=== PATIENT | female | born 1950 | race Caucasian/White ===

== ENCOUNTER 2018-09-22 11:30 | Inpatient (IN) | payer MEDICARE, OTHER ==
--- NOTE | 2018-09-22 11:57 | ED ---
General Adult HPI - General Chief complaint: Shortness of Breath Stated complaint: Sob Time Seen by Provider: 09/22/18 11:35 Source: patient, RN notes reviewed Mode of arrival: ambulatory Limitations: no limitations - History of Present Illness Initial comments: This is a 68-year-old female who presents emergency Department complaining of difficulty breathing. Patient states she has had ongoing for 2 weeks. Patient states she has had a bypass surgery in the past and was a 50 year smoker but no longer smokes. Patient states this difficulty breathing is definitely worse with lying down and worse with exertion. Patient states over the last 2 weeks and has increased and she is at the point now where she can barely breathe and walk a few steps. Patient states she's had intermittent chest pain but it's mostly sharp in nature only lasting a second or 2 when she was breathing hard. Patient denies any diaphoretic episodes. Patient denies any abdominal pain. Patient denies nausea vomiting diarrhea. Patient denies any recent fever chills or cough. Patient did go to her primary medical care doctor's office today and they sent her to the emergency department. Denies any increased swelling in the legs or calf tenderness. - Related Data Home Medications Medication Instructions Recorded Confirmed Amiodarone [Cordarone] 200 mg PO DAILY 09/22/18 09/22/18 Atorvastatin [Lipitor] 40 mg PO DAILY 09/22/18 09/22/18 Clopidogrel [Plavix] 75 mg PO DAILY 09/22/18 09/22/18 Ferrous Sulfate [Feosol] 325 mg PO DAILY 09/22/18 09/22/18 Furosemide [Lasix] 40 mg PO DAILY 09/22/18 09/22/18 Levothyroxine Sodium [Synthroid] 150 mcg PO DAILY 09/22/18 09/22/18 Metoprolol Succinate (ER) [Toprol 25 mg PO DAILY 09/22/18 09/22/18 Xl] Nitrofurantoin Monohyd/M-Cryst 100 mg PO Q12HR 09/22/18 09/22/18 [Macrobid] Omeprazole 40 mg PO DAILY 09/22/18 09/22/18 Potassium Chloride [Klor-Con 10] 10 meq PO DAILY 09/22/18 09/22/18 Allergies Allergy/AdvReac Type Severity Reaction Status Date / Time adhesive tape AdvReac Rash/Hives Verified 09/22/18 12:14 hydrocodone [From Lortab] AdvReac Itching Verified 09/22/18 12:14 Review of Systems ROS Statement: Those systems with pertinent positive or pertinent negative responses have been documented in the HPI. ROS Other: All systems not noted in ROS Statement are negative. Past Medical History Past Medical History: COPD, Hypertension, Pneumonia, Thyroid Disorder History of Any Multi-Drug Resistant Organisms: None Reported Past Surgical History: Appendectomy, Section, Coronary Bypass/CABG, Joint Replacement, Orthopedic Surgery, Tubal Ligation Past Psychological History: No Psychological Hx Reported Smoking Status: Former smoker Past Alcohol Use History: None Reported Past Drug Use History: None Reported General Exam - General Exam Comments Initial Comments: GENERAL: Patient is well-developed and well-nourished. Patient is nontoxic and well- hydrated and is in mild distress. ENT: Neck is soft and supple. No significant lymphadenopathy is noted. Oropharynx is clear. Moist mucous membranes. Neck has full range of motion without eliciting any pain. EYES: The sclera were anicteric and conjunctiva were pink and moist. Extraocular movements were intact and pupils were equal round and reactive to light. Eyelids were unremarkable. PULMONARY: Patient has crackles bilateral bases. CARDIOVASCULAR: There is a regular rate and rhythm without any murmurs gallops or rubs. ABDOMEN: Soft and nontender with normal bowel sounds. No palpable organomegaly was noted. There is no palpable pulsatile mass. SKIN: Skin is clear with no lesions or rashes and otherwise unremarkable. NEUROLOGIC: Patient is alert and oriented x3. Cranial nerves II through XII are grossly intact. Motor and sensory are also intact. Normal speech, volume and content. Symmetrical smile. MUSCULOSKELETAL: Normal extremities with adequate strength and full range of motion. She has 1+ edema bilateral legs LYMPHATICS: No significant lymphadenopathy is noted PSYCHIATRIC: Normal psychiatric evaluation. Limitations: no limitations Course Vital Signs 09/22/18 09/22/18 09/22/18 11:34 12:11 13:08 Temperature 97.6 F Pulse Rate 64 62 60 Respiratory 22 22 20 Rate Blood Pressure 134/56 125/65 128/68 O2 Sat by Pulse 98 96 Oximetry 09/22/18 14:45 Temperature Pulse Rate 59 L Respiratory 20 Rate Blood Pressure 125/71 O2 Sat by Pulse 96 Oximetry Medical Decision Making - Medical Decision Making EKG shows normal sinus rhythm at 63 bpm MS interval 116 QRS 106 QT intervals is 528 QTC is 540. Patient's EKG shows some minimal ST segment elevation in inferior leads II, III, and F aVF along with Q waves in 2 and aVF. Patient also has T-wave inversion in leads V4 V5 and V6. Patient currently is having no chest pain Acute as a low probability for PE. Chest x-ray shows pulmonary edema. I started the patient Lasix and Nitropaste in the emergency pertinent. I called sounds physician and he agreed to admit the patient admitted the patient I wrote admitting orders. - Lab Data Result diagrams: 09/22/18 12:00 09/22/18 12:00 Lab Results 09/22/18 09/22/18 09/22/18 Range/Units 12:00 12:00 12:00 WBC 10.3 (3.8-10.6) k/uL RBC 3.71 L (3.80-5.40) m/uL Hgb 11.3 L (11.4-16.0) gm/dL Hct 36.4 (34.0-46.0) % MCV 98.1 (80.0-100.0) fL MCH 30.5 (25.0-35.0) pg MCHC 31.1 (31.0-37.0) g/dL RDW 16.8 H (11.5-15.5) % Plt Count 316 (150-450) k/uL Neutrophils % 62 % Lymphocytes % 27 % Monocytes % 7 % Eosinophils % 2 % Basophils % 0 % Neutrophils # 6.4 (1.3-7.7) k/uL Lymphocytes # 2.8 (1.0-4.8) k/uL Monocytes # 0.8 (0-1.0) k/uL Eosinophils # 0.2 (0-0.7) k/uL Basophils # 0.0 (0-0.2) k/uL Hypochromasia Moderate Anisocytosis Slight Macrocytosis Slight PT (9.0-12.0) sec INR (<1.2) APTT (22.0-30.0) sec D-Dimer (<0.60) mg/L FEU Sodium 141 (137-145) mmol/L Potassium 4.1 (3.5-5.1) mmol/L Chloride 105 (98-107) mmol/L Carbon Dioxide 23 (22-30) mmol/L Anion Gap 13 mmol/L BUN 26 H (7-17) mg/dL Creatinine 1.57 H (0.52-1.04) mg/dL Est GFR (CKD-EPI)AfAm 39 (>60 ml/min/1.73 sqM) Est GFR (CKD-EPI)NonAf 33 (>60 ml/min/1.73 sqM) Glucose 120 H (74-99) mg/dL Calcium 9.5 (8.4-10.2) mg/dL Magnesium 2.0 (1.6-2.3) mg/dL Total Bilirubin 1.0 (0.2-1.3) mg/dL AST 32 (14-36) U/L ALT 34 (9-52) U/L Alkaline Phosphatase 140 H (38-126) U/L Total Creatine Kinase 32 (30-135) U/L CK-MB (CK-2) 0.8 (0.0-2.4) ng/mL CK-MB (CK-2) Rel Index 2.5 Troponin I 0.041 H* (0.000-0.034) ng/mL NT-Pro-B Natriuret Pep pg/mL Total Protein 7.8 (6.3-8.2) g/dL Albumin 3.9 (3.5-5.0) g/dL 09/22/18 09/22/18 Range/Units 12:00 12:00 WBC (3.8-10.6) k/uL RBC (3.80-5.40) m/uL Hgb (11.4-16.0) gm/dL Hct (34.0-46.0) % MCV (80.0-100.0) fL MCH (25.0-35.0) pg MCHC (31.0-37.0) g/dL RDW (11.5-15.5) % Plt Count (150-450) k/uL Neutrophils % % Lymphocytes % % Monocytes % % Eosinophils % % Basophils % % Neutrophils # (1.3-7.7) k/uL Lymphocytes # (1.0-4.8) k/uL Monocytes # (0-1.0) k/uL Eosinophils # (0-0.7) k/uL Basophils # (0-0.2) k/uL Hypochromasia Anisocytosis Macrocytosis PT 11.5 (9.0-12.0) sec INR 1.1 (<1.2) APTT 24.4 (22.0-30.0) sec D-Dimer 3.96 H (<0.60) mg/L FEU Sodium (137-145) mmol/L Potassium (3.5-5.1) mmol/L Chloride (98-107) mmol/L Carbon Dioxide (22-30) mmol/L Anion Gap mmol/L BUN (7-17) mg/dL Creatinine (0.52-1.04) mg/dL Est GFR (CKD-EPI)AfAm (>60 ml/min/1.73 sqM) Est GFR (CKD-EPI)NonAf (>60 ml/min/1.73 sqM) Glucose (74-99) mg/dL Calcium (8.4-10.2) mg/dL Magnesium (1.6-2.3) mg/dL Total Bilirubin (0.2-1.3) mg/dL AST (14-36) U/L ALT (9-52) U/L Alkaline Phosphatase (38-126) U/L Total Creatine Kinase (30-135) U/L CK-MB (CK-2) (0.0-2.4) ng/mL CK-MB (CK-2) Rel Index Troponin I (0.000-0.034) ng/mL NT-Pro-B Natriuret Pep 80133 pg/mL Total Protein (6.3-8.2) g/dL Albumin (3.5-5.0) g/dL Critical Care Time Critical Care Time: Yes Total Critical Care Time: 35 Disposition Clinical Impression: Acute pulmonary edema Disposition: ADMITTED IP TO THIS HOSP Is patient prescribed a controlled substance at d/c from ED?: No Referrals: Shaji Arvizu MD [Primary Care Provider] - 1-2 days Time of Disposition: 15:46
[2018-09-22] MEDS ORDERED: KETOROLAC 60 MG/2 ML VIAL IVP STA (12:21)
[2018-09-22 12:26] LABS: Anisocytosis Slight; Basophils % (A) 0 %; Eosinophils # (A) 0.2 k/uL (0-0.7); Eosinophils % (A) 2 %; HCT 36.4 % (34.0-46.0); HGB 11.3 gm/dL (11.4-16.0); Hypochromasia Moderate; Lymphocytes # (A) 2.8 k/uL (1.0-4.8); Lymphocytes % (A) 27 %; MCH 30.5 pg (25.0-35.0); MCHC 31.1 g/dL (31.0-37.0); MCV 98.1 fL (80.0-100.0); Macrocytosis Slight; Mean Platelet Volume 7.2; Monocytes # (A) 0.8 k/uL (0-1.0); Monocytes % (A) 7 %; Neutrophils # (A) 6.4 k/uL (1.3-7.7); Neutrophils % (A) 62 %; Platelet Count 316 k/uL (150-450); RBC 3.71 m/uL (3.80-5.40); RDW 16.8 % (11.5-15.5); WBC 10.3 k/uL (3.8-10.6)
[2018-09-22 12:35] LABS: Albumin 3.9 g/dL (3.5-5.0); Calcium 9.5 mg/dL (8.4-10.2); Potassium 4.1 mmol/L (3.5-5.1); Total Protein 7.8 g/dL (6.3-8.2)
[2018-09-22 12:45] LABS: INR 1.1 (<1.2); Partial Thromboplastin Time 24.4 sec (22.0-30.0); Prothrombin Time 11.5 sec (9.0-12.0)
[2018-09-22 12:50] LABS: D-Dimer 3.96 mg/L FEU (<0.60)
[2018-09-22 12:59] LABS: Creatine Kinase MB 0.8 ng/mL (0.0-2.4)
[2018-09-22 13:07] LABS: Troponin I 0.041 ng/mL (0.000-0.034)
--- NOTE | 2018-09-22 13:12 | XR ---
EXAMINATION TYPE: XR chest 2V DATE OF EXAM: 09/22/2018 COMPARISON: Chest x-ray April 05, 2010 HISTORY: History of COPD and hypertension with shortness of breath. TECHNIQUE: Frontal and lateral views of the chest are obtained. FINDINGS: New overlying sternal wires are present on current study. The cardiac silhouette size appe ars mildly enlarged with atherosclerotic thoracic aorta. New tiny bilateral pleural effusions and mi ld central vascular congestion is felt present. There is additional patchy left basilar opacity. The osseous structures are demineralized. IMPRESSION: Correlate for CHF exacerbation as there is now mild cardiomegaly with tiny bilateral ple ural effusions and mild central vascular congestion felt present. In addition there is associated lef t basilar atelectasis and/or infiltrate noted.
[2018-09-22] MEDS ORDERED: FUROSEMIDE 10 MG/ML 4 ML VIAL IV STA (13:27)
[2018-09-22] MEDS ORDERED: NITROGLYCERIN OINT 1 INCH/GM PACKET TOPICAL STA (13:27)
--- NOTE | 2018-09-22 14:39 | NM ---
EXAMINATION TYPE: NM pul vent and perfuse DATE OF EXAM: 09/22/2018 COMPARISON: Chest x-ray 09/22/2018 HISTORY: Dyspnea with elevated d-dimer TECHNIQUE: Utilizing inhalation of 38 mCi Tc 99m DTPA aerosol and intravenous injection of 5.15 mCi of Tc 99m MAA, ventilation and perfusion images are acquired post injection in multiple projections. FINDINGS: Normal radiotracer distribution is noted in the lungs. There is no evidence of mismatched defects. No moderate or large mismatched defects are evident. No triple matched defects are evident. IMPRESSION: Low probability for pulmonary embolism.
[2018-09-22] MEDS ORDERED: NALOXONE 0.4 MG/ML 1 ML VIAL IV PRN (16:19)
[2018-09-22] MEDS ORDERED: ACETAMINOPHEN TAB 325 MG TAB PO PRN (16:19)
[2018-09-22] MEDS ORDERED: HYDROcodone/APAP 5-325MG 1 EACH TAB PO PRN (16:19)
--- NOTE | 2018-09-22 16:48 | P.HPIM ---
History of Present Illness H&P Date: 09/22/18 Chief Complaint: Shortness of breath 68-year-old female with past medical history of [place] s/p CABG in July, anemia, hypothyroidism, GERD presents to the ED for shortness of breath. Patient states that this problem has been ongoing for the past 1-1/2 weeks and has been progressively getting worse. Her dyspnea is worsened with exertion. She reports worsening of her exercise tolerance and two-pillow orthopnea. Patient states that her shortness of breath has gotten so bad that she is unable to walk from one side to the other side of her bedroom. This prompted her to visit her PCP today who promptly sent her to the emergency department. Patient denies any lower extremity edema, headache, nausea, vomiting, fever, cough, chest pain, palpitations, changes in urination or bowel habits. No changes in appetite or weight. Of note, patient had an [place] in July 2018 underwent double CABG at [facility]. Patient reports a 50 year history of smoking 6-7 cigarettes daily. She denies any alcohol or illicit drugs. She denies any exertional chest pain. She denies any dizziness. She denies any numbness, weakness or tingling of the extremities. In the ED, CBC showed a hemoglobin 11.3. Coagulation panel was negative. CMP showed a BUN of 26 and creatinine of 1.57. Glucose was 120. Alkaline phosphatase is 140. D-dimer was elevated at 3.96, VQ scan ruled out PE. Initial troponin was 0.041, EKG showing normal sinus rhythm with sinus arrhythmia. BNP was 15,300 and chest x-rays confirmed findings of CHF exacerbation with tiny bilateral pleural effusions and central vascular congestion. Patient is admitted for new onset CHF exacerbation, cardiology on consult. Review of Systems All systems: negative Past Medical History Past Medical History: COPD, Hypertension, Pneumonia, Thyroid Disorder History of Any Multi-Drug Resistant Organisms: None Reported Past Surgical History: Appendectomy, Section, Coronary Bypass/CABG, Joint Replacement, Orthopedic Surgery, Tubal Ligation Past Psychological History: No Psychological Hx Reported Smoking Status: Former smoker Past Alcohol Use History: None Reported Past Drug Use History: None Reported Medications and Allergies Home Medications Medication Instructions Recorded Confirmed Type Amiodarone [Cordarone] 200 mg PO DAILY 09/22/18 09/22/18 History Atorvastatin [Lipitor] 40 mg PO DAILY 09/22/18 09/22/18 History Clopidogrel [Plavix] 75 mg PO DAILY 09/22/18 09/22/18 History Ferrous Sulfate [Feosol] 325 mg PO DAILY 09/22/18 09/22/18 History Furosemide [Lasix] 40 mg PO DAILY 09/22/18 09/22/18 History Levothyroxine Sodium [Synthroid] 150 mcg PO DAILY 09/22/18 09/22/18 History Metoprolol Succinate (ER) [Toprol 25 mg PO DAILY 09/22/18 09/22/18 History Xl] Nitrofurantoin Monohyd/M-Cryst 100 mg PO Q12HR 09/22/18 09/22/18 History [Macrobid] Omeprazole 40 mg PO DAILY 09/22/18 09/22/18 History Potassium Chloride [Klor-Con 10] 10 meq PO DAILY 09/22/18 09/22/18 History Allergies Allergy/AdvReac Type Severity Reaction Status Date / Time adhesive tape AdvReac Rash/Hives Verified 09/22/18 12:14 hydrocodone [From Lortab] AdvReac Itching Verified 09/22/18 12:14 Physical Exam Vitals: Vital Signs Temp Pulse Resp BP Pulse Ox 09/22/18 14:45 59 L 20 125/71 96 09/22/18 13:08 60 20 128/68 09/22/18 12:11 62 22 125/65 96 09/22/18 11:34 97.6 F 64 22 134/56 98 Intake and Output 09/22/18 09/22/18 09/22/18 06:59 14:59 22:59 Output Total 300 Balance -300 Output: Urine 300 Other: Weight 76.204 kg General: [non toxic], [no distress], [appears at stated age] Derm: [warm], [dry] Head: [atraumatic], [normocephalic], [symmetric] Eyes: [EOMI], [no lid lag], [anicteric sclera] Mouth: [no lip lesion], [mucus membranes moist] Cardiovascular: [S1S2 reg], [no murmur], [positive DP pulse bilateral], [ midline sternal scar] Lungs: [Decreased breath sounds bilateral], [no rhonchi, no rales] , [no accessory muscle use] Abdominal: [soft], [ nontender to palpation], [no guarding], [no appreciable organomegaly] Ext: [no gross muscle atrophy], [no edema], [no contractures] Neuro: [ CN II-XI grossly intact], [no focal neuro deficits] Psych: [Alert], [oriented], [appropriate affect] Results CBC & Chem 7: 09/22/18 12:00 09/22/18 12:00 Labs: Abnormal Lab Results - Last 24 Hours (Table) 09/22/18 09/22/18 09/22/18 Range/Units 12:00 12:00 12:00 RBC 3.71 L (3.80-5.40) m/uL Hgb 11.3 L (11.4-16.0) gm/dL RDW 16.8 H (11.5-15.5) % D-Dimer (<0.60) mg/L FEU BUN 26 H (7-17) mg/dL Creatinine 1.57 H (0.52-1.04) mg/dL Glucose 120 H (74-99) mg/dL Alkaline Phosphatase 140 H (38-126) U/L Troponin I 0.041 H* (0.000-0.034) ng/mL 09/22/18 Range/Units 12:00 RBC (3.80-5.40) m/uL Hgb (11.4-16.0) gm/dL RDW (11.5-15.5) % D-Dimer 3.96 H (<0.60) mg/L FEU BUN (7-17) mg/dL Creatinine (0.52-1.04) mg/dL Glucose (74-99) mg/dL Alkaline Phosphatase (38-126) U/L Troponin I (0.000-0.034) ng/mL Thrombosis Risk Factor Assmnt - Choose All That Apply Any of the Below Risk Factors Present?: No Other Risk Factors: Yes Each Risk Factor Represents 2 Points: Age 61-74 years Thrombosis Risk Factor Assessment Total Risk Factor Score: 2 Thrombosis Risk Factor Assessment Level: Low Risk Assessment and Plan Assessment: Assessment and Plan 1. CHF exacerbation: BNP 15,300 with CXR confirming bilateral pleural effusions with central congestion. D-Dimer elevated but V/Q scan ruled out PE. Start Lasix 40 mg IV TID. Will start Metoprolol 25 mg PO QD and Lisinopril 2.5 mg PO QD. Telemetry monitoring. Ins and Outs. Daily weights. Low salt diet. Keep Mg > 2 and K > 4. O2 per NC to maintain O2 sat > 92%. FU Echocardiogram, Cardiology consult 2. Troponemia: Troponin 0.041 with EKG showing sinus arrhythmia. Likely Trop leak from CHF exacerbation. Trend 2 Trop/EKG to r/o ACS. FU Cardiology, Echocardiogram 3. CAD: Continue Lipitor 40 mg PO QHS, ASA 81 mg PO QD and Plavix 75 mg PO QD. Continue Metoprolol. FU Cardiology, Echocardiogram, Lipid panel 4. Elevated Cr: Cr 1.57 with no baseline. Likely on CKD. Avoid IVF due to volume status. Encourage PO hydration. Avoid nephrotoxins. Daily BMP. 5. Anemia: Stable. Continue FeSO4 325 mg PO QD. 6. Hypothyroidism: Stable. Continue Synthroid 150 mcg PO QD. 7. DVT/GI Prophylaxis: SCD boots only. Patient is admitted for CHF exacerbation. Treating with IV diuresis. Cardiology on consult.
[2018-09-22] MEDS: NITROGLYCERIN OINT 1 INCH/GM PACKET TOPICAL SCH ×2 (19:36→19:48)
[2018-09-22] MEDS: FUROSEMIDE 10 MG/ML 4 ML VIAL IV SCH (19:49)
[2018-09-22 21:22] LABS: Glucose,Whole Blood 129 mg/dL (75-99)
[2018-09-23] MEDS: MELATONIN 3 MG TABLET PO PRN ×2 (00:22→22:37)
[2018-09-23 06:12] LABS: Glucose,Whole Blood 120 mg/dL (75-99)
[2018-09-23] MEDS: LEVOTHYROXINE 75 MCG TAB PO SCH (06:44)
[2018-09-23] MEDS: PANTOPRAZOLE 40 MG TABLET PO SCH (06:45)
[2018-09-23] MEDS: FUROSEMIDE 10 MG/ML 4 ML VIAL IV SCH ×3 (06:45→20:14)
[2018-09-23 07:10] LABS: Potassium 3.8 mmol/L (3.5-5.1)
[2018-09-23] MEDS: METOPROLOL SUCCINATE (ER) 25 MG TAB.ER.24H PO SCH (08:33)
[2018-09-23] MEDS: CLOPIDOGREL 75 MG TAB PO SCH (08:33)
[2018-09-23] MEDS: ATORVASTATIN 40 MG TAB PO SCH (08:34)
[2018-09-23] MEDS: ASPIRIN 81 MG PO SCH (08:34)
[2018-09-23] MEDS: FERROUS SULFATE 325 MG TAB PO SCH (08:34)
[2018-09-23] MEDS: NITROGLYCERIN OINT 1 INCH/GM PACKET TOPICAL SCH ×2 (08:36→12:06)
[2018-09-23] MEDS ORDERED: AMIODARONE 200 MG TAB PO SCH (09:00)
[2018-09-23] MEDS ORDERED: LISINOPRIL 2.5 MG TAB PO SCH (09:00)
[2018-09-23 12:04] LABS: Glucose,Whole Blood 87 mg/dL (75-99)
--- NOTE | 2018-09-23 12:11 | P.PN ---
Subjective Progress Note Date: 09/23/18 Principal diagnosis: CHF exacerbation Patient was seen and examined. No acute events overnight. Patient reports slight improvement in her breathing. She continues to complain of dyspnea especially when ambulating to the bathroom. She denies chest pain, dizziness or palpitations. Patient requesting UA to see if UTI is cleared from her system ( previously treated). Objective - Vital Signs Vital signs: Vital Signs Temp 97.6 F 09/23/18 11:36 Pulse 63 09/23/18 11:36 Resp 20 09/23/18 11:36 BP 106/61 09/23/18 11:36 Pulse Ox 97 09/23/18 11:36 Intake & Output 09/22/18 09/23/18 09/23/18 18:59 06:59 18:59 Intake Total 240 Output Total 550 1450 Balance -550 -1450 240 Weight 75.659 kg 75.1 kg Intake: Oral 240 Output: Urine 550 1450 Other: Voiding Method Toilet - Exam General: [non toxic], [no distress], [appears at stated age] Derm: [warm], [dry] Head: [atraumatic], [normocephalic], [symmetric] Eyes: [EOMI], [no lid lag], [anicteric sclera] Mouth: [no lip lesion], [mucus membranes moist] Cardiovascular: [S1S2 reg], [no murmur], [positive DP pulse bilateral], [ midline sternal scar] Lungs: [Decreased breath sounds bilateral], [no rhonchi, no rales] , [no accessory muscle use] Abdominal: [soft], [ nontender to palpation], [no guarding], [no appreciable organomegaly] Ext: [no gross muscle atrophy], [no edema], [no contractures] Neuro: [no focal neuro deficits] Psych: [Alert], [oriented], [appropriate affect] - Labs CBC & Chem 7: 09/22/18 12:00 09/23/18 06:00 Labs: Abnormal Lab Results - Last 24 Hours (Table) 09/22/18 09/22/18 09/22/18 Range/Units 12:00 12:00 12:00 RBC 3.71 L (3.80-5.40) m/uL Hgb 11.3 L (11.4-16.0) gm/dL RDW 16.8 H (11.5-15.5) % D-Dimer (<0.60) mg/L FEU Chloride (98-107) mmol/L BUN 26 H (7-17) mg/dL Creatinine 1.57 H (0.52-1.04) mg/dL Glucose 120 H (74-99) mg/dL POC Glucose (mg/dL) (75-99) mg/dL Alkaline Phosphatase 140 H (38-126) U/L Troponin I 0.041 H* (0.000-0.034) ng/mL 09/22/18 09/22/18 09/23/18 Range/Units 12:00 21:20 06:00 RBC (3.80-5.40) m/uL Hgb (11.4-16.0) gm/dL RDW (11.5-15.5) % D-Dimer 3.96 H (<0.60) mg/L FEU Chloride 110 H (98-107) mmol/L BUN 28 H (7-17) mg/dL Creatinine 1.70 H (0.52-1.04) mg/dL Glucose 124 H (74-99) mg/dL POC Glucose (mg/dL) 129 H (75-99) mg/dL Alkaline Phosphatase (38-126) U/L Troponin I (0.000-0.034) ng/mL 09/23/18 Range/Units 06:10 RBC (3.80-5.40) m/uL Hgb (11.4-16.0) gm/dL RDW (11.5-15.5) % D-Dimer (<0.60) mg/L FEU Chloride (98-107) mmol/L BUN (7-17) mg/dL Creatinine (0.52-1.04) mg/dL Glucose (74-99) mg/dL POC Glucose (mg/dL) 120 H (75-99) mg/dL Alkaline Phosphatase (38-126) U/L Troponin I (0.000-0.034) ng/mL Assessment and Plan Assessment: Assessment and Plan 1. CHF exacerbation: BNP 15,300 with CXR confirming bilateral pleural effusions with central congestion. D-Dimer elevated but V/Q scan ruled out PE. Start Lasix 40 mg IV TID. Will start Metoprolol 25 mg PO QD and Lisinopril 2.5 mg PO QD. Telemetry monitoring. Ins and Outs. Daily weights. Low salt diet. Keep Mg > 2 and K > 4. O2 per NC to maintain O2 sat > 92%. FU Echocardiogram, Cardiology consult 2. Troponemia: Troponin 0.041 with EKG showing sinus arrhythmia. Likely Trop leak from CHF exacerbation. Trend 2 Trop/EKG to r/o ACS. FU Cardiology, Echocardiogram 3. CAD: Continue Lipitor 40 mg PO QHS, ASA 81 mg PO QD and Plavix 75 mg PO QD. Continue Metoprolol. FU Cardiology, Echocardiogram, Lipid panel 4. Elevated Cr: Cr 1.57 to 1.70 with no baseline. Likely on CKD, worsened due to Lasix. Avoid IVF due to volume status. Encourage PO hydration. Avoid nephrotoxins. Daily BMP. 5. Anemia: Stable. Continue FeSO4 325 mg PO QD. 6. Hypothyroidism: Stable. Continue Synthroid 150 mcg PO QD. 7. DVT/GI Prophylaxis: SCD boots only. Patient is admitted for CHF exacerbation. Treating with IV diuresis. Cardiology consult pending.
--- NOTE | 2018-09-23 13:01 | ECHOF ---
Referral Reason:SOB, CHF MEASUREMENTS -------- HEIGHT: 170.2 cm WEIGHT: 75.3 kg BP: 128/67 RVIDd: 4.2 cm (< 3.3) IVSd: 1.0 cm (0.6 - 1.1) LVIDd: 5.1 cm (3.9 - 5.3) LVPWd: 1.1 cm (0.6 - 1.1) IVSs: 1.2 cm LVIDs: 5.2 cm LVPWs: 1.4 cm LA Diam: 4.9 cm (2.7 - 3.8) LAESV Index (A-L): 58.21 ml/m Ao Diam: 3.0 cm (2.0 - 3.7) AV Cusp: 1.6 cm (1.5 - 2.6) MV EXCURSION: 15.618 mm (> 18.000) MV EF SLOPE: 99 mm/s (70 - 150) EPSS: 0.4 cm MV E Cipriano: 0.96 m/s MV DecT: 238 ms MV A Cipriano: 0.36 m/s MV E/A Ratio: 2.65 RAP: 15.00 mmHg RVSP: 47.19 mmHg FINDINGS -------- Sinus rhythm. This was a technically adequate study. Left ventricular wall thickness is normal. Overall left ventricular systolic function is moderate-s everely impaired with, an EF between 30 - 35 %. Basal inferior LV wall motion is akinetic. Basal inferoseptal LV wall motion is akinetic. Mid inferior LV wall motion is akinetic. Mid inferose ptal LV wall motion is akinetic. The right ventricle is severely enlarged. LA is severely dilated >40 ml/m2 The right atrial size is normal. The aortic valve is trileaflet, and appears structurally normal. No aortic stenosis or regurgitation. Mild mitral annular calcification present. Moderate mitral regurgitation is present. Moderate to severe tricuspid regurgitation present. There is moderate pulmonary hypertension. The right ventricular systolic pressure, as measured by Doppler, is 47.19mmHg. There is no pulmonic regurgitation present. The aortic root size is normal. The inferior vena cava is mildly dilated. There is no pericardial effusion. CONCLUSIONS -------- 1. Sinus rhythm. 2. Left ventricular wall thickness is normal. 3. Overall left ventricular systolic function is moderate-severely impaired with, an EF between 30 - 35 %. 4. Basal inferior LV wall motion is akinetic. 5. Basal inferoseptal LV wall motion is akinetic. 6. Mid inferior LV wall motion is akinetic. 7. Mid inferoseptal LV wall motion is akinetic. 8. The right ventricle is severely enlarged. 9. LA is severely dilated >40 ml/m2 10. The aortic valve is trileaflet, and appears structurally normal. No aortic stenosis or regurgitat ion. 11. Mild mitral annular calcification present. 12. Moderate mitral regurgitation is present. 13. Moderate to severe tricuspid regurgitation present. 14. There is moderate pulmonary hypertension. 15. There is no pulmonic regurgitation present. 16. The aortic root size is normal. 17. The inferior vena cava is mildly dilated. 18. There is no pericardial effusion. BLACK LEATHER BUFFER: Kelly Leavitt RDCS
[2018-09-23 13:37] LABS: Creatine Kinase MB 0.8 ng/mL (0.0-2.4); Troponin I 0.029 ng/mL (0.000-0.034)
[2018-09-23 15:06] LABS: Appearance,Urine Clear (Clear); Bacteria,Urine Rare /hpf; Bilirubin,Urine Negative (Negative); Blood,Urine Negative (Negative); Color,Urine Yellow; Glucose,Urine (UA) Negative (Negative); Ketones,Urine Negative (Negative); Leukocyte Esterase,Urine Moderate (Negative); Mucus,Urine Rare /hpf; Nitrite,Urine Negative (Negative); Protein,Urine Negative (Negative); RBC,Urine 1 /hpf (0-5); Specific Gravity,Urine 1.008 (1.001-1.035); Squamous Epithelial Cell,Urine 1 /hpf (0-4); Urobilinogen,Urine <2.0 mg/dL (<2.0)
[2018-09-23 17:01] LABS: Glucose,Whole Blood 115 mg/dL (75-99)
--- NOTE | 2018-09-23 21:05 | CONS ---
CONSULTATION This is a 68-year-old lady who has a history of CAD, recent myocardial infarction sometime in July of this year, followed by aortocoronary bypass surgery performed at [facility], who has been admitted to the hospital through the emergency room with increasing shortness of breath that has been going on for the past 2 weeks. She indicates to me that she was having difficulty in breathing initially with activity and thereafter even at rest. It got progressively worse to the point she could not breathe and had sharp intermittent pains in the chest which seemed to be atypical. She went to her primary care physician's office and then they sent her over to the emergency room. At the time of my evaluation, she is still short of breath, but indicates to me that she feels a lot better than what she did before. 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 PAST MEDICAL HISTORY: 1. Smoking and COPD. She quit smoking in July after her SD. 2. Acute myocardial infarction followed by bypass surgery in July, details unavailable. 3. Hypertension. 4. History of hypothyroidism. 5. She is status post orthopedic surgery and also had some appendectomy. MEDICATIONS: At home include amiodarone 200 mg daily, atorvastatin 40 mg daily, Plavix 75 mg daily, aspirin 81 mg daily, Lasix 40 mg daily, she also takes some iron supplements. She takes metoprolol succinate 25 mg daily. ALLERGIES: She is allergic to LORTAB. LABORATORY DATA: Her laboratory data suggests that her D-dimer was elevated. Her hemoglobin was 11.3, platelet count was 316. Her renal function is abnormal with a creatinine of 1.5 up to 1.7. Her initial troponin was 0.04 and then changed to 0.2. Because of elevated D-dimer, she went down to have a lung perfusion study which revealed that there was a low probability for pulmonary embolism. On examination, her blood pressure is 110/70, pulse rate is 68 per minute and regular. HEENT unremarkable. Fundus was not examined by me. Neck is supple. There is JVD of at least 1 cm. There is no carotid bruit. Heart exam reveals S1, S2 heard normally. There is a short systolic murmur audible. Lungs reveal fine rales over both bases. Abdomen is soft, nontender. Lower extremities reveal diminished pulses. Central nervous system is grossly within normal limits. EKG revealed a sinus mechanism with sinus arrhythmia, nonspecific ST changes, poor R- wave progression over precordial leads. An echocardiogram that was performed earlier today revealed a ejection fraction of 30- 35 percent with extensive inferior wall hypokinesia and mild to moderate pulmonary hypertension. There is moderate mitral and moderate to severe tricuspid regurgitation noted. IMPRESSION: 1. Exacerbation of systolic heart failure, probably acute on chronic. Patient's chest x-ray suggests pulmonary edema and elevated BNP is noted. 2. Acute myocardial infarction followed by bypass surgery in July, details are unavailable. 3. History of anemia on iron supplements. 4. Hypothyroidism on thyroid supplements. 5. Chronic kidney disease. 6. History of smoking and chronic obstructive pulmonary disease. 7. Probable perioperative atrial fibrillation. RECOMMENDATIONS: I will recommend that we discontinue her amiodarone. We will continue cautious diuresis for now. I will add losartan 25 mg daily. I will obtain the and review the records from [facility]. Based on clinical course I will make further recommendations. I will start her on losartan 25 mg daily, discontinue lisinopril, add Imdur 30 mg daily, discontinue nitro paste. The patient may need a defibrillator down the road and I discussed this with her at length, but first we will optimize her medical therapy and see how she does. Her troponin profile does not suggest myocardial injury. Discussed my thoughts in detail with the patient and . Thank you very much for the consult. [place] / ELLAN: [id number] /
[2018-09-23 21:13] LABS: Glucose,Whole Blood 166 mg/dL (75-99)
[2018-09-24] MEDS: LEVOTHYROXINE 75 MCG TAB PO SCH (05:48)
[2018-09-24] MEDS: FUROSEMIDE 10 MG/ML 4 ML VIAL IV SCH (05:48)
[2018-09-24] MEDS: PANTOPRAZOLE 40 MG TABLET PO SCH (05:48)
[2018-09-24 05:49] LABS: Glucose,Whole Blood 118 mg/dL (75-99)
[2018-09-24 08:07] LABS: Potassium 3.4 mmol/L (3.5-5.1)
[2018-09-24] MEDS: ISOSORBIDE MONONITRATE ER 30 MG TAB.ER.24H PO SCH (08:27)
[2018-09-24] MEDS: ASPIRIN 81 MG PO SCH (08:27)
[2018-09-24] MEDS: METOPROLOL SUCCINATE (ER) 25 MG TAB.ER.24H PO SCH (08:27)
[2018-09-24] MEDS: ATORVASTATIN 40 MG TAB PO SCH (08:27)
[2018-09-24] MEDS: FERROUS SULFATE 325 MG TAB PO SCH (08:28)
[2018-09-24] MEDS: CLOPIDOGREL 75 MG TAB PO SCH (08:28)
[2018-09-24] MEDS: LOSARTAN 25 MG TAB PO SCH (08:28)
[2018-09-24 11:31] LABS: Glucose,Whole Blood 158 mg/dL (75-99)
[2018-09-24] MEDS: POTASSIUM CHLORIDE ER 20 MEQ TAB.ER PO SCH (12:08)
[2018-09-24 14:20] VITALS: BMI 26.0
[2018-09-24] MEDS: FUROSEMIDE 40 MG TAB PO SCH (16:09)
--- NOTE | 2018-09-24 18:38 | PN ---
PROGRESS NOTE Mrs Narayanan is a lady who presented with congestive heart failure of systolic following a myocardial infarction in July and bypass surgery. She is feeling much better today. Breathing is easier. She is less short of breath. Lungs are clear. Vital signs are stable. There is no JVD. S1-S2 heard normally. Short systolic murmur is audible. Lungs are clear. Abdomen and lower extremity exam unchanged. Plan is to switch her from IV to oral Lasix, supplement potassium, increase activity. Plan for discharge tomorrow. We have requested records from [facility] and they are still not available yet. Hopefully we will get them sometime today. MMODL / IJN: [id number] /
[2018-09-24] MEDS ORDERED: TEMAZEPAM 15 MG CAP PO PRN (22:22)
[2018-09-24] MEDS: TEMAZEPAM 15 MG CAP PO PRN (22:48)
[2018-09-25] MEDS: LEVOTHYROXINE 75 MCG TAB PO SCH (05:55)
[2018-09-25] MEDS: PANTOPRAZOLE 40 MG TABLET PO SCH (05:55)
[2018-09-25 06:48] LABS: Calcium 8.8 mg/dL (8.4-10.2); Potassium 4.4 mmol/L (3.5-5.1)
[2018-09-25] MEDS: ASPIRIN 81 MG PO SCH (09:49)
[2018-09-25] MEDS: POTASSIUM CHLORIDE ER 20 MEQ TAB.ER PO SCH (09:49)
[2018-09-25] MEDS: METOPROLOL SUCCINATE (ER) 25 MG TAB.ER.24H PO SCH (09:49)
[2018-09-25] MEDS: ATORVASTATIN 40 MG TAB PO SCH (09:49)
[2018-09-25] MEDS: CLOPIDOGREL 75 MG TAB PO SCH (09:50)
[2018-09-25] MEDS: ISOSORBIDE MONONITRATE ER 30 MG TAB.ER.24H PO SCH (09:50)
[2018-09-25] MEDS: LOSARTAN 25 MG TAB PO SCH (09:50)
[2018-09-25] MEDS: FUROSEMIDE 40 MG TAB PO SCH ×2 (09:50→17:13)
[2018-09-25] MEDS: FERROUS SULFATE 325 MG TAB PO SCH (09:50)
--- NOTE | 2018-09-25 15:46 | PN ---
PROGRESS NOTE I evaluated Mrs. Narayanan today and also reviewed the records from [facility] from July of this year. When she went into the hospital and had an echo on July 30, her LV function was normal. According to the cath report, there was disease in the LAD, RCA and circumflex. She had grafts placed only to the LAD and RCA. She did not have the circumflex grafted. However, there was no echo after the procedure. However, echo on this hospitalization revealed ejection fraction of less than 40% with evidence of inferior wall hypokinesia. It is unclear whether she had any infarction preoperatively or after the surgery. I explained to the patient and her that there is LV dysfunction. We will first optimize medical therapy, increase activity, and we will follow up in the office upon discharge. She may require an additional cardiac catheterization after review of her initial angiograms. Vital signs are stable. Her breathing is a lot easier. S1-S2 heard normally. There is a short systolic murmur audible. Lungs are clearer. Abdomen is soft. Lower extremities reveal normal pulses. No edema. Plan is to increase activity, continue current medications and possibly discharge her in the next 24 hours. MMODL / IJN: [id number] /
[2018-09-25] MEDS: TEMAZEPAM 15 MG CAP PO PRN (22:03)
--- NOTE | 2018-09-26 00:45 | PN ---
PROGRESS NOTE DATE OF SERVICE: September 24, 2018. PRESENTING COMPLAINT: Short of breath. INTERVAL HISTORY: This patient seen by me on September 24, 2018. Admitted with CHF exacerbation, short of breath when getting up to the bathroom. Did tolerate a diet. Feels a bit run down. No fever. No chills. REVIEW OF SYSTEMS: Done for constitutional, cardiovascular, GI, pulmonary and relevant findings as above. CURRENT MEDICATIONS: Reviewed that include IV Lasix. PHYSICAL EXAMINATION: Temperature 97.3, pulse 61, respiratory 18, blood pressure 90/51, pulse ox 93 percent on room air., GENERAL APPEARANCE: Sitting up, tired. EYES: Pupils equal. Conjunctivae normal. NECK: JVD unable to assess. Mass not palpable. RESPIRATORY: Effort increased. LUNGS: Decreased breath sounds. CARDIOVASCULAR: 1st and 2nd sounds normal. Minimal edema. ABDOMEN: Soft, nontender. Liver and spleen is not palpable. PSYCHIATRY: Alert and oriented x3. Mood and affect normal. INVESTIGATIONS: Potassium 3.4, BUN 26, creatinine 1.69. ASSESSMENT: 1. Acute on chronic congestive heart failure exacerbation from systolic dysfunction EF 30-35 percent. 2. Moderate mitral regurgitation, nonrheumatic. 3. Moderate to severe tricuspid regurgitation, nonrheumatic. 4. Coronary artery disease. 5. Chronic obstructive pulmonary disease in an ex-smoker. 6. Gastroesophageal reflux disease. 7. Essential hypertension. 8. Hypothyroid. PLAN: Continue current medication and treatment plan. The patient is being followed by Cardiology. We will plan to switch her to oral Lasix. MMODL / IJN: [id number] /
--- NOTE | 2018-09-26 00:52 | PN ---
PROGRESS NOTE DATE OF SERVICE: September 25, 2018. PRESENTING COMPLAINT: Short of breath. INTERVAL HISTORY: This patient is seen by me on September 25, 2018. Breathing is getting better. Treated for CHF. Switched over to p.o. Lasix. Up to the bathroom, tolerating a diet. No new issues. REVIEW OF SYSTEMS: Done for constitutional, cardiovascular, GI, pulmonary; relevant findings as above. CURRENT MEDICATIONS: Reviewed that include p.o. Lasix. PHYSICAL EXAMINATION: VITAL SIGNS: Temperature 97.9, pulse 65, respiratory 18, blood pressure 106/55. Pulse ox 97% on room air. GENERAL APPEARANCE: Sitting up, not in distress. EYES: Pupils equal. Conjunctivae normal. NECK: JVD not raised. Mass not palpable. RESPIRATORY: Effort normal. Lungs improved air entry. CARDIOVASCULAR: First and second sounds normal. Minimal edema. ABDOMEN: Soft, nontender. Liver and spleen not palpable. PSYCHIATRY: Alert and oriented x3. Mood and affect normal. INVESTIGATIONS: Potassium 4.4, BUN 26, creatinine 1.59. ASSESSMENT: 1. Acute on chronic congestive heart failure exacerbation from systolic dysfunction EF 30-35 percent. 2. Coronary artery disease. 3. Moderate mitral regurgitation, nonrheumatic. 4. Moderate to severe tricuspid regurgitation, nonrheumatic. 5. Moderate secondary pulmonary hypertension from chronic obstructive pulmonary disease. 6. Chronic obstructive pulmonary disease in an ex-smoker. 7. Gastroesophageal reflux disease. 8. Essential hypertension. 9. Hypothyroid. 10.Chronic kidney disease stage 3 from nephrosclerosis. PLAN: Care was discussed with the patient and family at the bedside. Questions were answered. Overall getting better. Increase patient's activity. If she remains stable, probably go home tomorrow. MMODL / IJN: [id number] /
[2018-09-26] MEDS: PANTOPRAZOLE 40 MG TABLET PO SCH (06:38)
[2018-09-26] MEDS: LEVOTHYROXINE 75 MCG TAB PO SCH (06:38)
[2018-09-26] MEDS: METOPROLOL SUCCINATE (ER) 25 MG TAB.ER.24H PO SCH (08:30)
[2018-09-26] MEDS: LOSARTAN 25 MG TAB PO SCH (08:30)
[2018-09-26] MEDS: ATORVASTATIN 40 MG TAB PO SCH (08:31)
[2018-09-26] MEDS: FUROSEMIDE 40 MG TAB PO SCH (08:31)
[2018-09-26] MEDS: FERROUS SULFATE 325 MG TAB PO SCH (08:31)
[2018-09-26] MEDS: POTASSIUM CHLORIDE ER 20 MEQ TAB.ER PO SCH (08:31)
[2018-09-26] MEDS: ASPIRIN 81 MG PO SCH (08:31)
[2018-09-26] MEDS: CLOPIDOGREL 75 MG TAB PO SCH (08:31)
[2018-09-26] MEDS: ISOSORBIDE MONONITRATE ER 30 MG TAB.ER.24H PO SCH (08:31)
[2018-09-26 08:35] VITALS: RESP 16; TEMP 97.4
[2018-09-26 12:48] VITALS: BP 112/55; PULSE 63
--- NOTE | 2018-09-26 22:44 | PN ---
PROGRESS NOTE Mrs Narayanan has ischemic cardiomyopathy, underwent aortocoronary bypass surgery with 2 grafts in July at [facility]. She came in with heart failure. She feels better, ambulating without symptoms. I reviewed the records from [facility]. She has circumflex disease but was not grafted. I will review the images when I get a chance and get the report of a CT from [facility]. Vital signs are stable. She is ambulating without symptoms. S1-S2 heard normally. Short systolic murmur noted. Lungs are clear. Abdomen and lower extremity exam unchanged. PLAN: Increase activity and discharge her. She will see me in the office in 2 weeks. I reviewed all her medications. She will continue the same combination. MMODL / IJN: [id number] /
--- NOTE | 2018-09-26 23:50 | DS ---
DISCHARGE SUMMARY DATE OF ADMISSION: 09/22/2018. DATE OF DISCHARGE: 09/26/2018. FINAL DIAGNOSES: 1. Acute on chronic congestive heart failure exacerbation from systolic dysfunction, EF 30-35 percent from underlying coronary artery disease. 2. Coronary artery disease. 3. Moderate mitral regurgitation, nonrheumatic. 4. Moderate to severe tricuspid regurgitation, nonrheumatic. 5. Moderate secondary pulmonary hypertension from chronic obstructive pulmonary disease. 6. Chronic obstructive pulmonary disease in an ex-smoker. 7. Gastroesophageal reflux disease. 8. Essential hypertension. 9. Hypothyroid. 10.Chronic kidney disease stage 3 from hypertensive nephrosclerosis. HOSPITAL COURSE: This patient presented in CHF exacerbation. Responded well to diuretics. Doing much better. Able to walk in the hallway. PHYSICAL EXAMINATION: Temperature 97.4 pulse 63, respirations 16, blood pressure 112/55. pulse 96% on room air. LUNGS: Clear. INVESTIGATIONS: Potassium 4.4, BUN 26, creatinine 1.59. 2D echo shows EF 30-35 percent. The patient has got some wall motion abnormalities, moderate mitral regurgitation, moderate to severe tricuspid regurgitation and moderate pulmonary hypertension. Care was discussed with the patient and at the bedside. Both the patient and the see Dr. Arvizu as a family doctor. At this point they wished to switch their family doctor to Dr. Reji Otto. CONSULTATION: Dr. Nini Vazquez from Cardiology. DISCHARGE MEDICATION: 1. Lipitor 40 mg p.o. daily. 2. Plavix 75 mg p.o. daily. 3. Iron 325 p.o. daily. 4. Synthroid 150 mcg p.o. daily. 5. Toprol-XL 25 mg p.o. daily. 6. Omeprazole 40 mg p.o. daily. 7. Aspirin 81 mg p.o. daily. 8. Lasix 40 mg b.i.d. 9. Imdur ER 30 mg p.o. daily. 10.Cozaar 25 mg p.o. daily. 11.Potassium 20 mEq p.o. daily. FOLLOWUP: Follow up with Dr. Nini Vazquez on 10/02/2018. Follow up with Dr. Otto in 3 days. Discussion and discharge planning more than 35 minutes. MMODL / IJN: [id number] /
== END 2018-09-26 14:15 | disposition home or self-care (01) | DRG 291 ==
LOC: EC 11:30 → 3SCARD 15:48
PROVIDERS: ADMIT Hospitalist; ATTEND Hospitalist
DX: I13.0 Hypertensive heart and chronic kidney disease with heart failure and stage 1 through stage 4 chronic kidney disease, or unspecified chronic kidney disease (principal); I50.23 Acute on chronic systolic (congestive) heart failure; D64.9 Anemia, unspecified; E03.9 Hypothyroidism, unspecified; K21.9 Gastro-esophageal reflux disease without esophagitis; I25.5 Ischemic cardiomyopathy; I48.91 Unspecified atrial fibrillation; I27.29 Other secondary pulmonary hypertension; N18.3 Chronic kidney disease, stage 3 (moderate); J44.9 Chronic obstructive pulmonary disease, unspecified; I25.10 Atherosclerotic heart disease of native coronary artery without angina pectoris; I08.1 Rheumatic disorders of both mitral and tricuspid valves; T50.1X5A Adverse effect of loop [high-ceiling] diuretics, initial encounter; I25.2 Old myocardial infarction; Z95.1 Presence of aortocoronary bypass graft; Z87.01 Personal history of pneumonia (recurrent); Z79.02 Long term (current) use of antithrombotics/antiplatelets; Z79.890 Hormone replacement therapy; Z79.899 Other long term (current) drug therapy; Z87.891 Personal history of nicotine dependence; Z88.8 Allergy status to other drugs, medicaments and biological substances
CPT/HCPCS: 36415; 71046; 78582; 80048; 80053; 81001; 82550; 82553; 83735; 83880; 84484; 85025; 85379; 85610; 85730; 87040; 93005; 93306; 96374; 96375; 99291

== ENCOUNTER → 2018-10-27 | Outpatient (CLI) | payer MEDICARE ==
--- NOTE | 2018-10-27 14:49 | XR ---
EXAMINATION TYPE: XR chest 2V DATE OF EXAM: 10/27/2018 COMPARISON: 09/22/2018 HISTORY: Chest pain. History of open-heart surgery and COPD. TECHNIQUE: Frontal and lateral views of the chest are obtained. FINDINGS: Again there is very minimal interstitial prominence. Pulmonary hyperinflation relates under lying known COPD. There is no focal air space opacity, pleural effusion, or pneumothorax seen. The c ardiac silhouette size is enlarged with post CABG changes. There is mild diffuse osseous demineraliza tion present. The osseous structures are intact. IMPRESSION: Minimal interstitial prominence as seen on the prior may relate to mild pulmonary edema from congestive heart failure as there is an enlarged cardiac mediastinal silhouette.
[2018-10-27 15:13] LABS: Anisocytosis Slight; HCT 37.7 % (34.0-46.0); HGB 11.3 gm/dL (11.4-16.0); Hypochromasia Moderate; MCHC 30.1 g/dL (31.0-37.0); MCV 96.5 fL (80.0-100.0); Mean Platelet Volume 6.6; Platelet Count 236 k/uL (150-450); RDW 16.2 % (11.5-15.5); WBC 7.7 k/uL (3.8-10.6)
[2018-10-27 15:22] LABS: Calcium 9.9 mg/dL (8.4-10.2); Potassium 5.6 mmol/L (3.5-5.1)
--- NOTE | 2018-10-27 16:26 | XR ---
EXAMINATION TYPE: XR ribs bilateral DATE OF EXAM: 10/27/2018 COMPARISON: 10/27/2018 chest radiograph HISTORY: Chest pain with no known injury. History of COPD and hypertension. Prior open-heart surgery. TECHNIQUE: Frontal and oblique views of the bilateral ribs were obtained. FINDINGS: As discussed on the chest radiograph of the same date there is minimal interstitial promine nce throughout that may relate to pulmonary edema from congestive heart failure. Postsurgical changes the chest are again demonstrated. Epicardial pacing leads are noted. There is mild bilateral glenohumeral and acromioclavicular arthropathy. Costochondral calcifications are seen bilaterally. No acute displaced rib fracture is seen of either hemithorax. No callused rib f racture deformities are noted. IMPRESSION: No displaced acute rib fracture nor healed rib fracture deformity bilaterally.
== END ==
LOC: RADXRMAIN 14:18
PROVIDERS: ATTEND Internal Medicine Interventional Cardiology
DX: R07.89 Other chest pain (principal); I25.10 Atherosclerotic heart disease of native coronary artery without angina pectoris; I50.9 Heart failure, unspecified; I07.9 Rheumatic tricuspid valve disease, unspecified; R05 Cough
CPT/HCPCS: 71046; 71110; 80048; 85027

== ENCOUNTER 2018-12-14 11:13 | Inpatient (IN) | payer MEDICARE, OTHER ==
--- NOTE | 2018-12-14 12:20 | ED ---
General Adult HPI - General Chief complaint: Shortness of Breath Stated complaint: SOB Time Seen by Provider: 12/14/18 11:20 Source: patient Mode of arrival: wheelchair Limitations: no limitations - History of Present Illness Initial comments: Dictation was produced using Proficiency dictation software. please excuse any grammatical, word or spelling errors. Chief Complaint: 68-year-old feel past medical history of emphysema, pneumonia, coronary artery disease status post double bypass presents with 4-5 days of worsening dyspnea. History of Present Illness: She 68-year-old female. She has history of bypass graft for coronary artery disease. She states that surgery was 2 months ago. 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 She states that over fast 5 days she 's been having worsening dyspnea. She states that her dyspnea is worse with lying flat. Denies any lower extremity symptoms. Patient had an ultrasound and has history of 30-35% ejection fraction. Patient denies any chest pain. She does report cough with production of clear sputum that is intermittent. Denies any chest pain. No fever, chills or night sweats. Patient denies any pleurisy. Denies any history of blood clots. The ROS documented in this emergency department record has been reviewed and confirmed by me. Those systems with pertinent positive or negative responses have been documented in the HPI. All other systems are other negative and/or noncontributory. PHYSICAL EXAM: General Impression: Alert and oriented x3, mild respiratory distress HEENT: Normocephalic atraumatic, extra-ocular movements intact, pupils equal and reactive to light bilaterally, mucous membranes moist. Cardiovascular: Heart regular rate and rhythm, S1&S2 audible, no murmurs, rubs or gallops Chest: Bilateral lung crackles Abdomen: Bowel sounds present, abdomen soft, non-tender, non-distended, no organomegaly Musculoskeletal: Pulses present and equal in all extremities, no peripheral edema Motor: Power 5/5 bilaterally, no focal deficits noted Neurological: CN II-XII grossly intact, no focal motor or sensory deficits noted Skin: Intact with no visualized rashes Psych: Normal affect and mood ED course: 68-year-old female presents with chief complaint of dyspnea. Vital signs upon arrival are within acceptable limits.Laboratory evaluation obtained. CBC was obtained showing no acute processes. Coag panel unremarkable. Metabolic panel shows slight elevation in renal markers which appear to be at or around her baseline. Troponin is slightly elevated at 0.016 likely secondary to troponin leak. Prematurity peptide is 16,000. X-ray shows interstitial edema. Clinical presentation consistent with acute onset of heart failure. Patient be admitted with gentle diuresis. Cardiology on consult. Serial troponins ordered. EKG interpretation: Ventricular rate 64, normal sinus rhythm, VT interval 160, QRS 96, QTC 478. No VT prolongation, no QTC prolongation, no ST or T-wave changes noted. . Overall, this EKG is unremarkable - Related Data Home Medications Medication Instructions Recorded Confirmed Atorvastatin [Lipitor] 40 mg PO DAILY 09/22/18 12/14/18 Levothyroxine Sodium [Synthroid] 150 mcg PO DAILY 09/22/18 12/14/18 Metoprolol Succinate (ER) [Toprol 50 mg PO DAILY 09/22/18 12/14/18 XL] Furosemide [Lasix] 20 mg PO HS 12/14/18 12/14/18 Furosemide [Lasix] 40 mg PO QAM 12/14/18 12/14/18 Ipratropium-Albuterol Nebulize 3 ml INHALATION RT-TID 12/14/18 12/14/18 [Duoneb 0.5 mg-3 mg/3 ml Soln] Losartan [Cozaar] 50 mg PO HS 12/14/18 12/14/18 Previous Rx's Medication Instructions Recorded Aspirin 81 mg PO DAILY chew 09/26/18 Isosorbide Mononitrate ER [Imdur] 30 mg PO DAILY #30 tab.er.24h 09/26/18 Allergies Allergy/AdvReac Type Severity Reaction Status Date / Time adhesive tape AdvReac Rash/Hives Verified 12/14/18 12:05 hydrocodone [From Lortab] AdvReac Itching Verified 12/14/18 12:05 Review of Systems ROS Statement: Those systems with pertinent positive or pertinent negative responses have been documented in the HPI. ROS Other: All systems not noted in ROS Statement are negative. Past Medical History Past Medical History: Coronary Artery Disease (CAD), COPD, GERD/Reflux, Hypertension, Myocardial Infarction (SC), Pneumonia, Thyroid Disorder Additional Past Medical History / Comment(s): difficulty getting to sleep. 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 writer unable to verify date at time of this admit Last Myocardial Infarction Date:: History of Any Multi-Drug Resistant Organisms: None Reported Past Surgical History: Appendectomy, Section, Coronary Bypass/CABG, Hysterectomy, Joint Replacement, Orthopedic Surgery, Tubal Ligation Additional Past Surgical History / Comment(s): had cabg in jul 2018 at [facility], rt hip replacment, anahy knee replacment, carpal tunnel,rt ankle arthroscopy, total hysterectomy, "anahy elbow sx d/t tennis elbow" Past Anesthesia/Blood Transfusion Reactions: No Reported Reaction Additional Past Anesthesia/Blood Transfusion Reaction / Comment(s): "never received blood transfusion" Past Psychological History: Depression Smoking Status: Former smoker Past Alcohol Use History: None Reported Past Drug Use History: None Reported - Past Family History Mother Family Medical History: COPD Additional Family Medical History / Comment(s): emphysema Father Family Medical History: Coronary Artery Disease (CAD) Additional Family Medical History / Comment(s): 2 vessel cabg at age 57 General Exam Limitations: no limitations Course Vital Signs 12/14/18 12/14/18 12/14/18 11:16 12:00 12:30 Temperature 97.9 F Pulse Rate 63 62 64 Respiratory 18 15 18 Rate Blood Pressure 109/61 123/72 126/73 O2 Sat by Pulse 97 93 L 95 Oximetry 12/14/18 12/14/18 12/14/18 12:43 13:00 13:30 Temperature Pulse Rate 64 61 Respiratory 22 18 20 Rate Blood Pressure 131/72 132/62 O2 Sat by Pulse 95 95 Oximetry 12/14/18 12/14/18 14:00 14:27 Temperature Pulse Rate 61 63 Respiratory 18 16 Rate Blood Pressure 128/64 122/64 O2 Sat by Pulse 95 94 L Oximetry Medical Decision Making - Lab Data Result diagrams: 12/14/18 12:26 12/14/18 12:26 Lab Results 12/14/18 12/14/18 12/14/18 Range/Units 12:26 12:26 12:26 WBC 8.7 (3.8-10.6) k/uL RBC 3.86 (3.80-5.40) m/uL Hgb 11.2 L (11.4-16.0) gm/dL Hct 35.6 (34.0-46.0) % MCV 92.4 (80.0-100.0) fL MCH 29.1 (25.0-35.0) pg MCHC 31.5 (31.0-37.0) g/dL RDW 16.6 H (11.5-15.5) % Plt Count 165 (150-450) k/uL Neutrophils % 54 % Lymphocytes % 32 % Monocytes % 6 % Eosinophils % 6 % Basophils % 1 % Neutrophils # 4.7 (1.3-7.7) k/uL Lymphocytes # 2.7 (1.0-4.8) k/uL Monocytes # 0.5 (0-1.0) k/uL Eosinophils # 0.5 (0-0.7) k/uL Basophils # 0.1 (0-0.2) k/uL Hypochromasia Slight Anisocytosis Slight PT (9.0-12.0) sec INR (<1.2) APTT (22.0-30.0) sec Sodium 142 (137-145) mmol/L Potassium 4.1 (3.5-5.1) mmol/L Chloride 108 H (98-107) mmol/L Carbon Dioxide 25 (22-30) mmol/L Anion Gap 9 mmol/L BUN 24 H (7-17) mg/dL Creatinine 1.34 H (0.52-1.04) mg/dL Est GFR (CKD-EPI)AfAm 47 (>60 ml/min/1.73 sqM) Est GFR (CKD-EPI)NonAf 41 (>60 ml/min/1.73 sqM) Glucose 103 H (74-99) mg/dL Calcium 9.7 (8.4-10.2) mg/dL Magnesium 2.0 (1.6-2.3) mg/dL Total Bilirubin 1.3 (0.2-1.3) mg/dL AST 33 (14-36) U/L ALT 40 (9-52) U/L Alkaline Phosphatase 169 H (38-126) U/L Troponin I (0.000-0.034) ng/mL NT-Pro-B Natriuret Pep 97659 pg/mL Total Protein 7.7 (6.3-8.2) g/dL Albumin 3.9 (3.5-5.0) g/dL 12/14/18 12/14/18 Range/Units 12:26 12:26 WBC (3.8-10.6) k/uL RBC (3.80-5.40) m/uL Hgb (11.4-16.0) gm/dL Hct (34.0-46.0) % MCV (80.0-100.0) fL MCH (25.0-35.0) pg MCHC (31.0-37.0) g/dL RDW (11.5-15.5) % Plt Count (150-450) k/uL Neutrophils % % Lymphocytes % % Monocytes % % Eosinophils % % Basophils % % Neutrophils # (1.3-7.7) k/uL Lymphocytes # (1.0-4.8) k/uL Monocytes # (0-1.0) k/uL Eosinophils # (0-0.7) k/uL Basophils # (0-0.2) k/uL Hypochromasia Anisocytosis PT 11.3 (9.0-12.0) sec INR 1.1 (<1.2) APTT 22.4 (22.0-30.0) sec Sodium (137-145) mmol/L Potassium (3.5-5.1) mmol/L Chloride (98-107) mmol/L Carbon Dioxide (22-30) mmol/L Anion Gap mmol/L BUN (7-17) mg/dL Creatinine (0.52-1.04) mg/dL Est GFR (CKD-EPI)AfAm (>60 ml/min/1.73 sqM) Est GFR (CKD-EPI)NonAf (>60 ml/min/1.73 sqM) Glucose (74-99) mg/dL Calcium (8.4-10.2) mg/dL Magnesium (1.6-2.3) mg/dL Total Bilirubin (0.2-1.3) mg/dL AST (14-36) U/L ALT (9-52) U/L Alkaline Phosphatase (38-126) U/L Troponin I 0.016 (0.000-0.034) ng/mL NT-Pro-B Natriuret Pep pg/mL Total Protein (6.3-8.2) g/dL Albumin (3.5-5.0) g/dL Disposition Clinical Impression: Acute decompensated heart failure Disposition: ADMITTED IP TO THIS HOSP Condition: Fair Referrals: Reji Otto DO [Primary Care Provider] - 1-2 days Decision Time: 14:36
[2018-12-14 13:06] LABS: Albumin 3.9 g/dL (3.5-5.0); Calcium 9.7 mg/dL (8.4-10.2); Potassium 4.1 mmol/L (3.5-5.1); Total Bilirubin 1.3 mg/dL (0.2-1.3); Total Protein 7.7 g/dL (6.3-8.2)
--- NOTE | 2018-12-14 13:07 | XR ---
EXAMINATION TYPE: XR chest 2V DATE OF EXAM: 12/14/2018 COMPARISON: Prior chest x-ray 10/27/2018 HISTORY: Difficulty breathing, dyspnea TECHNIQUE: Frontal and lateral views of the chest are obtained. FINDINGS: There is no focal air space opacity, pleural effusion, or pneumothorax seen. The cardiac silhouette size is enlarged, stable. Prominent lung volume may be indicative of underlying COPD. Inte rstitium is increased. Patient is post median sternotomy. Aorta is dense. The osseous structures ar e intact. IMPRESSION: Correlate for possible pulmonary venous hypertension and interstitial edema. Patient is rotated. There are cardiac leads. Follow-up suggested.
[2018-12-14 13:13] LABS: INR 1.1 (<1.2); Partial Thromboplastin Time 22.4 sec (22.0-30.0); Prothrombin Time 11.3 sec (9.0-12.0)
[2018-12-14 13:16] LABS: Anisocytosis Slight; Basophils # (A) 0.1 k/uL (0-0.2); Basophils % (A) 1 %; Eosinophils # (A) 0.5 k/uL (0-0.7); Eosinophils % (A) 6 %; HCT 35.6 % (34.0-46.0); HGB 11.2 gm/dL (11.4-16.0); Hypochromasia Slight; Lymphocytes # (A) 2.7 k/uL (1.0-4.8); Lymphocytes % (A) 32 %; MCH 29.1 pg (25.0-35.0); MCHC 31.5 g/dL (31.0-37.0); MCV 92.4 fL (80.0-100.0); Mean Platelet Volume 7.5; Monocytes # (A) 0.5 k/uL (0-1.0); Monocytes % (A) 6 %; Neutrophils # (A) 4.7 k/uL (1.3-7.7); Neutrophils % (A) 54 %; Platelet Count 165 k/uL (150-450); RBC 3.86 m/uL (3.80-5.40); RDW 16.6 % (11.5-15.5); WBC 8.7 k/uL (3.8-10.6)
[2018-12-14] MEDS ORDERED: FUROSEMIDE 10 MG/ML 4 ML VIAL IV STA (13:33)
[2018-12-14 16:28] LABS: Appearance,Urine Clear (Clear); Bilirubin,Urine Negative (Negative); Blood,Urine Negative (Negative); Color,Urine Colorless; Glucose,Urine (UA) Negative (Negative); Ketones,Urine Negative (Negative); Leukocyte Esterase,Urine Negative (Negative); Nitrite,Urine Negative (Negative); Protein,Urine Negative (Negative); Specific Gravity,Urine 1.004 (1.001-1.035); Urobilinogen,Urine <2.0 mg/dL (<2.0)
[2018-12-14] MEDS ORDERED: IPRATROPIUM-ALBUTEROL 3 ML NEB INHALATION SCH (20:00)
[2018-12-14] MEDS: LOSARTAN 50 MG TAB PO SCH (20:02)
[2018-12-14] MEDS ORDERED: FUROSEMIDE 10 MG/ML 4 ML VIAL IV SCH (22:00)
[2018-12-14] MEDS: guaiFENesin 600 MG TABLET.ER PO SCH (23:10)
[2018-12-14] MEDS: TEMAZEPAM 30 MG CAP PO SCH (23:10)
[2018-12-14] MEDS: methylPREDNISolone SOD SUCCI 40 MG/ML 1 ML VIAL IV SCH (23:10)
--- NOTE | 2018-12-14 23:46 | HP ---
HISTORY AND PHYSICAL DATE OF ADMISSION: 12/14/2018 DATE OF SERVICE: 12/14/2018 PRESENTING COMPLAINT: Short of breath. HISTORY OF PRESENTING COMPLAINT: This is a very pleasant 68-year-old patient of Dr. Otto. Chronic stable medical conditions include coronary artery disease, hypertension, GERD, hypothyroidism, chronic kidney disease. For 4 to 5 days patient was getting increasingly short of breath, cough, congested in the chest, decreased appetite, tired, rundown. She presented to the ER. Patient had a coronary artery bypass about 2 months ago at [facility]. Denies any edema. Some orthopnea. Admitted for the same. REVIEW OF SYSTEMS: CONSTITUTIONAL: Tired. HEENT: None. RESPIRATORY: As above. CARDIOVASCULAR: As above. GASTROINTESTINAL: Heartburn. GENITOURINARY: None. MUSCULOSKELETAL: None. DERMATOLOGICAL: None. HEMATOLOGICAL: None. LYMPHATICS: None. PSYCHIATRY: None. NEUROLOGICAL: None. PAST MEDICAL HISTORY: 1. Coronary artery disease with bypass. 2. Congestive heart failure, EF 30% to 35%. 3. Mitral and tricuspid regurgitation. 4. Secondary pulmonary hypertension. 5. GERD. 6. Hypertension. 7. Hypothyroid. 8. Chronic kidney disease, stage III. PAST SURGICAL HISTORY: 1. Appendectomy. 2. . 3. Coronary artery bypass. 4. Total hysterectomy. 5. Joint replacement. 6. CABG in July 2018 at [facility]. 7. Right hip replacement. 8. Bilateral knee replacement. 9. Carpal tunnel release. 10.Right ankle arthroscopy. 11.Bilateral elbow surgery. PSYCH HISTORY: Depression in the past. SOCIAL HISTORY: Patient smoked a quarter pack a day for close to 55 years, stopped last year in July. . FAMILY HISTORY: COPD. HOME MEDICATIONS: 1. Restoril 30 mg at bedtime. 2. Cozaar 50 mg at bedtime. 3. Lasix 20 mg at bedtime. 4. Toprol XL 50 mg p.o. daily. 5. Synthroid 150 mcg daily. 6. Imdur ER 30 mg p.o. daily. 7. DuoNeb t.i.d. 8. Lasix 40 mg daily. 9. Aspirin 81 mg daily. 10.Lipitor 40 mg p.o. daily. ALLERGIES: LORTAB and ADHESIVE TAPE. PHYSICAL EXAMINATION: VITAL SIGNS ON PRESENTATION: Temperature 97.9, pulse 63, respiration 18, blood pressure 109/61, pulse ox 97% on room air. GENERAL APPEARANCE: Average build. Lying in bed, tired, slightly short of breath. EYES: Pupils equal. Conjunctivae normal. HEENT: External appearance of nose and ears normal. Oral cavity normal. NECK: JVD unable to assess. Mass not palpable. RESPIRATORY: Effort increased. LUNGS: Decreased breath sounds, wheezing. CARDIOVASCULAR: First and second sounds normal. Minimal edema. ABDOMEN: Soft, non-tender. Liver and spleen not palpable. LYMPHATIC: No lymph node palpable in neck or axillae. PSYCHIATRY: Alert and oriented x3. Mood and affect normal. NEUROLOGICAL: Pupils equal. Cranial nerves grossly intact. Power and sensation grossly intact. INVESTIGATIONS: White count 8.7, hemoglobin 11.2, potassium 4.1, BUN 24, creatinine 1.34. UA negative. EKG tracing, personally reviewed by me, shows normal sinus rhythm with some nonspecific T-wave changes in the inferior leads. Chest x-ray film, personally reviewed by me, shows cardiomegaly, venous prominence, possible basilar infiltrate. ASSESSMENT: 1. Acute on chronic congestive heart failure exacerbation from systolic dysfunction, ejection fraction 30%, from underlying coronary artery disease. 2. Coronary artery disease with history of coronary artery bypass in July 2018. 3. Acute chronic obstructive pulmonary disease exacerbation in an ex-smoker. 4. Possible basal pneumonia; suspect gram-negative organism. 5. Mitral and tricuspid regurgitation. 6. Secondary pulmonary hypertension due to congestive heart failure and chronic obstructive pulmonary disease. 7. Gastroesophageal reflux disease. 8. Essential hypertension. 9. Hypothyroidism. 10.Chronic kidney disease, stage III, from nephrosclerosis. PLAN: Patient is started on IV Lasix. Will follow electrolytes closely. Patient also will be started on IV ceftriaxone, nebulized bronchodilators, steroids. Accu-Cheks will be followed. Home medications are resumed. Care was discussed with the patient. Questions were answered. Cardiology opinion will be sought. MMODL / IJN: [id number] /
[2018-12-15] MEDS: IPRATROPIUM-ALBUTEROL 3 ML NEB INHALATION SCH ×7 (00:06→23:18)
[2018-12-15 06:17] LABS: Glucose,Whole Blood 170 mg/dL (75-99)
[2018-12-15] MEDS: FUROSEMIDE 10 MG/ML 10 ML VIAL IV SCH ×2 (06:24→17:25)
[2018-12-15] MEDS: LEVOTHYROXINE 75 MCG TAB PO SCH (06:24)
[2018-12-15] MEDS: INSULIN ASPART (NovoLOG) 100 UNIT/ML VIAL SQ SCH ×4 (06:53→20:31)
[2018-12-15] MEDS: BUDESONIDE 1 MG/2 ML NEBU INHALATION SCH ×2 (07:27→19:21)
[2018-12-15] MEDS: ASPIRIN 81 MG PO SCH (09:16)
[2018-12-15] MEDS: ENOXAPARIN 40 MG/0.4 ML SYRINGE SQ SCH (09:16)
[2018-12-15] MEDS: methylPREDNISolone SOD SUCCI 40 MG/ML 1 ML VIAL IV SCH (09:16)
[2018-12-15] MEDS: ATORVASTATIN 40 MG TAB PO SCH (09:16)
[2018-12-15] MEDS: ISOSORBIDE MONONITRATE ER 30 MG TAB.ER.24H PO SCH (09:16)
[2018-12-15] MEDS: guaiFENesin 600 MG TABLET.ER PO SCH ×2 (09:16→20:26)
[2018-12-15] MEDS: METOPROLOL SUCCINATE (ER) 50 MG TAB.ER.24H PO SCH (09:16)
--- NOTE | 2018-12-15 09:43 | P.CRDCN ---
History of Present Illness Consult date: 12/15/18 Requesting physician: Po Moss Consult reason: congestive heart failure Chief complaint: Shortness of breath History of present illness: This is a pleasant 68-year-old female who follows regularly with Dr. Campos Vazquez in the office. She has a known history of coronary artery disease with prior myocardial infarction in July 2018 with subsequent coronary artery bypass grafting 2 performed at [facility]. She also has a history of prior COPD, nicotine dependence, hypertension, hypothyroidism, hyperlipidemia. She presents to the hospital on this occasion with symptoms of 5 day duration of worsening shortness of breath, positive PND and orthopnea with no overt peripheral edema. She has had a cough, which she describes as a hockey cough, nonproductive. She denies any recent chest discomfort. Chest x- ray on admission here showed pulmonary venous hypertension and interstitial edema. EKG showed a normal sinus rhythm with ST-T wave changes noted in the inferior leads, similar to prior EKGs. Blood pressure on arrival here 106/60 with a heart rate in the 60s, 95% on 2 L of oxygen. White blood cell count 8.7 , hemoglobin 11.2, platelet count 165. On admission sodium was 141, potassium 5.6, BUN 30 and creatinine 1.8, this morning's labs sodium 142, potassium 4.1, BUN 24 and creatinine 1.3. Troponin 0.016. BNP level 16,000. Patient did have an echocardiogram with Doppler study performed in September which revealed an ejection fraction of 30-35%, basal inferior, inferior septal hypokinesia, moderate to severe tricuspid regurg with moderate mitral regurgitation and moderate pulmonary hypertension. Patient was started on IV Lasix in the emergency room, diuresed well through the night last night. Past Medical History Past Medical History: Coronary Artery Disease (CAD), COPD, GERD/Reflux, Hypertension, Myocardial Infarction (AR), Pneumonia, Thyroid Disorder Additional Past Medical History / Comment(s): difficulty getting to sleep. pt stated has ahd a pne vaccine after age of 64,proposal writer unable to verify date at time of this admit Last Myocardial Infarction Date:: History of Any Multi-Drug Resistant Organisms: None Reported Past Surgical History: Appendectomy, Section, Coronary Bypass/CABG, Hysterectomy, Joint Replacement, Orthopedic Surgery, Tubal Ligation Additional Past Surgical History / Comment(s): had cabg in jul 2018 at [facility], rt hip replacment, anahy knee replacment, carpal tunnel,rt ankle arthroscopy, total hysterectomy, "anahy elbow sx d/t tennis elbow" Past Anesthesia/Blood Transfusion Reactions: No Reported Reaction Additional Past Anesthesia/Blood Transfusion Reaction / Comment(s): "never received blood transfusion" Past Psychological History: Depression Additional Psychological History / Comment(s): mild depression since cabg 2017 Smoking Status: Former smoker Past Alcohol Use History: None Reported Additional Past Alcohol Use History / Comment(s): started smoking age 13 and quit smoked 6-7 cig per day Past Drug Use History: None Reported - Past Family History Mother Family Medical History: COPD Additional Family Medical History / Comment(s): emphysema Father Family Medical History: Coronary Artery Disease (CAD) Additional Family Medical History / Comment(s): 2 vessel cabg at age 57 Medications and Allergies Home Medications Medication Instructions Recorded Confirmed Type Atorvastatin [Lipitor] 40 mg PO DAILY 09/22/18 12/14/18 History Levothyroxine Sodium [Synthroid] 150 mcg PO DAILY 09/22/18 12/14/18 History Metoprolol Succinate (ER) [Toprol 50 mg PO DAILY 09/22/18 12/14/18 History XL] Aspirin 81 mg PO DAILY chew 09/26/18 12/14/18 Rx Isosorbide Mononitrate ER [Imdur] 30 mg PO DAILY #30 tab.er.24h 09/26/18 Rx Furosemide [Lasix] 20 mg PO HS 12/14/18 12/14/18 History Furosemide [Lasix] 40 mg PO QAM 12/14/18 12/14/18 History Ipratropium-Albuterol Nebulize 3 ml INHALATION RT-TID 12/14/18 12/14/18 History [Duoneb 0.5 mg-3 mg/3 ml Soln] Losartan [Cozaar] 50 mg PO HS 12/14/18 12/14/18 History Temazepam [Restoril] 30 mg PO HS 12/14/18 12/14/18 History Allergies Allergy/AdvReac Type Severity Reaction Status Date / Time adhesive tape AdvReac Rash/Hives Verified 12/14/18 12:05 hydrocodone [From Lortab] AdvReac Itching Verified 12/14/18 12:05 Physical Exam Vitals: Vital Signs Temp Pulse Pulse Resp BP BP Pulse Ox 12/15/18 07:41 72 12/15/18 07:27 70 12/15/18 04:10 76 71 20 12/15/18 04:00 97.9 F 70 19 104/65 98 12/15/18 03:56 72 12/15/18 00:17 60 12/15/18 00:10 97.9 F 64 19 106/62 95 12/15/18 00:06 62 97 12/14/18 20:00 98.5 F 61 20 114/72 95 12/14/18 16:00 64 22 12/14/18 15:12 98.1 F 64 16 115/57 96 12/14/18 15:00 98.2 F 64 18 136/82 95 12/14/18 14:30 64 23 122/64 94 L 12/14/18 14:27 63 16 122/64 94 L 12/14/18 14:00 61 18 128/64 95 12/14/18 13:30 61 20 132/62 95 12/14/18 13:00 64 18 131/72 95 12/14/18 12:43 22 12/14/18 12:30 64 18 126/73 95 12/14/18 12:00 62 15 123/72 93 L 12/14/18 11:16 97.9 F 63 18 109/61 97 Intake and Output 12/14/18 12/15/18 12/15/18 22:59 06:59 14:59 Intake Total 120 240 Output Total 700 800 Balance -580 -800 240 Intake: Oral 120 240 Output: Urine 700 800 Other: Voiding Method Toilet Toilet # Voids 1 3 0 # Bowel Movements 0 Weight 70.7 kg PHYSICAL EXAMINATION: GENERAL: 68-year-old female in no acute distress at the time of my examination HEENT: Head is atraumatic, normocephalic. Pupils equal, round. Sclera anicteric. Conjunctiva are clear. Mucous membranes of the mouth are moist. Neck is supple. There is elevated jugular venous pressure. No carotid bruit is heard. HEART EXAMINATION: Heart S1 and S2 systolic murmur is heard CHEST EXAMINATION: Lungs reveal rales to bilateral bases, no wheezing ABDOMEN: Soft, nontender. Bowel sounds are heard. No organomegaly noted. EXTREMITIES: 2+ peripheral pulses with no evidence of peripheral edema and no calf tenderness noted. NEUROLOGIC patient is awake, alert and oriented 3. . Results 12/14/18 12:26 12/14/18 12:26 Cardiac Enzymes 12/14/18 12/14/18 Range/Units 12:26 12:26 AST 33 (14-36) U/L Troponin I 0.016 (0.000-0.034) ng/mL Coagulation 12/14/18 Range/Units 12:26 PT 11.3 (9.0-12.0) sec APTT 22.4 (22.0-30.0) sec CBC 12/14/18 Range/Units 12:26 WBC 8.7 (3.8-10.6) k/uL RBC 3.86 (3.80-5.40) m/uL Hgb 11.2 L (11.4-16.0) gm/dL Hct 35.6 (34.0-46.0) % Plt Count 165 (150-450) k/uL Comprehensive Metabolic Panel 12/14/18 Range/Units 12:26 Sodium 142 (137-145) mmol/L Potassium 4.1 (3.5-5.1) mmol/L Chloride 108 H (98-107) mmol/L Carbon Dioxide 25 (22-30) mmol/L BUN 24 H (7-17) mg/dL Creatinine 1.34 H (0.52-1.04) mg/dL Glucose 103 H (74-99) mg/dL Calcium 9.7 (8.4-10.2) mg/dL AST 33 (14-36) U/L ALT 40 (9-52) U/L Alkaline Phosphatase 169 H (38-126) U/L Total Protein 7.7 (6.3-8.2) g/dL Albumin 3.9 (3.5-5.0) g/dL Current Medications Generic Name Dose Route Start Last Admin Trade Name Freq PRN Reason Stop Dose Admin Albuterol/Ipratropium 3 ml 12/15/18 00:00 12/15/18 07:27 Duoneb 0.5 Mg-3 Mg/3 Ml Soln INHALATION 3 ml RT-Q4H THU Administration Aspirin 81 mg 12/15/18 09:00 12/15/18 09:16 Aspirin PO 81 mg DAILY THU Administration Atorvastatin Calcium 40 mg 12/15/18 09:00 12/15/18 09:16 Lipitor PO 40 mg DAILY THU Administration Budesonide 1 mg 12/15/18 08:00 12/15/18 07:27 Pulmicort INHALATION 1 mg RT-BID THU Administration Enoxaparin Sodium 40 mg 12/15/18 09:00 12/15/18 09:16 Lovenox SQ 40 mg DAILY THU Administration Furosemide 80 mg 12/15/18 06:00 12/15/18 06:24 Lasix IV 80 mg Q12H THU Administration Guaifenesin 1,200 mg 12/14/18 22:30 12/15/18 09:16 Mucinex PO 1,200 mg Q12HR [facility] Administration Ceftriaxone Sodium 1 gm/ 50 mls @ 100 mls/hr 12/14/18 23:00 12/15/18 00:30 Sodium Chloride IVPB 100 mls/hr Q24H THU Administration Insulin Aspart 0 unit 12/15/18 07:30 12/15/18 06:53 Novolog SQ 3 unit ACHS [facility] Administration Protocol Isosorbide Mononitrate 30 mg 12/15/18 09:00 12/15/18 09:16 Imdur PO 30 mg DAILY [facility] Administration Levothyroxine Sodium 150 mcg 12/15/18 06:30 12/15/18 06:24 Synthroid PO 150 mcg DAILY@0630 [facility] Administration Losartan Potassium 50 mg 12/14/18 21:00 12/14/18 20:02 Cozaar PO 50 mg HS [facility] Administration Methylprednisolone Sodium Succinate 40 mg 12/15/18 00:00 12/15/18 09:16 Solu-Medrol IV Not Given Q8HR [facility] Metoprolol Succinate 50 mg 12/15/18 09:00 12/15/18 09:16 Toprol Xl PO 50 mg DAILY [facility] Administration Temazepam 30 mg 12/14/18 21:00 12/14/18 23:10 Restoril PO 30 mg HS [facility] Administration Intake and Output 12/14/18 12/15/18 12/15/18 22:59 06:59 14:59 Intake Total 120 240 Output Total 700 800 Balance -580 -800 240 Intake: Oral 120 240 Output: Urine 700 800 Other: Voiding Method Toilet Toilet # Voids 1 3 0 # Bowel Movements 0 Weight 70.7 kg 12/14/18 12:26 12/14/18 12:26 EKG Interpretations (text) EKG shows a normal sinus rhythm with inferior ST-T wave changes similar to prior EKGs. Assessment and Plan Plan: Assessment and plan #1 systolic congestive heart failure acute on chronic #2 history of myocardial infarction with subsequent 2 vessel coronary artery bypass grafting surgery in July of last year #3 hypertension #4 hyperlipidemia #5 hypothyroidism Plan We will attain an echocardiogram with Doppler study. Continue IV Lasix, monitoring intake and output and daily weights along with daily lytes BUN and creatinine. Discontinue steroids. Further recommendations to follow. DNP note has been reviewed, I agree with a documented findings and plan of care. Patient was seen and examined.
[2018-12-15 10:43] VITALS: BMI 25.1
--- NOTE | 2018-12-15 11:27 | ECHOF ---
Referral Reason:chf MEASUREMENTS -------- HEIGHT: 167.6 cm WEIGHT: 70.3 kg BP: 104/65 RVIDd: 4.3 cm (< 3.3) IVSd: 0.8 cm (0.6 - 1.1) LVIDd: 5.4 cm (3.9 - 5.3) LVPWd: 1.1 cm (0.6 - 1.1) IVSs: 1.3 cm LVIDs: 4.8 cm LVPWs: 1.5 cm LAESV Index (A-L): 60.32 ml/m Ao Diam: 3.0 cm (2.0 - 3.7) AV Cusp: 2.0 cm (1.5 - 2.6) LA Diam: 3.3 cm (2.7 - 3.8) MV EXCURSION: 19.436 mm (> 18.000) MV EF SLOPE: 88 mm/s (70 - 150) EPSS: 1.2 cm MV E Cipriano: 0.77 m/s MV DecT: 335 ms MV A Cipriano: 0.39 m/s MV E/A Ratio: 1.98 RAP: 5.00 mmHg RVSP: 44.14 mmHg FINDINGS -------- Sinus rhythm. This was a technically difficult study with suboptimal views. The left ventricular size is normal. Left ventricular wall thickness is normal. Overall left vent ricular systolic function is moderate-severely impaired with, an EF between 30 - 35 %. There is par adoxical/dysynergic septal motion consistent with post-operative status. Basal lateral LV wall kari on is aneurysmal Basal inferior LV wall motion is aneurysmal Basal inferoseptal LV wall motion is akinetic. Mid inferior LV wall motion is akinetic. The right ventricle is severely enlarged. LA is severely dilated >40 ml/m2 RA appears enlarged. Lumason used Can not exclude ASD/PFO. Left to right shunt seen. Aortic valve is trileaflet and is mildly thickened. The mitral valve leaflets are mildly thickened. Moderate mitral regurgitation is present. Severe tricuspid regurgitation present. There is mild pulmonary hypertension. The right ventricul ar systolic pressure, as measured by Doppler, is 44.14mmHg. The pulmonic valve was not well visualized. There is no pulmonic regurgitation present. 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 The aortic root size is normal. IVC Not well visulized. There is no pericardial effusion. CONCLUSIONS -------- 1. Sinus rhythm. 2. This was a technically difficult study with suboptimal views. 3. The left ventricular size is normal. 4. Left ventricular wall thickness is normal. 5. Overall left ventricular systolic function is moderate-severely impaired with, an EF between 30 - 35 %. 6. There is paradoxical/dysynergic septal motion consistent with post-operative status. 7. Basal lateral LV wall motion is aneurysmal 8. Basal inferior LV wall motion is aneurysmal 9. Basal inferoseptal LV wall motion is akinetic. 10. Mid inferior LV wall motion is akinetic. 11. The right ventricle is severely enlarged. 12. LA is severely dilated >40 ml/m2 13. RA appears enlarged. 14. Can not exclude ASD/PFO. Left to right shunt seen. 15. Lumason used 16. Aortic valve is trileaflet and is mildly thickened. 17. The mitral valve leaflets are mildly thickened. 18. Moderate mitral regurgitation is present. 19. Severe tricuspid regurgitation present. 20. There is mild pulmonary hypertension. 21. The pulmonic valve was not well visualized. 22. The aortic root size is normal. 23. IVC Not well visulized. 24. There is no pericardial effusion. COSTUMED CHARACTER ENTERTAINER: Ann Suggs RDCS
[2018-12-15 11:41] LABS: Glucose,Whole Blood 158 mg/dL (75-99)
[2018-12-15 16:41] LABS: Glucose,Whole Blood 176 mg/dL (75-99)
[2018-12-15] MEDS: TEMAZEPAM 30 MG CAP PO SCH (23:05)
[2018-12-15] MEDS: LOSARTAN 50 MG TAB PO SCH (23:06)
--- NOTE | 2018-12-16 01:49 | PN ---
PROGRESS NOTE DATE OF SERVICE: December 15, 2018. PRESENTING COMPLAINT: Short of breath. INTERVAL HISTORY: Patient with recent coronary artery bypass. Presented with CHF exacerbation, getting IV Lasix. Breathing is slightly better. Less cough. Did tolerate some diet. Was out of bed. REVIEW OF SYSTEMS: Done for constitutional, cardiovascular, GI, pulmonary; relevant findings as above. CURRENT MEDICATIONS: Reviewed that include IV Lasix 80 q.12h and DuoNeb. PHYSICAL EXAMINATION: VITAL SIGNS: Temperature 97.7, pulse 66, respiration 20, blood pressure 92/52, pulse ox 96 percent on room air. GENERAL APPEARANCE: Sitting up awake. EYES: Pupils are equal. Conjunctivae normal. NECK: JVD not raised. Mass not palpable. RESPIRATORY: Effort increased. Lungs, some improved air entry. Decreased edema. ABDOMEN: Soft, nontender. Liver and spleen not palpable. PSYCHIATRY: Alert and oriented x3. Mood and affect normal. INVESTIGATIONS: Accu-Cheks are noted. 2D echo shows EF of 30 to 35% and multiple other abnormalities. ASSESSMENT: 1. Acute on chronic congestive heart failure exacerbation from systolic dysfunction, ejection fraction 30% from underlying coronary artery disease. 2. Coronary artery disease with prior history of coronary artery bypass in July 2018. 3. Acute chronic obstructive pulmonary disease exacerbation in an ex-smoker. 4. Mitral and tricuspid regurgitation. 5. Secondary pulmonary hypertension due to congestive heart failure and chronic obstructive pulmonary disease. 6. Gastroesophageal reflux disease. 7. Essential hypertension. 8. Hypothyroidism. 9. Chronic kidney disease stage 3 from nephrosclerosis. 10.Acute on chronic congestive heart failure from systolic dysfunction EF 30 35%, slow to respond. PLAN: We will keep the patient on IV Lasix. Continue with bronchodilators. Repeat electrolytes in the morning. Repeat chest x-ray. Care was discussed with the family at the bedside. Follow with Cardiology. MMODL / IJN: [id number] /
[2018-12-16] MEDS: IPRATROPIUM-ALBUTEROL 3 ML NEB INHALATION SCH ×6 (03:21→23:27)
[2018-12-16 06:49] LABS: Calcium 9.6 mg/dL (8.4-10.2); Potassium 4.5 mmol/L (3.5-5.1)
[2018-12-16] MEDS: FUROSEMIDE 10 MG/ML 10 ML VIAL IV SCH (06:51)
[2018-12-16] MEDS: LEVOTHYROXINE 75 MCG TAB PO SCH (06:51)
[2018-12-16] MEDS: METOPROLOL SUCCINATE (ER) 50 MG TAB.ER.24H PO SCH (08:08)
[2018-12-16] MEDS: ISOSORBIDE MONONITRATE ER 30 MG TAB.ER.24H PO SCH (08:08)
[2018-12-16] MEDS: ASPIRIN 81 MG PO SCH (08:08)
[2018-12-16] MEDS: guaiFENesin 600 MG TABLET.ER PO SCH ×2 (08:08→20:55)
[2018-12-16] MEDS: ENOXAPARIN 40 MG/0.4 ML SYRINGE SQ SCH (08:08)
[2018-12-16] MEDS: ATORVASTATIN 40 MG TAB PO SCH (08:08)
[2018-12-16] MEDS: BUDESONIDE 1 MG/2 ML NEBU INHALATION SCH ×2 (08:09→19:13)
--- NOTE | 2018-12-16 08:11 | XR ---
EXAMINATION TYPE: XR chest 2V DATE OF EXAM: 12/16/2018 COMPARISON: 12/14/2018 INDICATION: CHF TECHNIQUE: Frontal and lateral views of the chest are obtained. FINDINGS: The heart size is enlarged. The pulmonary vasculature is normal. This is diminished from comparison. No suspicious infiltrates are evident.. Sternotomy wires are present from prior CABG. IMPRESSION: 1. No acute pulmonary process.
--- NOTE | 2018-12-16 13:27 | P.PN ---
Subjective Progress Note Date: 12/16/18 This is a pleasant 68-year-old female who follows regularly with Dr. Campos Vazquez in the office. She has a known history of coronary artery disease with prior myocardial infarction in July 2018 with subsequent coronary artery bypass grafting 2 performed at [facility]. She also has a history of prior COPD, nicotine dependence, hypertension, hypothyroidism, hyperlipidemia. She presents to the hospital on this occasion with symptoms of 5 day duration of worsening shortness of breath, positive PND and orthopnea with no overt peripheral edema. She has had a cough, which she describes as a hockey cough, nonproductive. She denies any recent chest discomfort. Chest x-ray on admission here showed pulmonary venous hypertension and interstitial edema. EKG showed a normal sinus rhythm with ST-T wave changes noted in the inferior leads, similar to prior EKGs. Blood pressure on arrival here 106/60 with a heart rate in the 60s, 95% on 2 L of oxygen. White blood cell count 8.7, hemoglobin 11.2, platelet count 165. On admission sodium was 141, potassium 5.6, BUN 30 and creatinine 1.8, this morning's labs sodium 142, potassium 4.1, BUN 24 and creatinine 1.3. Troponin 0.016. BNP level 16,000. Patient did have an echocardiogram with Doppler study performed in September which revealed an ejection fraction of 30-35%, basal inferior, inferior septal hypokinesia, moderate to severe tricuspid regurg with moderate mitral regurgitation and moderate pulmonary hypertension. Patient was started on IV Lasix in the emergency room, diuresed well through the night last night. 12/16/2018 Patient did have a repeat echocardiogram with Doppler study performed here that showed an ejection fraction of 30-35% with basal inferior hypokinesia. Repeat chest x-ray did not reveal any evidence of heart failure. Weight is down 1 kg today. Patient complains of a persistent cough, nonproductive although she states it feels like there is something to cough. Blood pressure 100/60 with a heart rate in the 60s, 98% on room air. Sodium 139, potassium 4.5, BUN 44 and creatinine 1.5. Patient had been on Cozaar which we will discontinue, we will start the patient on Entresto from tomorrow. Objective - Vital Signs Vital signs: Vital Signs Temp 97.5 F L 12/16/18 11:29 Pulse 60 12/16/18 11:29 Resp 20 12/16/18 11:29 BP 100/63 12/16/18 11:29 Pulse Ox 98 12/16/18 11:29 Intake & Output 12/15/18 12/16/18 12/16/18 18:59 06:59 18:59 Intake Total 720 550 200 Output Total 1000 1000 1000 Balance -280 -450 -800 Weight 70.7 kg 69 kg Intake: IV 20 0.9 20 Intake, IV Titration 50 Amount cefTRIAXone 1 gm In 50 Sodium Chloride 0.9% 50 ml @ 100 mls/hr IVPB Q24H [facility]U Rx#:[id number] Oral 720 480 200 Output: Urine 1000 1000 1000 Other: Voiding Method Toilet # Voids 0 4 1 # Bowel Movements 0 0 - Exam PHYSICAL EXAMINATION: GENERAL: 68-year-old female in no acute distress at the time of my examination HEENT: Head is atraumatic, normocephalic. Pupils equal, round. Sclera anicteric. Conjunctiva are clear. Mucous membranes of the mouth are moist. Ne ck is supple. There is elevated jugular venous pressure. No carotid bruit is heard. HEART EXAMINATION: Heart S1 and S2 systolic murmur is heard CHEST EXAMINATION: Lungs reveal rales to bilateral bases, no wheezing ABDOMEN: Soft, nontender. Bowel sounds are heard. No organomegaly noted. EXTREMITIES: 2+ peripheral pulses with no evidence of peripheral edema and no calf tenderness noted. NEUROLOGIC patient is awake, alert and oriented 3. - Labs CBC & Chem 7: 12/14/18 12:26 12/16/18 06:13 Labs: Abnormal Lab Results - Last 24 Hours (Table) 12/15/18 12/16/18 Range/Units 16:38 06:13 BUN 44 H (7-17) mg/dL Creatinine 1.57 H (0.52-1.04) mg/dL Glucose 125 H (74-99) mg/dL POC Glucose (mg/dL) 176 H (75-99) mg/dL Assessment and Plan Plan: Assessment and plan #1 systolic congestive heart failure acute on chronic #2 history of myocardial infarction with subsequent 2 vessel coronary artery bypass grafting surgery in July of last year #3 hypertension #4 hyperlipidemia #5 hypothyroidism Plan Repeat echocardiogram with Doppler study showed an ejection fraction of 30-35%. We will discontinue the Cozaar, start the patient on Entresto from tomorrow. Continue IV Lasix. DNP note has been reviewed, I agree with a documented findings and plan of care. Patient was seen and examined.
[2018-12-16] MEDS: FUROSEMIDE 10 MG/ML 4 ML VIAL IV SCH (17:15)
[2018-12-16] MEDS: SACUBITRIL/VALSARTAN 24 MG-26 MG TABLET PO SCH (20:55)
[2018-12-16] MEDS: TEMAZEPAM 30 MG CAP PO SCH ×2 (20:55→23:12)
--- NOTE | 2018-12-16 23:44 | PN ---
PROGRESS NOTE DATE OF SERVICE: 12/16/2018 PRESENTING COMPLAINT: Short of breath. INTERVAL HISTORY: This patient with recent bypass presented with CHF exacerbation, on IV Lasix. Breathing is a bit better. Cough is decreasing. Did tolerate some diet. REVIEW OF SYSTEMS: Done for constitutional, cardiovascular, GI, pulmonary; relevant findings as above. CURRENT MEDICATIONS: Reviewed. They include IV Lasix 40 q.12. PHYSICAL EXAMINATION: Temperature 97.5, pulse 60, respiration 20, blood pressure 100/63, pulse ox 98% on room air. GENERAL APPEARANCE: Sitting up, tired. EYES: Pupils equal. Conjunctivae normal. NECK: JVD unable to assess. Mass not palpable. RESPIRATORY: Effort increased. LUNGS: Decreased breath sounds. CARDIOVASCULAR: First and second sounds normal. No edema. ABDOMEN: Soft, nontender. Liver and spleen not palpable. PSYCHIATRY: Alert and oriented x3. Mood and affect normal. INVESTIGATIONS: Potassium 4.5, BUN 44, creatinine 1.57. ASSESSMENT: 1. Acute on chronic congestive heart failure exacerbation from systolic dysfunction, ejection fraction 30%, from underlying coronary artery disease. 2. Coronary artery disease with prior history of coronary artery bypass in July 2018. 3. Acute chronic obstructive pulmonary disease exacerbation in an ex-smoker. 4. Mitral and tricuspid regurgitation. 5. Secondary pulmonary hypertension due to congestive heart failure and chronic obstructive pulmonary disease. 6. Gastroesophageal reflux disease. 7. Essential hypertension. 8. Hypothyroidism. 9. Chronic kidney disease, stage III, from nephrosclerosis. Patient is having some response. Patient to be maintained on IV Lasix. Keep a very close eye on patient's renal function. Care was discussed with the patient and her at the bedside. Will follow. MMODL / IJN: [id number] /
[2018-12-17] MEDS ORDERED: IPRATROPIUM-ALBUTEROL 3 ML NEB ONE (04:00)
[2018-12-17] MEDS: IPRATROPIUM-ALBUTEROL 3 ML NEB INHALATION SCH ×5 (05:56→19:00)
[2018-12-17] MEDS: FUROSEMIDE 10 MG/ML 4 ML VIAL IV SCH ×2 (06:04→18:40)
[2018-12-17] MEDS: LEVOTHYROXINE 75 MCG TAB PO SCH (06:04)
[2018-12-17 07:02] LABS: Potassium 4.1 mmol/L (3.5-5.1)
[2018-12-17] MEDS: BUDESONIDE 1 MG/2 ML NEBU INHALATION SCH ×2 (07:22→19:00)
[2018-12-17] MEDS: ATORVASTATIN 40 MG TAB PO SCH (08:12)
[2018-12-17] MEDS: guaiFENesin 600 MG TABLET.ER PO SCH ×2 (08:12→19:55)
[2018-12-17] MEDS: ASPIRIN 81 MG PO SCH (08:12)
[2018-12-17] MEDS: ISOSORBIDE MONONITRATE ER 30 MG TAB.ER.24H PO SCH (08:13)
[2018-12-17] MEDS: METOPROLOL SUCCINATE (ER) 50 MG TAB.ER.24H PO SCH (08:13)
[2018-12-17] MEDS: SACUBITRIL/VALSARTAN 24 MG-26 MG TABLET PO SCH ×2 (08:14→18:41)
[2018-12-17] MEDS ORDERED: ENOXAPARIN 30 MG/0.3 ML SYRINGE SQ SCH (09:00)
[2018-12-17] MEDS: CEFDINIR 300 MG CAP PO SCH ×2 (12:03→19:56)
[2018-12-17] MEDS ORDERED: ceFAZolin IN SWFI 2 GM/20 ML SYRINGE IVP ONE (12:06)
[2018-12-17] MEDS ORDERED: ceFAZolin 1,000 MG in SODIUM CHLORIDE 0.9% IRRIGATIO 250 ML IRRIGATION ONE (12:06)
--- NOTE | 2018-12-17 12:10 | P.PN ---
Subjective Progress Note Date: 12/17/18 This is a pleasant 68-year-old female who follows regularly with Dr. Campos Vazquez in the office. She has a known history of coronary artery disease with prior myocardial infarction in July 2018 with subsequent coronary artery bypass grafting 2 performed at [facility]. She also has a history of prior COPD, nicotine dependence, hypertension, hypothyroidism, hyperlipidemia. She presents to the hospital on this occasion with symptoms of 5 day duration of worsening shortness of breath, positive PND and orthopnea with no overt peripheral edema. She has had a cough, which she describes as a hockey cough, nonproductive. She denies any recent chest discomfort. Chest x-ray on admission here showed pulmonary venous hypertension and interstitial edema. EKG showed a normal sinus rhythm with ST-T wave changes noted in the inferior leads, similar to prior EKGs. Blood pressure on arrival here 106/60 with a heart rate in the 60s, 95% on 2 L of oxygen. White blood cell count 8.7, hemoglobin 11.2, platelet count 165. On admission sodium was 141, potassium 5.6, BUN 30 and creatinine 1.8, this morning's labs sodium 142, potassium 4.1, BUN 24 and creatinine 1.3. Troponin 0.016. BNP level 16,000. Patient did have an echocardiogram with Doppler study performed in September which revealed an ejection fraction of 30-35%, basal inferior, inferior septal hypokinesia, moderate to severe tricuspid regurg with moderate mitral regurgitation and moderate pulmonary hypertension. Patient was started on IV Lasix in the emergency room, diuresed well through the night last night. 12/16/2018 Patient did have a repeat echocardiogram with Doppler study performed here that showed an ejection fraction of 30-35% with basal inferior hypokinesia. Repeat chest x-ray did not reveal any evidence of heart failure. Weight is down 1 kg today. Patient complains of a persistent cough, nonproductive although she states it feels like there is something to cough. Blood pressure 100/60 with a heart rate in the 60s, 98% on room air. Sodium 139, potassium 4.5, BUN 44 and creatinine 1.5. Patient had been on Cozaar which we will discontinue, we will start the patient on Entresto from tomorrow. 12/17/2018 Patient seen and examined this morning, does state that her breathing is significantly improved, she states that her cough is about the same as when she came in. Creatinine today is down to 1.4. Dr. Inman did have a discussion with the patient regarding need for AICD, he did give her the option of having it done as an outpatient or while she is here, patient TO have the procedure done while she is still in the hospital. We will schedule this for tomorrow morning with Dr. Inman. The risks and the benefits were explained to the patient and her in detail. Her blood pressure this morning 100/50 with a heart rate in the 50s, 94% on room air. We will repeat a chest x-ray this afternoon, 10 you IV Lasix until the evening and from the morning and place change roof bolter to oral diuretics. Objective - Vital Signs Vital signs: Vital Signs Temp 96.7 F L 12/17/18 08:00 Pulse 58 L 12/17/18 08:00 Resp 16 12/17/18 08:00 BP 94/50 12/17/18 08:00 Pulse Ox 96 12/17/18 08:00 Intake & Output 12/16/18 12/17/18 12/17/18 18:59 06:59 18:59 Intake Total 380 360 Output Total 1000 Balance -620 360 Weight 71 kg Intake: Oral 380 360 Output: Urine 1000 Other: Voiding Method Toilet Toilet # Voids 1 2 # Bowel Movements 0 - Exam PHYSICAL EXAMINATION: GENERAL: 68-year-old female in no acute distress at the time of my examination HEENT: Head is atraumatic, normocephalic. Pupils equal, round. Sclera anicteric. Conjunctiva are clear. Mucous membranes of the mouth are moist. Neck is supple. There is elevated jugular venous pressure. No carotid bruit is heard. HEART EXAMINATION: Heart S1 and S2 systolic murmur is heard CHEST EXAMINATION: Lungs clear to auscultation ABDOMEN: Soft, nontender. Bowel sounds are heard. No organomegaly noted. EXTREMITIES: 2+ peripheral pulses with no evidence of peripheral edema and no calf tenderness noted. NEUROLOGIC patient is awake, alert and oriented 3. - Labs CBC & Chem 7: 12/14/18 12:26 12/17/18 05:33 Labs: Abnormal Lab Results - Last 24 Hours (Table) 12/17/18 Range/Units 05:33 BUN 48 H (7-17) mg/dL Creatinine 1.46 H (0.52-1.04) mg/dL Glucose 100 H (74-99) mg/dL Assessment and Plan Plan: Assessment and plan #1 systolic congestive heart failure acute on chronic #2 history of myocardial infarction with subsequent 2 vessel coronary artery bypass grafting surgery in July of last year #3 hypertension #4 hyperlipidemia #5 hypothyroidism Plan Repeat echocardiogram with Doppler study showed an ejection fraction of 30-35%. We will continue IV Lasix until this evening, from tomorrow place change roof bolter to oral diuretics. Patient will be scheduled tomorrow to undergo implantation of an AICD. The risks and the benefits were explained to the patient in detail and she is willing to proceed. This will be performed by Dr. Inman. DNP note has been reviewed, I agree with a documented findings and plan of care. Patient was seen and examined.
[2018-12-17] MEDS ORDERED: SODIUM CHLORIDE 0.9% 1,000 ML IV SCH ×2 (12:15)
--- NOTE | 2018-12-17 15:49 | XR ---
EXAMINATION TYPE: XR chest 2V DATE OF EXAM: 12/17/2018 COMPARISON: 12/16/2018 HISTORY: Congestive heart failure and shortness of breath TECHNIQUE: Frontal and lateral views of the chest are obtained. FINDINGS: There is very minimal interstitial pulmonary edema present. Pulmonary hyperinflation and i ncreased retrosternal airspace suggests mild underlying COPD. Cardiomediastinal silhouette is again e nlarged. Post-CABG changes the chest are noted. There is mild generalized osseous demineralization. IMPRESSION: Mild interstitial edema likely on the basis of decompensated congestive heart failure.
[2018-12-17] MEDS ORDERED: IPRATROPIUM-ALBUTEROL 3 ML NEB INHALATION PRN (19:02)
--- NOTE | 2018-12-17 22:24 | PN ---
PROGRESS NOTE DATE OF SERVICE: 12/17/2018 PRESENTING COMPLAINT: Short of breath. INTERVAL HISTORY: This patient with recent coronary artery bypass presented with CHF exacerbation. Remains on IV Lasix. Breathing continues to improve. Cough is much better. Does feel a bit tired. Seen by Dr. Inman from Cardiology. Patient is being scheduled for AICD tomorrow. REVIEW OF SYSTEMS: Done for constitutional, cardiovascular, GI, pulmonary; relevant findings as above. CURRENT MEDICATIONS: Reviewed. They include IV Lasix 40 q.12. PHYSICAL EXAMINATION: Temperature 96.7, pulse 58, respiration 16, blood pressure 94/50, pulse ox 96% on room air. GENERAL APPEARANCE: Sitting up. Awake. EYES: Pupils equal. Conjunctivae normal. NECK: JVD unable to assess. Mass not palpable. RESPIRATORY: Effort increased. LUNGS: Decreased breath sounds. CARDIOVASCULAR: First and second sounds normal. No edema. ABDOMEN: Soft, non-tender. Liver and spleen not palpable. PSYCHIATRY: Alert and oriented x3. Mood and affect normal. INVESTIGATIONS: Potassium 4.1, BUN 48, creatinine 1.46. ASSESSMENT: 1. Acute on chronic congestive heart failure exacerbation from systolic dysfunction, ejection fraction 30%, with underlying coronary artery disease. 2. Coronary artery bypass in July of 2018. 3. Acute chronic obstructive pulmonary disease exacerbation in an ex-smoker. 4. Mitral and tricuspid regurgitation. 5. Severe secondary pulmonary hypertension due to congestive heart failure and chronic obstructive pulmonary disease. 6. Gastroesophageal reflux disease. 7. Essential hypertension. 8. Hypothyroidism. 9. Chronic kidney disease, stage III, from nephrosclerosis. PLAN: Continue current medication and treatment plan. I think the patient is now euvolemic. IV Lasix could be discontinued. The patient is pending AICD tomorrow with Dr. Inman. MMODL / IJN: [id number] /
[2018-12-17] MEDS: TEMAZEPAM 30 MG CAP PO SCH (22:27)
[2018-12-18] MEDS: ATORVASTATIN 40 MG TAB PO SCH (04:52)
[2018-12-18] MEDS: LEVOTHYROXINE 75 MCG TAB PO SCH (04:52)
[2018-12-18] MEDS: ASPIRIN 81 MG PO SCH (04:52)
[2018-12-18] MEDS ORDERED: ceFAZolin 1,000 MG in SODIUM CHLORIDE 0.9% IRRIGATIO 250 ML IRRIGATION ONE (06:00)
[2018-12-18] MEDS ORDERED: ceFAZolin IN SWFI 2 GM/20 ML SYRINGE IVP ONE (06:00)
[2018-12-18 06:59] LABS: Calcium 9.3 mg/dL (8.4-10.2); Magnesium 2.3 mg/dL (1.6-2.3); Potassium 4.4 mmol/L (3.5-5.1)
[2018-12-18] MEDS ORDERED: MIDAZOLAM 2 MG/2 ML VIAL ONE (07:03)
[2018-12-18] MEDS ORDERED: PROPOFOL 10 MG/ML 20 ML VIAL IV ONE (07:03)
[2018-12-18] MEDS ORDERED: fentaNYL (PF) 50 MCG/ML 2 ML AMP ONE (07:03)
[2018-12-18] MEDS ORDERED: IOPAMIDOL-370 50ML BTL INJ ONE (07:30)
[2018-12-18] MEDS ORDERED: LIDOCAINE 1% INJ 10MG/ML (20 ML MDV) ONE ×2 (07:36)
[2018-12-18] MEDS ORDERED: LIDOCAINE 1% INJ 10MG/ML (20 ML MDV) SQ ONE (07:48)
--- NOTE | 2018-12-18 09:03 | P.PCN ---
Date of Procedure: 12/18/18 Preoperative Diagnosis: Ischemic cardiac myopathy, congestive heart failure and sinus bradycardia with rates in the 40s and 50s. Patient requiring beta paul. Postoperative Diagnosis: The same Procedure(s) Performed: Dual-chamber AICD implantation. Description of Procedure: HISTORY: This is a 68-year-old female with history of ischemic heart disease and previous bypass surgery with cardiomyopathy and congestive heart failure with an ejection fraction of 30-35%. Patient is advised to have prophylactic AICD implantation. Patient is also bradycardic rates in the 40s and 50s and advised to have dual-chamber device because of the need to continue beta paul. CONSENT:I have discussed the risks, benefits and alternative therapies for the above-mentioned procedure and for both sedation/analgesia as well as necessary b lood product administration, if indicated, as they pertain to this patient. The patient has indicated understanding and acceptance of the risks and procedures discussed. PROCEDURE: Patient was brought to the lab in a fasting state. Patient was prepped and draped in the usual fashion. Patient was given IV sedation with fentanyl and Versed. The skin below the left clavicle was infiltrated with lidocaine. An incision was made parallel to deltopectoral groove was deepened until the pectoral fascia was exposed. A pocket was created by blunt dissection and cautery. Axillary venography was performed to delineate the course of the axillary vein. 2 sticks were performed into extrathoracic portion of the axillary vein and 2 sheaths were advanced over the guidewires and left in subclavian vein. Conscious Sedation: This was provided by department of anesthesia Duration 63minutes LEADS: ATRIAL: This is manufactured by [employer]. The model number is 5076-45. The serial number is [id number]. VENTRICULAR: This is manufactured by [employer]. The model number is [id number]. The serial number is [id number] The ventricular lead is maneuvered l with help of a straight and curved stylets into the left ventricle apical region. Satisfactory position was obtained and threshold measurements were made. The atrial lead was then maneuvered into the right atrial appendage. And thresholds were obtained. THRESHOLDS: ATRIUM: The minimal pacing threshold is 0.5 at pulse width of 0.5. The P-wave is 2.6 and the impedance 846. VENTRICLE: The minimal pacing threshold is 1 V at pulse width of 0.5. The impedance is 640 R-wave: 6.3 mV The leads and pulse generator remained in the pocket after it was washed with antibiotics. Pocket was closed in the usual fashion. The fascia was closed with 2-0 Prolene ,the subcutaneous tissue was closed with 3-0 Prolene and the skin was closed with 4-0 Prolene. DFT TESTING: Department of anesthesia provided deep anesthesia with propofol. Ventricular fibrillation was induced with T shock. This was appropriately detected and is single shock of 50 J converted patient to sinus rhythm. There is only one dropout at least sensitivity PROGRAMMING: Benjamín programming MODE: AAIR to DDDR RATE: 60 to 1:30 OUTPUT: Atrium : 3.5 V Ventricle: 3.5 V Tachycardia therapy: The VF zone is programmed to a rate of 200. The initial detect was programmed to 30 out of 40 and the redirect is programmed to follow out of 16. The therapies are programmed to 25 J followed by 355. The VT zone is programmed to a rate of 176. The therapies are programmed to burst pacing followed by cardioversion with 20 J, followed by 30 J and followed by 352 The monitor zone is programmed to a rate of 1 50 bpm FINAL IMPRESSION: #1. Axillary venography #2 insertion of dual-chamber AICD #3. DFT testing COMPLICATIONS: None PLAN:. Patient to be monitored on the telemetry unit. Chest x-ray in the morning. "Continue prophylactic antibiotics
[2018-12-18] MEDS ORDERED: SODIUM CHLORIDE 0.9% 500 ML 500 ML IV ONE ×3 (09:11)
[2018-12-18] MEDS: SODIUM CHLORIDE 0.9% 500 ML 500 ML IV ONE ×2 (09:11→10:39)
[2018-12-18] MEDS: ENOXAPARIN 40 MG/0.4 ML SYRINGE SQ SCH (10:23)
[2018-12-18] MEDS: guaiFENesin 600 MG TABLET.ER PO SCH ×2 (10:34→20:40)
[2018-12-18] MEDS: ISOSORBIDE MONONITRATE ER 30 MG TAB.ER.24H PO SCH (10:34)
[2018-12-18] MEDS: CEFDINIR 300 MG CAP PO SCH ×2 (10:34→20:40)
[2018-12-18] MEDS: METOPROLOL SUCCINATE (ER) 50 MG TAB.ER.24H PO SCH (10:34)
[2018-12-18] MEDS: ACETAMINOPHEN TAB 325 MG TAB PO PRN ×2 (10:35→16:40)
[2018-12-18] MEDS: SACUBITRIL/VALSARTAN 24 MG-26 MG TABLET PO SCH ×2 (10:43→20:28)
[2018-12-18] MEDS: ceFAZolin IN SWFI 2 GM/20 ML SYRINGE IVP SCH ×2 (13:10→18:32)
[2018-12-18] MEDS: HYDROmorphone 0.5 MG/0.5 ML SYRINGE IVP PRN ×2 (13:19→18:50)
[2018-12-18] MEDS: FUROSEMIDE 20 MG TAB PO SCH (16:37)
[2018-12-19] MEDS: HYDROmorphone 0.5 MG/0.5 ML SYRINGE IVP PRN
--- NOTE | 2018-12-19 00:22 | PN ---
PROGRESS NOTE DATE OF SERVICE: 12/18/2018. PRESENTING COMPLAINT: Tired. INTERVAL HISTORY: Patient with recent coronary bypass presented with CHF exacerbation. Had been on IV Lasix. Today underwent a dual-chamber ICD placement. Some pain at the operative site. Otherwise comfortable. A bit tired. REVIEW OF SYSTEMS: Done for constitutional, cardiovascular, GI, pulmonary; relevant findings as above. CURRENT MEDICATIONS: Reviewed that include p.o. Lasix. PHYSICAL EXAMINATION: Temperature afebrile, pulse 64, respirations 16, blood pressure 191/50, pulse ox 95% on room air. GENERAL APPEARANCE: Lying in bed, awake. EYES: Pupils equal. Conjunctivae normal. NECK: JVD not raised. Mass not palpable. RESPIRATORY: Effort increased. LUNGS: Decreased breath sounds. CARDIOVASCULAR: 1st and 2nd heart sounds. No edema. ABDOMEN: Soft, nontender. Liver and spleen not palpable. PSYCHIATRY: Alert and oriented x3. EXTREMITIES: Normal extremities. Left arm left arm in a sling. INVESTIGATIONS: BUN 45, creatinine 1.49. ASSESSMENT: 1. Acute on chronic congestive heart failure exacerbation from systolic dysfunction, ejection fraction 30% with underlying coronary artery disease. 2. Coronary artery bypass in July 2018. 3. Acute chronic obstructive pulmonary disease exacerbation in an ex-smoker. 4. Mitral and tricuspid regurgitation. 5. Severe secondary pulmonary hypertension due to congestive heart failure and chronic obstructive pulmonary disease. 6. Gastroesophageal reflux disease. 7. Essential hypertension. 8. Hypothyroidism. 9. Chronic kidney stage 3 from nephrosclerosis. PLAN: Continue current medication and treatment plan. Patient overall doing much better. Hoping patient can be discharged tomorrow. MMODL / IJN: [id number] /
[2018-12-19] MEDS: ceFAZolin IN SWFI 2 GM/20 ML SYRINGE IVP SCH ×2 (06:14)
[2018-12-19] MEDS: LEVOTHYROXINE 75 MCG TAB PO SCH (06:14)
--- NOTE | 2018-12-19 07:49 | XR ---
EXAMINATION TYPE: XR chest 2V DATE OF EXAM: 12/19/2018 COMPARISON: 12/17/2018 HISTORY: Lead placement check TECHNIQUE: Frontal and lateral views of the chest are obtained. FINDINGS: There has been interval insertion of a multilead left-sided cardiac device with sinoatrial lead and ventricular lead appearing appropriately placed. No postprocedural pneumothorax is identifi ed. Lungs are well aerated with slightly coarsened chronic interstitial lung markings. Heart is enlar ged with postoperative changes. IMPRESSION: Interval insertion of an appropriately placed dual lead left-sided cardiac device with n o postprocedural pneumothorax noted.
[2018-12-19 08:00] LABS: Calcium 9.4 mg/dL (8.4-10.2); Potassium 4.5 mmol/L (3.5-5.1)
[2018-12-19] MEDS: FUROSEMIDE 20 MG TAB PO SCH ×2 (08:52→15:36)
[2018-12-19] MEDS: METOPROLOL SUCCINATE (ER) 50 MG TAB.ER.24H PO SCH (08:52)
[2018-12-19] MEDS: SACUBITRIL/VALSARTAN 24 MG-26 MG TABLET PO SCH (08:52)
[2018-12-19] MEDS: ASPIRIN 81 MG PO SCH (08:52)
[2018-12-19] MEDS: ATORVASTATIN 40 MG TAB PO SCH (08:52)
[2018-12-19] MEDS: ISOSORBIDE MONONITRATE ER 30 MG TAB.ER.24H PO SCH (08:52)
[2018-12-19] MEDS: guaiFENesin 600 MG TABLET.ER PO SCH ×2 (08:52→20:35)
[2018-12-19] MEDS: CEFDINIR 300 MG CAP PO SCH ×2 (08:52→20:35)
[2018-12-19] MEDS: ENOXAPARIN 40 MG/0.4 ML SYRINGE SQ SCH (08:53)
[2018-12-19] MEDS: Acetaminophen-Codeine 300-30mg TAB PO PRN (13:13)
--- NOTE | 2018-12-19 18:01 | P.PN ---
Subjective Progress Note Date: 12/19/18 This 68-year-old female with history of ischemic cardiomyopathy and congestive heart failure had a AICD implantation yesterday. Patient tolerated the procedure well. Chest x-ray showed proper lead position. Thresholds remained stable. Patient complains of mild discomfort at the site. Overall she seemed to be doing well. However her blood pressures running low. Patient received Entresto this morning, which will be discontinued. We'll follow her blood pressures closely. If blood pressure is stable, patient will be discharged home and morning. Objective - Vital Signs Vital signs: Vital Signs Temp 97.5 F L 12/19/18 16:00 Pulse 62 12/19/18 16:00 Resp 16 12/19/18 16:00 BP 82/42 12/19/18 16:00 Pulse Ox 93 L 12/19/18 16:00 Intake & Output 12/18/18 12/19/18 12/19/18 18:59 06:59 18:59 Intake Total 850 350 Balance 850 350 Weight 71.5 kg Intake: IV 650 Oral 200 350 Other: Voiding Method Toilet # Voids 1 1 - Exam GENERAL EXAM: Patient is alert and oriented and doesn't appear to be in any acute distress HEENT: Normocephalic. Normal reaction of pupils, equal size, normal range of extraocular motion. No erythema or exudates in the throat. NECK: No masses, no nuchal rigidity. CHEST: No chest wall deformity. LUNGS: Equal air entry with no crackles or wheeze. HEART: S1 and S2 normal with no audible mumurs or gallops. Regular rhythm, femorals equal on both sides.. ABDOMEN: No hepatosplenomegaly, normal bowel sounds, no guarding or rigidity. SKIN: No rashes CENTRAL NERVOUS SYSTEM: No focal deficits. EXTREMITIES: No cyanosis, clubbing or edema. PACEMAKER SITE: Seemed to be soft without any hematoma - Labs CBC & Chem 7: 12/14/18 12:26 12/19/18 06:26 Labs: Abnormal Lab Results - Last 24 Hours (Table) 12/19/18 Range/Units 06:26 BUN 38 H (7-17) mg/dL Creatinine 1.53 H (0.52-1.04) mg/dL Glucose 113 H (74-99) mg/dL Assessment and Plan (1) Ischemic cardiomyopathy Current Visit: Yes Status: Acute Code(s): I25.5 - ISCHEMIC CARDIOMYOPATHY SNOMED Code(s): 485731946 (2) Acute on chronic systolic CHF (congestive heart failure) Current Visit: Yes Status: Acute Code(s): I50.23 - ACUTE ON CHRONIC SYSTOLIC (CONGESTIVE) HEART FAILURE SNOMED Code(s): 992857239 Plan: We'll continue current medical therapy except holding Entresto. Increase her activity. If stable patient be discharged home in 24 hours
--- NOTE | 2018-12-19 22:23 | PN ---
PROGRESS NOTE DATE OF SERVICE: 12/19/2018. PRESENTING COMPLAINT: Tired. INTERVAL HISTORY: Patient with recent coronary bypass and CHF exacerbation, got AICD placed. Patient's blood pressure been running low, getting dizzy. Able to get to the bathroom. Did tolerate some diet. Breathing is currently stable. REVIEW OF SYSTEMS: Done for constitutional, cardiovascular, GI, pulmonary; relevant findings as above. CURRENT MEDICATIONS: Reviewed, that include Toprol-XL 50 mg a day, Lasix 20 mg b.i.d. EXAMINATION: Temperature 99, 77.9, pulse 54, respiratory rate 18, blood pressure 9754, pulse ox 95% on room air. GENERAL: Lying in bed tired-appearing. EYES: Pupils equal. Conjunctivae normal. NECK: JVD not raised. Mass not palpable. Respiratory effort increased. LUNGS: Diminished breath sounds. CARDIOVASCULAR: Heart sounds regular, no edema. ABDOMEN: Soft, nontender. Liver and spleen not palpable. PSYCHIATRY: Alert and oriented x3. Mood and affect normal. EXTREMITIES: Left arm in a sling. INVESTIGATIONS: Potassium 4.5, BUN 30, creatinine 1.53. ASSESSMENT: 1. Acute on chronic congestive heart failure exacerbation from systolic dysfunction, ejection fraction 30% with underlying coronary artery disease. 2. Coronary artery bypass in July of 2018. 3. Acute chronic obstructive pulmonary disease exacerbation in an ex-smoker, improved. 4. Mitral and tricuspid regurgitation, nonrheumatic. 5. Severe secondary pulmonary hypertension due to congestive heart failure and chronic obstructive pulmonary disease. 6. Gastroesophageal reflux disease. 7. Essential hypertension. 8. Hypotension, multifactorial. 9. Hypothyroidism. 10.Chronic kidney stage 3 from nephrosclerosis. PLAN: At this point we will discontinue patient's Toprol-XL, switch to Lopressor 12.5 three times a day to space it out. If the patient's blood pressure can tolerate, would like to add Aldactone 12.5 mg. Care was discussed the patient. MMODL / IJN: [id number] /
[2018-12-19] MEDS: TEMAZEPAM 30 MG CAP PO SCH ×2 (22:48)
[2018-12-20] MEDS: Acetaminophen-Codeine 300-30mg TAB PO PRN ×3 (06:35→22:24)
[2018-12-20] MEDS: LEVOTHYROXINE 75 MCG TAB PO SCH (06:36)
[2018-12-20 07:07] LABS: Potassium 4.7 mmol/L (3.5-5.1)
[2018-12-20] MEDS: METOPROLOL TARTRATE 12.5 MG TAB PO SCH ×3 (07:50→20:30)
[2018-12-20] MEDS: ISOSORBIDE MONONITRATE ER 30 MG TAB.ER.24H PO SCH (07:50)
[2018-12-20 08:06] LABS: T4, Free (Free Thyroxine) 2.32 ng/dL (0.78-2.19)
[2018-12-20] MEDS: guaiFENesin 600 MG TABLET.ER PO SCH ×2 (08:42→20:30)
[2018-12-20] MEDS: ASPIRIN 81 MG PO SCH (08:42)
[2018-12-20] MEDS: ATORVASTATIN 40 MG TAB PO SCH (08:42)
[2018-12-20] MEDS: ENOXAPARIN 40 MG/0.4 ML SYRINGE SQ SCH (08:42)
[2018-12-20] MEDS: FUROSEMIDE 20 MG TAB PO SCH ×2 (08:42→15:43)
[2018-12-20] MEDS: CEFDINIR 300 MG CAP PO SCH ×2 (08:42→20:30)
--- NOTE | 2018-12-20 13:37 | P.PN ---
Subjective This is a pleasant 68-year-old female with history of ischemic cardiomyopathy and congestive heart failure status post AICD implantation. Chest x-rays confirmed proper lead placement. Blood pressure has remained on the low side. Initially we initiated on Entresto however her blood pressure did not tolerate this. She is seen and examined sitting up in bed in no acute distress. She denies symptoms of chest discomfort, shortness of breath, dizziness or palpitations. Blood pressure 85/41 heart rate 62 afebrile maintaining oxygen saturation on room air. Laboratory data reviewed, sodium 138, potassium 4.7, creatinine 1.65, TSH 0.28 with a free T4 of 2.32. Currently maintained on Lopressor 12.5 mg 3 times a day, Imdur 30 mg daily, Lasix 20 mg twice a day, atorvastatin 40 mg daily and aspirin 81 mg daily. GENERAL: Well-appearing, well-nourished and in no acute distress. NECK: Supple without JVD or thyromegaly. LUNGS: Breath sounds clear to auscultation bilaterally. Respiration equal and unlabored. No wheezes, rales or rhonchi. HEART: Regular rate and rhythm with systolic ejection murmur at the base, no rubs or gallops. S1 and S2 heard. Pacemaker site soft, clean, dry and intact with no hematoma. EXTREMITIES: Swelling and placed to the left arm. No edema. No clubbing or cyanosis. Peripheral pulses intact. ASSESSMENT Ischemic cardiomyopathy Status post AICD placement Acute on chronic systolic heart failure History of coronary artery disease status post bypass grafting Hypertension Hypothyroidism PLAN Decrease Lopressor to 12.5 mg twice a day. Follow-up in the office with Dr. Vazquez in one week. Advised patient to keep her pacemaker site clean and dry until follow-up visit. Nurse Practitioner note has been reviewed, I agree with a documented findings and plan of care. Patient was seen and examined. Objective - Vital Signs Vital signs: Vital Signs Temp 97.4 F L 12/20/18 11:40 Pulse 62 12/20/18 11:40 Resp 16 12/20/18 11:40 BP 85/41 12/20/18 11:40 Pulse Ox 93 L 12/20/18 11:40 Intake & Output 12/19/18 12/20/18 12/20/18 17:59 06:59 18:59 Intake Total 300 Output Total Balance 300 Weight Intake: Oral 300 Output: Urine Other: # Voids 5 - Labs CBC & Chem 7: 12/14/18 12:26 12/20/18 06:14 Labs: Abnormal Lab Results - Last 24 Hours (Table) 12/20/18 Range/Units 06:14 BUN 41 H (7-17) mg/dL Creatinine 1.65 H (0.52-1.04) mg/dL TSH 0.280 L (0.465-4.680) mIU/L Free T4 2.32 H (0.78-2.19) ng/dL
--- NOTE | 2018-12-20 17:14 | PN ---
PROGRESS NOTE DATE OF SERVICE: December 20, 2018. PRESENT COMPLAINT: Tired. INTERVAL HISTORY: The patient had recent coronary artery bypass and admitted with CHF exacerbation. Did get an AICD placed. Blood pressure continues to run low upper 80s this morning. The patient has not been getting Entresto. I switched the patient to Lopressor 12.5 three times a day from Toprol-XL 50 mg a day. This morning, the nurses ad libbed because blood pressure is running in the 80s. The patient's symptoms a bit better. REVIEW OF SYSTEMS: Done for constitutional, cardiovascular, GI, pulmonary; relevant findings as above. CURRENT MEDICATIONS: Reviewed that include Omnicef, Lovenox, p.o. Lasix, Lopressor has been decreased to 12.5 twice a day. PHYSICAL EXAMINATION: VITAL SIGNS: Temperature 97.4, pulse 72, respirations 16, blood pressure 85/41, pulse ox 93 percent on room air. GENERAL APPEARANCE: Sitting up, awake. EYES: Pupils equal. Conjunctivae normal. NECK: JVD not raised. Mass not palpable. RESPIRATORY: Effort increased. LUNGS: Diminished breath sounds. CARDIOVASCULAR: 1st and 2nd sounds normal. No edema. ABDOMEN: Soft, nontender. Liver and spleen not palpable. PSYCHIATRY: Alert and oriented x3. Mood and affect normal. INVESTIGATIONS: Potassium 4.7, BUN 41, creatinine 1.65. TSH 0.2, free T4 is 2.32. ASSESSMENT: 1. Acute on chronic congestive heart failure exacerbation from systolic dysfunction, ejection fraction 30% with underlying coronary artery disease, improved. 2. Coronary artery disease with a bypass in July 2018. 3. Acute chronic obstructive pulmonary disease exacerbation an ex-smoker improved. 4. Mitral and tricuspid regurgitation, nonrheumatic. 5. Severe secondary pulmonary hypertension due to congestive heart failure and chronic obstructive pulmonary disease. 6. Gastroesophageal reflux disease. 7. Essential hypertension. 8. Hypotension, multifactorial. 9. Hyperthyroidism from over replacement. The patient has underlying hypothyroidism. 10.Chronic kidney disease stage 3 nephrosclerosis. PLAN: Lopressor has been cut back to 12.5 twice a day. We will hold off the p.m. dose of Lasix this evening. We will also cut back the dose of Synthroid to 112 mcg a day and skip the next 2 dose doses hoping the patient can be discharged by tomorrow. MMODL / IJN: [id number] /
[2018-12-20] MEDS: TEMAZEPAM 30 MG CAP PO SCH (22:24)
[2018-12-21 06:48] LABS: Potassium 5.2 mmol/L (3.5-5.1)
[2018-12-21 08:10] VITALS: PULSE 60; RESP 16; TEMP 97.7
[2018-12-21] MEDS: METOPROLOL TARTRATE 12.5 MG TAB PO SCH (09:47)
[2018-12-21] MEDS: guaiFENesin 600 MG TABLET.ER PO SCH (09:47)
[2018-12-21] MEDS: ASPIRIN 81 MG PO SCH (09:47)
[2018-12-21] MEDS: ISOSORBIDE MONONITRATE ER 30 MG TAB.ER.24H PO SCH (09:47)
[2018-12-21] MEDS: ATORVASTATIN 40 MG TAB PO SCH (09:47)
[2018-12-21] MEDS: Acetaminophen-Codeine 300-30mg TAB PO PRN (09:47)
[2018-12-21] MEDS: CEFDINIR 300 MG CAP PO SCH (09:47)
[2018-12-21] MEDS: ENOXAPARIN 40 MG/0.4 ML SYRINGE SQ SCH (09:48)
--- NOTE | 2018-12-21 14:05 | P.PN ---
Subjective Progress Note Date: 12/21/18 This is a pleasant 68-year-old female who follows regularly with Dr. Campos Vazquez in the office. She has a known history of coronary artery disease with prior myocardial infarction in July 2018 with subsequent coronary artery bypass grafting 2 performed at [facility]. She also has a history of prior COPD, nicotine dependence, hypertension, hypothyroidism, hyperlipidemia. She presents to the hospital on this occasion with symptoms of 5 day duration of worsening shortness of breath, positive PND and orthopnea with no overt peripheral edema. She has had a cough, which she describes as a hockey cough, nonproductive. She denies any recent chest discomfort. Chest x-ray on admission here showed pulmonary venous hypertension and interstitial edema. EKG showed a normal sinus rhythm with ST-T wave changes noted in the inferior leads, similar to prior EKGs. Blood pressure on arrival here 106/60 with a heart rate in the 60s, 95% on 2 L of oxygen. White blood cell count 8.7, hemoglobin 11.2, platelet count 165. On admission sodium was 141, potassium 5.6, BUN 30 and creatinine 1.8, this morning's labs sodium 142, potassium 4.1, BUN 24 and creatinine 1.3. Troponin 0.016. BNP level 16,000. Patient did have an echocardiogram with Doppler study performed in September which revealed an ejection fraction of 30-35%, basal inferior, inferior septal hypokinesia, moderate to severe tricuspid regurg with moderate mitral regurgitation and moderate pulmonary hypertension. Patient was started on IV Lasix in the emergency room, diuresed well through the night last night. 12/16/2018 Patient did have a repeat echocardiogram with Doppler study performed here that showed an ejection fraction of 30-35% with basal inferior hypokinesia. Repeat chest x-ray did not reveal any evidence of heart failure. Weight is down 1 kg today. Patient complains of a persistent cough, nonproductive although she states it feels like there is something to cough. Blood pressure 100/60 with a heart rate in the 60s, 98% on room air. Sodium 139, potassium 4.5, BUN 44 and creatinine 1.5. Patient had been on Cozaar which we will discontinue, we will start the patient on Entresto from tomorrow. 12/17/2018 Patient seen and examined this morning, does state that her breathing is significantly improved, she states that her cough is about the same as when she came in. Creatinine today is down to 1.4. Dr. Inman did have a discussion with the patient regarding need for AICD, he did give her the option of having it done as an outpatient or while she is here, patient TO have the procedure done while she is still in the hospital. We will schedule this for tomorrow morning with Dr. Inman. The risks and the benefits were explained to the patient and her in detail. Her blood pressure this morning 100/50 with a heart rate in the 50s, 94% on room air. We will repeat a chest x-ray this afternoon, 10 you IV Lasix until the evening and from the morning and address change clerk to oral diuretics. 12/21/2018 Patient was seen and examined this morning, overall feeling well. Anticipating discharge home today. 110/60 with a heart rate in the 60s, 94% on room air. Objective - Vital Signs Vital signs: Vital Signs Temp 97.7 F 12/21/18 08:00 Pulse 60 12/21/18 11:44 Resp 16 12/21/18 11:44 BP 100/50 12/21/18 11:44 Pulse Ox 95 12/21/18 11:44 Intake & Output 12/20/18 12/21/18 12/21/18 18:59 06:59 18:59 Intake Total 300 270 720 Output Total 500 Balance 300 -230 720 Weight 72 kg Intake: Oral 300 270 720 Output: Urine 500 Other: Voiding Method Toilet # Voids 5 1 1 - Exam PHYSICAL EXAMINATION: GENERAL: 68-year-old female in no acute distress at the time of my examination HEENT: Head is atraumatic, normocephalic. Pupils equal, round. Sclera anicteric. Conjunctiva are clear. Mucous membranes of the mouth are moist. Neck is supple. There is elevated jugular venous pressure. No carotid bruit is heard. HEART EXAMINATION: Heart S1 and S2 systolic murmur is heard CHEST EXAMINATION: Lungs clear to auscultation ABDOMEN: Soft, nontender. Bowel sounds are heard. No organomegaly noted. EXTREMITIES: 2+ peripheral pulses with no evidence of peripheral edema and no calf tenderness noted. NEUROLOGIC patient is awake, alert and oriented 3. - Labs CBC & Chem 7: 03/04/19 12:26 12/21/18 06:18 Labs: Abnormal Lab Results - Last 24 Hours (Table) 12/21/18 Range/Units 06:18 Potassium 5.2 H (3.5-5.1) mmol/L BUN 38 H (7-17) mg/dL Creatinine 1.59 H (0.52-1.04) mg/dL Assessment and Plan Plan: Assessment and plan #1 systolic congestive heart failure acute on chronic #2 history of myocardial infarction with subsequent 2 vessel coronary artery bypass grafting surgery in July of last year #3 hypertension #4 hyperlipidemia #5 hypothyroidism Plan Cardiology's perspective, patient may be able to be discharged home once cleared by primary. We will make a follow-up appointment post discharge. DNP note has been reviewed, I agree with a documented findings and plan of care. Patient was seen and examined.
[2018-12-21 16:22] VITALS: BP 92/50
[2018-12-22] MEDS ORDERED: LEVOTHYROXINE 112 MCG TAB PO SCH (06:30)
[2018-12-22] MEDS ORDERED: ISOSORBIDE MONONITRATE ER 15 MG TAB PO SCH (09:00)
[2018-12-22] MEDS ORDERED: FUROSEMIDE 20 MG TAB PO SCH (09:00)
== END 2018-12-21 16:30 | disposition home or self-care (01) | DRG 226 ==
LOC: EC 11:13 → 3SCARD 14:36 → OBSVTOIN 12-17 11:48
PROVIDERS: ADMIT Hospitalist; ATTEND Hospitalist
PROC: 02H63KZ Insertion of Defibrillator Lead into Right Atrium, Percutaneous Approach (ICD-10-PCS; 2018-12-18)
PROC: 0JH608Z Insertion of Defibrillator Generator into Chest Subcutaneous Tissue and Fascia, Open Approach (ICD-10-PCS; principal; 2018-12-18 07:15)
PROC: 02HL3KZ Insertion of Defibrillator Lead into Left Ventricle, Percutaneous Approach (ICD-10-PCS; 2018-12-18 07:15)
DX: I13.0 Hypertensive heart and chronic kidney disease with heart failure and stage 1 through stage 4 chronic kidney disease, or unspecified chronic kidney disease (principal); I50.23 Acute on chronic systolic (congestive) heart failure; J44.1 Chronic obstructive pulmonary disease with (acute) exacerbation; I95.9 Hypotension, unspecified; I27.29 Other secondary pulmonary hypertension; I08.1 Rheumatic disorders of both mitral and tricuspid valves; N18.3 Chronic kidney disease, stage 3 (moderate); I25.10 Atherosclerotic heart disease of native coronary artery without angina pectoris; F32.9 Major depressive disorder, single episode, unspecified; K21.9 Gastro-esophageal reflux disease without esophagitis; E03.9 Hypothyroidism, unspecified; I25.5 Ischemic cardiomyopathy; E78.5 Hyperlipidemia, unspecified; I25.2 Old myocardial infarction; R00.1 Bradycardia, unspecified; E05.90 Thyrotoxicosis, unspecified without thyrotoxic crisis or storm; Z79.899 Other long term (current) drug therapy; Z79.890 Hormone replacement therapy; Z79.82 Long term (current) use of aspirin; Z95.1 Presence of aortocoronary bypass graft; Z90.710 Acquired absence of both cervix and uterus; Z96.641 Presence of right artificial hip joint; Z96.653 Presence of artificial knee joint, bilateral; Z90.49 Acquired absence of other specified parts of digestive tract; Z87.01 Personal history of pneumonia (recurrent); Z87.891 Personal history of nicotine dependence; Z91.048 Other nonmedicinal substance allergy status; Z88.5 Allergy status to narcotic agent; Z82.5 Family history of asthma and other chronic lower respiratory diseases; Z82.49 Family history of ischemic heart disease and other diseases of the circulatory system
CPT/HCPCS: 33249; 36415; 71046; 80048; 80053; 81003; 83735; 83880; 84439; 84443; 84484; 85025; 85610; 85730; 93005; 93306; 93641; 94640; 94760; 96374; 99285

== ENCOUNTER 2019-05-20 13:59 | Inpatient (IN) | payer MEDICARE, OTHER ==
[2019-05-20] MEDS ORDERED: methylPREDNISolone SOD SUCCI 125 MG/2 ML VIAL IV STA (14:17)
[2019-05-20] MEDS ORDERED: ALBUTEROL NEBULIZED 2.5 MG/3 ML INHALATION STA (14:17)
[2019-05-20] MEDS ORDERED: IPRATROPIUM 0.5 MG/2.5 ML NEBU INHALATION STA (14:17)
[2019-05-20] MEDS ORDERED: FUROSEMIDE 10 MG/ML 4 ML VIAL IV STA (14:17)
--- NOTE | 2019-05-20 14:23 | ED ---
SOB HPI - General Chief Complaint: Shortness of Breath Stated Complaint: foot swelling/SOB Time Seen by Provider: 05/20/19 14:14 Source: patient, RN notes reviewed, old records reviewed Mode of arrival: wheelchair Limitations: no limitations - History of Present Illness Initial Comments: This is a 69-year-old female the ER for evaluation. Patient resents today for evaluation shortness of breath. Patient states she's having significant shortness of breath especially with exertion increased cough and also complaining of lower extremity edema bilaterally. Patient denies chest pain. Symptoms are worse with exertion. She does have history of COPD mild heart history. Patient noted swelling in her today MD Complaint: shortness of breath -: days(s) Severity: moderate Severity scale (1-10): 5 Quality: other (No pain) Consistency: constant Improves With: oxygen, rest, bronchodilators, upright position Worsens With: exertion, movement Known History Of: COPD Context: recent URI Associated Symptoms: cough, palpitations - Related Data Home Medications Medication Instructions Recorded Confirmed Atorvastatin [Lipitor] 40 mg PO DAILY 09/22/18 05/20/19 Ipratropium-Albuterol Nebulize 3 ml INHALATION RT-TID 12/14/18 05/20/19 [Duoneb 0.5 mg-3 mg/3 ml Soln] Budesonide [Pulmicort] 0.5 mg INHALATION RT-BID 05/20/19 05/20/19 Formoterol Fumarate [Perforomist] 20 mcg INHALATION RT-BID 05/20/19 05/20/19 Furosemide [Lasix] 40 mg PO BID 05/20/19 05/20/19 Isosorbide Mononitrate ER [Imdur] 30 mg PO DAILY 05/20/19 05/20/19 Levothyroxine Sodium [Synthroid] 125 mcg PO DAILY 05/20/19 05/20/19 Losartan Potassium [Cozaar] 50 mg PO HS 05/20/19 05/20/19 Metoprolol Tartrate [Lopressor] 25 mg PO BID 05/20/19 05/20/19 Allergies Allergy/AdvReac Type Severity Reaction Status Date / Time adhesive tape Allergy Rash/Hives Verified 05/20/19 14:38 hydrocodone [From Lortab] Allergy Itching Verified 05/20/19 14:38 Review of Systems ROS Statement: Those systems with pertinent positive or pertinent negative responses have been documented in the HPI. ROS Other: All systems not noted in ROS Statement are negative. Past Medical History Past Medical History: Coronary Artery Disease (CAD), COPD, GERD/Reflux, Hypertension, Myocardial Infarction ([place]), Pneumonia, Thyroid Disorder Additional Past Medical History / Comment(s): difficulty getting to sleep. 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 Last Myocardial Infarction Date:: History of Any Multi-Drug Resistant Organisms: None Reported Past Surgical History: Appendectomy, Section, Coronary Bypass/CABG, Hysterectomy, Joint Replacement, Orthopedic Surgery, Tubal Ligation Additional Past Surgical History / Comment(s): had cabg in jul 2018 at [facility], rt hip replacment, anahy knee replacment, carpal tunnel,rt ankle arthroscopy, total hysterectomy, "anahy elbow sx d/t tennis elbow" Past Anesthesia/Blood Transfusion Reactions: No Reported Reaction Additional Past Anesthesia/Blood Transfusion Reaction / Comment(s): "never received blood transfusion" Past Psychological History: Depression Smoking Status: Former smoker Past Alcohol Use History: None Reported Past Drug Use History: None Reported - Past Family History Mother Family Medical History: COPD Additional Family Medical History / Comment(s): emphysema Father Family Medical History: Coronary Artery Disease (CAD) Additional Family Medical History / Comment(s): 2 vessel cabg at age 57 General Exam Limitations: no limitations General appearance: alert, in no apparent distress, anxious Head exam: Present: atraumatic, normocephalic, normal inspection Eye exam: Present: normal appearance, PERRL, EOMI. Absent: scleral icterus, conjunctival injection, periorbital swelling ENT exam: Present: normal exam, mucous membranes moist Neck exam: Present: normal inspection. Absent: tenderness, meningismus, lymphadenopathy Respiratory exam: Present: normal lung sounds bilaterally, wheezes. Absent: respiratory distress, rales, rhonchi, stridor Cardiovascular Exam: Present: regular rate, normal rhythm, normal heart sounds. Absent: systolic murmur, diastolic murmur, rubs, gallop, clicks GI/Abdominal exam: Present: soft, normal bowel sounds. Absent: distended, tenderness, guarding, rebound, rigid Extremities exam: Present: normal inspection, full ROM, normal capillary refill. Absent: tenderness, pedal edema, joint swelling, calf tenderness Back exam: Present: normal inspection Neurological exam: Present: alert, oriented X3, CN II-XII intact Psychiatric exam: Present: normal affect, normal mood Skin exam: Present: warm, dry, intact, normal color. Absent: rash Course Vital Signs 05/20/19 05/20/19 05/20/19 14:04 15:08 15:11 Temperature 98.4 F Pulse Rate 73 60 60 Respiratory 18 18 Rate Blood Pressure 102/59 101/70 O2 Sat by Pulse 98 96 Oximetry 05/20/19 05/20/19 05/20/19 15:40 17:04 19:36 Temperature 97.8 F Pulse Rate 60 60 Respiratory 20 20 Rate Blood Pressure 113/63 O2 Sat by Pulse 95 Oximetry - Reevaluation(s) Reevaluation #1: 05/20/19 20:16 Medical records reviewed Reevaluation #2: 05/20/19 20:16 No significant improvement here in the ED Medical Decision Making - Medical Decision Making 69 female the ER and ED for evaluation shortness of breath with lower extremity edema CHF and COPD combination. Patient be admitted for diuresis breathing treatments and steroids - Lab Data Result diagrams: 05/20/19 14:52 05/20/19 14:52 Lab Results 05/20/19 05/20/19 05/20/19 Range/Units 14:52 14:52 14:52 WBC 7.2 (3.8-10.6) k/uL RBC 3.17 L (3.80-5.40) m/uL Hgb 9.6 L (11.4-16.0) gm/dL Hct 29.7 L (34.0-46.0) % MCV 93.7 (80.0-100.0) fL MCH 30.3 (25.0-35.0) pg MCHC 32.3 (31.0-37.0) g/dL RDW 18.2 H (11.5-15.5) % Plt Count 135 L (150-450) k/uL Neutrophils % 58 % Lymphocytes % 24 % Monocytes % 7 % Eosinophils % 7 % Basophils % 1 % Neutrophils # 4.2 (1.3-7.7) k/uL Lymphocytes # 1.8 (1.0-4.8) k/uL Monocytes # 0.5 (0-1.0) k/uL Eosinophils # 0.5 (0-0.7) k/uL Basophils # 0.0 (0-0.2) k/uL Hypochromasia Slight Anisocytosis Slight PT (9.0-12.0) sec INR (<1.2) APTT (22.0-30.0) sec Sodium 141 (137-145) mmol/L Potassium 4.2 (3.5-5.1) mmol/L Chloride 107 (98-107) mmol/L Carbon Dioxide 21 L (22-30) mmol/L Anion Gap 13 mmol/L BUN 42 H (7-17) mg/dL Creatinine 1.58 H (0.52-1.04) mg/dL Est GFR (CKD-EPI)AfAm 38 (>60 ml/min/1.73 sqM) Est GFR (CKD-EPI)NonAf 33 (>60 ml/min/1.73 sqM) Glucose 97 (74-99) mg/dL Calcium 9.4 (8.4-10.2) mg/dL Magnesium 2.2 (1.6-2.3) mg/dL Total Bilirubin 1.9 H (0.2-1.3) mg/dL AST 35 (14-36) U/L ALT 17 (9-52) U/L Alkaline Phosphatase 272 H (38-126) U/L Troponin I (0.000-0.034) ng/mL NT-Pro-B Natriuret Pep 79798 pg/mL Total Protein 7.6 (6.3-8.2) g/dL Albumin 3.9 (3.5-5.0) g/dL 05/20/19 05/20/19 Range/Units 14:52 14:52 WBC (3.8-10.6) k/uL RBC (3.80-5.40) m/uL Hgb (11.4-16.0) gm/dL Hct (34.0-46.0) % MCV (80.0-100.0) fL MCH (25.0-35.0) pg MCHC (31.0-37.0) g/dL RDW (11.5-15.5) % Plt Count (150-450) k/uL Neutrophils % % Lymphocytes % % Monocytes % % Eosinophils % % Basophils % % Neutrophils # (1.3-7.7) k/uL Lymphocytes # (1.0-4.8) k/uL Monocytes # (0-1.0) k/uL Eosinophils # (0-0.7) k/uL Basophils # (0-0.2) k/uL Hypochromasia Anisocytosis PT 11.7 (9.0-12.0) sec INR 1.1 (<1.2) APTT 25.8 (22.0-30.0) sec Sodium (137-145) mmol/L Potassium (3.5-5.1) mmol/L Chloride (98-107) mmol/L Carbon Dioxide (22-30) mmol/L Anion Gap mmol/L BUN (7-17) mg/dL Creatinine (0.52-1.04) mg/dL Est GFR (CKD-EPI)AfAm (>60 ml/min/1.73 sqM) Est GFR (CKD-EPI)NonAf (>60 ml/min/1.73 sqM) Glucose (74-99) mg/dL Calcium (8.4-10.2) mg/dL Magnesium (1.6-2.3) mg/dL Total Bilirubin (0.2-1.3) mg/dL AST (14-36) U/L ALT (9-52) U/L Alkaline Phosphatase (38-126) U/L Troponin I <0.012 (0.000-0.034) ng/mL NT-Pro-B Natriuret Pep pg/mL Total Protein (6.3-8.2) g/dL Albumin (3.5-5.0) g/dL - EKG Data -: EKG Interpreted by Me (EKG shows paced rhythm of 64, TN 180, QRS 74, QTc 472) - Radiology Data Radiology results: report reviewed (Chest x-ray shows mild pulmonary vascular congestion), image reviewed Disposition Clinical Impression: Acute exacerbation of chronic obstructive airways disease, Acute decompensated heart failure, Acute pulmonary edema, Acute on chronic systolic CHF (congestive heart failure) Disposition: ADMITTED IP TO THIS [facility] Condition: Fair Is patient prescribed a controlled substance at d/c from ED?: No Referrals: Reji Otto DO [Primary Care Provider] - 1-2 days
--- NOTE | 2019-05-20 14:53 | XR ---
EXAMINATION TYPE: XR chest 1V portable DATE OF EXAM: 05/20/2019 COMPARISON: Chest x-ray December 29, 2018. CT chest earlier today. HISTORY: Shortness of breath and leg swelling. TECHNIQUE: Single frontal view of the chest is obtained. FINDINGS: There is cardiomegaly with dual lead pacemaker/AICD. There is atherosclerotic thoracic aor ta. Overlying sternal wires. There is chronic parenchymal change without suspicious focal airspace op acity, pleural effusion, or pneumothorax seen. Osseous structures remain demineralized. IMPRESSION: Chronic changes and cardiomegaly without acute pulmonary process.
[2019-05-20 15:03] LABS: Anisocytosis Slight; Basophils % (A) 1 %; Eosinophils # (A) 0.5 k/uL (0-0.7); Eosinophils % (A) 7 %; HCT 29.7 % (34.0-46.0); HGB 9.6 gm/dL (11.4-16.0); Hypochromasia Slight; Lymphocytes # (A) 1.8 k/uL (1.0-4.8); Lymphocytes % (A) 24 %; MCH 30.3 pg (25.0-35.0); MCHC 32.3 g/dL (31.0-37.0); MCV 93.7 fL (80.0-100.0); Mean Platelet Volume 7.8; Monocytes # (A) 0.5 k/uL (0-1.0); Monocytes % (A) 7 %; Neutrophils # (A) 4.2 k/uL (1.3-7.7); Neutrophils % (A) 58 %; Platelet Count 135 k/uL (150-450); RBC 3.17 m/uL (3.80-5.40); RDW 18.2 % (11.5-15.5); WBC 7.2 k/uL (3.8-10.6)
[2019-05-20] MEDS ORDERED: ONDANSETRON 4 MG/2 ML VIAL IVP STA (15:03)
[2019-05-20 15:11] LABS: INR 1.1 (<1.2); Partial Thromboplastin Time 25.8 sec (22.0-30.0); Prothrombin Time 11.7 sec (9.0-12.0)
[2019-05-20 15:12] LABS: Albumin 3.9 g/dL (3.5-5.0); Calcium 9.4 mg/dL (8.4-10.2); Magnesium 2.2 mg/dL (1.6-2.3); Potassium 4.2 mmol/L (3.5-5.1); Total Bilirubin 1.9 mg/dL (0.2-1.3); Total Protein 7.6 g/dL (6.3-8.2)
[2019-05-20] MEDS: METOPROLOL TARTRATE 25 MG TAB PO SCH (23:30)
[2019-05-20] MEDS: LOSARTAN 50 MG TAB PO SCH (23:30)
[2019-05-20] MEDS: methylPREDNISolone SOD SUCCI 125 MG/2 ML VIAL IV SCH (23:31)
[2019-05-20] MEDS: FUROSEMIDE 10 MG/ML 4 ML VIAL IV SCH (23:31)
[2019-05-21] MEDS: TEMAZEPAM 30 MG CAP PO SCH ×2 (00:30→23:29)
[2019-05-21] MEDS ORDERED: IPRATROPIUM-ALBUTEROL 3 ML NEB INHALATION PRN (00:31)
[2019-05-21] MEDS: methylPREDNISolone SOD SUCCI 125 MG/2 ML VIAL IV SCH ×2 (06:04→12:49)
[2019-05-21] MEDS: LEVOTHYROXINE 125 MCG TAB PO SCH (06:04)
[2019-05-21] MEDS: FUROSEMIDE 10 MG/ML 4 ML VIAL IV SCH (08:57)
[2019-05-21] MEDS: METOPROLOL TARTRATE 25 MG TAB PO SCH ×2 (08:57→21:50)
[2019-05-21] MEDS: ISOSORBIDE MONONITRATE ER 30 MG TAB.ER.24H PO SCH (08:57)
[2019-05-21] MEDS: ATORVASTATIN 40 MG TAB PO SCH (08:57)
[2019-05-21] MEDS: BUDESONIDE 0.5 MG/2 ML NEBU INHALATION SCH ×2 (09:09→20:32)
[2019-05-21] MEDS: FORMOTEROL FUMARATE 20 MCG/2 ML NEBU INHALATION SCH ×2 (09:09→20:32)
[2019-05-21] MEDS: IPRATROPIUM-ALBUTEROL 3 ML NEB INHALATION SCH ×4 (09:09→20:32)
[2019-05-21 10:51] VITALS: BMI 25.5
[2019-05-21 15:06] LABS: Glucose,Whole Blood 182 mg/dL (75-99)
[2019-05-21] MEDS ORDERED: NITROGLYCERIN SL TABS 0.4 MG TAB SUBLINGUAL ONE (15:09)
[2019-05-21 15:53] LABS: Creatine Kinase 29 U/L (30-135)
[2019-05-21 16:05] LABS: Creatine Kinase MB 0.5 ng/mL (0.0-2.4); Troponin I <0.012 ng/mL (0.000-0.034)
--- NOTE | 2019-05-21 16:56 | P.HPIM ---
History of Present Illness H&P Date: 05/21/19 Chief Complaint: Short of breath cough History of presenting complaint: This is a pleasant 69-year-old patient of Dr. Otto. Chronic stable medical conditions include coronary artery disease, hypertension, GERD, hypothyroidism, chronic kidney disease. Patient in October of this year had a coronary artery bypass at [facility]. Patient presents with the bottom of increasing dry cough also noticed some swelling of the legs especially the left leg. His no fever no chills. Appetite is decreased. Feeling tired and rundown. And presented to the ER. ER she was diagnosed to have CHF and COPD exacerbation started on steroids bronchodilators Lasix and admitted for the same. Patient's is present at the bedside. Still short winded. No fever no chills. Review of systems: GEN.: Tired EYES: None HEENT: None NECK: None RESPIRATORY: Short of breath CARDIOVASCULAR: None GASTROINTESTINAL: None GENITOURINARY: None MUSCULOSKELETAL: Pain in the joints LYMPHATICS: None HEMATOLOGICAL: None PSYCHIATRY: Slightly anxious NEUROLOGICAL: None Past medical history: CHF with EF of 30%, coronary artery disease with bypass in July 2018, COPD, mitral and tricuspid regurgitation, secondary pulmonary hypertension from COPD/CHF, GERD, hypertension, hypothyroid, chronic kidney disease stage III Social history: Patient smoked close to 55 years about a quarter pack a day. stopped in July of last year. Lives with her . Family history: COPD Physical examination: VITAL SIGNS: 98.4, 73, 18, 102/59, 98% on 3 L GENERAL: BMI 25.6, sitting up in bed, slightly short of breath. EYES: Pupils equal. Conjunctiva normal. HEENT: External appearance of nose and ears normal, oral cavity grossly normal. NECK: JVD raised; masses not palpable. HEART: First and second heart sounds are normal; some edema. LUNGS: Respiratory rate increased, bilateral basal fine crackles, respiratory. ABDOMEN: Soft, nontender, liver spleen not palpable, no masses palpable. PSYCH: Alert and oriented x3; mood and affect slightly anxiousl. NEUROLOGICAL: Cranial nerves grossly intact; no facial asymmetry, power and sensation grossly intact. LYMPHATICS: No lymph nodes palpable in the axilla and neck MUSCULOSKELETAL: Evidence of OA specially in the hands INVESTIGATIONS, reviewed in the clinical context: White count 7.2 hemoglobin 9.6 platelets 135 potassium 4.2 bun 42 creatinine 1.58 Chest x-ray film personally reviewed by me shows venous prominence EKG tracing personally reviewed by me shows atrial paced rhythm 2-D echocardiogram from December of this year shows EF of 3035% some part of the 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 Assessment: -Acute on chronic congestive heart failure exacerbation from systolic dysfunction EF 30-35% from underlying coronary artery disease -Coronary artery disease with bypass in July 2018 -COPD exacerbation and an ex-smoker -Mitral and tricuspid regurgitation nonrheumatic -Severe secondary pulmonary hypertension due to CHF/COPD -GERD -Essential hypertension -Hypothyroidism -Chronic kidney disease stage III from nephrosclerosis Plan: We will increase patient's IV Lasix to 80 mg every 8. Home medications resumed. Lites were followed closely. Care was discussed with the patient and at the bedside. Cardiology was consulted. Given patient's age and multiple comorbidities prognosis guarded. Expect patient to the hospital for at least 2 nights Past Medical History Past Medical History: Coronary Artery Disease (CAD), Heart Failure, COPD, CVA/TIA, GERD/Reflux, Hypertension, Myocardial Infarction ([place]), Pneumonia, Thyroid Disorder Additional Past Medical History / Comment(s): difficulty getting to sleep. 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 at time of this admit Last Myocardial Infarction Date:: History of Any Multi-Drug Resistant Organisms: None Reported Past Surgical History: Appendectomy, Section, Coronary Bypass/CABG, Hysterectomy, Joint Replacement, Orthopedic Surgery, Pacemaker, Tubal Ligation Additional Past Surgical History / Comment(s): had cabg in jul 2018 at [facility], rt hip replacment, anahy knee replacment, carpal tunnel,rt ankle arthroscopy, total hysterectomy, "anahy elbow sx d/t tennis elbow" Past Anesthesia/Blood Transfusion Reactions: No Reported Reaction Additional Past Anesthesia/Blood Transfusion Reaction / Comment(s): "never received blood transfusion" Type of Cardiac Device: AICD Device Placement Date:: 11/2018 Past Psychological History: Depression Smoking Status: Former smoker Past Alcohol Use History: None Reported Additional Past Alcohol Use History / Comment(s): started smoking age 13 and quit smoked 6-7 cig per day Past Drug Use History: None Reported - Past Family History Mother Family Medical History: COPD Additional Family Medical History / Comment(s): emphysema Father Family Medical History: Coronary Artery Disease (CAD) Additional Family Medical History / Comment(s): 2 vessel cabg at age 57 Medications and Allergies Home Medications Medication Instructions Recorded Confirmed Type Atorvastatin [Lipitor] 40 mg PO DAILY 09/22/18 05/20/19 History Ipratropium-Albuterol Nebulize 3 ml INHALATION RT-TID 12/14/18 05/20/19 History [Duoneb 0.5 mg-3 mg/3 ml Soln] Budesonide [Pulmicort] 0.5 mg INHALATION RT-BID 05/20/19 05/20/19 History Formoterol Fumarate [Perforomist] 20 mcg INHALATION RT-BID 05/20/19 05/20/19 History Furosemide [Lasix] 40 mg PO BID 05/20/19 05/20/19 History Isosorbide Mononitrate ER [Imdur] 30 mg PO DAILY 05/20/19 05/20/19 History Levothyroxine Sodium [Synthroid] 125 mcg PO DAILY 05/20/19 05/20/19 History Losartan Potassium [Cozaar] 50 mg PO HS 05/20/19 05/20/19 History Metoprolol Tartrate [Lopressor] 25 mg PO BID 05/20/19 05/20/19 History Temazepam 30 mg PO HS 05/20/19 05/20/19 History Allergies Allergy/AdvReac Type Severity Reaction Status Date / Time adhesive tape Allergy Rash/Hives Verified 05/20/19 14:38 hydrocodone [From Lortab] Allergy Itching Verified 05/20/19 14:38 Physical Exam Vitals: Vital Signs Temp Pulse Pulse Resp BP BP Pulse Ox 05/21/19 16:42 68 05/21/19 16:31 64 05/21/19 15:05 60 20 120/68 95 05/21/19 14:50 60 20 116/70 95 05/21/19 14:45 58 L 20 107/69 88 L 05/21/19 12:44 97.8 F 57 L 16 117/70 96 05/21/19 12:09 68 05/21/19 11:59 67 05/21/19 08:54 60 120/59 92 L 05/21/19 04:59 97.4 F L 61 16 95 05/20/19 22:18 97.5 F L 60 18 121/58 96 05/20/19 21:00 98.3 F 60 22 120/86 93 L 05/20/19 19:36 97.8 F 60 20 113/63 95 05/20/19 17:04 20 Intake and Output 05/21/19 05/21/19 05/21/19 06:59 14:59 22:59 Intake Total 350 480 Output Total 150 Balance 200 480 Intake: Oral 350 480 Output: Urine 150 Other: Voiding Method Toilet Toilet # Voids 2 Weight 71.9 kg Results CBC & Chem 7: 05/20/19 14:52 05/20/19 14:52 Labs: Abnormal Lab Results - Last 24 Hours (Table) 05/21/19 05/21/19 Range/Units 15:03 15:16 POC Glucose (mg/dL) 182 H (75-99) mg/dL Total Creatine Kinase 29 L (30-135) U/L Thrombosis Risk Factor Assmnt - Choose All That Apply Any of the Below Risk Factors Present?: Yes Each Factor Represents 1 point: Abnormal pulmonary function (COPD), Obesity (BMI >25), Swollen legs (current) Other Risk Factors: Yes Each Risk Factor Represents 2 Points: Age 61-74 years Other congenital or acquired thrombophilia - If yes, enter type in comment: No Thrombosis Risk Factor Assessment Total Risk Factor Score: 5 Thrombosis Risk Factor Assessment Level: High Risk
[2019-05-21] MEDS: FUROSEMIDE 10 MG/ML 10 ML VIAL IV SCH ×2 (17:52→23:30)
--- NOTE | 2019-05-21 19:44 | ECHOF ---
Referral Reason:Heart Failure MEASUREMENTS -------- HEIGHT: 165.1 cm WEIGHT: 71.7 kg BP: 121/58 RVIDd: 3.5 cm (< 3.3) IVSd: 1.4 cm (0.6 - 1.1) LVIDd: 6.6 cm (3.9 - 5.3) LVPWd: 1.5 cm (0.6 - 1.1) IVSs: 1.4 cm LVIDs: 5.1 cm LVPWs: 1.9 cm LA Diam: 4.9 cm (2.7 - 3.8) Ao Diam: 2.6 cm (2.0 - 3.7) AV Cusp: 1.4 cm (1.5 - 2.6) LA Diam: 5.2 cm (2.7 - 3.8) MV EXCURSION: 16.399 mm (> 18.000) MV EF SLOPE: 41 mm/s (70 - 150) EPSS: 1.1 cm MV E Cipriano: 0.83 m/s MV DecT: 212 ms MV A Cipriano: 0.41 m/s MV E/A Ratio: 2.04 RAP: 20.00 mmHg RVSP: 45.70 mmHg FINDINGS -------- Paced rhythm. The left ventricular size is normal. There is mild concentric left ventricular hypertrophy. Overa ll left ventricular systolic function is moderate-severely impaired with, an EF between 30 - 35 %. Aneurysmal Basal Segement. The right ventricle is normal in size. The left atrium is markedly dilated. LA is severely dilated >40 ml/m2 The right atrial size is normal. There is mild aortic valve sclerosis. There is no evidence of aortic regurgitation. The mitral valve leaflets are mildly thickened. Mild mitral annular calcification present. Modera te mitral regurgitation is present. Moderate to severe tricuspid regurgitation present. There is moderate pulmonary hypertension. The right ventricular systolic pressure, as measured by Doppler, is 45.70mmHg. Trace/mild (physiologic) pulmonic regurgitation. The aortic root size is normal. The inferior vena cava is dilated with no significant inspiratory collapse which is consistent estima jaida right atrial pressure of >20 mmHg. There is no pericardial effusion. CONCLUSIONS -------- 1. Paced rhythm. 2. The left ventricular size is normal. 3. Overall left ventricular systolic function is moderate-severely impaired with, an EF between 30 - 35 %. 4. Aneurysmal Basal Segement. 5. The right ventricle is normal in size. 6. The left atrium is markedly dilated. 7. LA is severely dilated >40 ml/m2 8. The right atrial size is normal. 9. There is mild aortic valve sclerosis. 10. The mitral valve leaflets are mildly thickened. 11. Mild mitral annular calcification present. 12. Moderate mitral regurgitation is present. 13. Moderate to severe tricuspid regurgitation present. 14. There is moderate pulmonary hypertension. 15. The right ventricular systolic pressure, as measured by Doppler, is 45.70mmHg. 16. Trace/mild (physiologic) pulmonic regurgitation. 17. The aortic root size is normal. 18. The inferior vena cava is dilated with no significant inspiratory collapse which is consistent es timated right atrial pressure of >20 mmHg. 19. There is no pericardial effusion. CORE SHAPER SIDES: Kelly Leavitt RDCS
[2019-05-21] MEDS: methylPREDNISolone SOD SUCCI 40 MG/ML 1 ML VIAL IV SCH (21:50)
[2019-05-21] MEDS: LOSARTAN 50 MG TAB PO SCH (21:50)
[2019-05-22 06:34] LABS: Calcium 9.3 mg/dL (8.4-10.2)
[2019-05-22] MEDS: LEVOTHYROXINE 125 MCG TAB PO SCH (07:10)
[2019-05-22] MEDS: FORMOTEROL FUMARATE 20 MCG/2 ML NEBU INHALATION SCH ×2 (07:35→19:25)
[2019-05-22] MEDS: IPRATROPIUM-ALBUTEROL 3 ML NEB INHALATION SCH ×4 (07:35→19:24)
[2019-05-22] MEDS: BUDESONIDE 0.5 MG/2 ML NEBU INHALATION SCH ×2 (07:35→19:25)
--- NOTE | 2019-05-22 09:32 | P.CRDCN ---
History of Present Illness Consult date: 05/22/19 Requesting physician: Po Moss Consult reason: congestive heart failure Chief complaint: Shortness of breath and bilateral lower extremity edema History of present illness: This is a pleasant 69-year-old female who follows regularly with Dr. Campos Vazquez in the office. She has a known history of coronary artery disease with prior myocardial infarction in 2018 with subsequent coronary artery bypass grafting surgery 2 performed at [facility], history of COPD, nicotine dependence, hypertension, hypothyroidism, hyperlipidemia, ischemic cardiomyopathy with prior AICD, hypothyroidism, GERD. She presents to the hospital on this admission with symptoms of shortness of breath with lower extremity edema. She states that she noticed this primarily starting the day before yesterday, she came to the hospital yesterday for further evaluation and treatment. I pressure on arrival here 102/60 with a heart rate in the 70s, 98% on 3 L of oxygen. White blood cell count 7.2, hemoglobin 9.6, platelet count 135. Sodium 144, potassium 4.0, chloride 105, CO2 25, BUN 53 and creatinine 1.7. Magnesium 2.2, troponins negative 3, BNP on admission 12,500. Chest x- ray shows chronic changes and cardiomegaly without any acute process. An echocardiogram with Doppler study was performed which revealed an ejection fraction of 30-35%. Aneurysmal basal segment, LA is severely dilated, moderate mitral regurgitation with moderate to severe tricuspid regurg. EKG shows an atrial paced rhythm. Patient was initiated on IV Lasix in the emergency room, her weight is down 2 kg today. At the time of my examination, the patient feels well, she denies any shortness of breath, and states that the peripheral edema in her lower extremities is almost gone. Past Medical History Past Medical History: Coronary Artery Disease (CAD), Heart Failure, COPD, CVA/TIA, GERD/Reflux, Hypertension, Myocardial Infarction ([place]), Pneumonia, Thyroid Disorder Additional Past Medical History / Comment(s): difficulty getting to sleep. 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 at time of this admit Last Myocardial Infarction Date:: History of Any Multi-Drug Resistant Organisms: None Reported Past Surgical History: Appendectomy, Section, Coronary Bypass/CABG, Hysterectomy, Joint Replacement, Orthopedic Surgery, Pacemaker, Tubal Ligation Additional Past Surgical History / Comment(s): had cabg in jul 2018 at [facility], rt hip replacment, anahy knee replacment, carpal tunnel,rt ankle arthroscopy, total hysterectomy, "anahy elbow sx d/t tennis elbow" Past Anesthesia/Blood Transfusion Reactions: No Reported Reaction Additional Past Anesthesia/Blood Transfusion Reaction / Comment(s): "never received blood transfusion" Type of Cardiac Device: AICD Device Placement Date:: 11/2018 Past Psychological History: Depression Smoking Status: Former smoker Past Alcohol Use History: None Reported Additional Past Alcohol Use History / Comment(s): started smoking age 13 and quit smoked 6-7 cig per day Past Drug Use History: None Reported - Past Family History Mother Family Medical History: COPD Additional Family Medical History / Comment(s): emphysema Father Family Medical History: Coronary Artery Disease (CAD) Additional Family Medical History / Comment(s): 2 vessel cabg at age 57 Medications and Allergies Home Medications Medication Instructions Recorded Confirmed Type Atorvastatin [Lipitor] 40 mg PO DAILY 09/22/18 05/20/19 History Ipratropium-Albuterol Nebulize 3 ml INHALATION RT-TID 12/14/18 05/20/19 History [Duoneb 0.5 mg-3 mg/3 ml Soln] Budesonide [Pulmicort] 0.5 mg INHALATION RT-BID 05/20/19 05/20/19 History Formoterol Fumarate [Perforomist] 20 mcg INHALATION RT-BID 05/20/19 05/20/19 History Furosemide [Lasix] 40 mg PO BID 05/20/19 05/20/19 History Isosorbide Mononitrate ER [Imdur] 30 mg PO DAILY 05/20/19 05/20/19 History Levothyroxine Sodium [Synthroid] 125 mcg PO DAILY 05/20/19 05/20/19 History Losartan Potassium [Cozaar] 50 mg PO HS 05/20/19 05/20/19 History Metoprolol Tartrate [Lopressor] 25 mg PO BID 05/20/19 05/20/19 History Temazepam 30 mg PO HS 05/20/19 05/20/19 History Allergies Allergy/AdvReac Type Severity Reaction Status Date / Time adhesive tape Allergy Rash/Hives Verified 05/20/19 14:38 hydrocodone [From Lortab] Allergy Itching Verified 05/20/19 14:38 Physical Exam Vitals: Vital Signs Temp Pulse Pulse Resp BP Pulse Ox 05/22/19 07:58 62 05/22/19 07:51 64 05/22/19 07:50 64 05/22/19 07:37 60 93 L 05/22/19 04:00 97.8 F 62 18 106/58 95 05/22/19 00:00 97.9 F 60 18 106/55 93 L 05/21/19 20:51 68 05/21/19 20:43 68 05/21/19 20:42 68 05/21/19 20:34 62 94 L 05/21/19 20:00 97.7 F 58 L 18 128/57 92 L 05/21/19 16:42 68 05/21/19 16:31 64 05/21/19 15:45 60 20 05/21/19 15:05 60 20 120/68 95 05/21/19 14:50 60 20 116/70 95 05/21/19 14:45 58 L 20 107/69 88 L 05/21/19 12:44 97.8 F 57 L 16 117/70 96 05/21/19 12:09 68 05/21/19 11:59 67 Intake and Output 05/21/19 05/22/19 05/22/19 22:59 06:59 14:59 Intake Total 230 240 Output Total 750 1200 Balance -520 -1200 240 Intake: Oral 230 240 Output: Urine 750 1200 Other: Voiding Method Toilet Toilet # Voids 1 2 Weight 70.4 kg PHYSICAL EXAMINATION: GENERAL: 69-year-old female in no acute distress at the time of my examination HEENT: Head is atraumatic, normocephalic. Pupils equal, round. Sclera anicteric. Conjunctiva are clear. Mucous membranes of the mouth are moist. Neck is supple. There is no elevated jugular venous pressure. No carotid bruit is heard. HEART EXAMINATION: Heart S1 and S2 systolic murmur is heard CHEST EXAMINATION: Lungs reveal fine rales to bilateral bases, no wheezing ABDOMEN: Soft, nontender. Bowel sounds are heard. No organomegaly noted. EXTREMITIES: 2+ peripheral pulses with no evidence of peripheral edema and no calf tenderness noted. NEUROLOGIC patient is awake, alert and oriented 3. Results 05/20/19 14:52 05/22/19 05:48 Cardiac Enzymes 05/21/19 Range/Units 15:16 CK-MB (CK-2) 0.5 (0.0-2.4) ng/mL Troponin I <0.012 (0.000-0.034) ng/mL Comprehensive Metabolic Panel 05/22/19 Range/Units 05:48 Sodium 144 (137-145) mmol/L Potassium 4.0 (3.5-5.1) mmol/L Chloride 105 (98-107) mmol/L Carbon Dioxide 25 (22-30) mmol/L BUN 53 H (7-17) mg/dL Creatinine 1.71 H (0.52-1.04) mg/dL Glucose 160 H (74-99) mg/dL Calcium 9.3 (8.4-10.2) mg/dL Current Medications Generic Name Dose Route Start Last Admin Trade Name Freq PRN Reason Stop Dose Admin Albuterol/Ipratropium 3 ml 05/21/19 08:00 05/22/19 07:35 Duoneb 0.5 Mg-3 Mg/3 Ml Soln INHALATION 3 ml RT-QID THU Administration Albuterol/Ipratropium 3 ml 05/21/19 00:31 Duoneb 0.5 Mg-3 Mg/3 Ml Soln INHALATION RT-Q2H PRN Shortness Of Breath Or Wheezing Atorvastatin Calcium 40 mg 05/21/19 09:00 05/21/19 08:57 Lipitor PO 40 mg DAILY THU Administration Budesonide 0.5 mg 05/21/19 08:00 05/22/19 07:35 Pulmicort INHALATION 0.5 mg RT-BID THU Administration Formoterol Fumarate 20 mcg 05/21/19 08:00 05/22/19 07:35 Perforomist INHALATION 20 mcg RT-BID THU Administration Furosemide 80 mg 05/21/19 16:45 05/21/19 23:30 Lasix IV 80 mg Q8HR THU Administration Isosorbide Mononitrate 30 mg 05/21/19 09:00 05/21/19 08:57 Imdur PO 30 mg DAILY THU Administration Levothyroxine Sodium 125 mcg 05/21/19 06:30 05/22/19 07:10 Synthroid PO 125 mcg DAILY@0630 THU Administration Losartan Potassium 50 mg 05/20/19 23:30 05/21/19 21:50 Cozaar PO 50 mg HS THU Administration Methylprednisolone Sodium Succinate 40 mg 05/21/19 21:00 05/21/19 21:50 Solu-Medrol IV 40 mg Q12HR THU Administration Metoprolol Tartrate 25 mg 05/20/19 23:30 05/21/19 21:50 Lopressor PO 25 mg BID THU Administration Temazepam 30 mg 05/20/19 23:30 05/21/19 23:29 Restoril PO 30 mg HS THU Administration Intake and Output 05/21/19 05/22/19 05/22/19 22:59 06:59 14:59 Intake Total 230 240 Output Total 750 1200 Balance -520 -1200 240 Intake: Oral 230 240 Output: Urine 750 1200 Other: Voiding Method Toilet Toilet # Voids 1 2 Weight 70.4 kg 05/20/19 14:52 05/22/19 05:48 EKG Interpretations (text) EKG shows atrial paced rhythm Assessment and Plan Plan: Assessment and plan #1 systolic congestive heart failure acute on chronic #2 history of myocardial infarction with subsequent 2 vessel coronary artery bypass grafting surgery in July of last year #3 hypertension #4 hyperlipidemia #5 hypothyroidism #6 COPD #7 prior history of smoking #8 ischemic cardio myopathy with prior AICD implantation #9 chronic renal insufficiency with a baseline creatinine of 1.4-1.8 Plan An echocardiogram with Doppler study was performed yesterday which revealed an ejection fraction of 30-35%, aneurysmal basal segment, severely dilated left atrium with moderate mitral regurgitation and moderate to severe tricuspid regurgitation. We will recommend to continue the patient on IV Lasix for today and from tomorrow switch over to oral diuretics. Continue losartan, metoprolol, consider the addition of Aldactone from tomorrow. Further recommendations to follow. DNP note has been reviewed, I agree with a documented findings and plan of care. Patient was seen and examined.
[2019-05-22] MEDS: ATORVASTATIN 40 MG TAB PO SCH (09:48)
[2019-05-22] MEDS: METOPROLOL TARTRATE 25 MG TAB PO SCH ×2 (09:48→21:42)
[2019-05-22] MEDS: ISOSORBIDE MONONITRATE ER 30 MG TAB.ER.24H PO SCH (09:49)
[2019-05-22] MEDS: methylPREDNISolone SOD SUCCI 40 MG/ML 1 ML VIAL IV SCH ×2 (09:49→21:42)
[2019-05-22] MEDS: FUROSEMIDE 10 MG/ML 10 ML VIAL IV SCH ×2 (09:49→12:14)
[2019-05-22] MEDS: SENNOSIDES 8.6 MG TAB PO SCH ×2 (12:35→21:42)
[2019-05-22] MEDS ORDERED: FUROSEMIDE 10 MG/ML 4 ML VIAL IV SCH (15:00)
[2019-05-22 17:08] LABS: Glucose,Whole Blood 178 mg/dL (75-99)
[2019-05-22] MEDS ORDERED: diphenhydrAMINE 25 MG CAP PO STA (21:02)
--- NOTE | 2019-05-22 21:24 | P.PN ---
Progress Note - Text Progress Note Date: 05/22/19 Chief Complaint: Short of breath, chest. Interval history: This is a pleasant 69-year-old patient of Dr. Otto. Chronic stable medical conditions include coronary artery disease, hypertension, GERD, hypothyroidism, chronic kidney disease. Patient in October of this year had a coronary artery bypass at [facility]. Patient presents with the bottom of increasing dry cough also noticed some swelling of the legs especially the left leg. His no fever no chills. Appetite is decreased. Feeling tired and rundown. And presented to the ER. ER she was diagnosed to have CHF and COPD exacerbation started on steroids bronchodilators Lasix and admitted for the same. On the afternoon of May 21, patient also developed chest pain. Patient was started for Medical Telemetry Floor to the Cardiac Telemetry Floor. Today-Breathing Better. No Further Chest Pain. Did Tolerate Some Diet. Tired. Is Present. Patient had been on IV Lasix Active Medications Albuterol/Ipratropium (Duoneb 0.5 Mg-3 Mg/3 Ml Soln) 3 ml INHALATION RT-QID [facility] Last Admin: 05/22/19 19:24 Dose: 3 ml Documented by: Albuterol/Ipratropium (Duoneb 0.5 Mg-3 Mg/3 Ml Soln) 3 ml INHALATION RT-Q2H PRN PRN Reason: Shortness Of Breath Or Wheezing Atorvastatin Calcium (Lipitor) 40 mg PO DAILY [facility] Last Admin: 05/22/19 09:48 Dose: 40 mg Documented by: Budesonide (Pulmicort) 0.5 mg INHALATION RT-BID [facility] Last Admin: 05/22/19 19:25 Dose: 0.5 mg Documented by: Formoterol Fumarate (Perforomist) 20 mcg INHALATION RT-BID [facility] Last Admin: 05/22/19 19:25 Dose: 20 mcg Documented by: Furosemide (Lasix) 60 mg PO BID@0700,1400 [facility] Isosorbide Mononitrate (Imdur) 30 mg PO DAILY [facility] Last Admin: 05/22/19 09:49 Dose: 30 mg Documented by: Levothyroxine Sodium (Synthroid) 125 mcg PO DAILY@0630 [facility] Last Admin: 05/22/19 07:10 Dose: 125 mcg Documented by: Losartan Potassium (Cozaar) 50 mg PO [facility] Last Admin: 05/21/19 21:50 Dose: 50 mg Documented by: Methylprednisolone Sodium Succinate (Solu-Medrol) 40 mg IV Q12HR [facility] Last Admin: 05/22/19 09:49 Dose: 40 mg Documented by: Metoprolol Tartrate (Lopressor) 25 mg PO BID [facility] Last Admin: 05/22/19 09:48 Dose: 25 mg Documented by: Senna (Senokot) 8.6 mg PO BID [facility] Last Admin: 05/22/19 12:35 Dose: 8.6 mg Documented by: Temazepam (Restoril) 30 mg PO HS [facility] Last Admin: 05/21/19 23:29 Dose: 30 mg Documented by: Physical examination: VITAL SIGNS: 97.1, 61, 18, 115/67, 92% on 3 L GENERAL: Propped up in bed, less short of breath this morning. EYES: Pupils equal. Conjunctiva normal. HEENT: External appearance of nose and ears normal, oral cavity grossly normal. NECK: JVD raised; masses not palpable. HEART: First and second heart sounds are normal; some edema. LUNGS: Respiratory rate increased, decreased crackles ABDOMEN: Soft, nontender, liver spleen not palpable, no masses palpable. PSYCH: Alert and oriented x3; mood and affect slightly anxiousl. NEUROLOGICAL: Cranial nerves grossly intact; no facial asymmetry, power and sensation grossly intact. LYMPHATICS: No lymph nodes palpable in the axilla and neck MUSCULOSKELETAL: Evidence of OA specially in the hands INVESTIGATIONS, reviewed in the clinical context: Potassium 4 bun 53 creatinine 1.71 Troponin 3 negative Previous testing White count 7.2 hemoglobin 9.6 platelets 135 potassium 4.2 bun 42 creatinine 1.58 Chest x-ray film personally reviewed by me shows venous prominence EKG tracing personally reviewed by me shows atrial paced rhythm 2-D echocardiogram from December of this year shows EF of 30-35% some part of the 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 Assessment: -Acute on chronic congestive heart failure exacerbation from systolic dysfunction EF 30-35% from underlying coronary artery disease, improving -Possible unstable angina, patient developed chest pain yesterday -Coronary artery disease with bypass in July 2018 -COPD exacerbation and an ex-smoker -Mitral and tricuspid regurgitation nonrheumatic -Severe secondary pulmonary hypertension due to CHF/COPD -GERD -Essential hypertension -Hypothyroidism -Chronic kidney disease stage III from nephrosclerosis Plan: Patient was seen by cardiology earlier today. This switched the patient to oral Lasix. Care was discussed with the patient and . See how she does. Follow electrolytes closely
[2019-05-22] MEDS: LOSARTAN 50 MG TAB PO SCH (21:42)
[2019-05-22] MEDS: TEMAZEPAM 30 MG CAP PO SCH (22:54)
[2019-05-23] MEDS: FUROSEMIDE 20 MG TAB PO SCH ×2 (06:29→13:25)
[2019-05-23] MEDS: LEVOTHYROXINE 125 MCG TAB PO SCH (06:29)
[2019-05-23 06:40] LABS: Calcium 9.3 mg/dL (8.4-10.2)
[2019-05-23] MEDS: IPRATROPIUM-ALBUTEROL 3 ML NEB INHALATION SCH ×4 (07:09→21:31)
[2019-05-23] MEDS: FORMOTEROL FUMARATE 20 MCG/2 ML NEBU INHALATION SCH ×2 (07:09→21:31)
[2019-05-23] MEDS: BUDESONIDE 0.5 MG/2 ML NEBU INHALATION SCH ×2 (07:09→21:31)
--- NOTE | 2019-05-23 07:32 | XR ---
EXAMINATION TYPE: XR chest 2V DATE OF EXAM: 05/23/2019 COMPARISON: 05/20/2019 INDICATION: CHF TECHNIQUE: Frontal and lateral views of the chest are obtained. FINDINGS: The heart size is moderately prominent. The pulmonary vasculature is normal. The lungs are clear. Pacemaker overlies left chest. Sternotomy wires are in the midline. IMPRESSION: 1. No significant residual pulmonary edema evident. 2. Cardiomegaly.
[2019-05-23] MEDS: methylPREDNISolone SOD SUCCI 40 MG/ML 1 ML VIAL IV SCH (08:23)
[2019-05-23] MEDS: ATORVASTATIN 40 MG TAB PO SCH (08:23)
[2019-05-23] MEDS: SENNOSIDES 8.6 MG TAB PO SCH ×2 (08:24→21:11)
[2019-05-23] MEDS: METOPROLOL TARTRATE 25 MG TAB PO SCH ×2 (08:24→21:11)
[2019-05-23] MEDS: ISOSORBIDE MONONITRATE ER 30 MG TAB.ER.24H PO SCH (08:24)
--- NOTE | 2019-05-23 10:34 | P.PN ---
Subjective Progress Note Date: 05/23/19 This is a pleasant 69-year-old female who follows regularly with Dr. Campos Vazquez in the office. She has a known history of coronary artery disease with prior myocardial infarction in 2018 with subsequent coronary artery bypass grafting surgery 2 performed at [facility], history of COPD, nicotine dependence, hypertension, hypothyroidism, hyperlipidemia, ischemic cardiomyopathy with prior AICD, hypothyroidism, GERD. She presents to the hospital on this admission with symptoms of shortness of breath with lower extremity edema. She states that she noticed this primarily starting the day before yesterday, she came to the hospital yesterday for further evaluation and treatment. I pressure on arrival here 102/60 with a heart rate in the 70s, 98% on 3 L of oxygen. White blood cell count 7.2, hemoglobin 9.6, platelet count 135. Sodium 144, potassium 4.0, chloride 105, CO2 25, BUN 53 and creatinine 1.7. Magnesium 2.2, troponins negative 3, BNP on admission 12,500. Chest x- ray shows chronic changes and cardiomegaly without any acute process. An echocardiogram with Doppler study was performed which revealed an ejection fraction of 30-35%. Aneurysmal basal segment, LA is severely dilated, moderate mitral regurgitation with moderate to severe tricuspid regurg. EKG shows an a trial paced rhythm. Patient was initiated on IV Lasix in the emergency room, her weight is down 2 kg today. At the time of my examination, the patient feels well, she denies any shortness of breath, and states that the peripheral edema in her lower extremities is almost gone. 05/23/2019 Patient was seen and examined this morning, complaining of mild nausea, no vomiting. Breathing overall is stable, back to her normal. Repeat chest x-ray from this morning does not reveal any significant residual pulmonary edema. I pressure 106/40 with a heart rate in the 60s, 96% on 3 L of oxygen. Sodium 141, potassium 4.0, BUN 57 and creatinine 1.6. Objective - Vital Signs Vital signs: Vital Signs Temp 98.0 F 05/23/19 08:31 Pulse 60 05/23/19 08:31 Resp 18 05/23/19 08:31 BP 106/49 05/23/19 08:31 Pulse Ox 96 05/23/19 08:31 Intake & Output 05/22/19 05/23/1919 18:59 06:59 18:59 Intake Total 720 Output Total 425 700 Balance 295 -700 Weight 70.8 kg Intake: Oral 720 Output: Urine 425 700 Other: Voiding Method Toilet Toilet Toilet # Voids 1 1 - Exam PHYSICAL EXAMINATION: GENERAL: 69-year-old female in no acute distress at the time of my examination HEENT: Head is atraumatic, normocephalic. Pupils equal, round. Sclera anicteric. Conjunctiva are clear. Mucous membranes of the mouth are moist. Neck is supple. There is no elevated jugular venous pressure. No carotid bruit is heard. HEART EXAMINATION: Heart S1 and S2 systolic murmur is heard CHEST EXAMINATION: Lungs clear to auscultation. ABDOMEN: Soft, nontender. Bowel sounds are heard. No organomegaly noted. EXTREMITIES: 2+ peripheral pulses with no evidence of peripheral edema and no calf tenderness noted. NEUROLOGIC patient is awake, alert and oriented 3. - Labs CBC & Chem 7: 05/20/19 14:52 05/23/19 05:59 Labs: Abnormal Lab Results - Last 24 Hours (Table) 05/22/19 05/23/19 Range/Units 17:06 05:59 BUN 57 H (7-17) mg/dL Creatinine 1.68 H (0.52-1.04) mg/dL Glucose 163 H (74-99) mg/dL POC Glucose (mg/dL) 178 H (75-99) mg/dL Assessment and Plan Plan: Assessment and plan #1 systolic congestive heart failure acute on chronic #2 history of myocardial infarction with subsequent 2 vessel coronary artery bypass grafting surgery in July of last year #3 hypertension #4 hyperlipidemia #5 hypothyroidism #6 COPD #7 prior history of smoking #8 ischemic cardio myopathy with prior AICD implantation #9 chronic renal insufficiency with a baseline creatinine of 1.4-1.8 Plan An echocardiogram with Doppler study was performed yesterday which revealed an ejection fraction of 30-35%, aneurysmal basal segment, severely dilated left atrium with moderate mitral regurgitation and moderate to severe tricuspid regurgitation. We'll discontinue the IV Lasix today and start the patient on oral diuretics. From our perspective, patient is stable for discharge once cleared by primary. We'll make her a follow-up appointment in the office with Dr. Campos Vazquez post discharge. DNP note has been reviewed, I agree with a documented findings and plan of care. Patient was seen and examined.
[2019-05-23] MEDS ORDERED: ONDANSETRON 4 MG/2 ML VIAL IVP PRN (11:29)
[2019-05-23] MEDS ORDERED: BISACODYL 5 MG TABLET.DR PO STA (13:14)
[2019-05-23] MEDS ORDERED: BISACODYL 10 MG SUPP RECTAL STA (13:20)
[2019-05-23] MEDS: predniSONE 20 MG TAB PO SCH (13:25)
[2019-05-23 16:10] VITALS: RESP 18
[2019-05-23] MEDS: NA PHOS,M-B/NA PHOS,DI-BA 133 ML ENEMA RECTAL STA ×2 (16:15→17:26)
[2019-05-23] MEDS: NITROGLYCERIN SL TABS 0.4 MG TAB SUBLINGUAL PRN ×3 (16:22→16:43)
[2019-05-23] MEDS ORDERED: MAGNESIUM CITRATE 296 ML BOTTLE PO ONE (17:10)
--- NOTE | 2019-05-23 17:15 | P.PN ---
Progress Note - Text Progress Note Date: 05/23/19 Chief Complaint: constipation. Interval history: This is a pleasant 69-year-old patient of Dr. Otto. Chronic stable medical conditions include coronary artery disease, hypertension, GERD, hypothyroidism, chronic kidney disease. Patient in October of this year had a coronary artery bypass at [facility]. Patient presents with the bottom of increasing dry cough also noticed some swelling of the legs especially the left leg. His no fever no chills. Appetite is decreased. Feeling tired and rundown. And presented to the ER. ER she was diagnosed to have CHF and COPD exacerbation started on steroids bronchodilators Lasix and admitted for the same. On the afternoon of May 21, patient also developed chest pain. Patient was started for Medical Telemetry Floor to the Cardiac Telemetry Floor. Today-doing better. Up to the bathroom. Breathing stable. Constipated. Given laxative. Review of systems: Was done for constitutional, cardiovascular, GI, pulmonary. relevant finding as above Active Medications Albuterol/Ipratropium (Duoneb 0.5 Mg-3 Mg/3 Ml Soln) 3 ml INHALATION RT-QID [facility] Last Admin: 05/23/19 10:38 Dose: 3 ml Documented by: Albuterol/Ipratropium (Duoneb 0.5 Mg-3 Mg/3 Ml Soln) 3 ml INHALATION RT-Q2H PRN PRN Reason: Shortness Of Breath Or Wheezing Atorvastatin Calcium (Lipitor) 40 mg PO DAILY [facility] Last Admin: 05/23/19 08:23 Dose: 40 mg Documented by: Budesonide (Pulmicort) 0.5 mg INHALATION RT-BID [facility] Last Admin: 05/23/19 07:09 Dose: 0.5 mg Documented by: Formoterol Fumarate (Perforomist) 20 mcg INHALATION RT-BID [facility] Last Admin: 05/23/19 07:09 Dose: 20 mcg Documented by: Furosemide (Lasix) 60 mg PO BID@0700,1400 [facility] Last Admin: 05/23/19 13:25 Dose: 60 mg Documented by: Isosorbide Mononitrate (Imdur) 30 mg PO DAILY [facility] Last Admin: 05/23/19 08:24 Dose: 30 mg Documented by: Levothyroxine Sodium (Synthroid) 125 mcg PO DAILY@0630 [facility] Last Admin: 05/23/19 06:29 Dose: 125 mcg Documented by: Losartan Potassium (Cozaar) [address] [facility] Last Admin: 05/22/19 21:42 Dose: 50 mg Documented by: Metoprolol Tartrate (Lopressor) 25 mg PO BID [facility] Last Admin: 05/23/19 08:24 Dose: 25 mg Documented by: Ondansetron HCl (Zofran) 4 mg IVP Q6HR PRN PRN Reason: Nausea And Vomiting Last Admin: 05/23/19 11:44 Dose: 4 mg Documented by: Prednisone () 40 mg PO DAILY [facility] Last Admin: 05/23/19 13:25 Dose: 40 mg Documented by: Senna (Senokot) 8.6 mg PO BID [facility] Last Admin: 05/23/19 08:24 Dose: 8.6 mg Documented by: Temazepam (Restoril) [address] [facility] Last Admin: 05/22/19 22:54 Dose: 30 mg Documented by: Physical examination: VITAL SIGNS:96.5, 53, 20, 146 by city 6, 100% on 2 L GENERAL: Propped up in bed, more comfortable. EYES: Pupils equal. Conjunctiva normal. HEENT: External appearance of nose and ears normal, oral cavity grossly normal. NECK: JVD raised; masses not palpable. HEART: First and second heart sounds are normal; some edema. LUNGS: Respiratory rate increased, decreased crackles ABDOMEN: Soft, nontender, liver spleen not palpable, no masses palpable. PSYCH: Alert and oriented x3; mood and affect slightly anxiousl. NEUROLOGICAL: Cranial nerves grossly intact; no facial asymmetry, power and sensation grossly intact. LYMPHATICS: No lymph nodes palpable in the axilla and neck MUSCULOSKELETAL: Evidence of OA specially in the hands INVESTIGATIONS, reviewed in the clinical context: potassium 4.5 bun 47 creatinine 1.31 Troponin 3 negative Previous testing White count 7.2 hemoglobin 9.6 platelets 135 potassium 4.2 bun 42 creatinine 1.58 Chest x-ray film personally reviewed by me shows venous prominence EKG tracing personally reviewed by me shows atrial paced rhythm 2-D echocardiogram from December of this year shows EF of 30-35% some part of the 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 Assessment: -Acute on chronic congestive heart failure exacerbation from systolic dysfunction EF 30-35% from underlying coronary artery disease, improving -Possible unstable angina, patient developed chest pain yesterday -Coronary artery disease with bypass in July 2018 -COPD exacerbation and an ex-smoker -Mitral and tricuspid regurgitation nonrheumatic -Severe secondary pulmonary hypertension due to CHF/COPD -GERD -Essential hypertension -Hypothyroidism -Chronic kidney disease stage III from nephrosclerosis Plan: patient is doing better. plan was to let the patient go home. Later afternoon, patient developed chest pain. nurse Jodi called me. I did ask her too get hold of cardiology. In the meantime nitroglycerin was given.also laxative ordered earlier.discharge held today
[2019-05-23] MEDS: LOSARTAN 50 MG TAB PO SCH (21:11)
[2019-05-23] MEDS: TEMAZEPAM 30 MG CAP PO SCH (21:11)
[2019-05-24 05:00] VITALS: PULSE 60
[2019-05-24] MEDS: LEVOTHYROXINE 125 MCG TAB PO SCH (06:18)
[2019-05-24] MEDS: FUROSEMIDE 20 MG TAB PO SCH ×2 (06:18→09:15)
[2019-05-24 06:37] LABS: Calcium 9.2 mg/dL (8.4-10.2); Potassium 3.7 mmol/L (3.5-5.1)
[2019-05-24] MEDS: BUDESONIDE 0.5 MG/2 ML NEBU INHALATION SCH (08:04)
[2019-05-24] MEDS: FORMOTEROL FUMARATE 20 MCG/2 ML NEBU INHALATION SCH (08:04)
[2019-05-24] MEDS: IPRATROPIUM-ALBUTEROL 3 ML NEB INHALATION SCH ×3 (08:04→15:21)
[2019-05-24] MEDS: SENNOSIDES 8.6 MG TAB PO SCH (09:15)
[2019-05-24] MEDS: METOPROLOL TARTRATE 25 MG TAB PO SCH (09:15)
[2019-05-24] MEDS: predniSONE 20 MG TAB PO SCH (09:15)
[2019-05-24] MEDS: ISOSORBIDE MONONITRATE ER 30 MG TAB.ER.24H PO SCH (09:15)
[2019-05-24] MEDS: ATORVASTATIN 40 MG TAB PO SCH (09:15)
--- NOTE | 2019-05-24 11:30 | P.PN ---
Subjective Progress Note Date: 05/24/19 This is a pleasant 69-year-old female who follows regularly with Dr. Campos Vazquez in the office. She has a known history of coronary artery disease with prior myocardial infarction in 2018 with subsequent coronary artery bypass grafting surgery 2 performed at [facility], history of COPD, nicotine dependence, hypertension, hypothyroidism, hyperlipidemia, ischemic cardiomyopathy with prior AICD, hypothyroidism, GERD. She presents to the hospital on this admission with symptoms of shortness of breath with lower extremity edema. She states that she noticed this primarily starting the day before yesterday, she came to the hospital yesterday for further evaluation and treatment. I pressure on arrival here 102/60 with a heart rate in the 70s, 98% on 3 L of oxygen. White blood cell count 7.2, hemoglobin 9.6, platelet count 135. Sodium 144, potassium 4.0, chloride 105, CO2 25, BUN 53 and creatinine 1.7. Magnesium 2.2, troponins negative 3, BNP on admission 12,500. Chest x- ray shows chronic changes and cardiomegaly without any acute process. An echocardiogram with Doppler study was performed which revealed an ejection fraction of 30-35%. Aneurysmal basal segment, LA is severely dilated, moderate mitral regurgitation with moderate to severe tricuspid regurg. EKG shows an a trial paced rhythm. Patient was initiated on IV Lasix in the emergency room, her weight is down 2 kg today. At the time of my examination, the patient feels well, she denies any shortness of breath, and states that the peripheral edema in her lower extremities is almost gone. 05/23/2019 Patient was seen and examined this morning, complaining of mild nausea, no vomiting. Breathing overall is stable, back to her normal. Repeat chest x-ray from this morning does not reveal any significant residual pulmonary edema. I pressure 106/40 with a heart rate in the 60s, 96% on 3 L of oxygen. Sodium 141, potassium 4.0, BUN 57 and creatinine 1.6. 05/24/2019 Patient was seen and examined this morning, she feels well, denies any shortness of breath, no further episodes of nausea, she did state that she had an episode of chest pain around 7 PM last evening, she described it as a sharp pain in the right upper chest area that worsened with deep breathing and movement of her arm. EKG was performed at that time which did not reveal any acute changes, she was given sublingual nitroglycerin with subsequent relief of symptoms. Her blood pressure this morning 110/60 with a heart rate of 60, 95% on 3 L of oxygen. Sodium 142, potassium 3.7, BUN 60 and creatinine 1.7. Objective - Vital Signs Vital signs: Vital Signs Temp 97.4 F L 05/24/19 04:00 Pulse 60 05/24/19 04:00 Resp 18 05/24/19 04:00 BP 111/56 05/24/19 04:00 Pulse Ox 95 05/24/19 04:00 Intake & Output 05/23/19 05/24/19 05/24/19 18:59 06:59 18:59 Intake Total 480 Output Total 450 Balance 30 Weight 69.9 kg Intake: Oral 480 Output: Urine 450 Other: Voiding Method Toilet Toilet # Voids 1 - Exam PHYSICAL EXAMINATION: GENERAL: 69-year-old female in no acute distress at the time of my examination HEENT: Head is atraumatic, normocephalic. Pupils equal, round. Sclera anicteric. Conjunctiva are clear. Mucous membranes of the mouth are moist. Neck is supple. There is no elevated jugular venous pressure. No carotid bruit is heard. HEART EXAMINATION: Heart S1 and S2 systolic murmur is heard CHEST EXAMINATION: Lungs clear to auscultation. ABDOMEN: Soft, nontender. Bowel sounds are heard. No organomegaly noted. EXTREMITIES: 2+ peripheral pulses with no evidence of peripheral edema and no calf tenderness noted. NEUROLOGIC patient is awake, alert and oriented 3. - Labs CBC & Chem 7: 05/20/19 14:52 05/24/19 05:37 Labs: Abnormal Lab Results - Last 24 Hours (Table) 05/24/19 Range/Units 05:37 BUN 60 H (7-17) mg/dL Creatinine 1.71 H (0.52-1.04) mg/dL Glucose 146 H (74-99) mg/dL Assessment and Plan Plan: Assessment and plan #1 systolic congestive heart failure acute on chronic #2 history of myocardial infarction with subsequent 2 vessel coronary artery bypass grafting surgery in July of last year #3 hypertension #4 hyperlipidemia #5 hypothyroidism #6 COPD #7 prior history of smoking #8 ischemic cardio myopathy with prior AICD implantation #9 chronic renal insufficiency with a baseline creatinine of 1.4-1.8 Plan An echocardiogram with Doppler study was performed yesterday which revealed an ejection fraction of 30-35%, aneurysmal basal segment, severely dilated left atrium with moderate mitral regurgitation and moderate to severe tricuspid regurgitation. We will add Aldactone 25 mg one tablet by mouth daily to the patient's medication regime. From our perspective she may be able to be discharged home to follow-up with Dr. Campos Vazquez in the office post discharge. DNP note has been reviewed, I agree with a documented findings and plan of care. Patient was seen and examined.
[2019-05-24] MEDS ORDERED: HYDROCORTISONE 1% CREAM 30 GM TUBE TOPICAL PRN (12:38)
--- NOTE | 2019-05-24 12:48 | P.DS ---
Providers Date of admission: 05/21/19 15:10 Attending physician: Po Moss Consults: 05/21/19 14:56 Consult Physician Stat Consulting Provider: Indio Sal[place] Consult Reason/Comments: chest pain Do you want consulting provider notified?: Yes Primary care physician: Reji Otto [facility] Course: Dx: -Acute on chronic congestive heart failure exacerbation from systolic dysfunction EF 30-35% from underlying coronary artery disease, improving -chest pain yesterday -Hemorrhoids -Coronary artery disease with bypass in July 2018 -COPD exacerbation and an ex-smoker -Mitral and tricuspid regurgitation nonrheumatic -Severe secondary pulmonary hypertension due to CHF/COPD -GERD -Essential hypertension -Hypothyroidism -Chronic kidney disease stage III from nephrosclerosis Hospital course: This is a pleasant 69 years old female with past medical history of coronary artery disease, COPD, hypertension, GERD, hypothyroidism, chronic kidney disease. Who presents because of dyspnea, cough and leg swelling. Patient was found to have acute diastolic CHF on the top of her chronic CHF, acute COPD exacerbation. Patient has been evaluated by frame repairer and cleared for discharge. Also patient developed chest pain yesterday which is completely resolved now is 0/10. Patient dyspnea is also improved. Patient showed interval improvement regarding the other symptoms. Patient feels back to baseline and she she can go home. Patient denies abdominal pain, no nausea vomiting, no change in urine or bowel habits. However she has painful hemorrhoids and ask him for cream. Which patient was started on hydrocortisone. Patient will be discharged on bronchodilator and tapered dose of steroids. Problems and management plan were discussed with the patient and he verbalized understanding and acceptance Patient was found stable and can be discharged home however he needs follow-up as an outpatient. Patient agrees with the appointments made for her with her PCP and frame repairer and the timing and said she'll follow up. Cardiology will call the patient for an appointment. spouse at bedside Gen: patient is a AAOx3, no distress CVS: S1-S2, RRR, no murmur Lungs: B/L CTA, no wheezing Abdomen: soft, no distention, no tenderness, positive bowel sounds Extremity: no leg edema or induration Time spent more than 35 minutes Patient Condition at Discharge: Fair Plan - Discharge Summary Discharge Rx Participant: Yes New Discharge Prescriptions: New predniSONE 0 mg PO DIRECTED #10 tab Continue Atorvastatin [Lipitor] 40 mg PO DAILY Ipratropium-Albuterol Nebulize [Duoneb 0.5 mg-3 mg/3 ml Soln] 3 ml INHALATION RT-TID Metoprolol Tartrate [Lopressor] 25 mg PO BID Formoterol Fumarate [Perforomist] 20 mcg INHALATION RT-BID Budesonide [Pulmicort] 0.5 mg INHALATION RT-BID Losartan Potassium [Cozaar] 50 mg PO HS Levothyroxine Sodium [Synthroid] 125 mcg PO DAILY Isosorbide Mononitrate ER [Imdur] 30 mg PO DAILY Temazepam 30 mg PO HS Changed Furosemide [Lasix] 60 mg PO BID #0 Discharge Medication List Atorvastatin [Lipitor] 40 mg PO DAILY 09/22/18 [History] Ipratropium-Albuterol Nebulize [Duoneb 0.5 mg-3 mg/3 ml Soln] 3 ml INHALATION RT-TID 12/14/18 [History] Budesonide [Pulmicort] 0.5 mg INHALATION RT-BID 05/20/19 [History] Formoterol Fumarate [Perforomist] 20 mcg INHALATION RT-BID 05/20/19 [History] Isosorbide Mononitrate ER [Imdur] 30 mg PO DAILY 05/20/19 [History] Levothyroxine Sodium [Synthroid] 125 mcg PO DAILY 05/20/19 [History] Losartan Potassium [Cozaar] 50 mg PO HS 05/20/19 [History] Metoprolol Tartrate [Lopressor] 25 mg PO BID 05/20/19 [History] Temazepam 30 mg PO HS 05/20/19 [History] Furosemide [Lasix] 60 mg PO BID@0700,1400 #180 tab 05/24/19 [Rx] Hydrocortisone Cream [Hydrocortisone 1% Cream] 1 applic TOPICAL TID PRN #1 applic 05/24/19 [Rx] Nitroglycerin Sl Tabs [Nitrostat] 0.4 mg SUBLINGUAL ONCE PRN #30 tab 05/24/19 [Rx] Spironolactone [Aldactone] 25 mg PO DAILY #30 tab 05/24/19 [Rx] predniSONE 10 mg PO DIRECTED #19 tab 05/24/19 [Rx] Follow up Appointment(s)/Referral(s): Rai Vazquez MD [STAFF PHYSICIAN] - 1 Week (Office will call with a follow up appointment. ) Reji Otto DO [Primary Care Provider] - 05/31/19 10:15 am (With William HOBBS.) Patient Instructions/Handouts: Heart Failure (DC), Constipation (DC), Heart Healthy Diet (DC) Activity/Diet/Wound Care/Special Instructions: Possible Indigent funds needed at DC, contact CM if new rx ordered. dc after bowel movement
[2019-05-24 13:13] VITALS: BP 112/60; TEMP 97.8
[2019-05-25] MEDS ORDERED: SPIRONOLACTONE 25 MG TAB PO SCH (09:00)
== END 2019-05-24 16:34 | disposition home or self-care (01) | DRG 291 ==
LOC: EC 13:59 → 3NMEDONC 20:14 → OBSVTOIN 05-21 15:10 → 3SCARD 05-21 15:37
PROVIDERS: ADMIT Hospitalist; ATTEND Hospitalist
DX: I13.0 Hypertensive heart and chronic kidney disease with heart failure and stage 1 through stage 4 chronic kidney disease, or unspecified chronic kidney disease (principal); I50.43 Acute on chronic combined systolic (congestive) and diastolic (congestive) heart failure; J44.1 Chronic obstructive pulmonary disease with (acute) exacerbation; E03.9 Hypothyroidism, unspecified; E78.5 Hyperlipidemia, unspecified; F32.9 Major depressive disorder, single episode, unspecified; I08.1 Rheumatic disorders of both mitral and tricuspid valves; I25.10 Atherosclerotic heart disease of native coronary artery without angina pectoris; I25.2 Old myocardial infarction; I25.5 Ischemic cardiomyopathy; I27.29 Other secondary pulmonary hypertension; K21.9 Gastro-esophageal reflux disease without esophagitis; K59.00 Constipation, unspecified; K64.9 Unspecified hemorrhoids; N18.3 Chronic kidney disease, stage 3 (moderate); Z79.890 Hormone replacement therapy; Z79.899 Other long term (current) drug therapy; Z82.49 Family history of ischemic heart disease and other diseases of the circulatory system; Z82.5 Family history of asthma and other chronic lower respiratory diseases; Z86.73 Personal history of transient ischemic attack (TIA), and cerebral infarction without residual deficits; Z87.891 Personal history of nicotine dependence; Z90.710 Acquired absence of both cervix and uterus; Z95.1 Presence of aortocoronary bypass graft; Z95.810 Presence of automatic (implantable) cardiac defibrillator; Z79.51 Long term (current) use of inhaled steroids; Z87.01 Personal history of pneumonia (recurrent); Z88.5 Allergy status to narcotic agent; Z96.653 Presence of artificial knee joint, bilateral; Z96.641 Presence of right artificial hip joint
CPT/HCPCS: 36415; 71045; 71046; 71250; 80048; 80053; 82550; 82553; 83735; 83880; 84484; 85025; 85610; 85730; 93005; 93306; 94640; 94760; 96374; 96375; 99285

== ENCOUNTER → 2019-05-20 | Outpatient (CLI) | payer MEDICARE, OTHER ==
--- NOTE | 2019-05-20 14:14 | CT ---
EXAMINATION TYPE: CT chest wo con DATE OF EXAM: 05/20/2019 COMPARISON: 02/01/2019 HISTORY: Pulmonary nodule CT DLP: 399 mGycm. Automated Exposure Control for Dose Reduction was Utilized. TECHNIQUE: CT scan of the thorax is performed without IV contrast. FINDINGS: Median sternotomy wires are present. Left anterior chest wall ICD generator with right atrial and rig ht ventricular leads. epicardial lead noted. There is some residual soft tissue thickening deep to the sternotomy within the anterior mediastinum likely secondary to recent surgery. Heart is enlarged without pericardial effusion. Aorta normal caliber with mild atherosclerotic arch c alcifications and conventional arch was a branching anatomy. Some prominent but not enlarged mediasti nal lymph nodes measure up to 8 mm. Dense coronary artery calcification noted. Scattered mild to moderate bronchial wall thickening with subpleural reticular opacities. There is co ncurrent mild emphysematous change. Scattered tiny subpleural microcystic change is present in the lo wer lungs. In addition, there is very mild right lower lobe bronchiectasis noted. 6 mm subpleural pulmonary nodule posterior lateral left base is stable. Additional focal nodular subp leural opacity right middle lobe measures 1.4 cm with a contiguous bandlike area of opacity extending to the hilum, possible pleural-parenchyma l scarring noted on the prior exam has demonstrated significant interval improvement. Visualized upper abdomen shows no gross abnormality. Bones: The median sternotomy is incompletely fus ed at this time. No osseous destructive process seen. Changes of cholelithiasis. IMPRESSION: 1. Changes of COPD with interlobular septal thickening in a pattern compatible with chronic interstit ial lung disease. Findings are similar to the prior exam correlate for pulmonary fibrosis. 2. 6 mm area of subpleural nodularity left lung base is stable. 3. The 1.4 cm area of consolidation noted previously within the right upper lobe extending to the hil um has essentially resolved. 4. Cholelithiasis 5. Dense atherosclerotic change of the coronary arteries.
== END | disposition home or self-care (01) ==
LOC: RADCTMAIN 13:26
PROVIDERS: ATTEND Internal Medicine Pulmonary Disease
DX: J44.9 Chronic obstructive pulmonary disease, unspecified (principal); R91.1 Solitary pulmonary nodule; I25.10 Atherosclerotic heart disease of native coronary artery without angina pectoris
CPT/HCPCS: 71250

== ENCOUNTER → 2019-05-27 | Outpatient (CLI) | payer MEDICARE, OTHER ==
[2019-05-27 12:30] LABS: Anisocytosis Slight; Basophils % (A) 0 %; Eosinophils # (A) 0.1 k/uL (0-0.7); Eosinophils % (A) 1 %; HCT 34.3 % (34.0-46.0); Hypochromasia Marked; Lymphocytes # (A) 0.9 k/uL (1.0-4.8); Lymphocytes % (A) 8 %; MCV 96.4 fL (80.0-100.0); Macrocytosis Slight; Mean Platelet Volume 7.6; Monocytes # (A) 0.5 k/uL (0-1.0); Monocytes % (A) 5 %; Neutrophils # (A) 9.4 k/uL (1.3-7.7); Neutrophils % (A) 85 %; Platelet Count 203 k/uL (150-450); RBC 3.56 m/uL (3.80-5.40); RDW 18.2 % (11.5-15.5)
[2019-05-27 19:51] LABS: African American GFR (CKD) 34.8 (60.0-200.0); Albumin 4.1 g/dL (3.80-4.90); Albumin/Globulin Ratio 1.58 (1.60-3.17); Anion Gap 11.8 mmol/L (4.00-12.00); BUN/Creat Ratio 36.47 Ratio (12.00-20.00); Calcium 8.9 mg/dL (8.7-10.3); Carbon Dioxide 23.2 mmol/L (21.6-31.8); Globulin 2.6 g/dL (1.6-3.3); Potassium 4.9 mmol/L (3.5-5.5); Total Bilirubin 1.5 mg/dL (0.3-1.2); Total Protein 6.7 g/dL (6.2-8.2)
== END | disposition home or self-care (01) ==
LOC: LABWHC1 11:05
PROVIDERS: ATTEND Hospitalist
DX: I50.9 Heart failure, unspecified (principal); D64.9 Anemia, unspecified
CPT/HCPCS: 36415; 80053; 85025

== ENCOUNTER → 2019-06-29 | Outpatient (CLI) | payer MEDICARE, OTHER ==
--- NOTE | 2019-06-29 09:21 | CT ---
EXAMINATION TYPE: CT abdomen pelvis wo con DATE OF EXAM: 06/29/2019 COMPARISON: 01/29/2012 HISTORY: 69-year-old female Nausea, abnormal weight loss, abnormal serum enzymes CT DLP: 715 mGycm. Automated exposure control for dose reduction was used. TECHNIQUE: Contiguous axial scanning of the abdomen and pelvis without IV contrast. Coronal and sagit mahad reconstructions performed. FINDINGS: Right ventricular AICD lead. Heart border line enlarged. There is bulbous enlargement projecting infe riorly from the left ventricular wall measuring 8.0 cm wide. Redemonstrated interstitial changes at t he lung bases, possible fibrosis. Stable 5 mm subpleural pulmonary nodule peripheral left base. Retained epicardial pacing leads. Noncontrast appearance of the liver shows mild enlargement at 18.7 cm possibly secondary to the prese nce of a Yoni's lobe. Layering gravel within a nondistended gallbladder. Adrenal glands, left kidney, spleen, and pancreas show no gross abnormality by noncontrast CT. Right kidney atrophic. Given the moderate atherosclerotic calcifications of the abdominal aorta and i liac arteries, underlying renal artery stenosis is a possibility. No dilated small bowel, free fluid, or free air. No mesenteric or retroperitoneal lymphadenopathy. Mild to moderate stool distally in the colon. Oral contrast progressed to the lower descending colon. No pericolonic inflammatory change. Bladder is urine distended. Uterus surgically absent. Neither ovary clearly identified. There may be trace free fluid in the right cul-de-sac. No pelvic lymphadenopathy. Bones: Artifact from patient's right hip total arthroplasty. Facet arthropathy lower lumbar spine. IMPRESSION: 1. Note that IV contrast was not administered due to creatinine of 2.62. Clinical correlation for jimmy sudarshan's worsening renal failure recommended. 2. Pronounced, bulbous enlargement projecting inferiorly from the left ventricular wall measuring 8 cm wide. Correlate for inferior wall infarct and left ventricular wall aneurysm. 3. Fibrotic changes at the lung bases. 4. Atrophic right kidney, a new finding from 2011. Possibly secondary to chronic right renal artery stenosis. 5. Cholelithiasis.
== END | disposition home or self-care (01) ==
LOC: RADCTMAIN 06:26
PROVIDERS: ATTEND Family Medicine
DX: N26.1 Atrophy of kidney (terminal) (principal); K80.20 Calculus of gallbladder without cholecystitis without obstruction; R63.4 Abnormal weight loss; R11.0 Nausea
CPT/HCPCS: 36415; 74176; 82565; 84520

== ENCOUNTER → 2019-07-21 | Outpatient (CLI) | payer MEDICARE, OTHER ==
--- NOTE | 2019-07-21 15:06 | US ---
EXAMINATION TYPE: US kidneys/renal and bladder DATE OF EXAM: 07/21/2019 COMPARISON: CT dated 06/29/2019 CLINICAL HISTORY: N18.4 Chronic kidney disease Stage 4. Atrophic right kidney EXAM MEASUREMENTS: Right Kidney: 7.9 x 4.5 x 2.8 cm Left Kidney: 10.9 x 5.5 x 5.3 cm Post Void Residual Volume: 13.6 mL Right Kidney: small for size; no hydronephrosis or masses seen. Cortical renal thinning is seen. No h ydronephrosis. Left Kidney: No hydronephrosis or masses seen Bladder: partially distended Bilateral Jets seen: only left ureteral jet was seen after 3 minute observation Normal Post Void Residual: yes There is no evidence for hydronephrosis at this point in time. No nephrolithiasis is seen. No franklin s are identified. The urinary bladder is anechoic. IMPRESSION: Sonographic sequela of medical renal disease on the right with cortical renal thinning an d atrophy. No hydronephrosis of either kidney.
== END | disposition home or self-care (01) ==
LOC: RADUSWWP 13:59
PROVIDERS: ATTEND Internal Medicine Nephrology
DX: N26.1 Atrophy of kidney (terminal) (principal); N18.4 Chronic kidney disease, stage 4 (severe)
CPT/HCPCS: 76770

== ENCOUNTER 2019-08-25 12:10 | Inpatient (IN) | payer MEDICARE, OTHER ==
--- NOTE | 2019-08-25 12:37 | ED ---
General Adult HPI - General Chief complaint: Shortness of Breath Stated complaint: STEPHANIE, swollen feet Time Seen by Provider: 08/25/19 12:22 Source: patient Mode of arrival: wheelchair Limitations: no limitations - History of Present Illness Initial comments: Dictation was produced using [employer] dictation software. please excuse any gramm atical, word or spelling errors. Chief Complaint: 69-year-old female past medical history of cardiomyopathy, COPD, heart failure presents with shortness of breath and lower extremity swell ing. History of Present Illness: A 69-year-old female with the Afrin mentioned medical history. She states she's been getting worsening shortness of breath since yesterday. Patient states her symptoms are worse with exertion. Patient wears 3 L of nasal cannula oxygen chronically. Patient states she's also been having a cough. Denies any tobacco abuse currently. She has long history of smoking in the past. Patient has a pain complaints at this time. Patient is also short of breath at rest. She has no pain complaints currently. States that she has bilateral lower extremity swelling. The ROS documented in this emergency department record has been reviewed and confirmed by me. Those systems with pertinent positive or negative responses have been documented in the HPI. All other systems are other negative and/or noncontributory. PHYSICAL EXAM: General Impression: Alert and oriented x3, dyspneic HEENT: Normocephalic atraumatic, extra-ocular movements intact, pupils equal and reactive to light bilaterally, mucous membranes moist. Cardiovascular: Heart regular rate and rhythm, S1&S2 audible, no murmurs, rubs or gallops Chest: Respiratory crackles to the anterior lung obrien Abdomen: Bowel sounds present, abdomen soft, non-tender, non-distended, no organomegaly Musculoskeletal: Pulses present and equal in all extremities, 3+ pitting edema bilateral lower extremities Motor: no focal deficits noted Neurological: CN II-XII grossly intact, no focal motor or sensory deficits noted Skin: Intact with no visualized rashes Psych: Normal affect and mood ED course: 69-year-old female presents with dyspnea that's worse with exertion. She has history of COPD heart failure and cardiomyopathy. Vital signs upon arrival are within acceptable limits. Laboratory evaluation obtained. No leukocytosis. Hemoglobin 10.2. Metabolic panel shows slight elevation of renal markers. Over improved from her baseline. Troponin level 0.065, proBNP is 10,800. Chest x-ray is grossly unremarkable. Chart review was performed. Patient does not typically have troponin elevation. There is concern that patient's clinical symptoms are suggestive of NSTEMI versus troponin leak. It started on heparin. Patient given aspirin. Patient also given Lasix for heart failure. Will admit patient to hospital with consultation to cardiac etiology. Discussed patient case with Dr. Moss is willing to accept patients care. Click or presentation concerning for NSTEMI and heart failure exacerbation. EKG interpretation: Ventricular rate 60, atrial paced rhythm,. 162, QRS 100, QTC 438. No AR prolongation, no QTC prolongation, no ST or T-wave changes noted. EKG compared to 05/20/2019 showing no changes. Overall, this EKG is unremarkable - Related Data Home Medications Medication Instructions Recorded Confirmed Atorvastatin [Lipitor] 40 mg PO DAILY 09/22/18 08/25/19 Ipratropium-Albuterol Nebulize 3 ml INHALATION RT-TID 12/14/18 08/25/19 [Duoneb 0.5 mg-3 mg/3 ml Soln] Budesonide [Pulmicort] 0.5 mg INHALATION RT-BID 05/20/19 08/25/19 Formoterol Fumarate [Perforomist] 20 mcg INHALATION RT-BID 05/20/19 08/25/19 Metoprolol Tartrate [Lopressor] 25 mg PO BID 05/20/19 08/25/19 Temazepam 30 mg PO HS 05/20/19 08/25/19 Allopurinol [Zyloprim] 100 mg PO BID 08/25/19 08/25/19 Calcitriol [Rocaltrol] 0.25 mcg PO TUSA 08/25/19 08/25/19 Levothyroxine Sodium [Levoxyl] 100 mcg PO BID 08/25/19 08/25/19 Nitroglycerin Sl Tabs [Nitrostat] 0.4 mg SUBLINGUAL Q5M PRN 08/25/19 08/25/19 Previous Rx's Medication Instructions Recorded Furosemide [Lasix] 60 mg PO BID@0700,1400 #180 tab 05/24/19 Spironolactone [Aldactone] 25 mg PO DAILY #30 tab 05/24/19 Allergies Allergy/AdvReac Type Severity Reaction Status Date / Time adhesive tape Allergy Rash/Hives Verified 08/25/19 13:47 hydrocodone [From Lortab] Allergy Itching Verified 08/25/19 13:47 Review of Systems ROS Statement: Those systems with pertinent positive or pertinent negative responses have been documented in the HPI. ROS Other: All systems not noted in ROS Statement are negative. Past Medical History Past Medical History: Coronary Artery Disease (CAD), Heart Failure, COPD, CVA/TIA, GERD/Reflux, Hypertension, Myocardial Infarction (CT), Pneumonia, Thyroid Disorder Additional Past Medical History / Comment(s): difficulty getting to sleep. Last Myocardial Infarction Date:: History of Any Multi-Drug Resistant Organisms: None Reported Past Surgical History: Appendectomy, Section, Coronary Bypass/CABG, Hysterectomy, Joint Replacement, Orthopedic Surgery, Pacemaker, Tubal Ligation Additional Past Surgical History / Comment(s): had cabg in jul 2018 at [facility], rt hip replacment, anahy knee replacment, carpal tunnel,rt ankle arthroscopy, total hysterectomy, "anahy elbow sx d/t tennis elbow" Past Anesthesia/Blood Transfusion Reactions: No Reported Reaction Additional Past Anesthesia/Blood Transfusion Reaction / Comment(s): "never received blood transfusion" Type of Cardiac Device: AICD Device Placement Date:: 11/2018 Past Psychological History: Depression Smoking Status: Former smoker Past Alcohol Use History: None Reported Past Drug Use History: None Reported - Past Family History Mother Family Medical History: COPD Additional Family Medical History / Comment(s): emphysema Father Family Medical History: Coronary Artery Disease (CAD) Additional Family Medical History / Comment(s): 2 vessel cabg at age 57 General Exam Limitations: no limitations Course Vital Signs 08/25/19 12:15 Temperature 98.2 F Pulse Rate 63 Respiratory 18 Rate Blood Pressure 106/52 O2 Sat by Pulse 97 Oximetry Medical Decision Making - Lab Data Result diagrams: 08/25/19 12:56 08/25/19 12:56 Lab Results 08/25/19 08/25/19 08/25/19 Range/Units 12:56 12:56 12:56 WBC 9.7 (3.8-10.6) k/uL RBC 3.42 L (3.80-5.40) m/uL Hgb 10.2 L (11.4-16.0) gm/dL Hct 32.2 L (34.0-46.0) % MCV 94.0 (80.0-100.0) fL MCH 29.7 (25.0-35.0) pg MCHC 31.6 (31.0-37.0) g/dL RDW 17.9 H (11.5-15.5) % Plt Count 311 (150-450) k/uL Neutrophils % 66 % Lymphocytes % 17 % Monocytes % 9 % Eosinophils % 4 % Basophils % 1 % Neutrophils # 6.4 (1.3-7.7) k/uL Lymphocytes # 1.7 (1.0-4.8) k/uL Monocytes # 0.8 (0-1.0) k/uL Eosinophils # 0.4 (0-0.7) k/uL Basophils # 0.1 (0-0.2) k/uL Hypochromasia Moderate Poikilocytosis Slight Anisocytosis Slight Sodium 139 (137-145) mmol/L Potassium 4.1 (3.5-5.1) mmol/L Chloride 105 (98-107) mmol/L Carbon Dioxide 23 (22-30) mmol/L Anion Gap 11 mmol/L BUN 36 H (7-17) mg/dL Creatinine 1.50 H (0.52-1.04) mg/dL Est GFR (CKD-EPI)AfAm 40 (>60 ml/min/1.73 sqM) Est GFR (CKD-EPI)NonAf 35 (>60 ml/min/1.73 sqM) Glucose 96 (74-99) mg/dL Calcium 9.8 (8.4-10.2) mg/dL Magnesium 2.1 (1.6-2.3) mg/dL Troponin I (0.000-0.034) ng/mL NT-Pro-B Natriuret Pep 36471 pg/mL 08/25/19 Range/Units 12:56 WBC (3.8-10.6) k/uL RBC (3.80-5.40) m/uL Hgb (11.4-16.0) gm/dL Hct (34.0-46.0) % MCV (80.0-100.0) fL MCH (25.0-35.0) pg MCHC (31.0-37.0) g/dL RDW (11.5-15.5) % Plt Count (150-450) k/uL Neutrophils % % Lymphocytes % % Monocytes % % Eosinophils % % Basophils % % Neutrophils # (1.3-7.7) k/uL Lymphocytes # (1.0-4.8) k/uL Monocytes # (0-1.0) k/uL Eosinophils # (0-0.7) k/uL Basophils # (0-0.2) k/uL Hypochromasia Poikilocytosis Anisocytosis Sodium (137-145) mmol/L Potassium (3.5-5.1) mmol/L Chloride (98-107) mmol/L Carbon Dioxide (22-30) mmol/L Anion Gap mmol/L BUN (7-17) mg/dL Creatinine (0.52-1.04) mg/dL Est GFR (CKD-EPI)AfAm (>60 ml/min/1.73 sqM) Est GFR (CKD-EPI)NonAf (>60 ml/min/1.73 sqM) Glucose (74-99) mg/dL Calcium (8.4-10.2) mg/dL Magnesium (1.6-2.3) mg/dL Troponin I 0.065 H* (0.000-0.034) ng/mL NT-Pro-B Natriuret Pep pg/mL Disposition Clinical Impression: NSTEMI (non-ST elevated myocardial infarction), Heart failure Disposition: ADMITTED IP TO THIS HOSP Condition: Fair Is patient prescribed a controlled substance at d/c from ED?: No Referrals: Reji Otto DO [Primary Care Provider] - 1-2 days Decision Time: 14:32
[2019-08-25 13:12] LABS: Anisocytosis Slight; Basophils # (A) 0.1 k/uL (0-0.2); Basophils % (A) 1 %; Eosinophils # (A) 0.4 k/uL (0-0.7); Eosinophils % (A) 4 %; HCT 32.2 % (34.0-46.0); HGB 10.2 gm/dL (11.4-16.0); Hypochromasia Moderate; Lymphocytes # (A) 1.7 k/uL (1.0-4.8); Lymphocytes % (A) 17 %; MCH 29.7 pg (25.0-35.0); MCHC 31.6 g/dL (31.0-37.0); Mean Platelet Volume 6.3; Monocytes # (A) 0.8 k/uL (0-1.0); Monocytes % (A) 9 %; Neutrophils # (A) 6.4 k/uL (1.3-7.7); Neutrophils % (A) 66 %; Platelet Count 311 k/uL (150-450); Poikilocytosis Slight; RBC 3.42 m/uL (3.80-5.40); RDW 17.9 % (11.5-15.5); WBC 9.7 k/uL (3.8-10.6)
[2019-08-25 13:22] LABS: Calcium 9.8 mg/dL (8.4-10.2); Magnesium 2.1 mg/dL (1.6-2.3); Potassium 4.1 mmol/L (3.5-5.1)
--- NOTE | 2019-08-25 13:24 | XR ---
EXAMINATION TYPE: XR chest 2V DATE OF EXAM: 08/25/2019 COMPARISON: Chest x-ray 05/23/2019, CT 06/29/2017 HISTORY: Shortness of breath, cough and congestion TECHNIQUE: Frontal and lateral views of the chest are obtained. FINDINGS: Patient is post median sternotomy. Intracardiac defibrillator leads are stable, pacemaker is showing a generator in the left pectoral region. The interstitium is increased. There is no pneumo thorax or evident effusion. There are coronary artery calcifications. The heart is enlarged. IMPRESSION: Correlate to exclude pulmonary venous hypertension and interstitial edema, patient with known interstitial lung disease.
[2019-08-25] MEDS ORDERED: ASPIRIN 81 MG PO STA (14:01)
[2019-08-25] MEDS ORDERED: FUROSEMIDE 10 MG/ML 4 ML VIAL IV STA (14:02)
[2019-08-25] MEDS ORDERED: HEPARIN SODIUM,PORCINE 5,000 UNIT/ML 1 ML VIAL IV ONE (14:19)
[2019-08-25] MEDS ORDERED: HEPARIN SODIUM,PORCINE 5,000 UNIT/ML 1 ML VIAL IV PRN (14:19)
[2019-08-25] MEDS ORDERED: HEPARIN SOD,PORK IN 0.45% NACL 25,000 UNIT in 0.45% NACL 1 250ML.BAG IV SCH (14:30)
[2019-08-25] MEDS: SODIUM CHLORIDE 0.9% 1,000 ML IV SCH (14:46)
[2019-08-25] MEDS ORDERED: NITROGLYCERIN SL TABS 0.4 MG TAB SUBLINGUAL PRN (15:29)
--- NOTE | 2019-08-25 17:08 | P.HPIM ---
History of Present Illness H&P Date: 08/25/19 Chief Complaint: Short of breath History of presenting complaint: This is a pleasant 69-year-old patient of Dr. Otto. Chronic stable medical conditions include coronary artery disease, hypertension, GERD, hypothyroidism, severe secondary pulmonary hypertension, chronic kidney disease. Patient in October of this year had a coronary artery bypass at [facility]. Patient now presents with to 3 days of increasing shortness of breath. Slight cough. Minimal sputum. No fevers. Just feeling a bit cold. Always uses 2 pillows at night. Increasing swelling of the lower extremity. No chest pain no palpitation. In the ER felt to be in CHF. Also troponin were positive and was put on IV heparin the ER. at the bedside. Appetite is okay. Tired and rundown. Given IV Lasix in the ER. Review of systems: GEN.: Tired EYES: None HEENT: None NECK: None RESPIRATORY: Short of breath CARDIOVASCULAR: As above GASTROINTESTINAL: None GENITOURINARY: None MUSCULOSKELETAL: Pain in the joints LYMPHATICS: None HEMATOLOGICAL: None PSYCHIATRY: Slightly anxious NEUROLOGICAL: None Past medical history: CHF with EF of 30%, coronary artery disease with bypass in July 2018, COPD, mitral and tricuspid regurgitation, secondary pulmonary hypertension from COPD/ CHF, GERD, hypertension, hypothyroid, chronic kidney disease stage III Social history: Patient smoked close to 55 years about a quarter pack a day. stopped in July 2018. Lives with her . Family history: COPD Physical examination: VITAL SIGNS: 98.2, 63, 18, 106/52, 97% on 3 L GENERAL: BMI 24.2, propped up in bed, short of breath at rest EYES: Pupils equal. Conjunctiva normal. HEENT: External appearance of nose and ears normal, oral cavity grossly normal. NECK: JVD raised; masses not palpable. HEART: First and second heart sounds are normal; bilateral edema present LUNGS: Respiratory rate increased, bilateral basal fine crackles ABDOMEN: Soft, nontender, liver spleen not palpable, no masses palpable. PSYCH: Alert and oriented x3; mood and affect normal NEUROLOGICAL: Cranial nerves grossly intact; no facial asymmetry, power and sensation grossly intact. LYMPHATICS: No lymph nodes palpable in the axilla and neck MUSCULOSKELETAL: Evidence of OA specially in the hands INVESTIGATIONS, reviewed in the clinical context: White count 9.70 lobe and 10.2 progression 4.1 bun 26 creatinine 1.5, troponin I 0.065 Bun/creatinine in 05/24/2019 was 60/1.71 Chest x-ray film personally reviewed by me shows venous prominence, cardiomegaly, questionable some chronic changes EKG tracing personally reviewed by me shows atrial paced rhythm 2-D echocardiogram from December of this year shows EF of 30-35% some part of the 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, moderate mitral regurgitation, [id number] tricuspid regurgitation Assessment: -Acute on chronic congestive heart failure exacerbation from systolic dysfunction EF 30-35% from underlying coronary artery disease -Coronary artery disease with bypass in July 2018 -COPD in an ex-smoker -Mitral and tricuspid regurgitation nonrheumatic -Severe secondary pulmonary hypertension due to CHF/COPD -GERD -Essential hypertension -Hypothyroidism -Chronic kidney disease stage III from nephrosclerosis -Rule out pulmonary fibrosis -Troponin leak secondary to CHF. No clinical evidence of acute coronary syndrome Plan: We'll switch the patient to IV Lasix drip. Home medications resumed. Care was discussed with the patient at the bedside. We will do a high resolution CT chest in the morning to look for probably fibrosis. Electrolytes closely followed. Cardiology is being consulted. Prognosis guarded. Past Medical History Past Medical History: Coronary Artery Disease (CAD), Heart Failure, COPD, CVA/TIA, GERD/Reflux, Hypertension, Myocardial Infarction ([place]), Pneumonia, Thyroid Disorder Additional Past Medical History / Comment(s): difficulty getting to sleep. Last Myocardial Infarction Date:: History of Any Multi-Drug Resistant Organisms: None Reported Past Surgical History: Appendectomy, Section, Coronary Bypass/CABG, Hysterectomy, Joint Replacement, Orthopedic Surgery, Pacemaker, Tubal Ligation Additional Past Surgical History / Comment(s): had cabg in jul 2018 at [facility], rt hip replacment, anahy knee replacment, carpal tunnel,rt ankle arthroscopy, total hysterectomy, "anahy elbow sx d/t tennis elbow" Past Anesthesia/Blood Transfusion Reactions: No Reported Reaction Additional Past Anesthesia/Blood Transfusion Reaction / Comment(s): "never received blood transfusion" Type of Cardiac Device: AICD Device Placement Date:: 11/2018 Past Psychological History: Depression Additional Psychological History / Comment(s): mild depression since cabg 2017 Smoking Status: Former smoker Past Alcohol Use History: None Reported Additional Past Alcohol Use History / Comment(s): started smoking age 13 and quit smoked 6-7 cig per day Past Drug Use History: None Reported - Past Family History Mother Family Medical History: COPD Additional Family Medical History / Comment(s): emphysema Father Family Medical History: Coronary Artery Disease (CAD) Additional Family Medical History / Comment(s): 2 vessel cabg at age 57 Medications and Allergies Home Medications Medication Instructions Recorded Confirmed Type Atorvastatin [Lipitor] 40 mg PO DAILY 09/22/18 08/25/19 History Ipratropium-Albuterol Nebulize 3 ml INHALATION RT-TID 12/14/18 08/25/19 History [Duoneb 0.5 mg-3 mg/3 ml Soln] Budesonide [Pulmicort] 0.5 mg INHALATION RT-BID 05/20/19 08/25/19 History Formoterol Fumarate [Perforomist] 20 mcg INHALATION RT-BID 05/20/19 08/25/19 History Metoprolol Tartrate [Lopressor] 25 mg PO BID 05/20/19 08/25/19 History Temazepam 30 mg PO HS 05/20/19 08/25/19 History Furosemide [Lasix] 60 mg PO BID@0700,1400 #180 tab 05/24/19 08/25/19 Rx Spironolactone [Aldactone] 25 mg PO DAILY #30 tab 05/24/19 08/25/19 Rx Allopurinol [Zyloprim] 100 mg PO BID 08/25/19 08/25/19 History Calcitriol [Rocaltrol] 0.25 mcg PO TUSA 08/25/19 08/25/19 History Levothyroxine Sodium [Levoxyl] 100 mcg PO BID 08/25/19 08/25/19 History Nitroglycerin Sl Tabs [Nitrostat] 0.4 mg SUBLINGUAL Q5M PRN 08/25/19 08/25/19 History Allergies Allergy/AdvReac Type Severity Reaction Status Date / Time adhesive tape Allergy Rash/Hives Verified 08/25/19 13:47 hydrocodone [From Lortab] Allergy Itching Verified 08/25/19 13:47 Physical Exam Vitals: Vital Signs Temp Pulse Pulse Resp BP BP Pulse Ox 08/25/19 16:00 63 16 111/61 97 08/25/19 14:30 60 16 118/62 08/25/19 14:00 60 21 118/62 08/25/19 13:30 61 18 113/59 08/25/19 13:00 61 17 122/68 92 L 08/25/19 12:48 0 L 93 L 08/25/19 12:15 98.2 F 63 18 106/52 97 Intake and Output 08/25/19 08/25/19 08/25/19 06:59 14:59 22:59 Intake Total 20 Balance 20 Intake: Intake, IV Titration 20 Amount Sodium Chloride 0.9% 1, 20 000 ml @ 20 mls/hr IV . Q24H THU Rx#:[id number] Other: # Voids 1 Weight 68.039 kg Results CBC & Chem 7: 08/25/19 12:56 08/25/19 12:56 Labs: Abnormal Lab Results - Last 24 Hours (Table) 08/25/19 08/25/19 08/25/19 Range/Units 12:56 12:56 12:56 RBC 3.42 L (3.80-5.40) m/uL Hgb 10.2 L (11.4-16.0) gm/dL Hct 32.2 L (34.0-46.0) % RDW 17.9 H (11.5-15.5) % BUN 36 H (7-17) mg/dL Creatinine 1.50 H (0.52-1.04) mg/dL Troponin I 0.065 H* (0.000-0.034) ng/mL Thrombosis Risk Factor Assmnt - Choose All That Apply Each Factor Represents 1 point: Swollen legs (current) Each Risk Factor Represents 2 Points: Age 61-74 years Thrombosis Risk Factor Assessment Total Risk Factor Score: 3 Thrombosis Risk Factor Assessment Level: Moderate Risk
[2019-08-25] MEDS: FUROSEMIDE 100 MG in SODIUM CHLORIDE 0.9% 90 ML IV SCH (18:44)
[2019-08-25] MEDS: FORMOTEROL FUMARATE 20 MCG/2 ML NEBU INHALATION SCH (19:16)
[2019-08-25] MEDS: IPRATROPIUM-ALBUTEROL 3 ML NEB INHALATION SCH (19:16)
[2019-08-25] MEDS: BUDESONIDE 0.5 MG/2 ML NEBU INHALATION SCH (19:17)
[2019-08-25] MEDS: ALLOPURINOL 100 MG TAB PO SCH (22:03)
[2019-08-25] MEDS: TEMAZEPAM 30 MG CAP PO SCH (22:03)
[2019-08-25] MEDS: LEVOTHYROXINE 100 MCG TAB PO SCH (22:03)
[2019-08-25] MEDS: METOPROLOL TARTRATE 25 MG TAB PO SCH (22:03)
[2019-08-26 03:22] LABS: Calcium 9.3 mg/dL (8.4-10.2); Potassium 3.4 mmol/L (3.5-5.1)
[2019-08-26] MEDS: FUROSEMIDE 100 MG in SODIUM CHLORIDE 0.9% 90 ML IV SCH (03:36)
[2019-08-26] MEDS ORDERED: FUROSEMIDE 10 MG/ML 4 ML VIAL IV SCH (06:00)
[2019-08-26] MEDS: BUDESONIDE 0.5 MG/2 ML NEBU INHALATION SCH (08:10)
[2019-08-26] MEDS: FORMOTEROL FUMARATE 20 MCG/2 ML NEBU INHALATION SCH ×2 (08:10→19:48)
[2019-08-26] MEDS: IPRATROPIUM-ALBUTEROL 3 ML NEB INHALATION SCH ×5 (08:10→23:28)
[2019-08-26] MEDS ORDERED: POTASSIUM CHLORIDE ER 20 MEQ TAB.ER PO STA (08:23)
--- NOTE | 2019-08-26 08:48 | CT ---
EXAMINATION TYPE: HRCT chest DATE OF EXAM: 08/26/2019 COMPARISON: 05/20/2019 and 02/01/2019 HISTORY: 69-year-old female possible pulmonary fibrosis TECHNIQUE: Contiguous high resolution axial scanning of the chest without IV contrast utilizing 1 mm slice thickness and 1 cm gap without contrast. Both supine and prone imaging is performed. CT DLP: 485 mGycm Automated exposure control for dose reduction was used. FINDINGS: Left anterior chest wall ICD generator with right atrial and right ventricular leads. Median sternoto my wires with post-CABG clips in the mediastinum. Heart remains mildly enlarged without pericardial effusion. There is bulging protuberance of the inf erior left ventricular wall measuring up to 8.6 cm versus 8.1 cm on 05/20/2019. Aorta normal caliber with [id number] arch calcifications and commensurate vessel branching venkata joseph. Scattered nonenlarged and mildly enlarged mediastinal lymph nodes are redemonstrated measuring 1.9 cm in the precarinal region, versus 1.8 cm on 05/20/2019. Prominent AP window lymph node measures 1.1 cm short axis versus 9 mm on 05/20/2019 and 8 mm on 02/01/2019. Right paratracheal lymph nodes measure up t o 1 cm, increased from 6 mm on 02/01/2019. Redemonstrated subpleural reticulations throughout, greatest in the lung peripheries and lung bases. Bibasilar bronchiectasis with subpleural microcystic change redemonstrated. Difficult to exclude sis y honeycombing posterior right base, axial image 22. Stable 6 mm subpleural pulmonary nodule peripheral left base. Multifocal irregular opacities and groundglass densities throughout the right mid and lower lung. There may be a trace right effusion Limited assessment of the upper abdomen by HRCT technique. Bones: Incompletely united median sternotomy redemonstrated. IMPRESSION: 1. REDEMONSTRATED CHRONIC INTERSTITIAL LUNG DISEASE SUPERIMPOSED ON MILD EMPHYSEMA. THE INTERSTITIAL LUNG DISEASE IS CHARACTERIZED BY BIBASILAR BRONCHIECTASIS, INTERSTITIAL FIBROSIS, AND SUBPLEURAL MICR OCYSTIC CHANGE, POSSIBLE EARLY HONEYCOMBING. FIBROTIC NSIP AND EARLY UIP ARE IN THE DIFFERENTIAL. 2. NEW MULTIFOCAL IRREGULAR OPACITIES AND GROUNDGLASS THROUGHOUT THE RIGHT MID AND LOWER LUNG. CONSID ER SUPERIMPOSED INFECTIOUS PNEUMONITIS OR EXACERBATION OF UNDERLYING INTERSTITIAL PNEUMONITIS. GIVEN A TRACE RIGHT EFFUSION, ATYPICAL EARLY PULMONARY EDEMA IS ALSO IN THE DIFFERENTIAL. 3. MINIMAL GRADUAL ENLARGEMENT OF A FEW ENLARGED MEDIASTINAL LYMPH NODES (FOR EXAMPLE, PRECARINAL LYM PH NODE MEASURING 1.9 CM NOW VERSUS 1.8 CM ON 05/20/2019 AND 1. 2 CM ON 02/01/2019). SUSPECT REACTIVE/IN FLAMMATORY ETIOLOGY. FOLLOW-UP RECOMMENDED TO ENSURE STABILITY/INVOLUTION. 4. CARDIOMEGALY BUT WITH BULGING PROTUBERANCE ALONG THE INFERIOR WALL OF THE LEFT VENTRICLE SUGGESTIN G VENTRICULAR WALL ANEURYSM PROBABLY RELATING TO PRIOR INFERIOR WALL INFARCT. THE OVERALL BULGING IS SLIGHTLY LARGER MEASURING 8.6 CM NOW VERSUS 8.1 CM ON 05/20/2019.
--- NOTE | 2019-08-26 08:59 | P.CRDCN ---
History of Present Illness Consult date: 08/26/19 Chief complaint: Shortness of breath History of present illness: This is a pleasant 69-year-old female patient who sees Dr. SILVEIRA in the office on r egular basis with a past medical history significant for coronary artery disease and status post coronary artery was grafting 2 in July 2018, known cardiomyopathy based on echocardiogram was performed in 2018 showing an EF around 35%, valvular heart disease with known moderate MR and moderate TR as well as moderate pulmonary hypertension, presented to the hospital complaining of increasing in the shortness of breath and increasing in the lower extent his edema. The patient stated that her symptoms started about 3 weeks ago and got worse for the last few days. She denies any symptoms of chest pain or chest discomfort. She stated that she ate as well. No orthopnea or PND. The physical examination is consistent with heart failure. She does have bilateral rhonchi and bilateral lower extremities edema. The workup also consistent with CHF. The BNP is 10,000. The chest x-ray showed findings consistent with CHF. Subsequently the patient was admitted to the hospital and she was started on Lasix. Overall she stated that she is feeling better. Past Medical History Past Medical History: Coronary Artery Disease (CAD), Heart Failure, COPD, C VA/TIA, GERD/Reflux, Hypertension, Myocardial Infarction (MD), Pneumonia, Thyroid Disorder Additional Past Medical History / Comment(s): difficulty getting to sleep. Last Myocardial Infarction Date:: History of Any Multi-Drug Resistant Organisms: None Reported Past Surgical History: Appendectomy, Section, Coronary Bypass/CABG, Hysterectomy, Joint Replacement, Orthopedic Surgery, Pacemaker, Tubal Ligation Additional Past Surgical History / Comment(s): had cabg in jul 2018 at [facility], rt hip replacment, anahy knee replacment, carpal tunnel,rt ankle arthroscopy, total hysterectomy, "anahy elbow sx d/t tennis elbow" Past Anesthesia/Blood Transfusion Reactions: No Reported Reaction Additional Past Anesthesia/Blood Transfusion Reaction / Comment(s): "never received blood transfusion" Type of Cardiac Device: AICD Device Placement Date:: 11/2018 Past Psychological History: Depression Additional Psychological History / Comment(s): mild depression since cabg 2017 Smoking Status: Former smoker Past Alcohol Use History: None Reported Additional Past Alcohol Use History / Comment(s): started smoking age 13 and quit smoked 6-7 cig per day Past Drug Use History: None Reported - Past Family History Mother Family Medical History: COPD Additional Family Medical History / Comment(s): emphysema Father Family Medical History: Coronary Artery Disease (CAD) Additional Family Medical History / Comment(s): 2 vessel cabg at age 57 Medications and Allergies Home Medications Medication Instructions Recorded Confirmed Type Atorvastatin [Lipitor] 40 mg PO DAILY 09/22/18 08/25/19 History Ipratropium-Albuterol Nebulize 3 ml INHALATION RT-TID 12/14/18 08/25/19 History [Duoneb 0.5 mg-3 mg/3 ml Soln] Budesonide [Pulmicort] 0.5 mg INHALATION RT-BID 05/20/19 08/25/19 History Formoterol Fumarate [Perforomist] 20 mcg INHALATION RT-BID 05/20/19 08/25/19 History Metoprolol Tartrate [Lopressor] 25 mg PO BID 05/20/19 08/25/19 History Temazepam 30 mg PO HS 05/20/19 08/25/19 History Furosemide [Lasix] 60 mg PO BID@0700,1400 #180 tab 05/24/19 08/25/19 Rx Spironolactone [Aldactone] 25 mg PO DAILY #30 tab 05/24/19 08/25/19 Rx Allopurinol [Zyloprim] 100 mg PO BID 08/25/19 08/25/19 History Calcitriol [Rocaltrol] 0.25 mcg PO TUSA 08/25/19 08/25/19 History Levothyroxine Sodium [Levoxyl] 100 mcg PO BID 08/25/19 08/25/19 History Nitroglycerin Sl Tabs [Nitrostat] 0.4 mg SUBLINGUAL Q5M PRN 08/25/19 08/25/19 History Allergies Allergy/AdvReac Type Severity Reaction Status Date / Time adhesive tape Allergy Rash/Hives Verified 08/25/19 13:47 hydrocodone [From Lortab] Allergy Itching Verified 08/25/19 13:47 Physical Exam Vitals: Vital Signs Temp Pulse Pulse Resp BP BP Pulse Ox 08/26/19 08:33 70 08/26/19 08:23 68 08/26/19 08:21 68 08/26/19 08:10 72 08/26/19 08:00 97.9 F 64 20 98/54 98 08/26/19 04:00 98.2 F 60 19 121/72 95 08/26/19 00:00 98.8 F 67 20 109/78 93 L 08/25/19 20:00 98.5 F 61 20 114/72 92 L 08/25/19 19:33 69 08/25/19 19:25 69 08/25/19 19:24 69 08/25/19 19:17 63 08/25/19 16:00 63 16 111/61 97 08/25/19 14:30 60 16 118/62 08/25/19 14:00 60 21 118/62 08/25/19 13:30 61 18 113/59 08/25/19 13:00 61 17 122/68 92 L 08/25/19 12:48 0 L 93 L 08/25/19 12:15 98.2 F 63 18 106/52 97 Intake and Output 08/25/19 08/26/19 08/26/19 22:59 06:59 14:59 Intake Total 337 236 Balance 337 236 Intake: Intake, IV Titration 20 Amount Sodium Chloride 0.9% 1, 20 000 ml @ 20 mls/hr IV . Q24H [facility] Rx#:[id number] Oral 317 236 Other: Voiding Method Bedside Commode Bedside Commode # Voids 1 Weight 68.4 kg - Constitutional General appearance: no acute distress - Respiratory Respiratory: bilateral: rhonchi - Cardiovascular Heart sounds: normal: S1, S2 Abnormal Heart Sounds: systolic murmur Results 08/25/19 12:56 08/26/19 02:52 Cardiac Enzymes 08/25/19 08/25/19 08/26/19 Range/Units 12:56 21:10 02:52 Troponin I 0.065 H* 0.049 H* 0.047 H* (0.000-0.034) ng/mL CBC 08/25/19 Range/Units 12:56 WBC 9.7 (3.8-10.6) k/uL RBC 3.42 L (3.80-5.40) m/uL Hgb 10.2 L (11.4-16.0) gm/dL Hct 32.2 L (34.0-46.0) % Plt Count 311 (150-450) k/uL Comprehensive Metabolic Panel 08/25/19 08/26/19 Range/Units 12:56 02:52 Sodium 139 139 (137-145) mmol/L Potassium 4.1 3.4 L (3.5-5.1) mmol/L Chloride 105 104 (98-107) mmol/L Carbon Dioxide 23 24 (22-30) mmol/L BUN 36 H 37 H (7-17) mg/dL Creatinine 1.50 H 1.50 H (0.52-1.04) mg/dL Glucose 96 123 H (74-99) mg/dL Calcium 9.8 9.3 (8.4-10.2) mg/dL Current Medications Generic Name Dose Route Start Last Admin Trade Name Freq PRN Reason Stop Dose Admin Albuterol/Ipratropium 3 ml 08/25/19 20:00 08/26/19 08:10 Duoneb 0.5 Mg-3 Mg/3 Ml Soln INHALATION 3 ml RT-TID [facility]U Administration Allopurinol 100 mg 08/25/19 21:00 08/25/19 22:03 Zyloprim PO 100 mg BID THU Administration Aspirin 81 mg 08/26/19 09:00 Aspirin PO DAILY [facility] Atorvastatin Calcium 40 mg 08/26/19 09:00 Lipitor PO DAILY [facility]U Budesonide 0.5 mg 08/25/19 20:00 08/26/19 08:10 Pulmicort INHALATION 0.5 mg RT-BID [facility]U Administration Calcitriol 0.25 mcg 08/28/19 09:00 Rocaltrol PO TUSA [facility] Enoxaparin Sodium 40 mg 08/26/19 09:00 Lovenox SQ DAILY [facility] Formoterol Fumarate 20 mcg 08/25/19 20:00 08/26/19 08:10 Perforomist INHALATION 20 mcg RT-BID [facility] Administration Sodium Chloride 1,000 mls @ 20 mls/hr 08/25/19 14:30 08/25/19 14:46 Saline 0.9% IV 20 mls/hr .Q24H [facility] Administration Furosemide 100 mg/ Sodium 100 mls @ 10 mls/hr 08/25/19 17:30 08/26/19 03:36 Chloride IV Not Given .Q10H [facility] 10 MG/HR Levothyroxine Sodium 100 mcg 08/25/19 21:00 08/25/19 22:03 Synthroid PO 100 mcg BID [facility]U Administration Metoprolol Tartrate 25 mg 08/25/19 21:00 08/25/19 22:03 Lopressor PO 25 mg BID [facility]U Administration Nitroglycerin 0.4 mg 08/25/19 15:29 Nitrostat SUBLINGUAL Q5M PRN Chest Pain Spironolactone 25 mg 08/26/19 09:00 Aldactone PO DAILY [facility] Temazepam 30 mg 08/25/19 21:00 08/25/19 22:03 Restoril PO 30 mg HS [facility]U Administration Intake and Output 08/25/19 08/26/19 08/26/19 22:59 06:59 14:59 Intake Total 337 236 Balance 337 236 Intake: Intake, IV Titration 20 Amount Sodium Chloride 0.9% 1, 20 000 ml @ 20 mls/hr IV . Q24H [facility] Rx#:[id number] Oral 317 236 Other: Voiding Method Bedside Commode Bedside Commode # Voids 1 Weight 68.4 kg 08/25/19 12:56 08/26/19 02:52 Assessment and Plan Assessment: Assessment #1 congestive heart failure exacerbation secondary to systolic dysfunction #2 severe underlying coronary artery disease and status post CABG #3 history of chronic obstructive pulmonary disease #4 valvular heart disease with MR and TR #5 severe cardiomyopathy #6 multiple comorbid conditions Plan #1 continue the current medical regimen including the current dose of Lasix #2 monitor the kidney function and electrolytes #3 repeat the echocardiogram #4 follow-up with the patient
[2019-08-26] MEDS: SPIRONOLACTONE 25 MG TAB PO SCH (09:21)
[2019-08-26] MEDS: ASPIRIN 81 MG PO SCH (09:21)
[2019-08-26] MEDS: ENOXAPARIN 40 MG/0.4 ML SYRINGE SQ SCH (09:21)
[2019-08-26] MEDS: LEVOTHYROXINE 100 MCG TAB PO SCH ×2 (09:21→21:56)
[2019-08-26] MEDS: METOPROLOL TARTRATE 25 MG TAB PO SCH ×2 (09:21→21:32)
[2019-08-26] MEDS: ALLOPURINOL 100 MG TAB PO SCH ×2 (09:21→21:51)
[2019-08-26] MEDS: ATORVASTATIN 40 MG TAB PO SCH (09:21)
[2019-08-26] MEDS ORDERED: ASPIRIN 325 MG TAB PO SCH (12:00)
[2019-08-26] MEDS: FUROSEMIDE 10 MG/ML 4 ML VIAL IV SCH ×2 (12:51→21:32)
[2019-08-26] MEDS: LORATADINE 10 MG TAB PO SCH ×2 (13:06→21:33)
[2019-08-26 14:01] VITALS: BMI 24.3
[2019-08-26] MEDS: CALAMINE/ZINC OXIDE LOTION 177 ML BTL TOPICAL PRN (16:19)
--- NOTE | 2019-08-26 17:02 | P.PN ---
Progress Note - Text Progress Note Date: 08/26/19 Chief Complaint: Short of breath Interval history: This is a pleasant 69-year-old patient of Dr. Otto. Chronic stable medical conditions include coronary artery disease, hypertension, GERD, hypothyroidism, severe secondary pulmonary hypertension, chronic kidney disease. Patient in October of this year had a coronary artery bypass at [facility]. Patient now presents with to 3 days of increasing shortness of breath. Slight cough. Minimal sputum. No fevers. Just feeling a bit cold. Always uses 2 pillows at night. Increasing swelling of the lower extremity. No chest pain no palpitation. Patient was treated for CHF exacerbation. Started on IV Lasix drip. Today-on IV Lasix drip. About 1300 mL in negative fluid balance. Still short of breath. Computed tomography scan does confirm significant pulmonary fibrosis. at the bedside. Review of systems: Was done for constitutional, cardiovascular, GI, pulmonary. relevant finding as above Active Medications Albuterol/Ipratropium (Duoneb 0.5 Mg-3 Mg/3 Ml Soln) 3 ml INHALATION RT-TID [facility] Last Admin: 08/26/19 12:38 Dose: 3 ml Documented by: Allopurinol (Zyloprim) 100 mg PO BID [facility] Last Admin: 08/26/19 09:21 Dose: 100 mg Documented by: Aspirin (Aspirin) 81 mg PO DAILY [facility] Last Admin: 08/26/19 09:21 Dose: 81 mg Documented by: Atorvastatin Calcium (Lipitor) 40 mg PO DAILY [facility] Last Admin: 08/26/19 09:21 Dose: 40 mg Documented by: Budesonide (Pulmicort) 0.5 mg INHALATION RT-BID [facility] Last Admin: 08/26/19 08:10 Dose: 0.5 mg Documented by: Calamine (Calamine Lotion) 1 applic TOPICAL TID PRN PRN Reason: Skin Irritation Last Admin: 08/26/19 16:19 Dose: 1 applic Documented by: Calcitriol (Rocaltrol) 0.25 mcg PO TUSA [facility] Enoxaparin Sodium (Lovenox) 40 mg SQ DAILY [facility] Last Admin: 08/26/19 09:21 Dose: 40 mg Documented by: Formoterol Fumarate (Perforomist) 20 mcg INHALATION RT-BID [facility] Last Admin: 08/26/19 08:10 Dose: 20 mcg Documented by: Furosemide (Lasix) 40 mg IV Q12HR [facility] Last Admin: 08/26/19 12:51 Dose: 40 mg Documented by: Sodium Chloride (Saline 0.9%) 1,000 mls @ 20 mls/hr IV .Q24H [facility] Last Admin: 08/25/19 14:46 Dose: 20 mls/hr Documented by: Levothyroxine Sodium (Synthroid) 100 mcg PO BID [facility] Last Admin: 08/26/19 09:21 Dose: 100 mcg Documented by: Loratadine (Claritin) 5 mg PO Q12HR [facility] Last Admin: 08/26/19 13:06 Dose: 5 mg Documented by: Metoprolol Tartrate (Lopressor) 25 mg PO BID [facility] Last Admin: 08/26/19 09:21 Dose: 25 mg Documented by: Nitroglycerin (Nitrostat) 0.4 mg SUBLINGUAL Q5M PRN PRN Reason: Chest Pain Spironolactone (Aldactone) 25 mg PO DAILY [facility] Last Admin: 08/26/19 09:21 Dose: 25 mg Documented by: Temazepam (Restoril) 30 mg PO HS [facility] Last Admin: 08/25/19 22:03 Dose: 30 mg Documented by: Physical examination: VITAL SIGNS: 98.1, 61, 20, 102/58, 92% on 3 L GENERAL: Sitting up in the bed, short of breath EYES: Pupils equal. Conjunctiva normal. HEENT: External appearance of nose and ears normal, oral cavity grossly normal. NECK: JVD raised; masses not palpable. HEART: First and second heart sounds are normal; bilateral edema present LUNGS: Respiratory rate increased, bilateral l fine crackles ABDOMEN: Soft, nontender, liver spleen not palpable, no masses palpable. PSYCH: Alert and oriented x3; mood and affect normal MUSCULOSKELETAL: Evidence of OA specially in the hands INVESTIGATIONS, reviewed in the clinical context: Potassium 3.4 bun 37 creatinine 1[address] chest-diffuse pulmonary fibrosis Previous testing White count 9.70 hemoglobin 10.2 potassium 4.1 bun 26 creatinine 1.5, troponin I 0.065 Bun/creatinine in 05/24/2019 was 60/1.71 Chest x-ray film personally reviewed by me shows venous prominence, cardiomegaly, questionable some chronic changes EKG tracing personally reviewed by me shows atrial paced rhythm 2-D echocardiogram from December of this year shows EF of 30-35% some part of the 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, moderate mitral regurgitation, [id number] tricuspid regurgitation Assessment: -Acute on chronic congestive heart failure exacerbation from systolic dysfunction EF 30-35% from underlying coronary artery disease, slow to respond, POA -New diagnosis of bilateral severe pulmonary fibrosis -Acute on chronic cor pulmonale, POA -Coronary artery disease with bypass in July 2018 -COPD in an ex-smoker -Mitral and tricuspid regurgitation nonrheumatic -Severe secondary pulmonary hypertension due to CHF/COPD -GERD -Essential hypertension -Hypothyroidism -Chronic kidney disease stage III from nephrosclerosis -Troponin leak secondary to CHF. No clinical evidence of acute coronary syndrome Plan: Patient is a patient on IV Lasix drip to today. Should be able to be switched over to by mouth Lasix tomorrow. We'll put the patient on IV steroids. And inhaled steroids. We'll get a pulmonary consultation. Prognosis guarded.
[2019-08-26] MEDS: methylPREDNISolone SOD SUCCI 40 MG/ML 1 ML VIAL IV SCH ×2 (17:35→23:38)
[2019-08-26] MEDS: BUDESONIDE 1 MG/2 ML NEBU INHALATION SCH (19:48)
[2019-08-26] MEDS ORDERED: TEMAZEPAM 15 MG CAP PO SCH (23:30)
[2019-08-27] MEDS: IPRATROPIUM-ALBUTEROL 3 ML NEB INHALATION SCH ×6 (04:02→23:46)
[2019-08-27 06:55] LABS: Calcium 9.3 mg/dL (8.4-10.2); Potassium 4.3 mmol/L (3.5-5.1)
[2019-08-27] MEDS: BUDESONIDE 1 MG/2 ML NEBU INHALATION SCH ×2 (07:55→20:24)
[2019-08-27] MEDS: FORMOTEROL FUMARATE 20 MCG/2 ML NEBU INHALATION SCH ×2 (07:55→20:24)
--- NOTE | 2019-08-27 08:33 | P.PN ---
Subjective Progress Note Date: 08/27/19 Principal diagnosis: Congestive heart failure exacerbation secondary to systolic dysfunction This is a pleasant 69-year-old female patient who sees Dr. SILVEIRA in the office on regular basis with a past medical history significant for coronary artery disease and status post coronary artery was grafting 2 in July 2018, known cardiomyopathy based on echocardiogram was performed in 2018 showing an EF around 35%, valvular heart disease with known moderate MR and moderate TR as we ll as moderate pulmonary hypertension, presented to the hospital complaining of increasing in the shortness of breath and increasing in the lower extent his edema. The patient stated that her symptoms started about 3 weeks ago and got worse for the last few days. She denies any symptoms of chest pain or chest discomfort. She stated that she ate as well. No orthopnea or PND. The physical examination is consistent with heart failure. She does have bilateral rhonchi and bilateral lower extremities edema. The workup also consistent with CHF. The BNP is 10,000. The chest x-ray showed findings consistent with CHF. Subsequently the patient was admitted to the hospital and she was started on Lasix. The patient was seen this morning, 08/27/2019. Overall she is feeling better in terms of shortness of breath. She still have bilateral lower extremities pitting edema on examination. She continues to be on IV Lasix which I would recommend to continue for additional 24 hours. No symptoms of chest pain or chest discomfort. Objective - Vital Signs Vital signs: Vital Signs Temp 97.6 F 08/27/19 08:00 Pulse 62 08/27/19 08:15 Resp 20 08/27/19 08:00 BP 103/56 08/27/19 08:00 Pulse Ox 92 L 08/27/19 08:00 Intake & Output 08/26/19 08/27/19 08/27/19 18:59 06:59 18:59 Intake Total 736 417 360 Output Total 1700 Balance -964 417 360 Weight 68.4 kg 68.4 kg Intake: Oral 736 417 360 Output: Urine 1700 Other: Voiding Method Bedside Commode Bedside Commode - Constitutional General appearance: Present: no acute distress - Respiratory Respiratory: bilateral: diminished - Cardiovascular Heart sounds: normal: S1, S2 - Labs CBC & Chem 7: 08/25/19 12:56 08/27/19 05:58 Labs: Abnormal Lab Results - Last 24 Hours (Table) 08/27/19 Range/Units 05:58 BUN 35 H (7-17) mg/dL Creatinine 1.42 H (0.52-1.04) mg/dL Glucose 189 H (74-99) mg/dL Assessment and Plan Assessment: Assessment #1 congestive heart failure exacerbation secondary to systolic dysfunction #2 severe underlying coronary artery disease and status post CABG #3 history of chronic obstructive pulmonary disease #4 valvular heart disease with MR and TR #5 severe cardiomyopathy #6 multiple comorbid conditions Plan #1 continue the current medical regimen including the current dose of Lasix #2 monitor the kidney function and electrolytes #3 follow-up with the patient
[2019-08-27] MEDS: ASPIRIN 81 MG PO SCH (08:41)
[2019-08-27] MEDS: methylPREDNISolone SOD SUCCI 40 MG/ML 1 ML VIAL IV SCH ×2 (08:41→16:02)
[2019-08-27] MEDS: METOPROLOL TARTRATE 25 MG TAB PO SCH ×2 (08:41→21:15)
[2019-08-27] MEDS: LEVOTHYROXINE 100 MCG TAB PO SCH (08:42)
[2019-08-27] MEDS: ATORVASTATIN 40 MG TAB PO SCH (08:42)
[2019-08-27] MEDS: ENOXAPARIN 40 MG/0.4 ML SYRINGE SQ SCH (08:42)
[2019-08-27] MEDS: ALLOPURINOL 100 MG TAB PO SCH ×2 (08:42→21:16)
[2019-08-27] MEDS: LORATADINE 10 MG TAB PO SCH ×2 (08:42→21:15)
[2019-08-27] MEDS: SPIRONOLACTONE 25 MG TAB PO SCH (08:42)
[2019-08-27] MEDS: CALAMINE/ZINC OXIDE LOTION 177 ML BTL TOPICAL PRN (08:51)
[2019-08-27] MEDS: FUROSEMIDE 10 MG/ML 4 ML VIAL IV SCH ×2 (09:00→21:08)
--- NOTE | 2019-08-27 13:59 | CDI ---
Documentation Clarification Form Date: 08/27/2019 1:29:23 PM From: Kisha Ricketts RN, CCDS Admit Date: 08/25/2019 2:30:00 PM Patient Name: Karmen Narayanan Visit Number: [id number] Discharge Date: ATTENTION: The Clinical Documentation Specialists (CDI) and [facility] Coding Staff appreciate your assistance in clarifying documentation. Please respond to the clarification below the line at the bottom and electronically sign. The CDI & [facility] Coding staff will review the response and follow-up if needed. Please note: Queries are made part of the Legal Health Record. If you have any questions, please contact the author of this message via ITS. Dr. Raj Lorenz Severe cardiomyopathy is documented in the consult and subsequent documentation and additional clarification is needed. . History/Risk Factors: Heart failure, Coronary Artery Disease, COPD, Myocardial Infarction () Clinical indicators: 69-year-old female with known cardiomyopathy based on echocardiogram was preformed in 2018 showing and EF [id number] %, valvular heart disease with known moderate Mitral regurgitation and moderate Tricupid regurgitation and moderate pulmonary hypertension. Patient C/O: Present with complaints of increasing in her shortness of breath and lower extremity edema. The physical examination is consistent with heart failure. She puente have bilateral rhonchi. Vital signs: 106/52 63 18 98.2 97 % 3/L NC Labs: BNP 10,000 CT Scan chest: Chronic interstitial lung disease superimposed on mild emphysema. 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 Atypical early pulmonary edema is also in the differential. Treatment: Lasix IV Monitor kidney function and electrolytes Telemetry monitoring In your professional opinion, can you please clarify the type of cardiomyopathy and underlying cause if known? Dilated Hypertrophic Ischemic Secondary, please indicate underlying cause if known Other, please specify Unable to determine (Last Revision: July 2017) MTDD
--- NOTE | 2019-08-27 15:57 | P.PN ---
Progress Note - Text Progress Note Date: 08/27/19 Chief Complaint: Short of breath Interval history: This is a pleasant 69-year-old patient of Dr. Otto. Chronic stable medical conditions include coronary artery disease, hypertension, GERD, hypothyroidism, severe secondary pulmonary hypertension, chronic kidney disease. Patient in October of this year had a coronary artery bypass at [facility]. Patient now presents with to 3 days of increasing shortness of breath. Slight cough. Minimal sputum. No fevers. Just feeling a bit cold. Always uses 2 pillows at night. Increasing swelling of the lower extremity. No chest pain no palpitation. Patient was treated for CHF exacerbation. Started on IV Lasix drip. Computed tomography scan of the chest did confirm significant pulmonary fibrosis. Patient also felt to have acute on chronic cor pulmonale. Today-patient was taken of the IV Lasix drip by cardiology. Switched to IV bolus place. Breathing is slightly better. Edema is gone down. Eating better. Up to the bathroom. Review of systems: Was done for constitutional, cardiovascular, GI, pulmonary. relevant finding as above Active Medications Albuterol/Ipratropium (Duoneb 0.5 Mg-3 Mg/3 Ml Soln) 3 ml INHALATION RT-Q4H [facility] Last Admin: 08/27/19 12:04 Dose: 3 ml Documented by: Allopurinol (Zyloprim) 100 mg PO BID [facility] Last Admin: 08/27/19 08:42 Dose: 100 mg Documented by: Aspirin (Aspirin) 81 mg PO DAILY [facility] Last Admin: 08/27/19 08:41 Dose: 81 mg Documented by: Atorvastatin Calcium (Lipitor) 40 mg PO DAILY [facility] Last Admin: 08/27/19 08:42 Dose: 40 mg Documented by: Budesonide (Pulmicort) 1 mg INHALATION RT-BID [facility] Last Admin: 08/27/19 07:55 Dose: 1 mg Documented by: Calamine (Calamine Lotion) 1 applic TOPICAL TID PRN PRN Reason: Skin Irritation Last Admin: 08/27/19 08:51 Dose: 1 applic Documented by: Calcitriol (Rocaltrol) 0.25 mcg PO [facility] Enoxaparin Sodium (Lovenox) 40 mg SQ DAILY [facility] Last Admin: 08/27/19 08:42 Dose: 40 mg Documented by: Formoterol Fumarate (Perforomist) 20 mcg INHALATION RT-BID [facility] Last Admin: 08/27/19 07:55 Dose: 20 mcg Documented by: Furosemide (Lasix) 40 mg IV Q12HR [facility] Last Admin: 08/27/19 09:00 Dose: 40 mg Documented by: Levothyroxine Sodium (Synthroid) 100 mcg PO DAILY@0630 [facility] Loratadine (Claritin) 5 mg PO Q12HR [facility] Last Admin: 08/27/19 08:42 Dose: 5 mg Documented by: Methylprednisolone Sodium Succinate (Solu-Medrol) 40 mg IV Q8HR [facility] Last Admin: 08/27/19 08:41 Dose: 40 mg Documented by: Metoprolol Tartrate (Lopressor) 25 mg PO BID [facility] Last Admin: 08/27/19 08:41 Dose: 25 mg Documented by: Nitroglycerin (Nitrostat) 0.4 mg SUBLINGUAL Q5M PRN PRN Reason: Chest Pain Spironolactone (Aldactone) 25 mg PO DAILY [facility] Last Admin: 08/27/19 08:42 Dose: 25 mg Documented by: Temazepam (Restoril) 30 mg PO HS [facility] Last Admin: 08/26/19 23:38 Dose: 30 mg Documented by: Physical examination: VITAL SIGNS: 97.8, 64, 16, 109/61, 95% on 3 L GENERAL: Sitting up, less short of breath EYES: Pupils equal. Conjunctiva normal. HEENT: External appearance of nose and ears normal, oral cavity grossly normal. NECK: JVD raised; masses not palpable. HEART: First and second heart sounds are normal; decreased edema LUNGS: Respiratory rate improved, bilateral fine crackles ABDOMEN: Soft, nontender, liver spleen not palpable, no masses palpable. PSYCH: Alert and oriented x3; mood and affect normal MUSCULOSKELETAL: Evidence of OA specially in the hands INVESTIGATIONS, reviewed in the clinical context: Potassium 4.3 bun 35 creatinine 1.[address] chest-diffuse pulmonary fibrosis Previous testing White count 9.70 hemoglobin 10.2 potassium 4.1 bun 26 creatinine 1.5, troponin I 0.065 Bun/creatinine in 05/24/2019 was 60/1.71 Chest x-ray film personally reviewed by me shows venous prominence, cardiomegaly, questionable some chronic changes EKG tracing personally reviewed by me shows atrial paced rhythm 2-D echocardiogram from December of this year shows EF of 30-35% some part of the 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, moderate mitral regurgitation, [id number] tricuspid regurgitation Assessment: -Acute on chronic congestive heart failure exacerbation from systolic dysfunction EF 30-35% from underlying coronary artery disease, improving, POA -New diagnosis of bilateral severe pulmonary fibrosis -Acute on chronic cor pulmonale, POA -Coronary artery disease with bypass in July 2018 -COPD in an ex-smoker -Mitral and tricuspid regurgitation nonrheumatic -Severe secondary pulmonary hypertension due to CHF/COPD -GERD -Essential hypertension -Hypothyroidism -Chronic kidney disease stage III from nephrosclerosis -Troponin leak secondary to CHF. No clinical evidence of acute coronary syndrome Plan: Patient be switched over to IV bolus Lasix 40 mg every 12. Clinically much improved. We'll switch the patient to oral prednisone tomorrow morning. Discussed with Dr. Gino Stokes/Cammie Vazquez from pulmonary. Care was discussed at length with the patient and . Questions were answered. Should be able to be switched over to oral Lasix tomorrow morning. Repeat labs in the morning.
--- NOTE | 2019-08-27 19:29 | CONS ---
CONSULTATION Karmen Narayanan is a 69-year-old female who presented to the ED at [facility] on 08/25/2019. At that time she had been having increasing shortness of breath for about 3 to 4 days' duration. She also had swelling of her lower extremities. She was seen in the ER. Her troponin was positive. She was admitted for further evaluation and management. She denied any fever, chills or rigors. A CT scan of the chest was done which showed evidence of an AICD generator, history of bilateral reticular changes consistent with lung fibrosis. PAST MEDICAL HISTORY: Her past medical history is positive for: 1. Pulmonary hypertension. 2. Cardiac arrhythmia. 3. History of congestive heart failure. 4. COPD. 5. Gastroesophageal reflux disease. 6. Hypothyroidism. 7. Hypertension. 8. Chronic kidney disease, stage III. SOCIAL HISTORY: Patient was a smoker. She smoked for about 50 years. She was exposed to asbestos from her , who worked with asbestos. FAMILY HISTORY: Positive for COPD. MEDICATIONS: Medications prior to admission were: 1. Synthroid. 2. Temazepam. 3. Aldactone. 4. Norvasc. 5. Lopressor. 6. DuoNeb. 7. Lasix. 8. Perforomist. 9. Rocaltrol. 10.Pulmicort. 11.Lipitor. 12.Zyloprim. REVIEW OF SYSTEMS: Noncontributory. PHYSICAL EXAMINATION: Respiratory rate is 16, pulse rate 64, temperature 97.8. Blood pressure 109/61. Oxygen saturation on 3 L by nasal cannula is 95%. HEENT reveals pupils that are equal. Chest reveals scattered crackles, type. Cardiovascular system is in S1, S2. Abdomen is soft. There is 1+ pedal edema. LABS: Sodium is 139, potassium 4.3, chloride 103, bicarb 23, BUN 35, creatinine 1.42. IMPRESSION AT THIS TIME: 1. Congestive heart failure with acute exacerbation. 2. Cor pulmonale. 3. Lung fibrosis, etiology of which is unclear. At this point in time, would optimize her fluid status, increase activity level. However, close outpatient followup, as she will require lung function testing and further workup. She was counseled regarding this condition and has a fair understanding of our recommendations. MMODL / IJN: [id number] /
[2019-08-27] MEDS: TEMAZEPAM 30 MG CAP PO SCH (19:40)
[2019-08-27] MEDS: SODIUM CHLORIDE 0.9% 1,000 ML IV SCH (19:41)
[2019-08-27] MEDS: SODIUM FERRIC GLUCONAT-SUCROSE 125 MG in SODIUM CHLORIDE 0.9% 100 ML IVPB SCH (20:21)
[2019-08-27] MEDS ORDERED: TEMAZEPAM 15 MG CAP PO ONE (23:01)
[2019-08-28] MEDS: IPRATROPIUM-ALBUTEROL 3 ML NEB INHALATION SCH ×3 (04:02→11:05)
[2019-08-28] MEDS ORDERED: LEVOTHYROXINE 100 MCG TAB PO SCH (06:30)
[2019-08-28 06:51] LABS: Calcium 9.2 mg/dL (8.4-10.2); Potassium 4.3 mmol/L (3.5-5.1)
[2019-08-28] MEDS: FORMOTEROL FUMARATE 20 MCG/2 ML NEBU INHALATION SCH (07:26)
[2019-08-28] MEDS: BUDESONIDE 1 MG/2 ML NEBU INHALATION SCH (07:26)
[2019-08-28] MEDS ORDERED: CALCITRIOL 0.25 MCG CAP PO SCH (09:00)
[2019-08-28] MEDS ORDERED: predniSONE 20 MG TAB PO SCH (09:00)
[2019-08-28] MEDS: ENOXAPARIN 40 MG/0.4 ML SYRINGE SQ SCH (09:26)
[2019-08-28] MEDS: METOPROLOL TARTRATE 25 MG TAB PO SCH (09:26)
[2019-08-28] MEDS: FUROSEMIDE 10 MG/ML 4 ML VIAL IV SCH (09:26)
[2019-08-28] MEDS: ALLOPURINOL 100 MG TAB PO SCH (09:26)
[2019-08-28] MEDS: LORATADINE 10 MG TAB PO SCH (09:26)
[2019-08-28] MEDS: SPIRONOLACTONE 25 MG TAB PO SCH (09:26)
[2019-08-28] MEDS: ASPIRIN 81 MG PO SCH (09:26)
[2019-08-28] MEDS: ATORVASTATIN 40 MG TAB PO SCH (09:26)
[2019-08-28 09:34] VITALS: RESP 16; TEMP 97.4
--- NOTE | 2019-08-28 11:25 | P.PN ---
Subjective Progress Note Date: 08/28/19 This is a 69-year-old female with history of coronary artery disease with a bypass surgery done in 2018 cardiomyopathy with an ejection of 35% and also moderate mitral and tricuspid regurgitation. Patient was admitted to the hospital with increasing shortness of breath. Patient had significant edema in the legs on admission. Patient responded very well to the diuretics. Her edema is completely resolved. Patient complains of being weak. No complaints of chest pain. We will switch to by mouth diuretics. Increase activity. Patient could be discharged home to have follow-up with Dr. RAOUL Vazquez Objective - Vital Signs Vital signs: Vital Signs Temp 97.4 F L 08/28/19 08:00 Pulse 64 08/28/19 11:17 Resp 16 08/28/19 08:00 BP 118/78 08/28/19 08:00 Pulse Ox 94 L 08/28/19 08:00 Intake & Output 08/27/19 08/28/19 08/28/19 18:59 06:59 18:59 Intake Total 1200 230 Output Total 800 650 Balance 400 -650 230 Weight 67.9 kg Intake: Oral 1200 230 Output: Urine 800 650 Other: Voiding Method Bedside Commode Bedside Commode Bedside Commode # Voids 1 - Exam GENERAL EXAM: Patient is alert and oriented and doesn't appear to be in any acute distress HEENT: Normocephalic. Normal reaction of pupils, equal size, normal range of extraocular motion. No erythema or exudates in the throat. NECK: No masses, no nuchal rigidity. CHEST: No chest wall deformity. LUNGS: Diminished air exchange HEART: S1 and S2 normal with no audible mumurs or gallops. Regular rhythm, femorals equal on both sides.. ABDOMEN: No hepatosplenomegaly, normal bowel sounds, no guarding or rigidity. SKIN: No rashes CENTRAL NERVOUS SYSTEM: No focal deficits. EXTREMITIES: No cyanosis, clubbing or edema. - Labs CBC & Chem 7: 08/25/19 12:56 08/28/19 05:44 Labs: Abnormal Lab Results - Last 24 Hours (Table) 08/28/19 Range/Units 05:44 BUN 44 H (7-17) mg/dL Creatinine 1.57 H (0.52-1.04) mg/dL Glucose 193 H (74-99) mg/dL Assessment and Plan (1) CAD (coronary artery disease) Current Visit: Yes Status: Acute Code(s): I25.10 - ATHSCL HEART DISEASE OF [place] CORONARY ARTERY W/O ANG PCTRS SNOMED Code(s): 03970201 (2) Acute decompensated heart failure Current Visit: No Status: Acute Code(s): I50.9 - HEART FAILURE, UNSPECIFIED SNOMED Code(s): 29038454 (3) Ischemic cardiomyopathy Current Visit: No Status: Acute Code(s): I25.5 - ISCHEMIC CARDIOMYOPATHY SNOMED Code(s): 631352279 (4) COPD (chronic obstructive pulmonary disease) Current Visit: Yes Status: Acute Code(s): J44.9 - CHRONIC OBSTRUCTIVE PULMONARY DISEASE, UNSPECIFIED SNOMED Code(s): 24993153 Plan: Patient seemed to be doing well. Edema has cleared. We'll switch to by mouth diuretics. Increase activity. Possible discharge soon
[2019-08-28] MEDS: SODIUM FERRIC GLUCONAT-SUCROSE 125 MG in SODIUM CHLORIDE 0.9% 100 ML IVPB SCH (12:52)
[2019-08-28 13:01] VITALS: BP 113/59; PULSE 61
--- NOTE | 2019-08-28 13:24 | PN ---
PROGRESS NOTE DATE OF SERVICE: 08/28/2019 She was seen again on August2018. She is short of breath and does not complain of any chest pain and received an iron infusion. On physical examination, respiratory rate is 16, pulse rate of 68, temperature 97.4, blood pressure 118/78, O2 saturation on 2 L by nasal cannula is 94%. HEENT is unremarkable. Chest reveals decreased breath sounds. Scattered Velcro type crackles. Cardiovascular system is S1, S2. Abdomen is soft. There is no pedal edema. Sodium is 138, potassium 4.3, chloride 103, bicarb 22, BUN 44, creatinine of 1.57. IMPRESSION: At this time is: 1. Lung fibrosis for which she would require an outpatient workup. 2. Congestive heart failure with cor pulmonale. 3. Anemia, for which she required iron infusion. Continue current medications which were reviewed. We would be happy to see her in the outpatient setting if need be for further outpatient workup. MMODL / IJN: [id number] /
[2019-08-28] MEDS ORDERED: FUROSEMIDE 40 MG TAB PO SCH (16:00)
--- NOTE | 2019-08-29 19:09 | P.DS ---
Providers Date of admission: 08/25/19 14:30 Expected date of discharge: 08/28/19 Attending physician: Po Moss Consults: 08/25/19 14:30 Consult Physician Routine Consulting Provider: Rai Vazquez Consult Reason/Comments: nstemi, heart failure Do you want consulting provider notified?: Yes 08/26/19 16:55 Consult Physician Routine Consulting Provider: James Vazquez Consult Reason/Comments: Pulmonary fibrosis Do you want consulting provider notified?: Yes Primary care physician: Reji Otto [facility] Course: Chief Complaint: Short of breath Hospital course: This is a pleasant 69-year-old patient of Dr. Otto. Chronic stable medical conditions include coronary artery disease, hypertension, GERD, hypothyroidism, severe secondary pulmonary hypertension, chronic kidney disease. Patient in October of this year had a coronary artery bypass at [facility]. Patient now presents with to 3 days of increasing shortness of breath. cough. Minimal sputum. No fevers. Just feeling a bit cold. Always uses 2 pillows at night. Increasing swelling of the lower extremity. No chest pain no palpitation. Patient was treated for CHF exacerbation. Started on IV Lasix drip. Computed tomography scan of the chest did confirm significant pulmonary fibrosis. Patient also felt to have acute on chronic cor pulmonale. Patient also given steroids. To which she responded. Doing better without discharge. Today-feeling better. Care was discussed at length with the patient and the . Questions answered. Also discussed with the magnetic doctor Dr. Negron. Discussion and discharge planning more than 35 minutes Consultation: Dr. Negron from cardiology Dr. Stokes/Cammie Vazquez from cardiology Physical examination: VITAL SIGNS: 97.4, 68, 16, 11 8/78, 94% on 2 L GENERAL: Sitting up, comfortable EYES: Pupils equal. Conjunctiva normal. HEENT: External appearance of nose and ears normal, oral cavity grossly normal. NECK: JVD raised; masses not palpable. HEART: First and second heart sounds are normal; decreased edema LUNGS: Respiratory rate improved, bilateral fine crackles ABDOMEN: Soft, nontender, liver spleen not palpable, no masses palpable. PSYCH: Alert and oriented x3; mood and affect normal MUSCULOSKELETAL: Evidence of OA specially in the hands INVESTIGATIONS, reviewed in the clinical context: Potassium 4.3 bun 44 creatinine 1.57 Previous testing White count 9.70 hemoglobin 10.2 potassium 4.1 bun 26 creatinine 1.5, troponin I 0.065 Bun/creatinine in 05/24/2019 was 60/1.71 Chest x-ray film personally reviewed by me shows venous prominence, cardiomegaly, questionable some chronic changes EKG tracing personally reviewed by me shows atrial paced rhythm 2-D echocardiogram from December of this year shows EF of 30-35% some part of the 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, moderate mitral regurgitation, [id number] tricuspid regurgitation High resolution CT chest-diffuse pulmonary fibrosis Assessment: -Acute on chronic congestive heart failure exacerbation from systolic dysfunction EF 30-35% from underlying coronary artery disease, improving, POA -New diagnosis of bilateral severe pulmonary fibrosis -Acute on chronic cor pulmonale, from pulmonary fibrosis and CHF, POA -Coronary artery disease with bypass in July 2018 -COPD in an ex-smoker -Mitral and tricuspid regurgitation nonrheumatic -Severe secondary pulmonary hypertension due to CHF/COPD -GERD -Essential hypertension -Hypothyroidism -Chronic kidney disease stage III from nephrosclerosis -Troponin leak secondary to CHF. No clinical evidence of acute coronary syndrome Disposition: Home Patient Condition at Discharge: Stable Plan - Discharge Summary Discharge Rx Participant: No New Discharge Prescriptions: New Aspirin 81 mg PO DAILY chew Calamine/Zinc Oxide Lotion [Calamine Lotion] 1 applic TOPICAL TID PRN applic PRN Reason: Skin Irritation Loratadine [Claritin] 5 mg PO Q12HR #10 tab predniSONE 40 mg PO DAILY #60 tab Continue Atorvastatin [Lipitor] 40 mg PO DAILY Ipratropium-Albuterol Nebulize [Duoneb 0.5 mg-3 mg/3 ml Soln] 3 ml INHALATION RT-TID Metoprolol Tartrate [Lopressor] 25 mg PO BID Formoterol Fumarate [Perforomist] 20 mcg INHALATION RT-BID Budesonide [Pulmicort] 0.5 mg INHALATION RT-BID Temazepam 30 mg PO HS Spironolactone [Aldactone] 25 mg PO DAILY #30 tab Furosemide [Lasix] 60 mg PO BID@0700,1400 #180 tab Levothyroxine Sodium [Levoxyl] 100 mcg PO DAILY Calcitriol [Rocaltrol] 0.25 mcg PO TUSA Allopurinol [Zyloprim] 100 mg PO BID Nitroglycerin Sl Tabs [Nitrostat] 0.4 mg SUBLINGUAL Q5M PRN PRN Reason: Chest Pain Discharge Medication List Atorvastatin [Lipitor] 40 mg PO DAILY 09/22/18 [History] Ipratropium-Albuterol Nebulize [Duoneb 0.5 mg-3 mg/3 ml Soln] 3 ml INHALATION RT-TID 12/14/18 [History] Budesonide [Pulmicort] 0.5 mg INHALATION RT-BID 05/20/19 [History] Formoterol Fumarate [Perforomist] 20 mcg INHALATION RT-BID 05/20/19 [History] Metoprolol Tartrate [Lopressor] 25 mg PO BID 05/20/19 [History] Temazepam 30 mg PO HS 05/20/19 [History] Furosemide [Lasix] 60 mg PO BID@0700,1400 #180 tab 05/24/19 [Rx] Spironolactone [Aldactone] 25 mg PO DAILY #30 tab 05/24/19 [Rx] Allopurinol [Zyloprim] 100 mg PO BID 08/25/19 [History] Calcitriol [Rocaltrol] 0.25 mcg PO TUSA 08/25/19 [History] Levothyroxine Sodium [Levoxyl] 100 mcg PO DAILY 08/25/19 [History] Nitroglycerin Sl Tabs [Nitrostat] 0.4 mg SUBLINGUAL Q5M PRN 08/25/19 [History] Aspirin 81 mg PO DAILY chew 08/28/19 [Rx] Calamine/Zinc Oxide Lotion [Calamine Lotion] 1 applic TOPICAL TID PRN applic 08/28/19 [Rx] Loratadine [Claritin] 5 mg PO Q12HR #10 tab 08/28/19 [Rx] predniSONE 40 mg PO DAILY #60 tab 08/28/19 [Rx] Follow up Appointment(s)/Referral(s): Rai Vazquez MD [STAFF PHYSICIAN] - 1 Week Reji Otto DO [Primary Care Provider] - 08/31/19 10:00 am James Vazquez MD [STAFF PHYSICIAN] - 3 Days Patient Instructions/Handouts: Heart Failure (DC), Low-Sodium Diet (DC) Activity/Diet/Wound Care/Special Instructions: CHF 1. Weigh yourself every morning after you urinate. If you gain 2-3 pounds overnight or 5 pounds in one week, call your primary physician for guidance on your medications. Keep a log of your weights. 2. Avoid salt, or foods with hidden salt. Extra salt makes your heart work harder and traps the fluid in your body for longer. 3. Take all of your medications as directed, especially your water pills. NEVER skip a dose. 4. Elevate your legs when you are not up moving around to help with circulation and prevent swelling. 5. Call your physician if you notice any extra swelling in your legs, ankles, feet or abdomen, if you have a new dry cough, if your shortness of breath worsens with activity or at rest, or if you feel more fatigued. Discharge Disposition: HOME SELF-CARE
== END 2019-08-28 15:28 | disposition home or self-care (01) | DRG 291 ==
LOC: EC 12:10 → 3SCARD 14:30
PROVIDERS: ADMIT Hospitalist; ATTEND Hospitalist
DX: I13.0 Hypertensive heart and chronic kidney disease with heart failure and stage 1 through stage 4 chronic kidney disease, or unspecified chronic kidney disease (principal); I50.23 Acute on chronic systolic (congestive) heart failure; D64.9 Anemia, unspecified; E03.9 Hypothyroidism, unspecified; F32.9 Major depressive disorder, single episode, unspecified; I08.1 Rheumatic disorders of both mitral and tricuspid valves; I25.10 Atherosclerotic heart disease of native coronary artery without angina pectoris; I25.5 Ischemic cardiomyopathy; I27.29 Other secondary pulmonary hypertension; J44.9 Chronic obstructive pulmonary disease, unspecified; J84.10 Pulmonary fibrosis, unspecified; K21.9 Gastro-esophageal reflux disease without esophagitis; N18.3 Chronic kidney disease, stage 3 (moderate); Z77.090 Contact with and (suspected) exposure to asbestos; Z79.890 Hormone replacement therapy; I25.2 Old myocardial infarction; Z79.899 Other long term (current) drug therapy; Z82.49 Family history of ischemic heart disease and other diseases of the circulatory system; Z82.5 Family history of asthma and other chronic lower respiratory diseases; Z86.73 Personal history of transient ischemic attack (TIA), and cerebral infarction without residual deficits; Z87.891 Personal history of nicotine dependence; Z90.710 Acquired absence of both cervix and uterus; Z95.1 Presence of aortocoronary bypass graft; Z99.81 Dependence on supplemental oxygen; Z88.5 Allergy status to narcotic agent; Z91.048 Other nonmedicinal substance allergy status
CPT/HCPCS: 36415; 71046; 71250; 80048; 83735; 83880; 84484; 85025; 93005; 94640; 94760; 96374; 96375; 99285

== ENCOUNTER 2019-09-06 13:52 | Inpatient (IN) | payer MEDICARE, OTHER ==
[2019-09-06] MEDS ORDERED: IPRATROPIUM-ALBUTEROL 3 ML NEB INHALATION STA (14:28)
[2019-09-06 14:45] LABS: Calcium 9.2 mg/dL (8.4-10.2); Magnesium 2.5 mg/dL (1.6-2.3); Potassium 4.5 mmol/L (3.5-5.1); Total Bilirubin 2.6 mg/dL (0.2-1.3); Total Protein 7.4 g/dL (6.3-8.2)
--- NOTE | 2019-09-06 14:52 | XR ---
EXAMINATION TYPE: XR chest 2V DATE OF EXAM: 09/06/2019 COMPARISON: 08/25/2019 HISTORY: Shortness of breath TECHNIQUE: Frontal and lateral views of the chest are obtained. FINDINGS: Scattered senescent parenchymal changes noted. Hyperinflation compatible with COPD. No evidence for infiltrate. No evidence for atelectasis. The heart is enlarged. Pulmonary venous congestion without overt failure. Mediastinal structures are stable and grossly unremarkable. No evidence for hilar prominence. Degenerative changes dorsal spine. IMPRESSION: 1. The heart is enlarged. Pulmonary venous congestion without overt failure.
[2019-09-06 14:57] LABS: Anisocytosis Slight; Basophils % (A) 0 %; Eosinophils % (A) 0 %; HCT 33.9 % (34.0-46.0); HGB 10.7 gm/dL (11.4-16.0); Hypochromasia Marked; Lymphocytes # (A) 0.7 k/uL (1.0-4.8); Lymphocytes % (A) 5 %; MCH 30.1 pg (25.0-35.0); MCHC 31.6 g/dL (31.0-37.0); MCV 95.3 fL (80.0-100.0); Macrocytosis Slight; Mean Platelet Volume 6.6; Monocytes # (A) 0.6 k/uL (0-1.0); Monocytes % (A) 4 %; Neutrophils # (A) 12.2 k/uL (1.3-7.7); Neutrophils % (A) 90 %; Platelet Count 269 k/uL (150-450); RBC 3.55 m/uL (3.80-5.40); RDW 19.2 % (11.5-15.5); WBC 13.6 k/uL (3.8-10.6)
[2019-09-06 15:00] LABS: INR 1.1 (<1.2); Prothrombin Time 11.7 sec (9.0-12.0)
--- NOTE | 2019-09-06 16:29 | ED ---
General Adult HPI - General Chief complaint: Chest Pain Stated complaint: Chest Pain Time Seen by Provider: 09/06/19 13:55 Source: patient Mode of arrival: wheelchair Limitations: no limitations - History of Present Illness Initial comments: The patient is a 69-year-old female with past medical history of pulmonary fibrosis, coronary artery disease with CABG presents to the emergency room with increased shortness of breath. Patient was just recently hospitalized and diagnosed with pulmonary fibrosis. She wears 3 L of oxygen at home and see Dr. Vazquez in office. She was placed on 5 different new medications because of the diagnosis. States that she could afford all except one. She's been taking them as directed however over the past day she's had increased shortness of breath. Feels as if someone is sitting on her chest. Does report a history of CHF. Reports that the swelling in her lower extremity is has been improved. Denies any calf pain or sign. No history of DVT or PE. She has a ripping or tearing sensation to her back. No fevers or chills. Does admit to a nonproductive cough. No sick contacts or recent travel. Denies any abdominal pain. There are no other alleviating, precipitating or modifying factors - Related Data Home Medications Medication Instructions Recorded Confirmed Atorvastatin [Lipitor] 40 mg PO DAILY 09/22/18 09/06/19 Ipratropium-Albuterol Nebulize 3 ml INHALATION RT-TID 12/14/18 09/06/19 [Duoneb 0.5 mg-3 mg/3 ml Soln] Budesonide [Pulmicort] 0.5 mg INHALATION RT-BID 05/20/19 09/06/19 Formoterol Fumarate [Perforomist] 20 mcg INHALATION RT-BID 05/20/19 09/06/19 Metoprolol Tartrate [Lopressor] 25 mg PO BID 05/20/19 09/06/19 Temazepam 30 mg PO HS 05/20/19 09/06/19 Allopurinol [Zyloprim] 100 mg PO BID 08/25/19 09/06/19 Calcitriol [Rocaltrol] 0.25 mcg PO TUSA 08/25/19 09/06/19 Levothyroxine Sodium [Levoxyl] 100 mcg PO DAILY 08/25/19 09/06/19 Nitroglycerin Sl Tabs [Nitrostat] 0.4 mg SUBLINGUAL Q5M PRN 08/25/19 09/06/19 Famotidine [Pepcid] 40 mg PO DAILY 09/06/19 09/06/19 azaTHIOprine [Imuran] 100 mg PO DAILY 09/06/19 09/06/19 Previous Rx's Medication Instructions Recorded Aspirin 81 mg PO DAILY chew 08/28/19 predniSONE 40 mg PO DAILY #60 tab 08/28/19 Furosemide [Lasix] 20 mg PO DAILY #0 09/12/19 Midodrine [ProAmatine] 5 mg PO AC-TID #60 tab 09/12/19 Allergies Allergy/AdvReac Type Severity Reaction Status Date / Time adhesive tape Allergy Rash/Hives Verified 09/06/19 15:24 hydrocodone [From Lortab] Allergy Itching Verified 09/06/19 15:24 Review of Systems ROS Statement: Those systems with pertinent positive or pertinent negative responses have been documented in the HPI. ROS Other: All systems not noted in ROS Statement are negative. Past Medical History Past Medical History: Coronary Artery Disease (CAD), Heart Failure, COPD, CVA/TIA, GERD/Reflux, Hypertension, Myocardial Infarction (OR), Pneumonia, Thyroid Disorder Additional Past Medical History / Comment(s): difficulty getting to sleep. Last Myocardial Infarction Date:: History of Any Multi-Drug Resistant Organisms: None Reported Past Surgical History: Appendectomy, Section, Coronary Bypass/CABG, Hysterectomy, Joint Replacement, Orthopedic Surgery, Pacemaker, Tubal Ligation Additional Past Surgical History / Comment(s): had cabg in jul 2018 at [facility], rt hip replacment, anahy knee replacment, carpal tunnel,rt ankle arthroscopy, total hysterectomy, "anahy elbow sx d/t tennis elbow" Past Anesthesia/Blood Transfusion Reactions: No Reported Reaction Additional Past Anesthesia/Blood Transfusion Reaction / Comment(s): "never received blood transfusion" Type of Cardiac Device: AICD Device Placement Date:: 11/2018 Past Psychological History: Depression Smoking Status: Former smoker Past Alcohol Use History: None Reported Past Drug Use History: None Reported - Past Family History Mother Family Medical History: COPD Additional Family Medical History / Comment(s): emphysema Father Family Medical History: Coronary Artery Disease (CAD) Additional Family Medical History / Comment(s): 2 vessel cabg at age 57 General Exam Limitations: no limitations General appearance: alert, in no apparent distress Head exam: Present: atraumatic, normocephalic, normal inspection Eye exam: Present: normal appearance, PERRL, EOMI. Absent: scleral icterus, conjunctival injection, periorbital swelling ENT exam: Present: normal exam, mucous membranes moist Neck exam: Present: normal inspection. Absent: tenderness, meningismus, lymphadenopathy Respiratory exam: Present: wheezes, decreased breath sounds. Absent: respiratory distress, rales, rhonchi, stridor Cardiovascular Exam: Present: regular rate, normal rhythm, normal heart sounds. Absent: systolic murmur, diastolic murmur, rubs, gallop, clicks GI/Abdominal exam: Present: soft, normal bowel sounds. Absent: distended, tenderness, guarding, rebound, rigid Extremities exam: Present: normal inspection, full ROM, normal capillary refill. Absent: tenderness, pedal edema, joint swelling, calf tenderness Back exam: Present: normal inspection Neurological exam: Present: alert, oriented X3, CN II-XII intact Psychiatric exam: Present: normal affect, normal mood Skin exam: Present: warm, dry, intact, normal color. Absent: rash Course Vital Signs 09/06/19 09/06/19 09/06/19 13:53 14:09 14:15 Temperature 98.1 F Pulse Rate 79 65 Pulse Rate [ 61 Automatic Paint Sprayer Operator ] Respiratory 24 18 Rate Blood Pressure 133/73 O2 Sat by Pulse 98 97 Oximetry 09/06/19 09/06/19 09/06/19 14:51 14:59 15:00 Temperature Pulse Rate 78 80 60 Pulse Rate [ Automatic Paint Sprayer Operator ] Respiratory 18 Rate Blood Pressure 126/76 O2 Sat by Pulse 98 Oximetry 09/06/19 09/06/19 15:09 16:00 Temperature Pulse Rate 66 Pulse Rate [ Automatic Paint Sprayer Operator ] Respiratory 18 Rate Blood Pressure 134/75 O2 Sat by Pulse 97 98 Oximetry EKG Findings - EKG Comments: EKG Findings:: EKG demonstrates an electronic paced rhythm with a rate of 70. MS interval 116. QRS 92. QTC of 473. There is some ST depression in leads V2V4. There are Q waves in the inferior leads. This is compared to previous EKG and is the same Procedures - Anita Protocol (Time Out) Nurse: Diane Friedman Medical Decision Making - Medical Decision Making Upon arrival the patient was placed into room 1. She does have coarse breath sounds bilaterally and therefore did provide her with a DuoNeb breathing treatment. IV is established. Laboratory studies were conducted and the patient was sent for chest x-ray. CBC is remarkable for white blood for count of 13.6. She is currently on steroids. Chemistries show a troponin of 0.051. Patient does have a history of chronic elevated troponin. BNP is 20,000. Creatinine 1.5 which is at the patient's baseline. Chest x-ray does demonstrate pulmonary venous congestion. She is on 60 mg of Lasix twice daily. I did provide her with 80 mg through the IV. I did recommend hospitalization to continue to trend the patient's troponins and increase her diuretics. I discussed the case with Dr. Mcgovern accepted admission. I will consult cardiology and pulmonology. Patient remained in stable condition awaiting transport to the floor - Lab Data Result diagrams: 09/09/19 06:48 09/12/19 05:27 Lab Results 09/06/19 09/06/19 09/06/19 Range/Units 14:15 14:15 14:15 WBC 13.6 H (3.8-10.6) k/uL RBC 3.55 L (3.80-5.40) m/uL Hgb 10.7 L (11.4-16.0) gm/dL Hct 33.9 L (34.0-46.0) % MCV 95.3 (80.0-100.0) fL MCH 30.1 (25.0-35.0) pg MCHC 31.6 (31.0-37.0) g/dL RDW 19.2 H (11.5-15.5) % Plt Count 269 (150-450) k/uL Neutrophils % 90 % Lymphocytes % 5 % Monocytes % 4 % Eosinophils % 0 % Basophils % 0 % Neutrophils # 12.2 H (1.3-7.7) k/uL Lymphocytes # 0.7 L (1.0-4.8) k/uL Monocytes # 0.6 (0-1.0) k/uL Eosinophils # 0.0 (0-0.7) k/uL Basophils # 0.0 (0-0.2) k/uL Hypochromasia Marked Anisocytosis Slight Macrocytosis Slight PT (9.0-12.0) sec INR (<1.2) APTT (22.0-30.0) sec Sodium 136 L (137-145) mmol/L Potassium 4.5 (3.5-5.1) mmol/L Chloride 102 (98-107) mmol/L Carbon Dioxide 21 L (22-30) mmol/L Anion Gap 13 mmol/L BUN 51 H (7-17) mg/dL Creatinine 1.55 H (0.52-1.04) mg/dL Est GFR (CKD-EPI)AfAm 39 (>60 ml/min/1.73 sqM) Est GFR (CKD-EPI)NonAf 34 (>60 ml/min/1.73 sqM) Glucose 190 H (74-99) mg/dL Calcium 9.2 (8.4-10.2) mg/dL Magnesium 2.5 H (1.6-2.3) mg/dL Total Bilirubin 2.6 H (0.2-1.3) mg/dL AST 50 H (14-36) U/L ALT 64 H (9-52) U/L Alkaline Phosphatase 150 H (38-126) U/L Troponin I (0.000-0.034) ng/mL NT-Pro-B Natriuret Pep 41019 pg/mL Total Protein 7.4 (6.3-8.2) g/dL Albumin 4.0 (3.5-5.0) g/dL 09/06/19 09/06/19 Range/Units 14:15 14:15 WBC (3.8-10.6) k/uL RBC (3.80-5.40) m/uL Hgb (11.4-16.0) gm/dL Hct (34.0-46.0) % MCV (80.0-100.0) fL MCH (25.0-35.0) pg MCHC (31.0-37.0) g/dL RDW (11.5-15.5) % Plt Count (150-450) k/uL Neutrophils % % Lymphocytes % % Monocytes % % Eosinophils % % Basophils % % Neutrophils # (1.3-7.7) k/uL Lymphocytes # (1.0-4.8) k/uL Monocytes # (0-1.0) k/uL Eosinophils # (0-0.7) k/uL Basophils # (0-0.2) k/uL Hypochromasia Anisocytosis Macrocytosis PT 11.7 (9.0-12.0) sec INR 1.1 (<1.2) APTT 23.0 (22.0-30.0) sec Sodium (137-145) mmol/L Potassium (3.5-5.1) mmol/L Chloride (98-107) mmol/L Carbon Dioxide (22-30) mmol/L Anion Gap mmol/L BUN (7-17) mg/dL Creatinine (0.52-1.04) mg/dL Est GFR (CKD-EPI)AfAm (>60 ml/min/1.73 sqM) Est GFR (CKD-EPI)NonAf (>60 ml/min/1.73 sqM) Glucose (74-99) mg/dL Calcium (8.4-10.2) mg/dL Magnesium (1.6-2.3) mg/dL Total Bilirubin (0.2-1.3) mg/dL AST (14-36) U/L ALT (9-52) U/L Alkaline Phosphatase (38-126) U/L Troponin I 0.051 H* (0.000-0.034) ng/mL NT-Pro-B Natriuret Pep pg/mL Total Protein (6.3-8.2) g/dL Albumin (3.5-5.0) g/dL Disposition Clinical Impression: Acute pulmonary edema, NSTEMI (non-ST elevated myocardial infarction) Disposition: ADMITTED IP TO THIS [facility] Condition: Stable Is patient prescribed a controlled substance at d/c from ED?: No Decision to Admit Reason: Admit from EC Decision Date: 09/06/19 Decision Time: 16:29
[2019-09-06] MEDS ORDERED: NALOXONE 0.4 MG/ML 1 ML VIAL IV PRN (16:30)
[2019-09-06] MEDS ORDERED: FUROSEMIDE 10 MG/ML 10 ML VIAL IV STA (16:33)
[2019-09-06 17:48] LABS: Glucose,Whole Blood 195 mg/dL (75-99)
[2019-09-06] MEDS ORDERED: NITROGLYCERIN SL TABS 0.4 MG TAB SUBLINGUAL PRN (19:26)
[2019-09-06] MEDS: POTASSIUM CHLORIDE ER 10 MEQ TAB.ER.PRT PO SCH (20:29)
[2019-09-06] MEDS: TEMAZEPAM 30 MG CAP PO SCH (20:29)
[2019-09-06] MEDS: ALLOPURINOL 100 MG TAB PO SCH (20:29)
[2019-09-06] MEDS: METOPROLOL TARTRATE 25 MG TAB PO SCH (20:29)
[2019-09-06] MEDS: BUDESONIDE 0.5 MG/2 ML NEBU INHALATION SCH (20:47)
[2019-09-06] MEDS: IPRATROPIUM-ALBUTEROL 3 ML NEB INHALATION SCH (20:47)
[2019-09-06] MEDS: FORMOTEROL FUMARATE 20 MCG/2 ML NEBU INHALATION SCH (20:47)
[2019-09-06] MEDS: FUROSEMIDE 10 MG/ML 4 ML VIAL IV SCH (22:22)
[2019-09-07] MEDS: LEVOTHYROXINE 100 MCG TAB PO SCH (06:14)
[2019-09-07 06:25] LABS: Albumin 3.6 g/dL (3.5-5.0); Calcium 8.8 mg/dL (8.4-10.2); Total Bilirubin 2.1 mg/dL (0.2-1.3); Total Protein 6.8 g/dL (6.3-8.2)
[2019-09-07 06:26] LABS: Anisocytosis Slight; Basophils # (A) 0.2 k/uL (0-0.2); Basophils % (A) 1 %; Eosinophils % (A) 0 %; HCT 32.9 % (34.0-46.0); HGB 10.3 gm/dL (11.4-16.0); Hypochromasia Slight; Lymphocytes # (A) 0.9 k/uL (1.0-4.8); Lymphocytes % (A) 7 %; MCH 29.9 pg (25.0-35.0); MCHC 31.3 g/dL (31.0-37.0); MCV 95.4 fL (80.0-100.0); Macrocytosis Slight; Mean Platelet Volume 6.8; Monocytes # (A) 1.1 k/uL (0-1.0); Monocytes % (A) 8 %; Neutrophils # (A) 10.6 k/uL (1.3-7.7); Neutrophils % (A) 82 %; Platelet Count 248 k/uL (150-450); RBC 3.45 m/uL (3.80-5.40); RDW 19.7 % (11.5-15.5)
[2019-09-07] MEDS: IPRATROPIUM-ALBUTEROL 3 ML NEB INHALATION SCH ×5 (07:55→20:18)
[2019-09-07] MEDS: FORMOTEROL FUMARATE 20 MCG/2 ML NEBU INHALATION SCH ×2 (07:55→20:18)
[2019-09-07] MEDS: BUDESONIDE 0.5 MG/2 ML NEBU INHALATION SCH ×2 (07:56→20:18)
--- NOTE | 2019-09-07 09:01 | P.CRDCN ---
History of Present Illness Consult date: 09/07/19 Requesting physician: Perfecto Mcgovern Consult reason: chest pain, shortness of breath Chief complaint: Chest heaviness and shortness of breath History of present illness: This is a 69-year-old female who follows regularly with Dr. Campos Vazquez in the office. She has a past medical history significant for coronary artery disease and prior bypass surgery in 2018, ischemic cardiomyopathy with most recent echocardiogram with Doppler study performed in May of this year that revealed an ejection fraction of 30-35%, moderate mitral regurg and moderate to severe tricuspid regurgitation. She also has history of pulmonary hypertension, hypertension, hyperlipidemia, prior AICD implantation, COPD, prior TIA, GERD, renal insufficiency, hypothyroidism, patient also states that she recently f ollowed up with Dr. Kitty Vazquez for her lungs as an outpatient and was told to have pulmonary fibrosis, she was initiated on several new medications which she states she could not afford. was just recently in the hospital with a congestive heart failure exacerbation and was discharged home on August 29 she states that the morning prior to coming to the hospital she woke up with symptoms of heaviness in her chest, she states it felt like someone was sitting on her chest. She became quite short of breath. Patient stated that the heaviness seemed to last for quite some time, it did go away ultimately and then returned to more severe degree. For this reason she came into the hospital for further evaluation and treatment. Her chest x-ray showed enlarged heart with pulmonary venous congestion. EKG on arrival here showed paced rhythm with underlying normal sinus rhythm ST-T wave changes are noted in the inferior lateral leads which are similar to the patient's prior EKGs. Blood pressure 140/80 with a heart rate in the 70s, 97% on 3 L of oxygen. White blood cell count 13.0, hemoglobin 10.3, platelet count 248. Sodium 137, potassium 4.0, BUN on admission 51 with a creatinine of 1.5, 49 and 1.4 this morning. Magnesium 2.1, AST 39, ALT 61, alk phos 1:30. Troponins 0.051, 0.036, 0.051. BNP level 20,000. At the time of my examination this morning, patient denies any chest heaviness, she still complains of feeling short of breath. She does state that her weight was up about 5 pounds prior to coming to the hospital. He on IV Lasix. Patient is not at present on an DARVIN inhibitor or angiotensin paul, likely secondary to abnormal renal function, we will start her on Entresto and monitor the renal function closely. Past Medical History Past Medical History: Coronary Artery Disease (CAD), Heart Failure, COPD, CVA/TIA, GERD/Reflux, Hypertension, Myocardial Infarction ([place]), Pneumonia, Thyroid Disorder Additional Past Medical History / Comment(s): difficulty getting to sleep. Last Myocardial Infarction Date:: History of Any Multi-Drug Resistant Organisms: None Reported Past Surgical History: Appendectomy, Section, Coronary Bypass/CABG, Hysterectomy, Joint Replacement, Orthopedic Surgery, Pacemaker, Tubal Ligation Additional Past Surgical History / Comment(s): had cabg in jul 2018 at [facility], rt hip replacment, anahy knee replacment, carpal tunnel,rt ankle arthroscopy, total hysterectomy, "anahy elbow sx d/t tennis elbow" Past Anesthesia/Blood Transfusion Reactions: No Reported Reaction Additional Past Anesthesia/Blood Transfusion Reaction / Comment(s): "never received blood transfusion" Type of Cardiac Device: AICD Device Placement Date:: 11/2018 Past Psychological History: Depression Smoking Status: Former smoker Past Alcohol Use History: None Reported Past Drug Use History: None Reported - Past Family History Mother Family Medical History: COPD Additional Family Medical History / Comment(s): emphysema Father Family Medical History: Coronary Artery Disease (CAD) Additional Family Medical History / Comment(s): 2 vessel cabg at age 57 Medications and Allergies Home Medications Medication Instructions Recorded Confirmed Type Atorvastatin [Lipitor] 40 mg PO DAILY 09/22/18 09/06/19 History Ipratropium-Albuterol Nebulize 3 ml INHALATION RT-TID 12/14/18 09/06/19 History [Duoneb 0.5 mg-3 mg/3 ml Soln] Budesonide [Pulmicort] 0.5 mg INHALATION RT-BID 05/20/19 09/06/19 History Formoterol Fumarate [Perforomist] 20 mcg INHALATION RT-BID 05/20/19 09/06/19 History Metoprolol Tartrate [Lopressor] 25 mg PO BID 05/20/19 09/06/19 History Temazepam 30 mg PO HS 05/20/19 09/06/19 History Spironolactone [Aldactone] 25 mg PO DAILY #30 tab 05/24/19 09/06/19 Rx Allopurinol [Zyloprim] 100 mg PO BID 08/25/19 09/06/19 History Calcitriol [Rocaltrol] 0.25 mcg PO TUSA 08/25/19 09/06/19 History Levothyroxine Sodium [Levoxyl] 100 mcg PO DAILY 08/25/19 09/06/19 History Nitroglycerin Sl Tabs [Nitrostat] 0.4 mg SUBLINGUAL Q5M PRN 08/25/19 09/06/19 History Aspirin 81 mg PO DAILY chew 08/28/19 09/06/19 Rx predniSONE 40 mg PO DAILY #60 tab 08/28/19 09/06/19 Rx Famotidine [Pepcid] 40 mg PO DAILY 09/06/19 09/06/19 History Furosemide [Lasix] 60 mg PO BID 09/06/19 09/06/19 History Potassium Chloride ER [K-Dur 10] 10 meq PO BID 09/06/19 09/06/19 History Sulfamethox-Tmp 400-80Mg [Bactrim 1 tab PO DAILY 09/06/19 09/06/19 History SS 400-80 mg] azaTHIOprine [Imuran] 100 mg PO DAILY 09/06/19 09/06/19 History Allergies Allergy/AdvReac Type Severity Reaction Status Date / Time adhesive tape Allergy Rash/Hives Verified 09/06/19 15:24 hydrocodone [From Lortab] Allergy Itching Verified 09/06/19 15:24 Physical Exam Vitals: Vital Signs Temp Pulse Pulse Resp BP BP Pulse Ox 09/07/19 08:25 66 09/07/19 08:16 62 09/07/19 08:15 62 09/07/19 07:58 60 96 09/06/19 22:31 71 18 139/84 97 09/06/19 21:12 64 09/06/19 21:02 64 09/06/19 20:47 64 09/06/19 20:00 98 F 64 18 126/58 92 L 09/06/19 18:26 18 09/06/19 17:35 98.1 F 63 18 135/72 98 09/06/19 16:00 66 18 134/75 98 09/06/19 15:09 97 09/06/19 15:00 60 18 126/76 98 09/06/19 14:59 80 09/06/19 14:51 78 09/06/19 14:15 61 09/06/19 14:09 65 18 97 09/06/19 13:53 98.1 F 79 24 133/73 98 Intake and Output 09/06/19 09/07/19 09/07/19 22:59 06:59 14:59 Intake Total 480 Output Total 600 900 Balance -120 -900 Intake: Oral 480 Output: Urine 600 900 Other: Weight 68.7 kg 67.7 kg PHYSICAL EXAMINATION: GENERAL: 68-year-old female in no acute distress at the time of my examination HEENT: Head is atraumatic, normocephalic. Pupils equal, round. Sclera anicteric. Conjunctiva are clear. Mucous membranes of the mouth are moist. Neck is supple. There is elevated jugular venous pressure. No carotid bruit is heard. HEART EXAMINATION: Heart S1 and S2 systolic murmur is heard CHEST EXAMINATION: Lungs reveal rales to the right posterior base, diminished air entry bilaterally ABDOMEN: Soft, nontender. Bowel sounds are heard. No organomegaly noted. EXTREMITIES: 2+ peripheral pulses with trace evidence of peripheral edema and no calf tenderness noted. NEUROLOGIC patient is awake, alert and oriented 3. Results 09/07/19 06:00 09/07/19 06:00 Cardiac Enzymes 09/06/19 09/06/19 09/06/19 Range/Units 14:15 14:15 20:50 AST 50 H (14-36) U/L Troponin I 0.051 H* 0.036 H* (0.000-0.034) ng/mL 09/07/19 09/07/19 Range/Units 03:01 06:00 AST 39 H (14-36) U/L Troponin I 0.051 H* (0.000-0.034) ng/mL Coagulation 09/06/19 Range/Units 14:15 PT 11.7 (9.0-12.0) sec APTT 23.0 (22.0-30.0) sec CBC 09/06/19 09/07/19 Range/Units 14:15 06:00 WBC 13.6 H 13.0 H (3.8-10.6) k/uL RBC 3.55 L 3.45 L (3.80-5.40) m/uL Hgb 10.7 L 10.3 L (11.4-16.0) gm/dL Hct 33.9 L 32.9 L (34.0-46.0) % Plt Count 269 248 (150-450) k/uL Comprehensive Metabolic Panel 09/06/19 09/07/19 Range/Units 14:15 06:00 Sodium 136 L 137 (137-145) mmol/L Potassium 4.5 4.0 (3.5-5.1) mmol/L Chloride 102 102 (98-107) mmol/L Carbon Dioxide 21 L 24 (22-30) mmol/L BUN 51 H 49 H (7-17) mg/dL Creatinine 1.55 H 1.43 H (0.52-1.04) mg/dL Glucose 190 H 155 H (74-99) mg/dL Calcium 9.2 8.8 (8.4-10.2) mg/dL AST 50 H 39 H (14-36) U/L ALT 64 H 61 H (9-52) U/L Alkaline Phosphatase 150 H 130 H (38-126) U/L Total Protein 7.4 6.8 (6.3-8.2) g/dL Albumin 4.0 3.6 (3.5-5.0) g/dL Current Medications Generic Name Dose Route Start Last Admin Trade Name Freq PRN Reason Stop Dose Admin Albuterol/Ipratropium 3 ml 09/06/19 20:00 09/07/19 07:55 Duoneb 0.5 Mg-3 Mg/3 Ml Soln INHALATION 3 ml RT-Q4H THU Administration Allopurinol 100 mg 09/06/19 21:00 09/06/19 20:29 Zyloprim PO 100 mg BID THU Administration Aspirin 81 mg 09/07/19 09:00 Aspirin PO DAILY THU Atorvastatin Calcium 40 mg 09/07/19 09:00 Lipitor PO DAILY THU Azathioprine 100 mg 09/07/19 09:00 Imuran PO DAILY [facility] Budesonide 0.5 mg 09/06/19 20:00 09/07/19 07:56 Pulmicort INHALATION 0.5 mg RT-BID THU Administration Calcitriol 0.25 mcg 09/07/19 09:00 Rocaltrol PO TUSA THU Famotidine 40 mg 09/07/19 09:00 Pepcid PO DAILY THU Formoterol Fumarate 20 mcg 09/06/19 20:00 09/07/19 07:55 Perforomist INHALATION 20 mcg RT-BID THU Administration Furosemide 40 mg 09/07/19 00:00 09/06/19 22:22 Lasix IV 40 mg Q8HR THU Administration Levothyroxine Sodium 100 mcg 09/07/19 06:30 09/07/19 06:14 Synthroid PO 100 mcg 0630 THU Administration Metoprolol Tartrate 25 mg 09/06/19 21:00 09/06/19 20:29 Lopressor PO 25 mg BID THU Administration Naloxone HCl 0.2 mg 09/06/19 16:30 Narcan IV Q2M PRN Opioid Reversal Nitroglycerin 0.4 mg 09/06/19 19:26 Nitrostat SUBLINGUAL Q5M PRN Chest Pain Potassium Chloride 10 meq 09/06/19 21:00 09/06/19 20:29 K-Dur 10 PO 10 meq BID THU Administration Prednisone 40 mg 09/07/19 09:00 PO DAILY THU Spironolactone 25 mg 09/07/19 09:00 Aldactone PO DAILY THU Temazepam 30 mg 09/06/19 21:00 09/06/19 20:29 Restoril PO 30 mg HS THU Administration Intake and Output 09/06/19 09/07/19 09/07/19 22:59 06:59 14:59 Intake Total 480 Output Total 600 900 Balance -120 -900 Intake: Oral 480 Output: Urine 600 900 Other: Weight 68.7 kg 67.7 kg 09/07/19 06:00 09/07/19 06:00 EKG Interpretations (text) EKG shows a paced rhythm with underlying normal sinus rhythm, ST-T wave changes are noted in the inferior lateral leads Assessment and Plan Plan: Assessment and plan #1 systolic congestive heart failure acute on chronic #2 chest pressure and heaviness, troponins 0.051, 0.036, 0.051. EKG shows paced rhythm with underlying normal sinus rhythm, changes in the inferior lateral leads are noted. #3 hypertension #4 hyperlipidemia #5 hypothyroidism #6 coronary bypass grafting surgery in 2018 #7 ischemic cardiomyopathy with documented ejection fraction of 30-35% #8 AICD #9 renal insufficiency Plan We will continue the patient on IV Lasix. We will also add Entresto to the patient's medication regime. Monitor intake and output, renal function closely. Once the patient's heart failure has resolved, she may need to undergo cardiac catheterization progression of coronary artery disease. Further recommendations to follow. DNP note has been reviewed, I agree with a documented findings and plan of care. Patient was seen and examined.
[2019-09-07] MEDS: FUROSEMIDE 10 MG/ML 4 ML VIAL IV SCH ×3 (09:32→23:18)
[2019-09-07] MEDS: FAMOTIDINE 20 MG TAB PO SCH (09:32)
[2019-09-07] MEDS: ASPIRIN 81 MG PO SCH (09:32)
[2019-09-07] MEDS: CALCITRIOL 0.25 MCG CAP PO SCH (09:32)
[2019-09-07] MEDS: SPIRONOLACTONE 25 MG TAB PO SCH (09:32)
[2019-09-07] MEDS: POTASSIUM CHLORIDE ER 10 MEQ TAB.ER.PRT PO SCH ×2 (09:32→20:14)
[2019-09-07] MEDS: predniSONE 20 MG TAB PO SCH (09:32)
[2019-09-07] MEDS: ATORVASTATIN 40 MG TAB PO SCH (09:33)
[2019-09-07] MEDS: METOPROLOL TARTRATE 25 MG TAB PO SCH ×2 (09:33→20:14)
[2019-09-07] MEDS: ALLOPURINOL 100 MG TAB PO SCH ×2 (09:33→20:14)
[2019-09-07] MEDS: SACUBITRIL/VALSARTAN 24 MG-26 MG TABLET PO SCH ×2 (09:41→20:14)
--- NOTE | 2019-09-07 10:16 | P.NPCON ---
History of Present Illness - Reason for Consult chronic renal failure - History of Present Illness Reason for consultation: Chronic kidney disease stage III History of present illness: Patient is a 69-year-old female seen in renal consultation for chronic kidney disease. Patient is chronic kidney disease stage III with baseline creatinine near 1.4-1.5. Etiology is cardiorenal syndrome. Patient presented to the hospital with shortness of breath. Patient has history of coronary artery disease and is status post CABG. She also has history of congestive heart failure. Prior echocardiogram revealed ejection fraction of 30-35% with moderate mitral regurgitation, tricuspid regurgitation as well as pulmonary hypertension. Additionally she was recently diagnosed with pulmonary fibrosis. Patient's renal function is stable. She denies use of nonsteroidals. Patient states her cousin and sister are both on hemodialysis but is unsure of etiology. Dyspnea is a little improved since admission. She admits to good urine output. No hematuria or dysuria. She does have history of diabetes mellitus. Currently maintained on IV Lasix 40 mg 3 times daily along with Aldactone and Entresto. Hemodynamically she is stable. Vital signs are stable. General: The patient appeared well nourished and normally developed. HEENT: Head exam is unremarkable. Neck is without jugular venous distension. LUNGS: Breath sounds decreased. HEART: Rate and Rhythm are regular. First and second heart sounds normal. No murmurs, rubs or gallops. ABDOMEN: Abdominal exam reveals normal bowel sounds. Non-tender and non- distended. No evidence of peritonitis. EXTREMITITES: Trace edema. Past Medical History Past Medical History: Coronary Artery Disease (CAD), Heart Failure, COPD, CVA/TIA, GERD/Reflux, Hypertension, Myocardial Infarction ([place]), Pneumonia, Thyroid Disorder Additional Past Medical History / Comment(s): difficulty getting to sleep. Last Myocardial Infarction Date:: History of Any Multi-Drug Resistant Organisms: None Reported Past Surgical History: Appendectomy, Section, Coronary Bypass/CABG, Hysterectomy, Joint Replacement, Orthopedic Surgery, Pacemaker, Tubal Ligation Additional Past Surgical History / Comment(s): had cabg in jul 2018 at [facility], rt hip replacment, anahy knee replacment, carpal tunnel,rt ankle arthroscopy, total hysterectomy, "anahy elbow sx d/t tennis elbow" Past Anesthesia/Blood Transfusion Reactions: No Reported Reaction Additional Past Anesthesia/Blood Transfusion Reaction / Comment(s): "never received blood transfusion" Type of Cardiac Device: AICD Device Placement Date:: 11/2018 Past Psychological History: Depression Smoking Status: Former smoker Past Alcohol Use History: None Reported Past Drug Use History: None Reported - Past Family History Mother Family Medical History: COPD Additional Family Medical History / Comment(s): emphysema Father Family Medical History: Coronary Artery Disease (CAD) Additional Family Medical History / Comment(s): 2 vessel cabg at age 57 Medications and Allergies Home Medications Medication Instructions Recorded Confirmed Type Atorvastatin [Lipitor] 40 mg PO DAILY 09/22/18 09/06/19 History Ipratropium-Albuterol Nebulize 3 ml INHALATION RT-TID 12/14/18 09/06/19 History [Duoneb 0.5 mg-3 mg/3 ml Soln] Budesonide [Pulmicort] 0.5 mg INHALATION RT-BID 05/20/19 09/06/19 History Formoterol Fumarate [Perforomist] 20 mcg INHALATION RT-BID 05/20/19 09/06/19 History Metoprolol Tartrate [Lopressor] 25 mg PO BID 05/20/19 09/06/19 History Temazepam 30 mg PO HS 05/20/19 09/06/19 History Spironolactone [Aldactone] 25 mg PO DAILY #30 tab 05/24/19 09/06/19 Rx Allopurinol [Zyloprim] 100 mg PO BID 08/25/19 09/06/19 History Calcitriol [Rocaltrol] 0.25 mcg PO TUSA 08/25/19 09/06/19 History Levothyroxine Sodium [Levoxyl] 100 mcg PO DAILY 08/25/19 09/06/19 History Nitroglycerin Sl Tabs [Nitrostat] 0.4 mg SUBLINGUAL Q5M PRN 08/25/19 09/06/19 History Aspirin 81 mg PO DAILY chew 08/28/19 09/06/19 Rx predniSONE 40 mg PO DAILY #60 tab 08/28/19 09/06/19 Rx Famotidine [Pepcid] 40 mg PO DAILY 09/06/19 09/06/19 History Furosemide [Lasix] 60 mg PO BID 09/06/19 09/06/19 History Potassium Chloride ER [K-Dur 10] 10 meq PO BID 09/06/19 09/06/19 History Sulfamethox-Tmp 400-80Mg [Bactrim 1 tab PO DAILY 09/06/19 09/06/19 History SS 400-80 mg] azaTHIOprine [Imuran] 100 mg PO DAILY 09/06/19 09/06/19 History Allergies Allergy/AdvReac Type Severity Reaction Status Date / Time adhesive tape Allergy Rash/Hives Verified 09/06/19 15:24 hydrocodone [From Lortab] Allergy Itching Verified 09/06/19 15:24 Physical Exam Vitals: Vital Signs Temp Pulse Pulse Resp BP BP Pulse Ox 09/07/19 08:25 66 09/07/19 08:16 62 09/07/19 08:15 62 09/07/19 08:00 97.5 F L 63 20 118/70 98 09/07/19 07:58 60 96 09/06/19 22:31 71 18 139/84 97 09/06/19 21:12 64 09/06/19 21:02 64 09/06/19 20:47 64 09/06/19 20:00 98 F 64 18 126/58 92 L 09/06/19 18:26 18 09/06/19 17:35 98.1 F 63 18 135/72 98 09/06/19 16:00 66 18 134/75 98 09/06/19 15:09 97 09/06/19 15:00 60 18 126/76 98 09/06/19 14:59 80 09/06/19 14:51 78 09/06/19 14:15 61 09/06/19 14:09 65 18 97 09/06/19 13:53 98.1 F 79 24 133/73 98 Intake and Output 09/06/19 09/07/19 09/07/19 22:59 06:59 14:59 Intake Total 480 Output Total 600 900 Balance -120 -900 Intake: Oral 480 Output: Urine 600 900 Other: Weight 68.7 kg 67.7 kg Results - Lab Results Most recent lab results Calcium 8.8 mg/dL (8.4-10.2) 09/07/19 06:00 Magnesium 2.5 mg/dL (1.6-2.3) H 09/06/19 14:15 09/07/19 06:00 09/07/19 06:00 Assessment and Plan Plan: Assessment: 1. Chronic kidney disease stage III with baseline creatinine 1.4-1.5 secondary to cardiorenal syndrome. GFR stable. 2. Acute on chronic systolic CHF with ejection fraction of 30-35% with moderate mitral regurgitation, moderate to severe tricuspid regurgitation and moderate pulmonary hypertension. 3. Volume overload. 4. Right renal atrophy. Ultrasound from July 2019 revealed 10.9 cm left kidney and 7.9 cm right kidney. 5. Chronic kidney disease mineral bone disease maintained on calcitriol. 6. Pulmonary fibrosis. 7. Diabetes mellitus. Plan: Maintain IV Lasix 40 mg 3 times daily for the next 24 hours. Avoid nephrotoxins. Low-salt diet. Continue to monitor renal function and urine output. Thank you for the consultation. I will continue to follow the patient during her hospital stay.
[2019-09-07] MEDS: azaTHIOprine 50 MG TAB PO SCH (15:40)
--- NOTE | 2019-09-07 19:34 | HP ---
HISTORY AND PHYSICAL DATE OF SERVICE: 09/06/2019 CHIEF COMPLAINT: Shortness of breath. HISTORY OF PRESENT ILLNESS: This 69-year-old woman with a past medical history of multiple medical problems including CAD, CHF, COPD, CVA, TIA, GERD, hypertension, history of myocardial infarction, history of appendectomy, CAD, CABG being followed by Dr. Reji Otto in the outpatient setting, was complaining of shortness of breath. The patient also had ischemic cardiomyopathy, ejection fraction 30 to 35%. The patient was also diagnosed to have pulmonary fibrosis clinically by Dr. Gino Vazquez's partner. The patient was not able to undergo a lung biopsy because of the patient's multiple medical issues. Currently the patient also complaining of pressure-type anterior chest pain and radiating to the back also. Patient came to [facility] and was admitted for further evaluation and treatment. The patient found to have CHF. The patient is started on IV Lasix at this time with some relief. There is no history of any fever, rigors. No history of headache, loss of consciousness, seizures at this time. PAST HISTORY: Of CAD, CHF, COPD, CVA, TIA, GERD, hypertension, ischemic cardiomyopathy, history of myocardial infarction. MEDICATIONS: Prior to admission include home medications are: 1. Bactrim DS 1 p.o. b.i.d. 2. Imuran 100 mg p.o. daily. 3. Pepcid 40 mg p.o. daily. 4. K-Dur 10 mEq p.o. b.i.d. 5. Levoxyl 100 mg daily. 6. Lipitor 40 mg p.o. daily. 7. DuoNeb q.i.d. 8. Temazepam 30 mg q.h.s. p.r.n. 9. Aldactone 25 mg daily. 10.Nitrostat 0.4 sublingual p.r.n. 11.Lopressor 25 mg p.o. b.i.d. 12.Prednisone 40 mg p.o. daily. 13.Lasix 60 mg p.o. daily. 14.Perforomist 20 mcg b.i.d. 15.Rocaltrol 0.2 mg Friday, . 16.Pulmicort 0.5 b.i.d. 17.Aspirin 81 mg p.o. daily. 18.Zyloprim 100 mg p.o. b.i.d. ALLERGIES: ADHESIVE TAPES AND LORTAB. FAMILY HISTORY: History of COPD, emphysema in the family. SOCIAL HISTORY: Previous history of smoking. No history of current smoking or alcohol intake. REVIEW OF SYSTEMS: ENT: Diminished hearing. Diminished vision. CARDIOVASCULAR as mentioned earlier. RESPIRATORY: As mentioned earlier. GI: No nausea or vomiting. no dysuria or hematuria. NERVOUS SYSTEM: As mentioned earlier. ALLERGIES: No asthma or hayfever. MUSCULOSKELETAL as mentioned earlier. HEMATOLOGY/ONCOLOGY: No history of anemia. ENDOCRINE: Hypothyroidism. CONSTITUTIONAL: As mentioned earlier. DERMATOLOGY negative. RHEUMATOLOGY: Negative. Psychiatry as mentioned earlier. PHYSICAL EXAMINATION: Alert and oriented x2. Pulse is 60. Blood pressure is 92/44, respiration 18, temperature 97.7, pulse ox 98% on 2 L. HEENT is conjunctivae normal. Oral mucosa moist. NECK jugular venous distention elevated up to the root of the neck. No thyroid enlargement. No carotid bruit. CARDIOVASCULAR system: Ejection systolic murmur. No S3, no S4. RESPIRATORY: Breath sounds diminished in the bases. Extensive bilateral leathery crackles suggestive of pulmonary fibrosis heard on both the front and back. ABDOMEN: Soft, nontender. No mass palpable. LEGS: Minimal edema. NERVOUS SYSTEM: Higher functions as mentioned earlier. Moves all 4 limbs. No focal motor or sensory deficits. LYMPHATICS: No lymph nodes palpable in the neck, axillae or groin. SKIN: No ulcer, no rash and no bleeding. JOINTS: No active deforming arthropathy. LABS: WBC 13, hemoglobin 10.3, sodium 137, potassium 4, creatinine is 1.43 and troponins 0.051, 0.037 and 0.051. ASSESSMENT: 1. Congestive heart failure acute exacerbation with acute on chronic systolic dysfunction. Ejection fraction 30 to 35%. 2. Chest pain possibly acute non-ST segment elevation myocardial infarction, troponin 0.036. 3. History of recently diagnosed pulmonary fibrosis. 4. Increased creatinine with possibly chronic kidney disease. 5. Increased WBC. 6. Anemia, normocytic anemia of chronic disease. 7. Elevated AST and ALT, possibly congestive hepatopathy with increased bilirubin. 8. Hyponatremia, present on admission. 9. History of coronary artery disease. 10.History of chronic obstructive pulmonary disease. 11.Gastroesophageal reflux disease. 12.History of cerebrovascular accident, transient ischemic attack. 13.Hypertension. 14.History of myocardial infarction. 15.History of hypothyroidism. 16.History of coronary artery disease, coronary artery bypass grafting. 17.History of pacemaker. 18.History of depression. 19.History of AICD. 20.FULL CODE. RECOMMENDATIONS AND DISCUSSION: This 69-year-old woman who presented with multiple complex medical issues, we will monitor the patient closely, continue the current medications. Continue to monitor. Optimize the bronchodilator treatment. Otherwise, I would also recommend diuretics. Entresto has been considered by Cardiology. Otherwise, continue the rest of medications. DVT prophylaxis. Prognosis guarded because of multiple complex medical issues. Further recommendations to follow. A copy of this dictation being forwarded to Dr. Otto who is the primary physician. [place] / [place]EN[place]: [id number] /
[2019-09-07] MEDS: TEMAZEPAM 30 MG CAP PO SCH (23:18)
--- NOTE | 2019-09-07 23:58 | PN ---
PROGRESS NOTE DATE OF SERVICE: 09/07/2019 This 69-year-old woman was admitted with shortness of breath which was possibly multifactorial including CHF as well as pulmonary fibrosis, being closely monitored. Patient also had indeterminate troponins also. Patient being closely monitored in telemetry. Cardiology following and Pulmonology following the patient closely. No chest pain. No palpitation. PAST MEDICAL HISTORY: Reviewed. REVIEW OF SYSTEMS: Cardiovascular system is as mentioned earlier. GI: As mentioned earlier. RESPIRATORY: As mentioned earlier. GENITOURINARY: No dysuria or hematuria. CURRENT MEDICATIONS ARE: 1. DuoNeb q.i.d. and p.r.n. 2. Zyloprim 100 mg p.o. b.i.d. 3. Aspirin 81 mg. 4. Lipitor. 5. Imuran 100 mg daily. 6. Pulmicort 0.5 b.i.d. 7. Rocaltrol 0.25 mg p.o. Friday. 8. Pepcid. 9. Perforomist. 10.Lasix. 11.Synthroid. 12.Lopressor. 13.Narcan. 14.Nitrostat. 15.K-Dur. 16.Prednisone and Restoril. 17.Entresto. 18.Aldactone. 19.Restoril. 20.Doses reviewed. PHYSICAL EXAM: Patient is alert, oriented x3. The pulse is 62. Blood pressure 90/44, respiration 18, temperature 97.7, pulse ox 94% on 2 L. HEENT: Conjunctivae normal. NECK: No jugular venous distention. Cardiovascular: S1, S2 muffled. Respiration: The bases a few scattered rhonchi and crackles. ABDOMEN: Soft, nontender. No mass. LEGS: Minimal bilateral leg edema. NERVOUS SYSTEM: Diffusely weak. LAB STUDIES: WBC thirteen, hemoglobin 10.3. Creatinine is 1.43. Troponins are noted. ASSESSMENT: 1. Shortness of breath, multifactorial including congestive heart failure acute exacerbation with acute on chronic systolic dysfunction, ejection fraction 30 35%, as well as pulmonary fibrosis, possibly. 2. Chest pain possible acute non ST elevation myocardial infarction. Possible unstable angina with a troponin 0.036. 3. History of recently diagnosed pulmonary fibrosis. 4. Increased creatinine with possibly chronic kidney disease stage III. 5. Increased WBC. 6. Anemia from normocytic anemia of chronic disease. 7. Elevated AST and ALT, possibly congestive hepatopathy with increased bilirubin. 8. Hyponatremia, present on admission. 9. History of coronary artery disease. 10.History of chronic obstructive pulmonary disease. 11.History of cerebrovascular. 12.Hyperlipidemia. 13.History of myocardial infarction. 14.History hypothyroidism. 15.History of coronary artery disease, coronary artery bypass grafting. 16.History of pacemaker. 17.History of depression. 18.History AICD. 19.FULL CODE. RECOMMENDATIONS AND DISCUSSION: Recommend to continue current management and continue the diuretics. We will monitor the intake/output chart carefully and daily weights as well. The patient is on negative balance at this time. All closely follow with Cardiology and rest has been initiated. We will monitor the creatinine closely. LFTs will be repeated. Prognosis guarded because of multiple complex medical issues. Also recommend the Case Management Team to evaluate the home medication because the patient has also had concerns about the affordability of the medications including the pulmonary medications. [place] / ELLAN: [id number] /
[2019-09-08] MEDS: IPRATROPIUM-ALBUTEROL 3 ML NEB INHALATION SCH ×7 (01:35→22:52)
[2019-09-08] MEDS: LEVOTHYROXINE 100 MCG TAB PO SCH (06:14)
[2019-09-08 06:28] LABS: Anisocytosis Slight; Basophils # (A) 0.1 k/uL (0-0.2); Basophils % (A) 0 %; Eosinophils % (A) 0 %; HCT 33.2 % (34.0-46.0); Hypochromasia Moderate; Lymphocytes # (A) 0.9 k/uL (1.0-4.8); Lymphocytes % (A) 5 %; MCHC 30.2 g/dL (31.0-37.0); MCV 96.2 fL (80.0-100.0); Macrocytosis Slight; Monocytes # (A) 0.8 k/uL (0-1.0); Monocytes % (A) 5 %; Neutrophils % (A) 89 %; Platelet Count 255 k/uL (150-450); RBC 3.45 m/uL (3.80-5.40); RDW 19.5 % (11.5-15.5); WBC 16.9 k/uL (3.8-10.6)
[2019-09-08 06:38] LABS: Albumin 2.7 g/dL (3.5-5.0); Calcium 8.2 mg/dL (8.4-10.2); Magnesium 2.6 mg/dL (1.6-2.3); Potassium 4.3 mmol/L (3.5-5.1); Total Bilirubin 1.8 mg/dL (0.2-1.3); Total Protein 5.5 g/dL (6.3-8.2)
[2019-09-08] MEDS: BUDESONIDE 0.5 MG/2 ML NEBU INHALATION SCH ×2 (07:25→20:10)
[2019-09-08] MEDS: FORMOTEROL FUMARATE 20 MCG/2 ML NEBU INHALATION SCH ×2 (07:26→20:10)
[2019-09-08] MEDS: SPIRONOLACTONE 25 MG TAB PO SCH (08:53)
[2019-09-08] MEDS: FAMOTIDINE 20 MG TAB PO SCH (08:53)
[2019-09-08] MEDS: predniSONE 20 MG TAB PO SCH (08:53)
[2019-09-08] MEDS: METOPROLOL TARTRATE 25 MG TAB PO SCH ×2 (08:53→22:54)
[2019-09-08] MEDS: ASPIRIN 81 MG PO SCH (08:53)
[2019-09-08] MEDS: ATORVASTATIN 40 MG TAB PO SCH (08:53)
[2019-09-08] MEDS: ALLOPURINOL 100 MG TAB PO SCH ×2 (08:53→22:54)
[2019-09-08] MEDS: POTASSIUM CHLORIDE ER 10 MEQ TAB.ER.PRT PO SCH ×2 (08:53→22:54)
[2019-09-08] MEDS: azaTHIOprine 50 MG TAB PO SCH (08:54)
[2019-09-08] MEDS: FUROSEMIDE 80 MG TAB PO SCH ×2 (08:59→17:10)
--- NOTE | 2019-09-08 09:11 | PN ---
PROGRESS NOTE Mrs. Narayanan is a 69-year-old female with known history of severe cardiomyopathy, history of chronic kidney disease, who presented with symptoms of progressive dyspnea. Ejection fraction is 30% to 35% with moderate mitral, moderate severe tricuspid regurgitation. She is status post ICD implantation. She is feeling better today. Her breathing is better. She denies any symptoms of chest pain. She denies any dizziness or palpitation. She was given a trial with Entresto yesterday, but her blood pressure is on the lower side and her renal functions have worsened. She continues to be otherwise on Lasix 40 mg IV q.8 hours, aspirin once a day, Lipitor 40 mg daily, Pepcid, metoprolol tartrate 25 mg twice a day, spironolactone 25 mg daily. PHYSICAL EXAMINATION: Blood pressure running in the high 80s and 90s with the heart rate in the 60s. LUNGS: Clear. HEART: S1,S2 with a holosystolic murmur in the apex. No diastolic murmur. No rub. ABDOMEN: Soft, nontender. EXTREMITIES: No significant edema. LAB DATA: Lab data revealed BUN and creatinine 58, 1.83, potassium 4.3. Hemoglobin of 10.0. IMPRESSION: 1. Symptoms of progressive dyspnea with evidence of congestive heart failure and severe ischemic cardiomyopathy with valvular disease. 2. Worsening renal function. 3. Hyperlipidemia. 4. Status post coronary artery bypass grafting. 5. Status post ICD implant. RECOMMENDATION: I will stop the Entresto, switch her to oral diuretics, increase her level of activity gradually, follow her renal functions and depending on her progress, further recommendation will be made. MMODL / IJN: [id number] /
--- NOTE | 2019-09-08 11:21 | P.PN ---
Subjective Patient is seen in follow-up for chronic kidney disease. Patient is chronic kidney disease stage III with baseline creatinine in the range of 1.4-1.5. Renal function is worse today which is due to diuresis. Creatinine 1.83 today. Edema is improved. Blood pressure also on the lower side this morning. No dizziness or passing out. Vital signs are stable. General: The patient appeared well nourished and normally developed. HEENT: Head exam is unremarkable. Neck is without jugular venous distension. LUNGS: Lungs are clear to auscultation and percussion. Breath sounds decreased. HEART: Rate and Rhythm are regular. First and second heart sounds normal. No murmurs, rubs or gallops. ABDOMEN: Abdominal exam reveals normal bowel sounds. Non-tender and non- distended. No evidence of peritonitis. EXTREMITITES: No clubbing, cyanosis, or edema. Objective - Vital Signs Vital signs: Vital Signs Temp 97.6 F 09/08/19 08:39 Pulse 72 09/08/19 11:12 Resp 16 09/08/19 08:39 BP 88/43 09/08/19 08:52 Pulse Ox 98 09/08/19 08:39 Intake & Output 09/07/19 09/08/19 09/08/19 18:59 06:59 18:59 Intake Total 690 120 Output Total 800 700 Balance -110 -700 120 Weight 68.8 kg Intake: Oral 690 120 Output: Urine 800 700 Other: Voiding Method Toilet # Voids 0 1 # Bowel Movements 0 - Labs CBC & Chem 7: 09/08/19 05:43 09/08/19 05:43 Labs: Abnormal Lab Results - Last 24 Hours (Table) 09/08/19 09/08/19 Range/Units 05:43 05:43 WBC 16.9 H (3.8-10.6) k/uL RBC 3.45 L (3.80-5.40) m/uL Hgb 10.0 L (11.4-16.0) gm/dL Hct 33.2 L (34.0-46.0) % MCHC 30.2 L (31.0-37.0) g/dL RDW 19.5 H (11.5-15.5) % Neutrophils # 15.0 H (1.3-7.7) k/uL Lymphocytes # 0.9 L (1.0-4.8) k/uL Sodium 136 L (137-145) mmol/L BUN 58 H (7-17) mg/dL Creatinine 1.83 H (0.52-1.04) mg/dL Glucose 148 H (74-99) mg/dL Calcium 8.2 L (8.4-10.2) mg/dL Magnesium 2.6 H (1.6-2.3) mg/dL Total Bilirubin 1.8 H (0.2-1.3) mg/dL Total Protein 5.5 L (6.3-8.2) g/dL Albumin 2.7 L (3.5-5.0) g/dL Assessment and Plan Plan: Assessment: 1. Chronic kidney disease stage III with baseline creatinine 1.4-1.5 secondary to cardiorenal syndrome. 2. Acute on chronic systolic CHF with ejection fraction of 30-35% with moderate mitral regurgitation, moderate to severe tricuspid regurgitation and moderate pulmonary hypertension. 3. Volume overload. Better. 4. Right renal atrophy. Ultrasound from July 2019 revealed 10.9 cm left k idney and 7.9 cm right kidney. 5. Chronic kidney disease mineral bone disease maintained on calcitriol. 6. Pulmonary fibrosis. 7. Diabetes mellitus. 8. Acute kidney injury mostly prerenal secondary to diuresis. Creatinine 1.83 today. Plan: Continue with oral Lasix 80 mg twice daily. Add midodrine 5 mg 3 times daily. Hold if systolic blood pressure greater than 110. Hold Entresto if sbp <120. Avoid nephrotoxins. Low-salt diet. Continue to monitor renal function and urine output.
[2019-09-08] MEDS: FUROSEMIDE 10 MG/ML 4 ML VIAL IV SCH (11:49)
[2019-09-08] MEDS: MIDODRINE 5 MG TAB PO SCH ×2 (12:18→17:09)
--- NOTE | 2019-09-08 14:03 | P.CNPUL ---
History of Present Illness Consult date: 09/07/19 Reason for consult: dyspnea, cough History of present illness: The patient is a 69-year-old female with past medical history of pulmonary fibrosis with, coronary artery disease with CABG presents to the emergency room with increased shortness of breath. Patient was just recently hospitalized and diagnosed with pulmonary fibrosis. She wears 3 L of oxygen at home and see Dr. Vazquez in office, seen while covering for him. She was placed on 5 different new medications because of the diagnosis. States that she could not afford all except one, includes Imuran, which she is still taking. She's been taking them as directed however over the past day she's had increased shortness of breath. Feels as if someone is sitting on her chest. Does report a history of CHF. Reports that the swelling in her lower extremity is has been improved. Denies any calf pain or sign. No history of DVT or PE. Denies any fevers or chills. Does admit to a nonproductive cough. No sick contacts or recent travel. Denies any abdominal pain. Her baseline ejection fraction is 35% Review of Systems All systems: negative Past Medical History Past Medical History: Coronary Artery Disease (CAD), Heart Failure, COPD, CVA/TIA, GERD/Reflux, Hypertension, Myocardial Infarction (MS), Pneumonia, Thyroid Disorder Additional Past Medical History / Comment(s): difficulty getting to sleep. Last Myocardial Infarction Date:: History of Any Multi-Drug Resistant Organisms: None Reported Past Surgical History: Appendectomy, Section, Coronary Bypass/CABG, Hysterectomy, Joint Replacement, Orthopedic Surgery, Pacemaker, Tubal Ligation Additional Past Surgical History / Comment(s): had cabg in jul 2018 at [facility], rt hip replacment, anahy knee replacment, carpal tunnel,rt ankle arthroscopy, total hysterectomy, "anahy elbow sx d/t tennis elbow" Past Anesthesia/Blood Transfusion Reactions: No Reported Reaction Additional Past Anesthesia/Blood Transfusion Reaction / Comment(s): "never received blood transfusion" Type of Cardiac Device: AICD Device Placement Date:: 11/2018 Past Psychological History: Depression Smoking Status: Former smoker Past Alcohol Use History: None Reported Past Drug Use History: None Reported - Past Family History Mother Family Medical History: COPD Additional Family Medical History / Comment(s): emphysema Father Family Medical History: Coronary Artery Disease (CAD) Additional Family Medical History / Comment(s): 2 vessel cabg at age 57 Medications and Allergies Home Medications Medication Instructions Recorded Confirmed Type Atorvastatin [Lipitor] 40 mg PO DAILY 09/22/18 09/06/19 History Ipratropium-Albuterol Nebulize 3 ml INHALATION RT-TID 12/14/18 09/06/19 History [Duoneb 0.5 mg-3 mg/3 ml Soln] Budesonide [Pulmicort] 0.5 mg INHALATION RT-BID 05/20/19 09/06/19 History Formoterol Fumarate [Perforomist] 20 mcg INHALATION RT-BID 05/20/19 09/06/19 History Metoprolol Tartrate [Lopressor] 25 mg PO BID 05/20/19 09/06/19 History Temazepam 30 mg PO HS 05/20/19 09/06/19 History Spironolactone [Aldactone] 25 mg PO DAILY #30 tab 05/24/19 09/06/19 Rx Allopurinol [Zyloprim] 100 mg PO BID 08/25/19 09/06/19 History Calcitriol [Rocaltrol] 0.25 mcg PO TUSA 08/25/19 09/06/19 History Levothyroxine Sodium [Levoxyl] 100 mcg PO DAILY 08/25/19 09/06/19 History Nitroglycerin Sl Tabs [Nitrostat] 0.4 mg SUBLINGUAL Q5M PRN 08/25/19 09/06/19 History Aspirin 81 mg PO DAILY chew 08/28/19 09/06/19 Rx predniSONE 40 mg PO DAILY #60 tab 08/28/19 09/06/19 Rx Famotidine [Pepcid] 40 mg PO DAILY 09/06/19 09/06/19 History Furosemide [Lasix] 60 mg PO BID 09/06/19 09/06/19 History Potassium Chloride ER [K-Dur 10] 10 meq PO BID 09/06/19 09/06/19 History Sulfamethox-Tmp 400-80Mg [Bactrim 1 tab PO DAILY 09/06/19 09/06/19 History SS 400-80 mg] azaTHIOprine [Imuran] 100 mg PO DAILY 09/06/19 09/06/19 History Allergies Allergy/AdvReac Type Severity Reaction Status Date / Time adhesive tape Allergy Rash/Hives Verified 09/06/19 15:24 hydrocodone [From Lortab] Allergy Itching Verified 09/06/19 15:24 Physical Exam Vitals: Vital Signs Temp Pulse Pulse Resp BP Pulse Ox 09/07/19 16:31 68 09/07/19 16:18 65 09/07/19 16:07 97.7 F 60 18 92/44 96 09/07/19 13:09 97 09/07/19 13:03 97.5 F L 61 16 110/46 09/07/19 11:50 69 09/07/19 11:38 68 09/07/19 08:25 66 09/07/19 08:16 62 09/07/19 08:15 62 09/07/19 08:00 97.5 F L 63 20 118/70 98 09/07/19 07:58 60 96 09/06/19 22:31 71 18 139/84 97 09/06/19 21:12 64 09/06/19 21:02 64 09/06/19 20:47 64 09/06/19 20:00 98 F 64 18 126/58 92 L 09/06/19 18:26 18 Intake and Output 09/07/19 09/07/19 09/07/19 06:59 14:59 22:59 Intake Total 120 450 Output Total 900 800 Balance -900 120 -350 Intake: Oral 120 450 Output: Urine 900 800 Other: # Voids 0 # Bowel Movements 0 Weight 67.7 kg - Constitutional General appearance: average body habitus, cooperative, disheveled - EENT Eyes: EOMI, PERRLA, poor dentition, normal appearance ENT: normal oropharynx Ears: bilateral: normal - Neck Neck: normal ROM Carotids: bilateral: upstroke normal, bruit present Thyroid: bilateral: normal size - Respiratory Respiratory: bilateral: diminished, rales (Dry rales), negative: CTA, dullness, rhonchi, wheezing - Cardiovascular Rhythm: regular Heart sounds: normal: S1, S2 - Gastrointestinal General gastrointestinal: normal bowel sounds, soft - Integumentary Integumentary: decreased turgor, normal - Neurologic Neurologic: CNII-XII intact - Musculoskeletal Musculoskeletal: gait normal, generalized weakness, strength equal bilaterally - Psychiatric Psychiatric: A&O x's 3, appropriate affect, intact judgment & insight Results - Laboratory Findings CBC and BMP: 09/08/19 05:43 09/08/19 05:43 PT/INR, D-dimer PT 11.7 sec (9.0-12.0) 09/06/19 14:15 INR 1.1 (<1.2) 09/06/19 14:15 Abnormal lab findings: Abnormal Labs 09/06/19 09/06/19 09/06/19 14:15 14:15 14:15 WBC 13.6 H RBC 3.55 L Hgb 10.7 L Hct 33.9 L RDW 19.2 H Neutrophils # 12.2 H Lymphocytes # 0.7 L Monocytes # Sodium 136 L Carbon Dioxide 21 L BUN 51 H Creatinine 1.55 H Glucose 190 H POC Glucose (mg/dL) Magnesium 2.5 H Total Bilirubin 2.6 H AST 50 H ALT 64 H Alkaline Phosphatase 150 H Troponin I 0.051 H* 09/06/19 09/06/19 09/07/19 17:44 20:50 03:01 WBC RBC Hgb Hct RDW Neutrophils # Lymphocytes # Monocytes # Sodium Carbon Dioxide BUN Creatinine Glucose POC Glucose (mg/dL) 195 H Magnesium Total Bilirubin AST ALT Alkaline Phosphatase Troponin I 0.036 H* 0.051 H* 09/07/19 09/07/19 06:00 06:00 WBC 13.0 H RBC 3.45 L Hgb 10.3 L Hct 32.9 L RDW 19.7 H Neutrophils # 10.6 H Lymphocytes # 0.9 L Monocytes # 1.1 H Sodium Carbon Dioxide BUN 49 H Creatinine 1.43 H Glucose 155 H POC Glucose (mg/dL) Magnesium Total Bilirubin 2.1 H AST 39 H ALT 61 H Alkaline Phosphatase 130 H Troponin I - Diagnostic Findings Chest x-ray: report reviewed, image reviewed (Cardiomegaly chronic parenchymal changes hyperinflation is present) Assessment and Plan Assessment: Acute on chronic hypoxic respiratory failure Pulmonary fibrosis Likely pulmonary hypertension group 3 Ischemic cardiomyopathy with acute on chronic systolic heart failure Coronary artery disease Plan: Continue Imuran as suggested by his primary welder apprentice combination Continue prednisone Continue gentle diuresis Continue bronchodilators Optimize therapy for severe congestive heart failure Time with Patient: Greater than 30
--- NOTE | 2019-09-08 14:07 | P.PN ---
Subjective Progress Note Date: 09/08/19 Principal diagnosis: Acute on chronic hypoxic respiratory failure Pulmonary fibrosis Likely pulmonary hypertension group 2 and 3 Ischemic cardiomyopathy with acute on chronic systolic heart failure Coronary artery disease 09/08/2019, patient seen eval examined during the rounds labs reviewed medications reviewed shortness breath is better but noted that her creatinine has increased from 1.4-1.8, pedal edema is slightly improved though she is less short of breath The patient is a 69-year-old female with past medical history of pulmonary fibrosis with, coronary artery disease with CABG presents to the emergency room with increased shortness of breath. Patient was just recently hospitalized and diagnosed with pulmonary fibrosis. She wears 3 L of oxygen at home and see Dr. Vazquez in office, seen while covering for him. She was placed on 5 different new medications because of the diagnosis. States that she could not afford all except one, includes Imuran, which she is still taking. She's been taking them as directed however over the past day she's had increased shortness of breath. Feels as if someone is sitting on her chest. Does report a history of CHF. Reports that the swelling in her lower extremity is has been improved. Denies any calf pain or sign. No history of DVT or PE. Denies any fevers or chills. Does admit to a nonproductive cough. No sick contacts or recent travel. Denies any abdominal pain. Her baseline ejection fraction is 35% Objective - Vital Signs Vital signs: Vital Signs Temp 97.6 F 09/08/19 08:39 Pulse 70 09/08/19 11:22 Resp 16 09/08/19 08:39 BP 88/43 09/08/19 08:52 Pulse Ox 98 09/08/19 08:39 Intake & Output 09/07/19 09/08/19 09/08/19 18:59 06:59 18:59 Intake Total 690 120 Output Total 800 700 450 Balance -110 -700 -330 Weight 68.8 kg Intake: Oral 690 120 Output: Urine 800 700 450 Other: Voiding Method Toilet # Voids 0 1 2 # Bowel Movements 0 - Exam - Constitutional General appearance: average body habitus, cooperative, disheveled - EENT Eyes: EOMI, PERRLA, poor dentition, normal appearance ENT: normal oropharynx Ears: bilateral: normal - Neck Neck: normal ROM Carotids: bilateral: upstroke normal, bruit present Thyroid: bilateral: normal size - Respiratory Respiratory: bilateral: diminished, rales (Dry rales), negative: CTA, dullness, rhonchi, wheezing - Cardiovascular Rhythm: regular Heart sounds: normal: S1, S2 - Gastrointestinal General gastrointestinal: normal bowel sounds, soft - Integumentary Integumentary: decreased turgor, normal - Neurologic Neurologic: CNII-XII intact - Musculoskeletal Musculoskeletal: gait normal, generalized weakness, strength equal bilaterally - Psychiatric Psychiatric: A&O x's 3, appropriate affect, intact judgment & insight - Labs CBC & Chem 7: 09/08/19 05:43 09/08/19 05:43 Labs: Abnormal Lab Results - Last 24 Hours (Table) 09/08/19 09/08/19 Range/Units 05:43 05:43 WBC 16.9 H (3.8-10.6) k/uL RBC 3.45 L (3.80-5.40) m/uL Hgb 10.0 L (11.4-16.0) gm/dL Hct 33.2 L (34.0-46.0) % MCHC 30.2 L (31.0-37.0) g/dL RDW 19.5 H (11.5-15.5) % Neutrophils # 15.0 H (1.3-7.7) k/uL Lymphocytes # 0.9 L (1.0-4.8) k/uL Sodium 136 L (137-145) mmol/L BUN 58 H (7-17) mg/dL Creatinine 1.83 H (0.52-1.04) mg/dL Glucose 148 H (74-99) mg/dL Calcium 8.2 L (8.4-10.2) mg/dL Magnesium 2.6 H (1.6-2.3) mg/dL Total Bilirubin 1.8 H (0.2-1.3) mg/dL Total Protein 5.5 L (6.3-8.2) g/dL Albumin 2.7 L (3.5-5.0) g/dL Assessment and Plan Assessment: Acute on chronic hypoxic respiratory failure Pulmonary fibrosis Likely pulmonary hypertension group 2 and 3 Ischemic cardiomyopathy with acute on chronic systolic heart failure Coronary artery disease Plan: Continue Imuran as suggested by his primary director online marketing Continue prednisone Continue gentle diuresis, monitor renal functions closely Continue bronchodilators Optimize therapy for severe congestive heart failure Time with Patient: Greater than 30
--- NOTE | 2019-09-08 22:43 | P.PN ---
Progress Note - Text Progress Note Date: 09/08/19 Interval history: This is a pleasant 69-year-old patient of Dr. Otto. Chronic stable medical conditions include coronary artery disease, hypertension, GERD, hypothyroidism, severe secondary pulmonary hypertension, bilateral severe pulmonary fibrosis, cor pulmonale, chronic kidney disease. Patient in October of this year had a coronary artery bypass at [facility]. Patient was here in the hospital on August 25. Diagnosed with CHF exacerbation EF 30-35% and also found to have significant pulmonary fibrosis. No presented with shortness of breath. [place] to have CHF exacerbation. Today-sitting elevation of breath. Tired. Had done better with diuresis. Was tried on entresto. Drop her blood pressure. Was taken off. Did tolerate some diet. was a site. Daughter is also present. Review of systems: Was done for constitutional, cardiovascular, GI, pulmonary. relevant finding as above Active Medications Albuterol/Ipratropium (Duoneb 0.5 Mg-3 Mg/3 Ml Soln) 3 ml INHALATION RT-Q4H [facility] Last Admin: 09/08/19 20:10 Dose: 3 ml Documented by: Allopurinol (Zyloprim) 100 mg PO BID [facility] Last Admin: 09/08/19 08:53 Dose: 100 mg Documented by: Aspirin (Aspirin) 81 mg PO DAILY [facility] Last Admin: 09/08/19 08:53 Dose: 81 mg Documented by: Atorvastatin Calcium (Lipitor) 40 mg PO DAILY [facility] Last Admin: 09/08/19 08:53 Dose: 40 mg Documented by: Azathioprine (Imuran) 100 mg PO DAILY [facility] Last Admin: 09/08/19 08:54 Dose: 100 mg Documented by: Budesonide (Pulmicort) 0.5 mg INHALATION RT-BID [facility] Last Admin: 09/08/19 20:10 Dose: 0.5 mg Documented by: Calcitriol (Rocaltrol) 0.25 mcg PO TUSA [facility] Last Admin: 09/07/19 09:32 Dose: 0.25 mcg Documented by: Famotidine (Pepcid) 40 mg PO DAILY [facility] Last Admin: 09/08/19 08:53 Dose: 40 mg Documented by: Formoterol Fumarate (Perforomist) 20 mcg INHALATION RT-BID [facility] Last Admin: 09/08/19 20:10 Dose: 20 mcg Documented by: Furosemide (Lasix) 80 mg PO BID@0900,1600 [facility] Last Admin: 09/08/19 17:10 Dose: 80 mg Documented by: Levothyroxine Sodium (Synthroid) 100 mcg PO 0630 [facility] Last Admin: 09/08/19 06:14 Dose: 100 mcg Documented by: Metoprolol Tartrate (Lopressor) 25 mg PO BID [facility] Last Admin: 09/08/19 08:53 Dose: Not Given Documented by: Midodrine (Proamatine) 5 mg PO AC-TID [facility] Last Admin: 09/08/19 17:09 Dose: 5 mg Documented by: Naloxone HCl (Narcan) 0.2 mg IV Q2M PRN PRN Reason: Opioid Reversal Nitroglycerin (Nitrostat) 0.4 mg SUBLINGUAL Q5M PRN PRN Reason: Chest Pain Potassium Chloride (K-Dur 10) 10 meq PO BID [facility] Last Admin: 09/08/19 08:53 Dose: 10 meq Documented by: Prednisone () 40 mg PO DAILY [facility] Last Admin: 09/08/19 08:53 Dose: 40 mg Documented by: Spironolactone (Aldactone) 25 mg PO DAILY [facility] Last Admin: 09/08/19 08:53 Dose: 25 mg Documented by: Temazepam (Restoril) 30 mg PO HS [facility] Last Admin: 09/07/19 23:18 Dose: 30 mg Documented by: Physical examination: VITAL SIGNS: 97.6, 65, 16, 77/40, 98% on 2 L GENERAL: Sitting at the edge of the bed, tired EYES: Pupils equal. Conjunctiva normal. HEENT: External appearance of nose and ears normal, oral cavity grossly normal. NECK: JVD not raised; masses not palpable. HEART: First and second heart sounds are normal; minimal edema LUNGS: Respiratory rate increased,, bilateral fine crackles ABDOMEN: Soft, nontender, liver spleen not palpable, no masses palpable. PSYCH: Alert and oriented x3; mood and affect slightly anxious MUSCULOSKELETAL: Evidence of OA specially in the hands INVESTIGATIONS, reviewed in the clinical context: White count 16.9 hemoglobin 10 platelets 255 bun 58 crit 1.83 Previous testing Creatinine on 08/28/2019 was 1.57 2-D echocardiogram from December of this year shows EF of 30-35% some part of the 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, moderate mitral regurgitation, [id number] tricuspid regurgitation High resolution CT chest-diffuse pulmonary fibrosis Assessment: -Acute on chronic congestive heart failure exacerbation from systolic dysfunction EF 30-35% from underlying coronary artery disease,, POA - bilateral severe pulmonary fibrosis -Acute on chronic cor pulmonale, from pulmonary fibrosis and CHF, POA -Coronary artery disease with bypass in July 2018 -COPD in an ex-smoker -Mitral and tricuspid regurgitation nonrheumatic -Severe secondary pulmonary hypertension due to CHF/COPD -GERD -Essential hypertension -Hypothyroidism -Chronic kidney disease stage III from nephrosclerosis -Troponin leak secondary to CHF. No clinical evidence of acute coronary syndrome -Right renal atrophy Plan: ) Crestor was held. Patient on by mouth Lasix. Keep a very close and patient's blood pressure. Patient does feel weak and tired. Prognosis guarded. Follow closely.
[2019-09-08] MEDS: TEMAZEPAM 30 MG CAP PO SCH (22:54)
[2019-09-09] MEDS ORDERED: IPRATROPIUM-ALBUTEROL 3 ML NEB INHALATION PRN (02:36)
[2019-09-09] MEDS: MIDODRINE 5 MG TAB PO SCH ×3 (06:25→17:23)
[2019-09-09] MEDS: LEVOTHYROXINE 100 MCG TAB PO SCH (06:25)
[2019-09-09 07:27] LABS: Anisocytosis Slight; Basophils % (A) 0 %; Eosinophils % (A) 0 %; HCT 33.5 % (34.0-46.0); HGB 10.2 gm/dL (11.4-16.0); Hypochromasia Moderate; Lymphocytes # (A) 1.3 k/uL (1.0-4.8); Lymphocytes % (A) 8 %; MCH 29.3 pg (25.0-35.0); MCHC 30.5 g/dL (31.0-37.0); Macrocytosis Slight; Mean Platelet Volume 6.9; Monocytes # (A) 0.5 k/uL (0-1.0); Monocytes % (A) 3 %; Neutrophils # (A) 14.2 k/uL (1.3-7.7); Neutrophils % (A) 88 %; Platelet Count 269 k/uL (150-450); RBC 3.49 m/uL (3.80-5.40); RDW 19.4 % (11.5-15.5); WBC 16.1 k/uL (3.8-10.6)
[2019-09-09 08:08] LABS: Albumin 2.7 g/dL (3.5-5.0); Calcium 8.2 mg/dL (8.4-10.2); Potassium 5.4 mmol/L (3.5-5.1); Total Bilirubin 1.8 mg/dL (0.2-1.3); Total Protein 5.4 g/dL (6.3-8.2)
[2019-09-09] MEDS: predniSONE 20 MG TAB PO SCH (08:44)
[2019-09-09] MEDS: ATORVASTATIN 40 MG TAB PO SCH (08:45)
[2019-09-09] MEDS: ALLOPURINOL 100 MG TAB PO SCH ×2 (08:45→22:02)
[2019-09-09] MEDS: POTASSIUM CHLORIDE ER 10 MEQ TAB.ER.PRT PO SCH (08:45)
[2019-09-09] MEDS: METOPROLOL TARTRATE 25 MG TAB PO SCH ×2 (08:45→22:02)
[2019-09-09] MEDS: FAMOTIDINE 20 MG TAB PO SCH (08:45)
[2019-09-09] MEDS: FUROSEMIDE 80 MG TAB PO SCH (08:45)
[2019-09-09] MEDS: ASPIRIN 81 MG PO SCH (08:45)
[2019-09-09] MEDS: SPIRONOLACTONE 25 MG TAB PO SCH (08:45)
[2019-09-09] MEDS: azaTHIOprine 50 MG TAB PO SCH (08:47)
[2019-09-09] MEDS: IPRATROPIUM-ALBUTEROL 3 ML NEB INHALATION SCH ×4 (09:00→20:28)
[2019-09-09] MEDS: FORMOTEROL FUMARATE 20 MCG/2 ML NEBU INHALATION SCH ×2 (09:00→20:26)
[2019-09-09] MEDS: BUDESONIDE 0.5 MG/2 ML NEBU INHALATION SCH ×2 (09:00→20:27)
--- NOTE | 2019-09-09 12:11 | P.PN ---
Subjective Progress Note Date: 09/09/19 This is a 69-year-old female with chronic kidney disease and acute kidney injury. Her creatinine is continuing to go up. She was admitted with shortness of breath and she has pulmonary fibrosis is on Imuran and prednisone she is being diuresed as she is deemed to have cardiorenal syndrome. She has coronary artery disease status post CABG ejection fraction is 3035% with mitral regurg. Tricuspid regurg and palmar hypertension Today she states her breathing is somewhat better denies any dizziness or blood pressure is fairly low, in the 80s. No nausea vomiting diarrhea no abdominal pain no fever chills. Objective - Vital Signs Vital signs: Vital Signs Temp 97.5 F L 09/09/19 08:20 Pulse 68 09/09/19 11:24 Resp 17 09/09/19 11:24 BP 82/50 09/09/19 11:24 Pulse Ox 95 09/09/19 11:24 Intake & Output 09/08/19 09/09/19 09/09/19 18:59 06:59 18:59 Intake Total 420 360 360 Output Total 450 850 Balance -30 -490 360 Weight 70.6 kg Intake: Oral 420 360 360 Output: Urine 450 850 Other: Voiding Method Toilet # Voids 2 1 On examination is awake alert oriented. HEENT exam no JVP neck is supple no facial asymmetry Lungs are significant for an occasional coarse crackle at bases fairly good air entry bilaterally Heart sounds are unremarkable cannot hear any murmur. Abdomen soft nontender nondistended no ascites no organomegaly Extremity exam was trace edema. Neurologically awake alert oriented - Labs CBC & Chem 7: 09/09/19 06:48 09/09/19 06:48 Labs: Abnormal Lab Results - Last 24 Hours (Table) 09/09/19 09/09/19 Range/Units 06:48 06:48 WBC 16.1 H (3.8-10.6) k/uL RBC 3.49 L (3.80-5.40) m/uL Hgb 10.2 L (11.4-16.0) gm/dL Hct 33.5 L (34.0-46.0) % MCHC 30.5 L (31.0-37.0) g/dL RDW 19.4 H (11.5-15.5) % Neutrophils # 14.2 H (1.3-7.7) k/uL Sodium 133 L (137-145) mmol/L Potassium 5.4 H (3.5-5.1) mmol/L BUN 69 H (7-17) mg/dL Creatinine 1.91 H (0.52-1.04) mg/dL Glucose 160 H (74-99) mg/dL Calcium 8.2 L (8.4-10.2) mg/dL Total Bilirubin 1.8 H (0.2-1.3) mg/dL Total Protein 5.4 L (6.3-8.2) g/dL Albumin 2.7 L (3.5-5.0) g/dL Assessment and Plan Assessment: Impression 1. Acute kidney injury with worsening creatinine. She had a creatinine of 1.5 and admission went up to 1.9 this morning. This is deemed to be from low blood pressure, with blood pressure in the 80s and may be an element of diuresis adding to it. 2. Chronic kidney disease stage III, nephrosclerosis creatinine baseline is 1.5 as of 08/26/2019. No proteinuria on urinalysis 3. Right renal atrophy. Ultrasound from July 2019 revealed 10.9 cm left kidney and 7.9 cm right kidney disease 4. Pulmonary fibrosis on urine and prednisone 5. Diabetes mellitus, no proteinuria on urinalysis dated 12/14/2018 Recommendation 1. Hold diuretics, she is on Lasix 80 twice a day. 2. Check orthostatic changes 3. Check urinalysis 4. Check labs tomorrow
--- NOTE | 2019-09-09 12:38 | PN ---
PROGRESS NOTE This is a 69-year-old lady with history of cardiomyopathy and chronic renal insufficiency, who was admitted to the hospital with CHF exacerbation. She has an ICD. Her shortness of breath has improved but patient was on Entresto but this has been stopped due to worsening renal function. EXAM: Comfortable at rest. Vital signs are stable. Blood pressure is 95/50. There is no jugular venous distention. Chest exam reveals good air entry bilaterally. There are no crackles or rhonchi. Heart exam reveals first and second heart sounds. Systolic murmur at the apex. Abdomen is soft. Exam of extremities reveals 1+ edema. LAB: Show a hemoglobin of 10.2, platelet count is 269, potassium is 5.4, BUN is 69, creatinine is 1.9. ASSESSMENT: 1. Acute exacerbation of chronic systolic heart failure. 2. Hypertension. 3. Renal insufficiency. PLAN: Will treat the patient with p.o. Olive Khanpressor 25 b.i.d., K-Dur, hold the potassium supplements. MMODL / IJN: [id number] /
--- NOTE | 2019-09-09 21:44 | P.PN ---
Progress Note - Text Progress Note Date: 09/09/19 Interval history: This is a pleasant 69-year-old patient of Dr. Otto. Chronic stable medical conditions include coronary artery disease, hypertension, GERD, hypothyroidism, severe secondary pulmonary hypertension, bilateral severe pulmonary fibrosis, cor pulmonale, chronic kidney disease. Patient in October of this year had a coronary artery bypass at [facility]. Patient was here in the hospital on August 25. Diagnosed with CHF exacerbation EF 30-35% and also found to have significant pulmonary fibrosis. No presented with shortness of breath. [place] to have CHF exacerbation. Patient was put on entresto-to drop her blood pressure. It was discontinued. Today-sitting at the edge of the bed. Tired. Short of breath. Did eat some food.. Review of systems: Was done for constitutional, cardiovascular, GI, pulmonary. relevant finding as above Active Medications Albuterol/Ipratropium (Duoneb 0.5 Mg-3 Mg/3 Ml Soln) 3 ml INHALATION RT-QID PRN PRN Reason: Shortness Of Breath Or Wheezing Albuterol/Ipratropium (Duoneb 0.5 Mg-3 Mg/3 Ml Soln) 3 ml INHALATION RT-QID [facility] Last Admin: 09/09/19 20:28 Dose: 3 ml Documented by: Allopurinol (Zyloprim) 100 mg PO BID [facility] Last Admin: 09/09/19 08:45 Dose: 100 mg Documented by: Aspirin (Aspirin) 81 mg PO DAILY [facility] Last Admin: 09/09/19 08:45 Dose: 81 mg Documented by: Atorvastatin Calcium (Lipitor) 40 mg PO DAILY [facility] Last Admin: 09/09/19 08:45 Dose: 40 mg Documented by: Azathioprine (Imuran) 100 mg PO DAILY [facility] Last Admin: 09/09/19 08:47 Dose: 100 mg Documented by: Budesonide (Pulmicort) 0.5 mg INHALATION RT-BID [facility] Last Admin: 09/09/19 20:27 Dose: 0.5 mg Documented by: Calcitriol (Rocaltrol) 0.25 mcg PO TUSA [facility] Last Admin: 09/07/19 09:32 Dose: 0.25 mcg Documented by: Famotidine (Pepcid) 40 mg PO DAILY [facility] Last Admin: 09/09/19 08:45 Dose: 40 mg Documented by: Formoterol Fumarate (Perforomist) 20 mcg INHALATION RT-BID [facility] Last Admin: 09/09/19 20:26 Dose: 20 mcg Documented by: Levothyroxine Sodium (Synthroid) 100 mcg PO 0630 [facility] Last Admin: 09/09/19 06:25 Dose: 100 mcg Documented by: Metoprolol Tartrate (Lopressor) 25 mg PO BID [facility] Last Admin: 09/09/19 08:45 Dose: 25 mg Documented by: Midodrine (Proamatine) 5 mg PO AC-TID [facility] Last Admin: 09/09/19 17:23 Dose: 5 mg Documented by: Naloxone HCl (Narcan) 0.2 mg IV Q2M PRN PRN Reason: Opioid Reversal Nitroglycerin (Nitrostat) 0.4 mg SUBLINGUAL Q5M PRN PRN Reason: Chest Pain Potassium Chloride (K-Dur 10) 10 meq PO BID [facility] Last Admin: 09/09/19 08:45 Dose: 10 meq Documented by: Prednisone () 40 mg PO DAILY [facility] Last Admin: 09/09/19 08:44 Dose: 40 mg Documented by: Spironolactone (Aldactone) 25 mg PO DAILY [facility] Last Admin: 09/09/19 08:45 Dose: 25 mg Documented by: Temazepam (Restoril) 30 mg PO HS [facility] Last Admin: 09/08/19 22:54 Dose: 30 mg Documented by: Physical examination: VITAL SIGNS: Afebrile, pulse 70, respiration 19, 97/49, 98% on 2.5 L GENERAL: Sitting at the edge of the bed, tired, short of breath EYES: Pupils equal. Conjunctiva normal. HEENT: External appearance of nose and ears normal, oral cavity grossly normal. NECK: JVD not raised; masses not palpable. HEART: First and second heart sounds are normal; minimal edema LUNGS: Respiratory rate increased,, decreased breath sounds ABDOMEN: Soft, nontender, liver spleen not palpable, no masses palpable. PSYCH: Alert and oriented x3; mood and affect slightly anxious MUSCULOSKELETAL: Evidence of OA specially in the hands INVESTIGATIONS, reviewed in the clinical context: White count 16.1 hemoglobin 10.2 potassium 5.4 bun 69 crit 1.91 Previous testing Creatinine on 08/28/2019 was 1.57 2-D echocardiogram from December of this year shows EF of 30-35% some part of the 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, moderate mitral regurgitation, [id number] tricuspid regurgitation High resolution CT chest-diffuse pulmonary fibrosis Assessment: -Acute on chronic congestive heart failure exacerbation from systolic dysfunction EF 30-35% from underlying coronary artery disease,, now possibly e uvolemic - bilateral severe pulmonary fibrosis -Acute on chronic cor pulmonale, from pulmonary fibrosis and CHF, POA, stabilized -Coronary artery disease with bypass in July 2018 -COPD in an ex-smoker -Mitral and tricuspid regurgitation nonrheumatic -Severe secondary pulmonary hypertension due to CHF/COPD -GERD -Essential hypertension -Hypothyroidism -Acute kidney injury a combination of ATN prerenal from diuresis and low blood pressure. -Chronic kidney disease stage III from nephrosclerosis baseline creatinine 1.5 -Troponin leak secondary to CHF. No clinical evidence of acute coronary syn drome -Right renal atrophy -Hypokalemia from renal failure. Plan: We'll hold off diuretics for now. Encourage oral intake. Repeat labs in the morning. Care is discussed the patient. Prognosis guarded. Hold off potassium supplement and Aldactone.
[2019-09-09] MEDS: TEMAZEPAM 30 MG CAP PO SCH (22:02)
[2019-09-10] MEDS: MIDODRINE 5 MG TAB PO SCH ×3 (06:37→16:44)
[2019-09-10] MEDS: LEVOTHYROXINE 100 MCG TAB PO SCH (06:37)
[2019-09-10 07:21] LABS: Calcium 8.1 mg/dL (8.4-10.2)
[2019-09-10] MEDS: FORMOTEROL FUMARATE 20 MCG/2 ML NEBU INHALATION SCH ×2 (08:40→19:11)
[2019-09-10] MEDS: BUDESONIDE 0.5 MG/2 ML NEBU INHALATION SCH ×2 (08:40→19:11)
[2019-09-10] MEDS: IPRATROPIUM-ALBUTEROL 3 ML NEB INHALATION SCH ×4 (08:40→19:11)
--- NOTE | 2019-09-10 09:09 | P.PN ---
Subjective Progress Note Date: 09/10/19 This is a 69-year-old female with chronic kidney disease and acute kidney injury. Her creatinine is continuing to go up. She was being diuresed and therefore might have been volume depleted. I stopped her Lasix yesterday 09/09/2019. 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 No chest pain, fever chills. Shortness of breath is about the same. No abdominal pain no diarrhea. Her blood pressure remains low in the 90s She was admitted with shortness of breath and she has pulmonary fibrosis is on Imuran and prednisone she is being diuresed as she is deemed to have cardiorenal syndrome. She has coronary artery disease status post CABG ejection fraction is 3035% with mitral regurg. Tricuspid regurg and palmar hypertension Objective - Vital Signs Vital signs: Vital Signs Temp 97.8 F 09/10/19 08:00 Pulse 88 09/10/19 08:51 Resp 20 09/10/19 08:00 BP 99/52 09/10/19 08:00 Pulse Ox 96 09/10/19 08:00 Intake & Output 09/09/19 09/10/19 09/10/19 18:59 06:59 18:59 Intake Total 600 100 Output Total 600 Balance 600 -500 Weight 71.2 kg Intake: Oral 600 100 Output: Urine 600 Other: Voiding Method Toilet # Voids 3 1 1 # Bowel Movements 0 Examination she is awake alert oriented comfortable warm to touch ENT exam no JVP neck is supple no facial asymmetry Lungs are significantly improved this morning very occasional crackle is heard good air entry bilaterally Heart sounds are unremarkable for any murmur rub gallop Abdomen soft nontender no organomegaly ascites masses noted Extremity examination reveals trace edema to none Neurologically awake alert oriented - Labs CBC & Chem 7: 09/09/19 06:48 09/10/19 06:16 Labs: Abnormal Lab Results - Last 24 Hours (Table) 09/10/19 Range/Units 06:16 Sodium 132 L (137-145) mmol/L BUN 72 H (7-17) mg/dL Creatinine 2.15 H (0.52-1.04) mg/dL Glucose 146 H (74-99) mg/dL Calcium 8.1 L (8.4-10.2) mg/dL Assessment and Plan Assessment: Impression 1. Acute kidney injury with worsening creatinine. She had a creatinine of 1.5 and admission went up to 1.9> 2.15 this morning. This is deemed to be from low blood pressure, with blood pressure in the 80s and may be an element of diuresis adding to it. She is off of diuretics since yesterday 09/09/2019 2. Chronic kidney disease stage III, nephrosclerosis creatinine baseline is 1.5 as of 08/26/2019. No proteinuria on urinalysis 3. Right renal atrophy. Ultrasound from July 2019 revealed 10.9 cm left kidney and 7.9 cm right kidney disease 4. Pulmonary fibrosis on Imuran and prednisone 5. Diabetes mellitus, no proteinuria on urinalysis dated 12/14/2018. 6. this morning episode of swelling blood sugars are normal. She is feeling nauseated. Watch Recommendation 1. Continue to Hold diuretics, 2. Check orthostatic changes 3. Check urinalysis 4. Check labs tomorrow
[2019-09-10] MEDS: ONDANSETRON 4 MG/2 ML VIAL IVP PRN (10:07)
[2019-09-10] MEDS: ATORVASTATIN 40 MG TAB PO SCH (10:14)
[2019-09-10] MEDS: ALLOPURINOL 100 MG TAB PO SCH ×2 (10:15→21:46)
[2019-09-10] MEDS: METOPROLOL TARTRATE 25 MG TAB PO SCH ×2 (10:15→21:47)
[2019-09-10] MEDS: ASPIRIN 81 MG PO SCH (10:15)
[2019-09-10] MEDS: azaTHIOprine 50 MG TAB PO SCH (10:15)
[2019-09-10] MEDS: predniSONE 20 MG TAB PO SCH (10:15)
[2019-09-10] MEDS: FAMOTIDINE 20 MG TAB PO SCH (10:31)
[2019-09-10 11:03] LABS: Appearance,Urine Clear (Clear); Bilirubin,Urine Negative (Negative); Blood,Urine Negative (Negative); Color,Urine Yellow; Glucose,Urine (UA) Negative (Negative); Ketones,Urine Negative (Negative); Leukocyte Esterase,Urine Small (Negative); Mucus,Urine Rare /hpf; Nitrite,Urine Negative (Negative); PH, Urine 5.5 (5.0-8.0); Protein,Urine 1+ (Negative); RBC,Urine 1 /hpf (0-5); Specific Gravity,Urine 1.013 (1.001-1.035); Squamous Epithelial Cell,Urine <1 /hpf (0-4); Urobilinogen,Urine <2.0 mg/dL (<2.0); WBC,Urine 3 /hpf (0-5)
--- NOTE | 2019-09-10 11:38 | P.PN ---
Subjective Progress Note Date: 09/10/19 Principal diagnosis: Acute on chronic hypoxic respiratory failure Pulmonary fibrosis Likely pulmonary hypertension group 2 and 3 Ischemic cardiomyopathy with acute on chronic systolic heart failure Coronary artery disease 09/10/2019, patient seen jeromy examined during the rounds lab reviewed medications reviewed care plan discussed with the patient at length his prescription has been provided for portable oxygen patient respiratory status is much improved with sequelae she is staying for rising BUN/creatinine with the diuresis, she remains on the 3 L oxygen with oxygen saturation is up to 96% now, her last chest x-ray performed on shows some bilateral pleural effusion small in amount 09/08/2019, patient seen evpasquale examined during the rounds labs reviewed medicat ions reviewed shortness breath is better but noted that her creatinine has increased from 1.4-1.8, pedal edema is slightly improved though she is less short of breath The patient is a 69-year-old female with past medical history of pulmonary fibrosis with, coronary artery disease with CABG presents to the emergency room with increased shortness of breath. Patient was just recently hospitalized and diagnosed with pulmonary fibrosis. She wears 3 L of oxygen at home and see Dr. Vazquez in office, seen while covering for him. She was placed on 5 different new medications because of the diagnosis. States that she could not afford all except one, includes Imuran, which she is still taking. She's been taking them as directed however over the past day she's had increased shortness of breath. Feels as if someone is sitting on her chest. Does report a history of CHF. Reports that the swelling in her lower extremity is has been improved. Denies any calf pain or sign. No history of DVT or PE. Denies any fevers or chills. Does admit to a nonproductive cough. No sick contacts or recent travel. Denies any abdominal pain. Her baseline ejection fraction is 35% Objective - Vital Signs Vital signs: Vital Signs Temp 97.8 F 09/10/19 08:00 Pulse 84 09/10/19 09:00 Resp 20 09/10/19 08:00 BP 99/52 09/10/19 08:00 Pulse Ox 96 09/10/19 08:00 Intake & Output 09/09/19 09/10/19 09/10/19 18:59 06:59 18:59 Intake Total 600 100 Output Total 600 Balance 600 -500 Weight 71.2 kg Intake: Oral 600 100 Output: Urine 600 Other: Voiding Method Toilet # Voids 3 1 1 # Bowel Movements 0 - Exam - Constitutional General appearance: average body habitus, cooperative, disheveled - EENT Eyes: EOMI, PERRLA, poor dentition, normal appearance ENT: normal oropharynx Ears: bilateral: normal - Neck Neck: normal ROM Carotids: bilateral: upstroke normal, bruit present Thyroid: bilateral: normal size - Respiratory Respiratory: bilateral: diminished, rales (Dry rales), negative: CTA, dullness, rhonchi, wheezing - Cardiovascular Rhythm: regular Heart sounds: normal: S1, S2 - Gastrointestinal General gastrointestinal: normal bowel sounds, soft - Integumentary Integumentary: decreased turgor, normal - Neurologic Neurologic: CNII-XII intact - Musculoskeletal Musculoskeletal: gait normal, generalized weakness, strength equal bilaterally - Psychiatric Psychiatric: A&O x's 3, appropriate affect, intact judgment & insight - Labs CBC & Chem 7: 09/09/19 06:48 09/10/19 06:16 Labs: Abnormal Lab Results - Last 24 Hours (Table) 09/10/19 09/10/19 Range/Units 06:16 10:53 Sodium 132 L (137-145) mmol/L BUN 72 H (7-17) mg/dL Creatinine 2.15 H (0.52-1.04) mg/dL Glucose 146 H (74-99) mg/dL Calcium 8.1 L (8.4-10.2) mg/dL Urine Protein 1+ H (Negative) Ur Leukocyte Esterase Small H (Negative) Urine Mucus Rare H (None) /hpf Assessment and Plan Assessment: Acute on chronic hypoxic respiratory failure Pulmonary fibrosis Likely pulmonary hypertension group 2 and 3 Ischemic cardiomyopathy with acute on chronic systolic heart failure Coronary artery disease acute on chronic renal failure Leukocytosis likely related to steroids recommend to start tapering it down, we'll decrease it to 20 mg daily Plan: Continue Imuran as suggested by his primary product test specialist Continue prednisone Continue gentle diuresis, monitor renal functions closely Continue bronchodilators Optimize therapy for severe congestive heart failure Time with Patient: Greater than 30
--- NOTE | 2019-09-10 15:27 | PN ---
PROGRESS NOTE FOLLOW-UP NOTE: Karmen is a 69-year-old lady who is admitted to hospital with cardiomyopathy, congestive heart failure and renal insufficiency. She has an AICD. She was started on Entresto, developed renal failure. Her renal functions still remain elevated with a BUN of 72 and creatinine of 2.1, which is worse than what it was yesterday. Will continue to hold the Entresto and DARVIN inhibitors at this time. The patient will continue the beta paul. Lasix is also on hold. On exam, comfortable at rest. Afebrile. Blood pressure is 102/50, respiratory rate is 18. Chest exam reveals good air entry bilaterally. I do not hear any crackles or rhonchi. Heart exam reveals first and second heart sounds and an ejection systolic murmur in the aortic area. Abdomen is soft. Examination of extremities did not reveal any edema. Peripheral pulses are felt. Labs show potassium of 5, BUN of 72, creatinine of 2. Hemoglobin is 10.2. ASSESSMENT: 1. Acute exacerbation of chronic congestive heart failure. 2. Renal failure. PLAN: No more Entresto for this patient. Will resume diuretics when okay with Nephrology. Renal function deterioration, I think, is partly from hypotension. Blood pressures are better today. MMODL / IJN: [id number] /
[2019-09-10] MEDS ORDERED: TEMAZEPAM 15 MG CAP PO SCH (23:05)
--- NOTE | 2019-09-10 23:08 | P.PN ---
Progress Note - Text Progress Note Date: 09/10/19 Interval history: This is a pleasant 69-year-old patient of Dr. Otto. Chronic stable medical conditions include coronary artery disease, hypertension, GERD, hypothyroidism, severe secondary pulmonary hypertension, bilateral severe pulmonary fibrosis, cor pulmonale, chronic kidney disease. Patient in October of this year had a coronary artery bypass at [facility]. Patient was here in the hospital on August 25. Diagnosed with CHF exacerbation EF 30-35% and also found to have significant pulmonary fibrosis. No presented with shortness of breath. [place] to have CHF exacerbation. Starting IV Lasix. Patient was put on entresto-did drop her blood pressure. It was discontinued. Patient did go into acute renal failure.-Diuretics were held. Today-sitting up. Remains tired. Diuretics continued to be held. Has creatinine had been going up.. Review of systems: Was done for constitutional, cardiovascular, GI, pulmonary. relevant finding as above Active Medications Albuterol/Ipratropium (Duoneb 0.5 Mg-3 Mg/3 Ml Soln) 3 ml INHALATION RT-QID PRN PRN Reason: Shortness Of Breath Or Wheezing Albuterol/Ipratropium (Duoneb 0.5 Mg-3 Mg/3 Ml Soln) 3 ml INHALATION RT-QID [facility] Last Admin: 09/10/19 19:11 Dose: 3 ml Documented by: Allopurinol (Zyloprim) 100 mg PO BID [facility] Last Admin: 09/10/19 21:46 Dose: 100 mg Documented by: Aspirin (Aspirin) 81 mg PO DAILY [facility] Last Admin: 09/10/19 10:15 Dose: 81 mg Documented by: Atorvastatin Calcium (Lipitor) 40 mg PO DAILY [facility] Last Admin: 09/10/19 10:14 Dose: 40 mg Documented by: Azathioprine (Imuran) 100 mg PO DAILY [facility] Last Admin: 09/10/19 10:15 Dose: 100 mg Documented by: Budesonide (Pulmicort) 0.5 mg INHALATION RT-BID [facility] Last Admin: 09/10/19 19:11 Dose: 0.5 mg Documented by: Calcitriol (Rocaltrol) 0.25 mcg PO TUSA [facility] Last Admin: 09/07/19 09:32 Dose: 0.25 mcg Documented by: Famotidine (Pepcid) 40 mg PO DAILY [facility] Last Admin: 09/10/19 10:31 Dose: 40 mg Documented by: Formoterol Fumarate (Perforomist) 20 mcg INHALATION RT-BID [facility] Last Admin: 09/10/19 19:11 Dose: 20 mcg Documented by: Levothyroxine Sodium (Synthroid) 100 mcg PO 0630 [facility] Last Admin: 09/10/19 06:37 Dose: 100 mcg Documented by: Metoprolol Tartrate (Lopressor) 25 mg PO BID [facility] Last Admin: 09/10/19 21:47 Dose: 25 mg Documented by: Midodrine (Proamatine) 5 mg PO AC-TID [facility] Last Admin: 09/10/19 16:44 Dose: 5 mg Documented by: Naloxone HCl (Narcan) 0.2 mg IV Q2M PRN PRN Reason: Opioid Reversal Nitroglycerin (Nitrostat) 0.4 mg SUBLINGUAL Q5M PRN PRN Reason: Chest Pain Ondansetron HCl (Zofran) 4 mg IVP Q6HR PRN PRN Reason: Nausea And Vomiting Last Admin: 09/10/19 10:07 Dose: 4 mg Documented by: Prednisone () 40 mg PO DAILY [facility] Last Admin: 09/10/19 10:15 Dose: 40 mg Documented by: Temazepam (Restoril) 30 mg PO HS [facility] Last Admin: 09/09/19 22:02 Dose: 30 mg Documented by: Physical examination: VITAL SIGNS: 97.9, 60, 20, 95/47, 98% on 3 L GENERAL: Sitting at the edge of the bed, tired, short of breath EYES: Pupils equal. Conjunctiva normal. HEENT: External appearance of nose and ears normal, oral cavity grossly normal. NECK: JVD not raised; masses not palpable. HEART: First and second heart sounds are normal; minimal edema LUNGS: Respiratory rate increased,, decreased breath sounds ABDOMEN: Soft, nontender, liver spleen not palpable, no masses palpable. PSYCH: Alert and oriented x3; mood and affect slightly anxious MUSCULOSKELETAL: Evidence of OA specially in the hands INVESTIGATIONS, reviewed in the clinical context: Bun 72 creatinine 2.15 Previous testing Creatinine on 08/28/2019 was 1.57 2-D echocardiogram from December of this year shows EF of 30-35% some part of the 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, moderate mitral regurgitation, [id number] tricuspid regurgitation High resolution CT chest-diffuse pulmonary fibrosis Assessment: -Acute on chronic congestive heart failure exacerbation from systolic dysfunction EF 30-35% from underlying coronary artery disease,, now possibly euvolemic - bilateral severe pulmonary fibrosis -Acute on chronic cor pulmonale, from pulmonary fibrosis and CHF, POA, stabilized -Coronary artery disease with bypass in July 2018 -COPD in an ex-smoker -Mitral and tricuspid regurgitation nonrheumatic -Severe secondary pulmonary hypertension due to CHF/COPD -GERD -Essential hypertension -Hypothyroidism -Acute kidney injury a combination of ATN prerenal from diuresis and low blood pressure., Worsening -Chronic kidney disease stage III from nephrosclerosis baseline creatinine 1.5 -Troponin leak secondary to CHF. No clinical evidence of acute coronary syndrome -Right renal atrophy -Hypokalemia from renal failure. Plan: Renal function has been worsening. We'll give 50 mL an hour of saline for a total of 500 mL. Follow labs closely. Discussed with patient.
[2019-09-10] MEDS ORDERED: SODIUM CHLORIDE 0.9% 1,000 ML IV SCH (23:15)
[2019-09-10] MEDS: TEMAZEPAM 30 MG CAP PO SCH (23:46)
[2019-09-11] MEDS: LEVOTHYROXINE 100 MCG TAB PO SCH (06:41)
[2019-09-11] MEDS: MIDODRINE 5 MG TAB PO SCH ×3 (06:41→18:55)
[2019-09-11 07:27] LABS: Potassium 6.1 mmol/L (3.5-5.1)
[2019-09-11] MEDS: IPRATROPIUM-ALBUTEROL 3 ML NEB INHALATION SCH ×4 (08:16→20:02)
[2019-09-11] MEDS: BUDESONIDE 0.5 MG/2 ML NEBU INHALATION SCH ×2 (08:16→20:03)
[2019-09-11] MEDS: FORMOTEROL FUMARATE 20 MCG/2 ML NEBU INHALATION SCH ×2 (08:16→20:03)
[2019-09-11] MEDS ORDERED: INSULIN REGULAR 100 UNIT/ML VIAL IV ONE ×2 (09:09→22:16)
[2019-09-11] MEDS ORDERED: SODIUM POLYSTYRENE SULFONATE 15 GM/60 ML BOTTLE PO STA (09:09)
[2019-09-11] MEDS ORDERED: DEXTROSE 10 % IN WATER 250 ML IV ONE ×2 (09:12→22:16)
[2019-09-11] MEDS ORDERED: SODIUM BICARB 8.4% 50 ML SYR (1 MEQ/ML) IV STA (09:50)
--- NOTE | 2019-09-11 09:51 | P.PN ---
Subjective Patient is seen in follow-up for chronic kidney disease. Patient is chronic kidney disease stage III with baseline creatinine in the range of 1.4-1.5. Renal function is better. Recommend 1.87 today. Blood pressure stable but remains on the lower side. No dizziness or passing out. Potassium level was 6.1 today. Urine output is good. Vital signs are stable. General: The patient appeared well nourished and normally developed. HEENT: Head exam is unremarkable. Neck is without jugular venous distension. LUNGS: Lungs are clear to auscultation and percussion. Breath sounds decreased. HEART: Rate and Rhythm are regular. First and second heart sounds normal. No murmurs, rubs or gallops. ABDOMEN: Abdominal exam reveals normal bowel sounds. Non-tender and non- distended. No evidence of peritonitis. EXTREMITITES: Trace edema. Objective - Vital Signs Vital signs: Vital Signs Temp 98.2 F 09/11/19 07:54 Pulse 65 09/11/19 08:28 Resp 16 09/11/19 07:54 BP 91/49 09/11/19 07:54 Pulse Ox 99 09/11/19 07:54 Intake & Output 09/10/19 09/11/19 09/11/19 18:59 06:59 18:59 Intake Total 580 360 Output Total 600 Balance -20 360 Weight 72.5 kg Intake: Oral 580 360 Output: Urine 600 Other: Voiding Method Toilet Toilet # Voids 1 1 - Labs CBC & Chem 7: 09/09/19 06:48 09/11/19 05:55 Labs: Abnormal Lab Results - Last 24 Hours (Table) 09/10/19 09/11/19 Range/Units 10:53 05:55 Sodium 132 L (137-145) mmol/L Potassium 6.1 H* (3.5-5.1) mmol/L Carbon Dioxide 21 L (22-30) mmol/L BUN 71 H (7-17) mg/dL Creatinine 1.87 H (0.52-1.04) mg/dL Glucose 157 H (74-99) mg/dL Calcium 8.0 L (8.4-10.2) mg/dL Urine Protein 1+ H (Negative) Ur Leukocyte Esterase Small H (Negative) Urine Mucus Rare H (None) /hpf Assessment and Plan Plan: Assessment: 1. Chronic kidney disease stage III with baseline creatinine 1.4-1.5 secondary to cardiorenal syndrome. 2. Acute on chronic systolic CHF with ejection fraction of 30-35% with moderate mitral regurgitation, moderate to severe tricuspid regurgitation and moderate pulmonary hypertension. 3. Volume overload. Better. 4. Right renal atrophy. Ultrasound from July 2019 revealed 10.9 cm left kidney and 7.9 cm right kidney. 5. Chronic kidney disease mineral bone disease maintained on calcitriol. 6. Pulmonary fibrosis. 7. Diabetes mellitus. 8. Acute kidney injury mostly prerenal secondary to diuresis. Better. Creatinine 1.87 today. 9. Hyperkalemia secondary to acute kidney injury and metabolic acidosis. Rule out urinary retention. Plan: Maintain midodrine 5 mg 3 times daily. Hold if systolic blood pressure greater than 110. Entresto has been discontinued. Avoid nephrotoxins. Continue to monitor renal function and urine output. Patient received Kayexalate this morning. 10 units of IV insulin with an amp of D50 now. 2 A of sodium bicarbonate IV push now. Low potassium diet. Repeat potassium level this afternoon. Check bladder scan to rule out urinary retention. Hep-Lock IV fluids.
[2019-09-11] MEDS: ATORVASTATIN 40 MG TAB PO SCH (09:54)
[2019-09-11] MEDS: ASPIRIN 81 MG PO SCH (09:54)
[2019-09-11] MEDS: ALLOPURINOL 100 MG TAB PO SCH ×2 (09:54→22:30)
[2019-09-11] MEDS: FAMOTIDINE 20 MG TAB PO SCH (09:54)
[2019-09-11] MEDS: azaTHIOprine 50 MG TAB PO SCH (09:55)
[2019-09-11] MEDS: predniSONE 20 MG TAB PO SCH (09:55)
[2019-09-11] MEDS: METOPROLOL TARTRATE 25 MG TAB PO SCH ×2 (09:55→22:30)
[2019-09-11] MEDS: CALCITRIOL 0.25 MCG CAP PO SCH (09:56)
--- NOTE | 2019-09-11 10:17 | P.PN ---
Subjective Progress Note Date: 09/11/19 Principal diagnosis: Acute on chronic hypoxic respiratory failure Pulmonary fibrosis Likely pulmonary hypertension group 2 and 3 Ischemic cardiomyopathy with acute on chronic systolic heart failure Coronary artery disease 09/11/2019, patient seen evpasquale examined during the rounds more awake and alert breathing comfortably denies any chest pain on 3 L nasal cannula saturating well, BUN/creatinine stabilize now, potassium is high-end 6.1, renal service is following patient is stable from respiratory standpoint for discharge 09/10/2019, patient seen evpas[place]ale examined during the rounds lab reviewed medications reviewed care plan discussed with the patient at length his prescri ption has been provided for portable oxygen patient respiratory status is much improved with sequelae she is staying for rising BUN/creatinine with the diuresis, she remains on the 3 L oxygen with oxygen saturation is up to 96% now, her last chest x-ray performed on shows some bilateral pleural effusion small in amount 09/08/2019, patient seen ev[place] examined during the rounds labs reviewed me dications reviewed shortness breath is better but noted that her creatinine has increased from 1.4-1.8, pedal edema is slightly improved though she is less short of breath The patient is a 69-year-old female with past medical history of pulmonary fibrosis with, coronary artery disease with CABG presents to the emergency room with increased shortness of breath. Patient was just recently hospitalized and diagnosed with pulmonary fibrosis. She wears 3 L of oxygen at home and see Dr. Vazquez in office, seen while covering for him. She was placed on 5 different new medications because of the diagnosis. States that she could not afford all except one, includes Imuran, which she is still taking. She's been taking them as directed however over the past day she's had increased shortness of breath. Feels as if someone is sitting on her chest. Does report a history of CHF. Reports that the swelling in her lower extremity is has been improved. Denies any calf pain or sign. No history of DVT or PE. Denies any fevers or chills. Does admit to a nonproductive cough. No sick contacts or recent travel. Denies any abdominal pain. Her baseline ejection fraction is 35% Objective - Vital Signs Vital signs: Vital Signs Temp 98.2 F 09/11/19 07:54 Pulse 65 09/11/19 08:28 Resp 16 09/11/19 07:54 BP 91/49 11/30/19 07:54 Pulse Ox 99 09/11/19 07:54 Intake & Output 09/10/19 09/11/19 09/11/19 18:59 06:59 18:59 Intake Total 580 360 Output Total 600 Balance -20 360 Weight 72.5 kg Intake: Oral 580 360 Output: Urine 600 Other: Voiding Method Toilet Toilet # Voids 1 1 - Exam - Constitutional General appearance: average body habitus, cooperative, disheveled - EENT Eyes: EOMI, PERRLA, poor dentition, normal appearance ENT: normal oropharynx Ears: bilateral: normal - Neck Neck: normal ROM Carotids: bilateral: upstroke normal, bruit present Thyroid: bilateral: normal size - Respiratory Respiratory: bilateral: diminished, rales (Dry rales), negative: CTA, dullness, rhonchi, wheezing - Cardiovascular Rhythm: regular Heart sounds: normal: S1, S2 - Gastrointestinal General gastrointestinal: normal bowel sounds, soft - Integumentary Integumentary: decreased turgor, normal - Neurologic Neurologic: CNII-XII intact - Musculoskeletal Musculoskeletal: gait normal, generalized weakness, strength equal bilaterally - Psychiatric Psychiatric: A&O x's 3, appropriate affect, intact judgment & insight - Labs CBC & Chem 7: 09/09/19 06:48 09/11/19 05:55 Labs: Abnormal Lab Results - Last 24 Hours (Table) 09/10/19 09/11/19 Range/Units 10:53 05:55 Sodium 132 L (137-145) mmol/L Potassium 6.1 H* (3.5-5.1) mmol/L Carbon Dioxide 21 L (22-30) mmol/L BUN 71 H (7-17) mg/dL Creatinine 1.87 H (0.52-1.04) mg/dL Glucose 157 H (74-99) mg/dL Calcium 8.0 L (8.4-10.2) mg/dL Urine Protein 1+ H (Negative) Ur Leukocyte Esterase Small H (Negative) Urine Mucus Rare H (None) /hpf Assessment and Plan Assessment: Hyperkalemia Acute on chronic hypoxic respiratory failure Pulmonary fibrosis Likely pulmonary hypertension group 2 and 3 Ischemic cardiomyopathy with acute on chronic systolic heart failure Coronary artery disease acute on chronic renal failure Leukocytosis likely related to steroids recommend to start tapering it down, we'll decrease it to 20 mg daily Plan: Continue Imuran Continue prednisone Elevated hypertension being managed by renal services Continue gentle diuresis, monitor renal functions closely Continue bronchodilators Optimize therapy for severe congestive heart failure Stable pulmonary standpoint for discharge Time with Patient: Greater than 30
--- NOTE | 2019-09-11 11:33 | PN ---
PROGRESS NOTE FOLLOW-UP NOTE: Karmen is a 69-year-old lady who is admitted to hospital with acute exacerbation of chronic systolic heart failure. She was tried on Entresto, with significant deterioration in her renal functions. This has been on hold. She is currently on aspirin, Lipitor, Lopressor. Plan at this stage is to introduce DARVIN inhibitors once the renal functions improve. This morning her potassium is elevated. The Aldactone had been stopped. On exam, patient is comfortable at rest. Heart rate is 65 beats per minute. Blood pressure is 91/49, respiratory rate is 18. Chest exam reveals good air entry bilaterally. Heart exam reveals first and second heart sounds, systolic murmur at the left lower sternal border. Abdomen is soft. Examination of extremities reveals bilateral 1+ edema. Peripheral pulses are felt. Labs show a potassium of 6.1, BUN is 71, creatinine is 1.87. ASSESSMENT: 1. Acute exacerbation of chronic systolic heart failure. 2. Acute renal failure. 3. Hyperkalemia. PLAN: Hold Aldactone. Hold DARVIN inhibitors. Hold Entresto. Treat hyperkalemia per protocol. MMODL / IJN: [id number] /
[2019-09-11] MEDS ORDERED: FUROSEMIDE 10 MG/ML 2 ML VIAL IV ONE (13:56)
[2019-09-11 19:34] VITALS: RESP 18
[2019-09-11] MEDS: POTASSIUM CHLORIDE ER 10 MEQ TAB.ER.PRT PO SCH (20:06)
--- NOTE | 2019-09-11 20:51 | P.PN ---
Progress Note - Text Progress Note Date: 09/11/19 Interval history: This is a pleasant 69-year-old patient of Dr. Otto. Chronic stable medical conditions include coronary artery disease, hypertension, GERD, hypothyroidism, severe secondary pulmonary hypertension, bilateral severe pulmonary fibrosis, cor pulmonale, chronic kidney disease. Patient in October of this year had a coronary artery bypass at [facility]. Patient was here in the hospital on August 25. Diagnosed with CHF exacerbation EF 30-35% and also found to have significant pulmonary fibrosis. No presented with shortness of breath. [place] to have CHF exacerbation. Starting IV Lasix. Patient was put on entresto-did drop her blood pressure. It was discontinued. Patient did go into acute renal failure.-Diuretics were held. Today-diuretics continued to be held. Gentle hydration was given overnight. Patient thought he some diet. Feels tired.. Hyperkalemic this morning. Kayexalate was ordered. Review of systems: Was done for constitutional, cardiovascular, GI, pulmonary. relevant finding as above Active Medications Albuterol/Ipratropium (Duoneb 0.5 Mg-3 Mg/3 Ml Soln) 3 ml INHALATION RT-QID PRN PRN Reason: Shortness Of Breath Or Wheezing Albuterol/Ipratropium (Duoneb 0.5 Mg-3 Mg/3 Ml Soln) 3 ml INHALATION RT-QID [facility] Last Admin: 09/11/19 20:02 Dose: 3 ml Documented by: Allopurinol (Zyloprim) 100 mg PO BID [facility] Last Admin: 09/11/19 09:54 Dose: 100 mg Documented by: Aspirin (Aspirin) 81 mg PO DAILY [facility] Last Admin: 09/11/19 09:54 Dose: 81 mg Documented by: Atorvastatin Calcium (Lipitor) 40 mg PO DAILY [facility] Last Admin: 09/11/19 09:54 Dose: 40 mg Documented by: Azathioprine (Imuran) 100 mg PO DAILY [facility] Last Admin: 09/11/19 09:55 Dose: 100 mg Documented by: Budesonide (Pulmicort) 0.5 mg INHALATION RT-BID [facility] Last Admin: 09/11/19 20:03 Dose: Not Given Documented by: Calcitriol (Rocaltrol) 0.25 mcg PO TUSA [facility] Last Admin: 09/11/19 09:56 Dose: 0.25 mcg Documented by: Famotidine (Pepcid) 40 mg PO DAILY [facility] Last Admin: 09/11/19 09:54 Dose: 40 mg Documented by: Formoterol Fumarate (Perforomist) 20 mcg INHALATION RT-BID [facility] Last Admin: 09/11/19 20:03 Dose: Not Given Documented by: Levothyroxine Sodium (Synthroid) 100 mcg PO 0630 [facility] Last Admin: 09/11/19 06:41 Dose: 100 mcg Documented by: Metoprolol Tartrate (Lopressor) 25 mg PO BID [facility] Last Admin: 09/11/19 09:55 Dose: 25 mg Documented by: Midodrine (Proamatine) 5 mg PO AC-TID [facility] Last Admin: 09/11/19 18:55 Dose: 5 mg Documented by: Naloxone HCl (Narcan) 0.2 mg IV Q2M PRN PRN Reason: Opioid Reversal Nitroglycerin (Nitrostat) 0.4 mg SUBLINGUAL Q5M PRN PRN Reason: Chest Pain Ondansetron HCl (Zofran) 4 mg IVP Q6HR PRN PRN Reason: Nausea And Vomiting Last Admin: 09/10/19 10:07 Dose: 4 mg Documented by: Prednisone () 40 mg PO DAILY [facility] Last Admin: 09/11/19 09:55 Dose: 40 mg Documented by: Temazepam (Restoril) 30 mg PO HS [facility] Last Admin: 09/10/19 23:42 Dose: 30 mg Documented by: Physical examination: VITAL SIGNS: 97.9, 63, 18, 104/52, 95% on 3 L GENERAL: Sitting up, tired EYES: Pupils equal. Conjunctiva normal. HEENT: External appearance of nose and ears normal, oral cavity grossly normal. NECK: JVD not raised; masses not palpable. HEART: First and second heart sounds are normal; minimal edema LUNGS: Respiratory rate increased,, decreased breath sounds, fine crackles ABDOMEN: Soft, nontender, liver spleen not palpable, no masses palpable. PSYCH: Alert and oriented x3; mood and affect slightly anxious MUSCULOSKELETAL: Evidence of OA specially in the hands INVESTIGATIONS, reviewed in the clinical context: Potassium 6.1 bun 71 and crit 1.87 Previous testing Creatinine on 08/28/2019 was 1.57 2-D echocardiogram from December of this year shows EF of 30-35% some part of the 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, moderate mitral regurgitation, [id number] tricuspid regurgitation High resolution CT chest-diffuse pulmonary fibrosis Assessment: -Acute on chronic congestive heart failure exacerbation from systolic dysfunction EF 30-35% from underlying coronary artery disease,, now possibly euvolemic - bilateral severe pulmonary fibrosis -Acute on chronic cor pulmonale, from pulmonary fibrosis and CHF, POA, stabilized -Coronary artery disease with bypass in July 2018 -COPD in an ex-smoker -Mitral and tricuspid regurgitation nonrheumatic -Severe secondary pulmonary hypertension due to CHF/COPD -GERD -Essential hypertension -Hypothyroidism -Acute kidney injury a combination of ATN prerenal from diuresis and low blood pressure., Started to improve -Chronic kidney disease stage III from nephrosclerosis baseline creatinine 1.5 -Troponin leak secondary to CHF. No clinical evidence of acute coronary syndrome -Right renal atrophy -Hyperkalemia from renal failure., Worsening Plan: Patient did receive 500 mL of fluid overnight. Some improvement in function. Diuretics continued to be held. Kayexalate ordered. Repeat labs in the morning. Care discussed with the patient and .
[2019-09-11] MEDS ORDERED: TEMAZEPAM 15 MG CAP PO SCH (22:00)
[2019-09-11 23:24] LABS: Glucose,Whole Blood 246 mg/dL (75-99)
[2019-09-12] MEDS: ONDANSETRON 4 MG/2 ML VIAL IVP PRN (06:11)
[2019-09-12] MEDS: LEVOTHYROXINE 100 MCG TAB PO SCH (06:11)
[2019-09-12] MEDS: MIDODRINE 5 MG TAB PO SCH ×2 (06:11→13:30)
[2019-09-12 06:18] LABS: Calcium 8.1 mg/dL (8.4-10.2); Potassium 5.4 mmol/L (3.5-5.1)
[2019-09-12] MEDS: azaTHIOprine 50 MG TAB PO SCH (08:15)
[2019-09-12] MEDS: predniSONE 20 MG TAB PO SCH (08:15)
[2019-09-12] MEDS: ALLOPURINOL 100 MG TAB PO SCH (08:15)
[2019-09-12] MEDS: ATORVASTATIN 40 MG TAB PO SCH (08:15)
[2019-09-12] MEDS: METOPROLOL TARTRATE 25 MG TAB PO SCH (08:15)
[2019-09-12] MEDS: ASPIRIN 81 MG PO SCH (08:16)
[2019-09-12] MEDS: FAMOTIDINE 20 MG TAB PO SCH (08:16)
[2019-09-12 08:18] VITALS: BP 110/51; TEMP 97.8
[2019-09-12] MEDS: FORMOTEROL FUMARATE 20 MCG/2 ML NEBU INHALATION SCH (08:19)
[2019-09-12] MEDS: BUDESONIDE 0.5 MG/2 ML NEBU INHALATION SCH (08:19)
[2019-09-12] MEDS: IPRATROPIUM-ALBUTEROL 3 ML NEB INHALATION SCH ×2 (08:19→11:57)
[2019-09-12 08:31] VITALS: PULSE 65
--- NOTE | 2019-09-12 10:13 | P.PN ---
Subjective Progress Note Date: 09/12/19 Principal diagnosis: Acute on chronic hypoxic respiratory failure Pulmonary fibrosis Likely pulmonary hypertension group 2 and 3 Ischemic cardiomyopathy with acute on chronic systolic heart failure Coronary artery disease 09/12/2019, patient seen eval reexamined during the rounds labs reviewed medications reviewed in respiratory status significantly improved now less cough congestion is present patient remains on maintenance dose of prednisone 40 mg along with Imuran as per recommendation is primary eeo officer potassium level as well as urine creatinine have been stabilize patient is probably to go home later on today if remains stable would recommend to continue these medicines for now until patient is seen by his primary eeo officer 09/11/2019, patient seen eval examined during the rounds more awake and alert breathing comfortably denies any chest pain on 3 L nasal cannula saturating well, BUN/creatinine stabilize now, potassium is high-end 6.1, renal service is following patient is stable from respiratory standpoint for discharge 09/10/2019, patient seen eval examined during the rounds lab reviewed medications reviewed care plan discussed with the patient at length his prescription has been provided for portable oxygen patient respiratory status is much improved with sequelae she is staying for rising BUN/creatinine with the diuresis, she remains on the 3 L oxygen with oxygen saturation is up to 96% now, her last chest x-ray performed on shows some bilateral pleural effusion small in amount 09/08/2019, patient seen eval examined during the rounds labs reviewed medications reviewed shortness breath is better but noted that her creatinine has increased from 1.4-1.8, pedal edema is slightly improved though she is less short of breath The patient is a 69-year-old female with past medical history of pulmonary fibrosis with, coronary artery disease with CABG presents to the emergency room with increased shortness of breath. Patient was just recently hospitalized and diagnosed with pulmonary fibrosis. She wears 3 L of oxygen at home and see Dr. Vazquez in office, seen while covering for him. She was placed on 5 different new medications because of the diagnosis. States that she could not afford all except one, includes Imuran, which she is still taking. She's been taking them as directed however over the past day she's had increased shortness of breath. Feels as if someone is sitting on her chest. Does report a history of CHF. Reports that the swelling in her lower extremity is has been improved. Denies any calf pain or sign. No history of DVT or PE. Denies any fevers or chills. Does admit to a nonproductive cough. No sick contacts or recent travel. Denies any abdominal pain. Her baseline ejection fraction is 35% Objective - Vital Signs Vital signs: Vital Signs Temp 97.8 F 09/12/19 08:00 Pulse 65 09/12/19 08:30 Resp 18 09/12/19 08:00 BP 110/51 09/12/19 08:00 Pulse Ox 97 09/12/19 08:00 Intake & Output 09/11/19 09/12/19 09/12/19 18:59 06:59 18:59 Intake Total 600 600 360 Output Total 700 Balance 600 -100 360 Weight 73.3 kg Intake: Oral 600 600 360 Output: Urine 700 Other: Voiding Method Toilet # Voids 1 - Exam - Constitutional General appearance: average body habitus, cooperative, disheveled - EENT Eyes: EOMI, PERRLA, poor dentition, normal appearance ENT: normal oropharynx Ears: bilateral: normal - Neck Neck: normal ROM Carotids: bilateral: upstroke normal, bruit present Thyroid: bilateral: normal size - Respiratory Respiratory: bilateral: diminished, rales (Dry rales), negative: CTA, dullness, rhonchi, wheezing - Cardiovascular Rhythm: regular Heart sounds: normal: S1, S2 - Gastrointestinal General gastrointestinal: normal bowel sounds, soft - Integumentary Integumentary: decreased turgor, normal - Neurologic Neurologic: CNII-XII intact - Musculoskeletal Musculoskeletal: gait normal, generalized weakness, strength equal bilaterally - Psychiatric Psychiatric: A&O x's 3, appropriate affect, intact judgment & insight - Labs CBC & Chem 7: 09/09/19 06:48 09/12/19 05:27 Labs: Abnormal Lab Results - Last 24 Hours (Table) 09/11/19 09/11/19 09/11/19 Range/Units 13:20 20:30 23:22 Sodium (137-145) mmol/L Potassium 5.9 H 5.7 H (3.5-5.1) mmol/L BUN (7-17) mg/dL Creatinine (0.52-1.04) mg/dL Glucose (74-99) mg/dL POC Glucose (mg/dL) 246 H (75-99) mg/dL Calcium (8.4-10.2) mg/dL 09/12/19 Range/Units 05:27 Sodium 133 L (137-145) mmol/L Potassium 5.4 H (3.5-5.1) mmol/L BUN 68 H (7-17) mg/dL Creatinine 1.85 H (0.52-1.04) mg/dL Glucose 135 H (74-99) mg/dL POC Glucose (mg/dL) (75-99) mg/dL Calcium 8.1 L (8.4-10.2) mg/dL Assessment and Plan Assessment: Hyperkalemia Acute on chronic hypoxic respiratory failure Pulmonary fibrosis Likely pulmonary hypertension group 2 and 3 Ischemic cardiomyopathy with acute on chronic systolic heart failure Coronary artery disease acute on chronic renal failure Leukocytosis likely related to steroids recommend to start tapering it down, we'll decrease it to 20 mg daily Plan: Continue Imuran Continue prednisone Potassium level improved continue monitor closely Elevated hypertension being managed by renal services Continue gentle diuresis, monitor renal functions closely Continue bronchodilators Optimize therapy for severe congestive heart failure Stable pulmonary standpoint for discharge Time with Patient: Greater than 30
[2019-09-12] MEDS ORDERED: SODIUM POLYSTYRENE SULFONATE 15 GM/60 ML BOTTLE PO STA (11:17)
--- NOTE | 2019-09-12 12:08 | PN ---
PROGRESS NOTE Karmen is a 69-year-old lady that is admitted to hospital with acute exacerbation of chronic systolic heart failure and subsequently developed renal failure with Entresto. Entresto is on hold. She is getting aspirin, Lipitor and Lopressor. At the moment, we are still waiting for the renal functions to improve. Yesterday we were about to discharge her, but her creatinine was high. This morning the lab show that the potassium is 5.4, BUN is 68, creatinine is 1.8. On exam, comfortable at rest. Vital signs are stable. There are prominent venous pulses bilaterally. Chest exam reveals good air entry. There are no crackles or rhonchi. Heart exam reveals first and second heart sounds and systolic murmur at the left lower sternal border. Abdomen is soft. Exam of extremities reveals mild edema, peripheral pulses are felt. Labs show a potassium of 5.4, BUN is 68, creatinine is 1.8. ASSESSMENT: 1. Acute exacerbation of chronic systolic heart failure. 2. Acute renal failure. 3. Hyperkalemia. PLAN: We will hold off on DARVIN inhibitors and Aldactone. Continue rest of her medications. The patient can go home once Nephrology feels she is stable to go. MMODL / IJN: [id number] /
--- NOTE | 2019-09-12 12:25 | P.PN ---
Subjective Patient is seen in follow-up for chronic kidney disease. Patient is chronic kidney disease stage III with baseline creatinine in the range of 1.4-1.5. Renal function is stable. Blood pressure stable but remains on the lower side. No dizziness or passing out. Potassium level 5.4 this morning. Urine output is good. Vital signs are stable. General: The patient appeared well nourished and normally developed. HEENT: Head exam is unremarkable. Neck is without jugular venous distension. LUNGS: Lungs are clear to auscultation and percussion. Breath sounds decreased. HEART: Rate and Rhythm are regular. First and second heart sounds normal. No murmurs, rubs or gallops. ABDOMEN: Abdominal exam reveals normal bowel sounds. Non-tender and non- distended. No evidence of peritonitis. EXTREMITITES: Trace edema. Objective - Vital Signs Vital signs: Vital Signs Temp 97.8 F 09/12/19 08:00 Pulse 65 09/12/19 08:30 Resp 18 09/12/19 08:00 BP 110/51 09/12/19 08:00 Pulse Ox 97 09/12/19 08:00 Intake & Output 09/11/19 09/12/19 09/12/19 18:59 06:59 18:59 Intake Total 600 600 360 Output Total 700 Balance 600 -100 360 Weight 73.3 kg Intake: Oral 600 600 360 Output: Urine 700 Other: Voiding Method Toilet # Voids 1 2 - Labs CBC & Chem 7: 09/09/19 06:48 09/12/19 05:27 Labs: Abnormal Lab Results - Last 24 Hours (Table) 09/11/19 09/11/19 09/11/19 Range/Units 13:20 20:30 23:22 Sodium (137-145) mmol/L Potassium 5.9 H 5.7 H (3.5-5.1) mmol/L BUN (7-17) mg/dL Creatinine (0.52-1.04) mg/dL Glucose (74-99) mg/dL POC Glucose (mg/dL) 246 H (75-99) mg/dL Calcium (8.4-10.2) mg/dL 09/12/19 Range/Units 05:27 Sodium 133 L (137-145) mmol/L Potassium 5.4 H (3.5-5.1) mmol/L BUN 68 H (7-17) mg/dL Creatinine 1.85 H (0.52-1.04) mg/dL Glucose 135 H (74-99) mg/dL POC Glucose (mg/dL) (75-99) mg/dL Calcium 8.1 L (8.4-10.2) mg/dL Assessment and Plan Plan: Assessment: 1. Chronic kidney disease stage III with baseline creatinine 1.4-1.5 secondary to cardiorenal syndrome. 2. Acute on chronic systolic CHF with ejection fraction of 30-35% with moderate mitral regurgitation, moderate to severe tricuspid regurgitation and moderate pulmonary hypertension. 3. Volume overload. Better. 4. Right renal atrophy. Ultrasound from July 2019 revealed 10.9 cm left kidney and 7.9 cm right kidney. 5. Chronic kidney disease mineral bone disease maintained on calcitriol. 6. Pulmonary fibrosis. 7. Diabetes mellitus. 8. Acute kidney injury mostly prerenal secondary to diuresis. Renal function stable. 9. Hyperkalemia secondary to acute kidney injury and metabolic acidosis. Better. Plan: Add Lasix 20 mg orally once daily. Maintain midodrine 5 mg 3 times daily. Hold if systolic blood pressure greater than 110. Entresto has been discontinued. Avoid nephrotoxins. Continue to monitor renal function and urine output. Low potassium diet.
[2019-09-12] MEDS ORDERED: FUROSEMIDE 20 MG TAB PO SCH (12:30)
--- NOTE | 2019-09-12 23:30 | P.DS ---
Providers Date of admission: 09/06/19 16:30 Expected date of discharge: 09/12/19 Attending physician: Po Moss Consults: 09/06/19 16:31 Consult Physician Urgent Consulting Provider: Rai Vazquez Consult Reason/Comments: AECHF Do you want consulting provider notified?: Yes Consult Physician Urgent Consulting Provider: James Vazquez Consult Reason/Comments: acute/chronic resp insuff, pulm fibrosis Do you want consulting provider notified?: Yes 09/06/19 19:29 Consult Physician Routine Consulting Provider: Ari Fagan Consult Reason/Comments: renal failure, chf Do you want consulting provider notified?: Yes Primary care physician: Reji Otto [facility] Course: Hospital course: This is a pleasant 69-year-old patient of Dr. Otto. Chronic stable medical conditions include coronary artery disease, hypertension, GERD, hypothyroidism, severe secondary pulmonary hypertension, bilateral severe pulmonary fibrosis, cor pulmonale, chronic kidney disease. Patient in October of this year had a coronary artery bypass at [facility]. Patient was here in the hospital on August 25. Diagnosed with CHF exacerbation EF 30-35% and also found to have significant pulmonary fibrosis. No presented with shortness of breath. [place] to have CHF exacerbation. Starting IV Lasix. Patient was put on entresto-did drop her blood pressure. It was discontinued. Patient did go into acute renal failure.-Diuretics were held. Creatinine did go from 1.55-2.15 and the did come down to 1.85. Today-care was discussed the patient has been question were answered. Medications were discussed. Overall prognosis guarded. Kayexalate was given today. Patient advised on a low potassium diet. Discussion and discharge planning more than 35 minutes Consultants: Dr. Fagan from nephrology Dr. Washington from pulmonary Dr. Divya Katz from cardiology Physical examination: VITAL SIGNS: Recent 0.8, 63, 18, 110/51, 97% on 3 L GENERAL: Sitting up, at the edge of the bed EYES: Pupils equal. Conjunctiva normal. HEENT: External appearance of nose and ears normal, oral cavity grossly normal. NECK: JVD not raised; masses not palpable. HEART: First and second heart sounds are normal; minimal edema LUNGS: Respiratory rate increased,, decreased breath sounds, fine crackles ABDOMEN: Soft, nontender, liver spleen not palpable, no masses palpable. PSYCH: Alert and oriented x3; mood and affect slightly anxious MUSCULOSKELETAL: Evidence of OA specially in the hands INVESTIGATIONS, reviewed in the clinical context: Potassium 5.4, bun 68, creatinine 1.85 Previous testing Creatinine on 08/28/2019 was 1.57 2-D echocardiogram from December of this year shows EF of 30-35% some part of the 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, moderate mitral regurgitation, [id number] tricuspid regurgitation High resolution CT chest-diffuse pulmonary fibrosis Assessment: -Acute on chronic congestive heart failure exacerbation from systolic dysfunction EF 30-35% from underlying coronary artery disease, - bilateral severe pulmonary fibrosis -Acute on chronic cor pulmonale, from pulmonary fibrosis and CHF, POA, stabilized -Coronary artery disease with bypass in July 2018 -COPD in an ex-smoker -Mitral and tricuspid regurgitation nonrheumatic -Severe secondary pulmonary hypertension due to CHF/COPD -GERD -Essential hypertension -Hypothyroidism -Acute kidney injury a combination of ATN prerenal from diuresis and low blood pressure., Improved -Chronic kidney disease stage III from nephrosclerosis baseline creatinine 1.5 -Troponin leak secondary to CHF. No clinical evidence of acute coronary syndrome -Right renal atrophy -Hyperkalemia from renal failure., Improving Disposition: Home Patient Condition at Discharge: Stable Plan - Discharge Summary New Discharge Prescriptions: New Midodrine [ProAmatine] 5 mg PO AC-TID #60 tab Continue Atorvastatin [Lipitor] 40 mg PO DAILY Ipratropium-Albuterol Nebulize [Duoneb 0.5 mg-3 mg/3 ml Soln] 3 ml INHALATION RT-TID Metoprolol Tartrate [Lopressor] 25 mg PO BID Formoterol Fumarate [Perforomist] 20 mcg INHALATION RT-BID Budesonide [Pulmicort] 0.5 mg INHALATION RT-BID Temazepam 30 mg PO HS Levothyroxine Sodium [Levoxyl] 100 mcg PO DAILY Calcitriol [Rocaltrol] 0.25 mcg PO TUSA Allopurinol [Zyloprim] 100 mg PO BID Nitroglycerin Sl Tabs [Nitrostat] 0.4 mg SUBLINGUAL Q5M PRN PRN Reason: Chest Pain Aspirin 81 mg PO DAILY chew predniSONE 40 mg PO DAILY #60 tab azaTHIOprine [Imuran] 100 mg PO DAILY Famotidine [Pepcid] 40 mg PO DAILY Changed Furosemide [Lasix] 20 mg PO DAILY #0 Discontinued Spironolactone [Aldactone] 25 mg PO DAILY #30 tab Potassium Chloride ER [K-Dur 10] 10 meq PO BID Sulfamethox-Tmp 400-80Mg [Bactrim SS 400-80 mg] 1 tab PO DAILY Discharge Medication List Atorvastatin [Lipitor] 40 mg PO DAILY 09/22/18 [History] Ipratropium-Albuterol Nebulize [Duoneb 0.5 mg-3 mg/3 ml Soln] 3 ml INHALATION RT-TID 12/14/18 [History] Budesonide [Pulmicort] 0.5 mg INHALATION RT-BID 05/20/19 [History] Formoterol Fumarate [Perforomist] 20 mcg INHALATION RT-BID 05/20/19 [History] Metoprolol Tartrate [Lopressor] 25 mg PO BID 05/20/19 [History] Temazepam 30 mg PO HS 05/20/19 [History] Allopurinol [Zyloprim] 100 mg PO BID 08/25/19 [History] Calcitriol [Rocaltrol] 0.25 mcg PO TUSA 08/25/19 [History] Levothyroxine Sodium [Levoxyl] 100 mcg PO DAILY 08/25/19 [History] Nitroglycerin Sl Tabs [Nitrostat] 0.4 mg SUBLINGUAL Q5M PRN 08/25/19 [History] Aspirin 81 mg PO DAILY chew 08/28/19 [Rx] predniSONE 40 mg PO DAILY #60 tab 08/28/19 [Rx] Famotidine [Pepcid] 40 mg PO DAILY 09/06/19 [History] azaTHIOprine [Imuran] 100 mg PO DAILY 09/06/19 [History] Furosemide [Lasix] 20 mg PO DAILY #0 09/12/19 [Rx] Midodrine [ProAmatine] 5 mg PO AC-TID #60 tab 09/12/19 [Rx] Follow up Appointment(s)/Referral(s): Rai Vazquez MD [STAFF PHYSICIAN] - 09/21/19 2:30 pm [facility], [NON-STAFF] - Reji Otto DO [Primary Care Provider] - 1-2 days (Please make appointment when office is open) Jc Washington MD [STAFF PHYSICIAN] - 2 Weeks (Please make appointment when office is open) Ari Fagan DO [STAFF PHYSICIAN] - 3 Weeks (Please make appointment when office is open) Patient Instructions/Handouts: Pulmonary Edema (DC), Low-Sodium Diet (DC) Activity/Diet/Wound Care/Special Instructions: CHF 1. Weigh yourself every morning after you urinate. If you gain 2-3 pounds overnight or 5 pounds in one week, call your primary physician for guidance on your medications. Keep a log of your weights. 2. Avoid salt, or foods with hidden salt. Extra salt makes your heart work harder and traps the fluid in your body for longer. 3. Take all of your medications as directed, especially your water pills. NEVER skip a dose. 4. Elevate your legs when you are not up moving around to help with circulation and prevent swelling. 5. Call your physician if you notice any extra swelling in your legs, ankles, feet or abdomen, if you have a new dry cough, if your shortness of breath worsens with activity or at rest, or if you feel more fatigued. bmp - 3 days Discharge Disposition: HOME SELF-CARE
[2019-09-13] MEDS ORDERED: FAMOTIDINE 20 MG TAB PO SCH (09:00)
== END 2019-09-12 14:00 | disposition home or self-care (01) | DRG 291 ==
LOC: EC 13:52 → 3SCARD 16:30
PROVIDERS: ADMIT Hospitalist; ATTEND Hospitalist
DX: I13.0 Hypertensive heart and chronic kidney disease with heart failure and stage 1 through stage 4 chronic kidney disease, or unspecified chronic kidney disease (principal); I50.23 Acute on chronic systolic (congestive) heart failure; I26.09 Other pulmonary embolism with acute cor pulmonale; J96.21 Acute and chronic respiratory failure with hypoxia; N17.0 Acute kidney failure with tubular necrosis; E87.1 Hypo-osmolality and hyponatremia; E87.2 Acidosis; I25.10 Atherosclerotic heart disease of native coronary artery without angina pectoris; D63.8 Anemia in other chronic diseases classified elsewhere; D72.829 Elevated white blood cell count, unspecified; E03.9 Hypothyroidism, unspecified; E11.22 Type 2 diabetes mellitus with diabetic chronic kidney disease; E78.5 Hyperlipidemia, unspecified; E87.5 Hyperkalemia; I08.1 Rheumatic disorders of both mitral and tricuspid valves; I25.2 Old myocardial infarction; I25.5 Ischemic cardiomyopathy; I27.22 Pulmonary hypertension due to left heart disease; I27.23 Pulmonary hypertension due to lung diseases and hypoxia; J44.9 Chronic obstructive pulmonary disease, unspecified; J84.10 Pulmonary fibrosis, unspecified; K21.9 Gastro-esophageal reflux disease without esophagitis; N25.0 Renal osteodystrophy; N18.3 Chronic kidney disease, stage 3 (moderate); T38.0X5A Adverse effect of glucocorticoids and synthetic analogues, initial encounter; T50.2X5A Adverse effect of carbonic-anhydrase inhibitors, benzothiadiazides and other diuretics, initial encounter; Z79.82 Long term (current) use of aspirin; Z79.890 Hormone replacement therapy; Z79.899 Other long term (current) drug therapy; Z82.49 Family history of ischemic heart disease and other diseases of the circulatory system; Z82.5 Family history of asthma and other chronic lower respiratory diseases; Z86.73 Personal history of transient ischemic attack (TIA), and cerebral infarction without residual deficits; Z87.891 Personal history of nicotine dependence; Z90.49 Acquired absence of other specified parts of digestive tract; Z90.710 Acquired absence of both cervix and uterus; Z95.1 Presence of aortocoronary bypass graft; Z95.810 Presence of automatic (implantable) cardiac defibrillator; Z99.81 Dependence on supplemental oxygen; Z79.52 Long term (current) use of systemic steroids; Z88.8 Allergy status to other drugs, medicaments and biological substances; Z96.653 Presence of artificial knee joint, bilateral; Z88.5 Allergy status to narcotic agent; T44.5X5A Adverse effect of predominantly beta-adrenoreceptor agonists, initial encounter
CPT/HCPCS: 36415; 71046; 80048; 80053; 81001; 83735; 83880; 84132; 84484; 85025; 85610; 85730; 93005; 94640; 94760; 96374; 99285

== ENCOUNTER 2019-09-18 12:20 | Inpatient (IN) | payer MEDICARE, OTHER ==
[2019-09-18] MEDS ORDERED: IPRATROPIUM-ALBUTEROL 3 ML NEB INHALATION STA (13:27)
--- NOTE | 2019-09-18 13:34 | ED ---
SOB HPI - General Chief Complaint: Shortness of Breath Stated Complaint: difficulty breathing Time Seen by Provider: 09/18/19 13:26 Source: patient, family, RN notes reviewed, old records reviewed Mode of arrival: wheelchair Limitations: no limitations - History of Present Illness Initial Comments: This is a 69-year-old female here for evaluation, patient has multiple complaints of lower extremity edema shortness of breath cough and congestion chronic cough which she cannot get rid of, history of COPD history of CHF recent hospital admission with discharge her month ago symptoms and worsening over the past week. Denying any pain currently no fevers. Currently not on any water pills relates MD Complaint: shortness of breath, cough -: days(s) Radiation: other (BL LE edema) Severity: mild Severity scale (1-10): 3 Quality: other (cough and SOB) Consistency: constant Improves With: nothing Worsens With: exertion, movement, coughing Known History Of: COPD, congestive heart failure Context: recent URI Associated Symptoms: chest pain, cough, sputum production Treatments Prior to Arrival: none - Related Data Home Medications Medication Instructions Recorded Confirmed Atorvastatin [Lipitor] 40 mg PO DAILY 09/22/18 09/06/19 Ipratropium-Albuterol Nebulize 3 ml INHALATION RT-TID 12/14/18 09/06/19 [Duoneb 0.5 mg-3 mg/3 ml Soln] Budesonide [Pulmicort] 0.5 mg INHALATION RT-BID 05/20/19 09/06/19 Formoterol Fumarate [Perforomist] 20 mcg INHALATION RT-BID 05/20/19 09/06/19 Metoprolol Tartrate [Lopressor] 25 mg PO BID 05/20/19 09/06/19 Temazepam 30 mg PO HS 05/20/19 09/06/19 Allopurinol [Zyloprim] 100 mg PO BID 08/25/19 09/06/19 Calcitriol [Rocaltrol] 0.25 mcg PO TUSA 08/25/19 09/06/19 Levothyroxine Sodium [Levoxyl] 100 mcg PO DAILY 08/25/19 09/06/19 Nitroglycerin Sl Tabs [Nitrostat] 0.4 mg SUBLINGUAL Q5M PRN 08/25/19 09/06/19 Famotidine [Pepcid] 40 mg PO DAILY 09/06/19 09/06/19 azaTHIOprine [Imuran] 100 mg PO DAILY 09/06/19 09/06/19 Previous Rx's Medication Instructions Recorded Aspirin 81 mg PO DAILY chew 08/28/19 predniSONE 40 mg PO DAILY #60 tab 08/28/19 Furosemide [Lasix] 20 mg PO DAILY #0 09/12/19 Midodrine [ProAmatine] 5 mg PO AC-TID #60 tab 09/12/19 Allergies Allergy/AdvReac Type Severity Reaction Status Date / Time adhesive tape Allergy Rash/Hives Verified 09/18/19 12:32 hydrocodone [From Lortab] Allergy Itching Verified 09/18/19 12:32 Review of Systems ROS Statement: Those systems with pertinent positive or pertinent negative responses have been documented in the HPI. ROS Other: All systems not noted in ROS Statement are negative. Past Medical History Past Medical History: Coronary Artery Disease (CAD), Heart Failure, COPD, CVA/TIA, GERD/Reflux, Hypertension, Myocardial Infarction (PA), Pneumonia, Thyroid Disorder Additional Past Medical History / Comment(s): difficulty getting to sleep. Last Myocardial Infarction Date:: History of Any Multi-Drug Resistant Organisms: None Reported Past Surgical History: Appendectomy, Section, Coronary Bypass/CABG, Hysterectomy, Joint Replacement, Orthopedic Surgery, Pacemaker, Tubal Ligation Additional Past Surgical History / Comment(s): had cabg in jul 2018 at [facility], rt hip replacment, anahy knee replacment, carpal tunnel,rt ankle arthroscopy, total hysterectomy, "anahy elbow sx d/t tennis elbow" Past Anesthesia/Blood Transfusion Reactions: No Reported Reaction Additional Past Anesthesia/Blood Transfusion Reaction / Comment(s): "never received blood transfusion" Type of Cardiac Device: AICD Device Placement Date:: 11/2018 Past Psychological History: Depression Smoking Status: Former smoker Past Alcohol Use History: None Reported Past Drug Use History: None Reported - Past Family History Mother Family Medical History: COPD Additional Family Medical History / Comment(s): emphysema Father Family Medical History: Coronary Artery Disease (CAD) Additional Family Medical History / Comment(s): 2 vessel cabg at age 57 General Exam Limitations: no limitations Course Vital Signs 09/18/19 09/18/19 09/18/19 12:32 13:56 14:12 Temperature 97.9 F Pulse Rate 62 60 60 Respiratory 18 Rate Blood Pressure 130/64 O2 Sat by Pulse 96 Oximetry Medical Decision Making - Medical Decision Making 69 female here for evaluation patient closely for evaluation regards to shortness of breath CHF complicated with COPD. Patient be admitted for ev aluation. Treatment steroids and diuresis - Lab Data Result diagrams: 09/18/19 13:39 09/18/19 13:39 Lab Results 09/18/19 09/18/19 09/18/19 Range/Units 13:39 13:39 13:39 WBC 7.2 (3.8-10.6) k/uL RBC 3.28 L (3.80-5.40) m/uL Hgb 10.0 L (11.4-16.0) gm/dL Hct 30.6 L (34.0-46.0) % MCV 93.3 (80.0-100.0) fL MCH 30.6 (25.0-35.0) pg MCHC 32.8 (31.0-37.0) g/dL RDW 19.8 H (11.5-15.5) % Plt Count 147 L (150-450) k/uL Neutrophils % 82 % Lymphocytes % 12 % Monocytes % 3 % Eosinophils % 3 % Basophils % 0 % Neutrophils # 5.9 (1.3-7.7) k/uL Lymphocytes # 0.8 L (1.0-4.8) k/uL Monocytes # 0.2 (0-1.0) k/uL Eosinophils # 0.2 (0-0.7) k/uL Basophils # 0.0 (0-0.2) k/uL Anisocytosis Slight Macrocytosis Slight PT (9.0-12.0) sec INR (<1.2) APTT (22.0-30.0) sec Sodium 136 L (137-145) mmol/L Potassium 2.9 L (3.5-5.1) mmol/L Chloride 99 (98-107) mmol/L Carbon Dioxide 29 (22-30) mmol/L Anion Gap 8 mmol/L BUN 38 H (7-17) mg/dL Creatinine 1.25 H (0.52-1.04) mg/dL Est GFR (CKD-EPI)AfAm 51 (>60 ml/min/1.73 sqM) Est GFR (CKD-EPI)NonAf 44 (>60 ml/min/1.73 sqM) Glucose 93 (74-99) mg/dL Calcium 9.2 (8.4-10.2) mg/dL Magnesium 2.2 (1.6-2.3) mg/dL Total Bilirubin 2.4 H (0.2-1.3) mg/dL AST 37 H (14-36) U/L ALT 57 H (9-52) U/L Alkaline Phosphatase 165 H (38-126) U/L Troponin I (0.000-0.034) ng/mL NT-Pro-B Natriuret Pep 73202 pg/mL Total Protein 6.6 (6.3-8.2) g/dL Albumin 3.6 (3.5-5.0) g/dL 09/18/19 09/18/19 Range/Units 13:39 13:39 WBC (3.8-10.6) k/uL RBC (3.80-5.40) m/uL Hgb (11.4-16.0) gm/dL Hct (34.0-46.0) % MCV (80.0-100.0) fL MCH (25.0-35.0) pg MCHC (31.0-37.0) g/dL RDW (11.5-15.5) % Plt Count (150-450) k/uL Neutrophils % % Lymphocytes % % Monocytes % % Eosinophils % % Basophils % % Neutrophils # (1.3-7.7) k/uL Lymphocytes # (1.0-4.8) k/uL Monocytes # (0-1.0) k/uL Eosinophils # (0-0.7) k/uL Basophils # (0-0.2) k/uL Anisocytosis Macrocytosis PT 10.2 (9.0-12.0) sec INR 0.9 (<1.2) APTT 23.5 (22.0-30.0) sec Sodium (137-145) mmol/L Potassium (3.5-5.1) mmol/L Chloride (98-107) mmol/L Carbon Dioxide (22-30) mmol/L Anion Gap mmol/L BUN (7-17) mg/dL Creatinine (0.52-1.04) mg/dL Est GFR (CKD-EPI)AfAm (>60 ml/min/1.73 sqM) Est GFR (CKD-EPI)NonAf (>60 ml/min/1.73 sqM) Glucose (74-99) mg/dL Calcium (8.4-10.2) mg/dL Magnesium (1.6-2.3) mg/dL Total Bilirubin (0.2-1.3) mg/dL AST (14-36) U/L ALT (9-52) U/L Alkaline Phosphatase (38-126) U/L Troponin I 0.058 H* (0.000-0.034) ng/mL NT-Pro-B Natriuret Pep pg/mL Total Protein (6.3-8.2) g/dL Albumin (3.5-5.0) g/dL - EKG Data -: EKG Interpreted by Me (EKG shows paced rhythm of 60, WA 112, QRS 420) - Radiology Data Radiology results: report reviewed (CHest x-ray showing some streaky atelectasis), image reviewed Disposition Clinical Impression: Acute pulmonary edema, COPD (chronic obstructive pulmonary disease), Acute exacerbation of chronic obstructive airways disease Disposition: ADMITTED IP TO THIS HOSP Condition: Good Is patient prescribed a controlled substance at d/c from ED?: No Referrals: Reji Otto DO [Primary Care Provider] - 1-2 days
[2019-09-18 14:02] LABS: Anisocytosis Slight; Basophils % (A) 0 %; Eosinophils # (A) 0.2 k/uL (0-0.7); Eosinophils % (A) 3 %; HCT 30.6 % (34.0-46.0); Lymphocytes # (A) 0.8 k/uL (1.0-4.8); Lymphocytes % (A) 12 %; MCH 30.6 pg (25.0-35.0); MCHC 32.8 g/dL (31.0-37.0); MCV 93.3 fL (80.0-100.0); Macrocytosis Slight; Monocytes # (A) 0.2 k/uL (0-1.0); Monocytes % (A) 3 %; Neutrophils # (A) 5.9 k/uL (1.3-7.7); Neutrophils % (A) 82 %; Platelet Count 147 k/uL (150-450); RBC 3.28 m/uL (3.80-5.40); RDW 19.8 % (11.5-15.5); WBC 7.2 k/uL (3.8-10.6)
[2019-09-18 14:11] LABS: Albumin 3.6 g/dL (3.5-5.0); Calcium 9.2 mg/dL (8.4-10.2); Magnesium 2.2 mg/dL (1.6-2.3); Potassium 2.9 mmol/L (3.5-5.1); Total Bilirubin 2.4 mg/dL (0.2-1.3); Total Protein 6.6 g/dL (6.3-8.2)
--- NOTE | 2019-09-18 14:17 | XR ---
EXAMINATION TYPE: XR chest 2V DATE OF EXAM: 09/18/2019 COMPARISON: Chest radiograph 11/06/2018 HISTORY: Difficulty in breathing, history pulmonary fibrosis TECHNIQUE: Frontal and lateral views of the chest are obtained. FINDINGS: Cardiac silhouette is enlarged, unchanged. Dual lead cardiac AICD with power pack overlyin g the left chest wall. Sternotomy change is present. No pulmonary vascular congestion. No focal airsp bassam consolidation. Streak-like opacities within the mid and lower lungs bilaterally, favor atelectasi s. No pleural effusion or pneumothorax. Diffuse osseous demineralization. IMPRESSION: Streak-like mid and lower lung opacities favoring atelectasis.
[2019-09-18 14:18] LABS: INR 0.9 (<1.2); Partial Thromboplastin Time 23.5 sec (22.0-30.0); Prothrombin Time 10.2 sec (9.0-12.0)
[2019-09-18] MEDS ORDERED: methylPREDNISolone SOD SUCCI 125 MG/2 ML VIAL IV STA (14:52)
[2019-09-18] MEDS ORDERED: SODIUM CHLORIDE 0.9% 1,000 ML IV SCH (15:00)
[2019-09-18] MEDS: ALBUTEROL NEBULIZED 2.5 MG/3 ML INHALATION SCH ×2 (15:41→19:55)
[2019-09-18] MEDS: FUROSEMIDE 10 MG/ML 4 ML VIAL IV SCH ×2 (16:00→23:26)
[2019-09-18] MEDS ORDERED: POTASSIUM CHLORIDE 20 MEQ in WATER FOR INJECTION 1 100ML.BAG IVPB STA (17:36)
[2019-09-18] MEDS ORDERED: POTASSIUM BICARBONATE/CIT AC 20 MEQ TABLET.EFF PO ONE (17:36)
[2019-09-18] MEDS: ALLOPURINOL 100 MG TAB PO SCH (22:10)
[2019-09-18] MEDS: METOPROLOL TARTRATE 25 MG TAB PO SCH (22:10)
[2019-09-18] MEDS: methylPREDNISolone SOD SUCCI 125 MG/2 ML VIAL IV SCH (23:26)
[2019-09-19 06:14] LABS: Glucose,Whole Blood 221 mg/dL (75-99)
[2019-09-19] MEDS: INSULIN ASPART (NovoLOG) 100 UNIT/ML VIAL SQ SCH ×4 (06:43→21:51)
[2019-09-19] MEDS: methylPREDNISolone SOD SUCCI 125 MG/2 ML VIAL IV SCH ×4 (06:44→23:05)
[2019-09-19] MEDS: MIDODRINE 5 MG TAB PO SCH ×3 (06:47→16:08)
[2019-09-19] MEDS ORDERED: Potassium Replacement Protocol 1 EACH MISC MISCELLANE PRN (07:05)
[2019-09-19] MEDS: FUROSEMIDE 10 MG/ML 4 ML VIAL IV SCH ×3 (08:34→23:04)
[2019-09-19] MEDS: METOPROLOL TARTRATE 25 MG TAB PO SCH ×2 (08:34→21:51)
[2019-09-19] MEDS: ALLOPURINOL 100 MG TAB PO SCH ×2 (08:34→21:51)
[2019-09-19] MEDS: POTASSIUM CHLORIDE ER 20 MEQ TAB.ER PO SCH ×3 (08:34→23:05)
[2019-09-19] MEDS: BUDESONIDE 0.5 MG/2 ML NEBU INHALATION SCH ×2 (08:43→20:41)
[2019-09-19] MEDS: FORMOTEROL FUMARATE 20 MCG/2 ML NEBU INHALATION SCH ×2 (08:43→20:41)
[2019-09-19] MEDS: ALBUTEROL NEBULIZED 2.5 MG/3 ML INHALATION SCH ×4 (08:43→20:41)
--- NOTE | 2019-09-19 12:03 | P.CRDCN ---
History of Present Illness Consult date: 09/19/19 Requesting physician: Perfecto Mcgovern Reason for Consult (text): CHF Chief complaint: worsening shortness of breath, LE edema History of present illness: This is a pleasant 69-year-old male patient who follows with Dr. RAOUL Vazquez in the office. She has a prior history of CAD with bypass surgery in 2018, ischemic cardiomyopathy with most recent echocardiogram showing ejection fraction of 30- 35%, moderate mitral regurgitation and moderate to severe tricuspid regurgitation, pulmonary hypertension, hypertension, hyperlipidemia, pulmonary fibrosis, prior AICD placement implantation last year, COPD, renal insufficiency and hypothyroidism. She's had multiple hospitalizations recently and was just recently discharged on the first of this month. During her last admission, she developed acute kidney injury and her Aldactone and DARVIN inhibitor were old. We did trial Entresto at that time but she was not able to tolerate it due to hypotension and worsening renal failure. Presents this admission with progressively worsening dyspnea on exertion, orthopnea and lower extremity edema. She's apparently been eating a lot of soup from restaurants. She has been on oral Lasix and metolazone at home. Labs on admission showed sodium 136, potassium 2.9 which is being supplemented, BUN 38, creatinine 1.25, elevated AST and ALTs and alkaline phosphatase, troponin 0.058 and NT proBNP of 28,600 which is higher than previous admission. She has Been initiated on IV Lasix. Vital signs are stable. Upon examination, patient's resting comfortable with head of bed up. She continues to complain of orthopnea. She feels her edema may be slightly better and she is breathing a bit better. Past Medical History Past Medical History: Coronary Artery Disease (CAD), Heart Failure, COPD, CVA/TIA, GERD/Reflux, Hypertension, Myocardial Infarction ([place]), Pneumonia, Thyroid Disorder Additional Past Medical History / Comment(s): difficulty getting to sleep. Last Myocardial Infarction Date:: History of Any Multi-Drug Resistant Organisms: None Reported Past Surgical History: Appendectomy, Section, Coronary Bypass/CABG, Hysterectomy, Joint Replacement, Orthopedic Surgery, Pacemaker, Tubal Ligation Additional Past Surgical History / Comment(s): had cabg in jul 2018 at [facility], rt hip replacment, anahy knee replacment, carpal tunnel,rt ankle arthroscopy, total hysterectomy, "anahy elbow sx d/t tennis elbow" Past Anesthesia/Blood Transfusion Reactions: No Reported Reaction Additional Past Anesthesia/Blood Transfusion Reaction / Comment(s): "never received blood transfusion" Type of Cardiac Device: AICD Device Placement Date:: 11/2018 Past Psychological History: Depression Additional Psychological History / Comment(s): mild depression since cabg 2017 Smoking Status: Former smoker Past Alcohol Use History: None Reported Additional Past Alcohol Use History / Comment(s): started smoking age 13 and quit smoked 6-7 cig per day Past Drug Use History: None Reported - Past Family History Mother Family Medical History: COPD Additional Family Medical History / Comment(s): emphysema Father Family Medical History: Coronary Artery Disease (CAD) Additional Family Medical History / Comment(s): 2 vessel cabg at age 57 Medications and Allergies Home Medications Medication Instructions Recorded Confirmed Type Atorvastatin [Lipitor] 40 mg PO DAILY 09/22/18 09/18/19 History Ipratropium-Albuterol Nebulize 3 ml INHALATION RT-TID 12/14/18 09/18/19 History [Duoneb 0.5 mg-3 mg/3 ml Soln] Budesonide [Pulmicort] 0.5 mg INHALATION RT-BID 05/20/19 09/18/19 History Formoterol Fumarate [Perforomist] 20 mcg INHALATION RT-BID 05/20/19 09/18/19 History Metoprolol Tartrate [Lopressor] 25 mg PO BID 05/20/19 09/18/19 History Temazepam 30 mg PO HS 05/20/19 09/18/19 History Allopurinol [Zyloprim] 100 mg PO BID 08/25/19 09/18/19 History Calcitriol [Rocaltrol] 0.25 mcg PO TUSA 08/25/19 09/18/19 History Levothyroxine Sodium [Levoxyl] 100 mcg PO BID 08/25/19 09/18/19 History Nitroglycerin Sl Tabs [Nitrostat] 0.4 mg SUBLINGUAL Q5M PRN 08/25/19 09/18/19 H istory Aspirin 81 mg PO DAILY chew 08/28/19 09/18/19 Rx Famotidine [Pepcid] 40 mg PO DAILY 09/06/19 09/18/19 History azaTHIOprine [Imuran] 100 mg PO DAILY 09/06/19 09/18/19 History Midodrine [ProAmatine] 5 mg PO AC-TID #60 tab 09/12/19 09/18/19 Rx Alendronate Sodium [Fosamax] 70 mg PO Q7D 09/18/19 09/18/19 History Metolazone [Zaroxolyn] 2.5 mg PO DAILY 09/18/19 09/18/19 History Potassium Chloride ER [K-Dur 20] 20 meq PO BID 09/18/19 09/18/19 History Sulfamethox-Tmp 400-80Mg [Bactrim 1 tab PO DAILY 09/18/19 09/18/19 History SS 400-80 mg] predniSONE 20 mg PO DAILY 09/18/19 09/18/19 History Allergies Allergy/AdvReac Type Severity Reaction Status Date / Time adhesive tape Allergy Rash/Hives Verified 09/18/19 16:51 hydrocodone [From Lortab] Allergy Itching Verified 09/18/19 16:51 Physical Exam Vitals: Vital Signs Temp Pulse Pulse Resp BP BP Pulse Ox 09/19/19 11:18 16 09/19/19 09:10 76 09/19/19 08:54 72 09/19/19 08:53 72 09/19/19 08:43 68 09/19/19 08:00 96.2 F L 59 L 16 111/59 95 09/19/19 04:00 98.0 F 66 22 121/56 95 09/19/19 00:00 97.9 F 60 20 113/53 96 09/18/19 20:05 64 16 09/18/19 20:00 97.9 F 67 24 122/58 96 09/18/19 19:56 66 16 98 09/18/19 18:38 97.6 F 71 16 147/67 97 09/18/19 17:00 97.8 F 63 18 128/64 98 09/18/19 16:00 60 18 125/61 100 09/18/19 15:49 63 18 09/18/19 15:41 61 18 09/18/19 14:12 60 09/18/19 13:56 60 09/18/19 12:32 97.9 F 62 18 130/64 96 Intake and Output 09/18/19 09/19/19 09/19/19 22:59 06:59 14:59 Intake Total 237 577 Output Total 400 Balance -163 577 Intake: Intake, IV Titration 100 Amount Potassium Chloride 20 meq 100 In Water For Injection 1 100ml.bag @ 50 mls/hr IVPB ONCE STA Rx#: [id number] Oral 237 477 Output: Urine 400 Other: Voiding Method Toilet Toilet Toilet Weight 66.224 kg 69.2 kg PHYSICAL EXAMINATION: HEENT: Head is atraumatic, normocephalic. Pupils equal, round. Neck is supple. There is elevated jugular venous pressure. HEART EXAMINATION: Heart sounds regular, S1 and S2 with a systolic murmur. CHEST EXAMINATION: Lungs reveal crackles and Wheezing throughout. No chest wall tenderness is noted on palpation or with deep breathing. ABDOMEN: Soft, nontender. Bowel sounds are heard. No organomegaly noted. EXTREMITIES:1+ peripheral pulses with evidence of moderate peripheral edema and no calf tenderness noted. NEUROLOGIC patient is awake, alert and oriented x3. . Results 09/18/19 13:39 09/19/19 05:42 Cardiac Enzymes 09/18/19 09/18/19 Range/Units 13:39 13:39 AST 37 H (14-36) U/L Troponin I 0.058 H* (0.000-0.034) ng/mL Coagulation 09/18/19 Range/Units 13:39 PT 10.2 (9.0-12.0) sec APTT 23.5 (22.0-30.0) sec CBC 09/18/19 Range/Units 13:39 WBC 7.2 (3.8-10.6) k/uL RBC 3.28 L (3.80-5.40) m/uL Hgb 10.0 L (11.4-16.0) gm/dL Hct 30.6 L (34.0-46.0) % Plt Count 147 L (150-450) k/uL Comprehensive Metabolic Panel 09/18/19 09/19/19 Range/Units 13:39 05:42 Sodium 136 L (137-145) mmol/L Potassium 2.9 L 3.0 L (3.5-5.1) mmol/L Chloride 99 (98-107) mmol/L Carbon Dioxide 29 (22-30) mmol/L BUN 38 H (7-17) mg/dL Creatinine 1.25 H (0.52-1.04) mg/dL Glucose 93 (74-99) mg/dL Calcium 9.2 (8.4-10.2) mg/dL AST 37 H (14-36) U/L ALT 57 H (9-52) U/L Alkaline Phosphatase 165 H (38-126) U/L Total Protein 6.6 (6.3-8.2) g/dL Albumin 3.6 (3.5-5.0) g/dL Current Medications Generic Name Dose Route Start Last Admin Trade Name Freq PRN Reason Stop Dose Admin Albuterol Sulfate 2.5 mg 09/18/19 16:00 09/19/19 08:43 Ventolin Nebulized INHALATION 2.5 mg RT-QID THU Administration Albuterol/Ipratropium 3 ml 09/18/19 14:52 Duoneb 0.5 Mg-3 Mg/3 Ml Soln INHALATION RT-Q4H PRN Shortness Of Breath Or Wheezing Allopurinol 100 mg 09/18/19 21:30 09/19/19 08:34 Zyloprim PO 100 mg BID THU Administration Budesonide 0.5 mg 09/19/19 08:00 09/19/19 08:43 Pulmicort INHALATION 0.5 mg RT-BID THU Administration Formoterol Fumarate 20 mcg 09/19/19 08:00 09/19/19 08:43 Perforomist INHALATION 20 mcg RT-BID THU Administration Furosemide 40 mg 09/18/19 16:00 09/19/19 08:34 Lasix IV 40 mg Q8H THU Administration Insulin Aspart 0 unit 09/19/19 07:30 09/19/19 06:43 Novolog SQ 7 unit ACHS THU Administration Protocol Lisinopril 2.5 mg 09/19/19 12:00 Zestril PO DAILY THU Methylprednisolone Sodium Succinate 60 mg 09/19/19 00:00 09/19/19 06:44 Solu-Medrol IV 60 mg Q6HR THU Administration Metoprolol Tartrate 25 mg 09/18/19 21:30 09/19/19 08:34 Lopressor PO 25 mg BID THU Administration Midodrine 5 mg 09/19/19 07:30 09/19/19 06:47 Proamatine PO 5 mg AC-TID THU Administration Miscellaneous Information 1 each 09/19/19 07:05 Potassium Per Protocol MISCELLANE DAILY PRN Per Protocol Protocol Spironolactone 12.5 mg 09/19/19 12:00 Aldactone PO DAILY THU Intake and Output 09/18/19 09/19/19 09/19/19 22:59 06:59 14:59 Intake Total 237 577 Output Total 400 Balance -163 577 Intake: Intake, IV Titration 100 Amount Potassium Chloride 20 meq 100 In Water For Injection 1 100ml.bag @ 50 mls/hr IVPB ONCE STA Rx#: [id number] Oral 237 477 Output: Urine 400 Other: Voiding Method Toilet Toilet Toilet Weight 66.224 kg 69.2 kg 09/18/19 13:39 09/19/19 05:42 Assessment and Plan Assessment: #1 acute on chronic combined systolic and diastolic congestive heart failure #2 ischemic cardiomyopathy #3 pulmonary fibrosis #4 COPD with pulmonary hypertension #5 chronic renal failure Plan: From cardiology's perspective, we will initiate low-dose DARVIN inhibitor and Aldactone and monitor the renal function and blood pressure closely. We will av francescomica Delcid as she did not tolerate this during her previous admission. I had a long discussion with the patient and family at bedside regarding the importance of following a very low sodium diet. Continue IV Lasix. Monitor renal function, electrolytes, daily weights as well as intake and output. Further recommendations to follow. NEWSPERSON note has been reviewed, I agree with a documented findings and plan of care. Patient was seen and examined.
[2019-09-19 12:11] LABS: Glucose,Whole Blood 188 mg/dL (75-99)
[2019-09-19] MEDS: SPIRONOLACTONE 25 MG TAB PO SCH (12:44)
[2019-09-19] MEDS: LISINOPRIL 2.5 MG TAB PO SCH (12:44)
--- NOTE | 2019-09-19 15:39 | P.HPIM ---
History of Present Illness H&P Date: 09/19/19 Chief Complaint: Shortness of breath Ms. Narayanan is a 69-year-old female with a past medical history of congestive heart failure EF 30-35% , COPD, coronary artery disease, moderate mitral regurgitation, pulmonary hypertension, hyperlipidemia, pulmonary fibrosis, AICD placement last year, hypothyroidism admitted with the chief complaint of difficulty in breathing. Patient was recently discharged from the hospital after being treated for for CHF exacerbation couple of weeks back. Patient complains of cough that is productive in nature with white phlegm for the past couple of days associated with difficulty in breathing. She has been complaining of swelling of her bilateral lower extremities as well. Patient was having orthopnea and dyspnea on exertion. Patient denies having any fevers chills or rigors. No nausea, vomiting or diarrhea. No abdominal pain or consti pation. Patient denies having any recent travel. No sick contacts. In the emergency the patient had labs done showing sodium of 136, potassium 2.9, slightly elevated AST and alkaline phosphatase. Troponin is 0.058 and BNP of 28,600. Patient had a chest x-ray showing mild mid and lower lobe atelectasis. EKG with no new changes. Review of Systems REVIEW OF SYSTEMS: PSYCH: No anxiety or depression NEURO:No c/o weakness of the extremties, No facial droop, No speech abnormalities. VASCULAR: Increased swelling of lower extremities HEMATOLOGIC: No history of easy bleeding and bruising . No recent infections . RESPIRATORY: Mild cough with whitish sputum production. IMMUNE: No infections INTEGUMENT: no rashes OPHTHALMOLOGIC: No blurry vision and no eye discharge : No dysuria or hematuria WAITSTAFF: No bleeding PV CARDIAC: As per HPI MUSCULOSKELETAL : No Aches or pains in the joints or muscles. GI: No abdominal pain, Nausea or vomiting. No constipation or diarrhea. 13 review of systems are negative except for the ones mentioned above. Past Medical History Past Medical History: Coronary Artery Disease (CAD), Heart Failure, COPD, CVA/TIA, GERD/Reflux, Hypertension, Myocardial Infarction ([place]), Pneumonia, Thyroid Disorder Additional Past Medical History / Comment(s): difficulty getting to sleep. Last Myocardial Infarction Date:: History of Any Multi-Drug Resistant Organisms: None Reported Past Surgical History: Appendectomy, Section, Coronary Bypass/CABG, Hysterectomy, Joint Replacement, Orthopedic Surgery, Pacemaker, Tubal Ligation Additional Past Surgical History / Comment(s): had cabg in jul 2018 at [facility], rt hip replacment, anahy knee replacment, carpal tunnel,rt ankle arthroscopy, total hysterectomy, "anahy elbow sx d/t tennis elbow" Past Anesthesia/Blood Transfusion Reactions: No Reported Reaction Additional Past Anesthesia/Blood Transfusion Reaction / Comment(s): "never received blood transfusion" Type of Cardiac Device: AICD Device Placement Date:: 11/2018 Past Psychological History: Depression Additional Psychological History / Comment(s): mild depression since cabg 2017 Smoking Status: Former smoker Past Alcohol Use History: None Reported Additional Past Alcohol Use History / Comment(s): started smoking age 13 and quit smoked 6-7 cig per day Past Drug Use History: None Reported - Past Family History Mother Family Medical History: COPD Additional Family Medical History / Comment(s): emphysema Father Family Medical History: Coronary Artery Disease (CAD) Additional Family Medical History / Comment(s): 2 vessel cabg at age 57 Medications and Allergies Home Medications Medication Instructions Recorded Confirmed Type Atorvastatin [Lipitor] 40 mg PO DAILY 09/22/18 09/18/19 History Ipratropium-Albuterol Nebulize 3 ml INHALATION RT-TID 12/14/18 09/18/19 History [Duoneb 0.5 mg-3 mg/3 ml Soln] Budesonide [Pulmicort] 0.5 mg INHALATION RT-BID 05/20/19 09/18/19 History Formoterol Fumarate [Perforomist] 20 mcg INHALATION RT-BID 05/20/19 09/18/19 History Metoprolol Tartrate [Lopressor] 25 mg PO BID 05/20/19 09/18/19 History Temazepam 30 mg PO HS 05/20/19 09/18/19 History Allopurinol [Zyloprim] 100 mg PO BID 08/25/19 09/18/19 History Calcitriol [Rocaltrol] 0.25 mcg PO TUSA 08/25/19 09/18/19 History Levothyroxine Sodium [Levoxyl] 100 mcg PO BID 08/25/19 09/18/19 History Nitroglycerin Sl Tabs [Nitrostat] 0.4 mg SUBLINGUAL Q5M PRN 08/25/19 09/18/19 History Aspirin 81 mg PO DAILY chew 08/28/19 09/18/19 Rx Famotidine [Pepcid] 40 mg PO DAILY 09/06/19 09/18/19 History azaTHIOprine [Imuran] 100 mg PO DAILY 09/06/19 09/18/19 History Midodrine [ProAmatine] 5 mg PO AC-TID #60 tab 09/12/19 09/18/19 Rx Alendronate Sodium [Fosamax] 70 mg PO Q7D 09/18/19 09/18/19 History Metolazone [Zaroxolyn] 2.5 mg PO DAILY 09/18/19 09/18/19 History Potassium Chloride ER [K-Dur 20] 20 meq PO BID 09/18/19 09/18/19 History Sulfamethox-Tmp 400-80Mg [Bactrim 1 tab PO DAILY 09/18/19 09/18/19 History SS 400-80 mg] predniSONE 20 mg PO DAILY 09/18/19 09/18/19 History Allergies Allergy/AdvReac Type Severity Reaction Status Date / Time adhesive tape Allergy Rash/Hives Verified 09/18/19 16:51 hydrocodone [From Lortab] Allergy Itching Verified 09/18/19 16:51 Physical Exam Vitals: Vital Signs Temp Pulse Pulse Resp BP BP Pulse Ox 09/19/19 12:25 80 09/19/19 12:16 78 09/19/19 11:18 16 09/19/19 09:10 76 09/19/19 08:54 72 09/19/19 08:53 72 09/19/19 08:43 68 09/19/19 08:00 96.2 F L 59 L 16 111/59 95 09/19/19 04:00 98.0 F 66 22 121/56 95 09/19/19 00:00 97.9 F 60 20 113/53 96 09/18/19 20:05 64 16 09/18/19 20:00 97.9 F 67 24 122/58 96 09/18/19 19:56 66 16 98 09/18/19 18:38 97.6 F 71 16 147/67 97 09/18/19 17:00 97.8 F 63 18 128/64 98 09/18/19 16:00 60 18 125/61 100 09/18/19 15:49 63 18 09/18/19 15:41 61 18 09/18/19 14:12 60 09/18/19 13:56 60 Intake and Output 09/18/19 09/19/19 09/19/19 22:59 06:59 14:59 Intake Total 237 577 Output Total 400 Balance -163 577 Intake: Intake, IV Titration 100 Amount Potassium Chloride 20 meq 100 In Water For Injection 1 100ml.bag @ 50 mls/hr IVPB ONCE STA Rx#: [id number] Oral 237 477 Output: Urine 400 Other: Voiding Method Toilet Toilet Toilet Weight 66.224 kg 69.2 kg 69.2 kg GEN. APPEARANCE: alert, in no apparent distress HEAD EXAM: atraumatic, normocephalic, normal inspection EYE EXAM: No pallor. No icterus. ENT EXAM: normal exam, mucous membranes moist NECK EXAM: No JVD. No thyromegaly. RESPIRATORY EXAM: Decreased breath sounds in all lung obrien. Fine Velcro crackles at the lower lung bases on both sides. Prolonged expiratory phase. Mild wheezing. CARDIOVASCULAR EXAM: regular rate, normal rhythm, normal heart sounds. GI/ABDOMINAL EXAM: soft, normal bowel sounds. No tenderness or guarding or rigidity EXTREMITIES EXAM: Bilateral pitting edema up to mid ngo region NEUROLOGICAL EXAM: alert, oriented X3, no focal deficit PSYCHIATRIC EXAM: normal affect, normal mood SKIN EXAM: No rash Results CBC & Chem 7: 09/18/19 13:39 09/19/19 14:52 Labs: Abnormal Lab Results - Last 24 Hours (Table) 09/18/19 09/18/19 09/18/19 Range/Units 13:39 13:39 13:39 RBC 3.28 L (3.80-5.40) m/uL Hgb 10.0 L (11.4-16.0) gm/dL Hct 30.6 L (34.0-46.0) % RDW 19.8 H (11.5-15.5) % Plt Count 147 L (150-450) k/uL Lymphocytes # 0.8 L (1.0-4.8) k/uL Sodium 136 L (137-145) mmol/L Potassium 2.9 L (3.5-5.1) mmol/L BUN 38 H (7-17) mg/dL Creatinine 1.25 H (0.52-1.04) mg/dL POC Glucose (mg/dL) (75-99) mg/dL Total Bilirubin 2.4 H (0.2-1.3) mg/dL AST 37 H (14-36) U/L ALT 57 H (9-52) U/L Alkaline Phosphatase 165 H (38-126) U/L Troponin I 0.058 H* (0.000-0.034) ng/mL 09/19/19 09/19/19 09/19/19 Range/Units 05:42 06:13 12:01 RBC (3.80-5.40) m/uL Hgb (11.4-16.0) gm/dL Hct (34.0-46.0) % RDW (11.5-15.5) % Plt Count (150-450) k/uL Lymphocytes # (1.0-4.8) k/uL Sodium (137-145) mmol/L Potassium 3.0 L (3.5-5.1) mmol/L BUN (7-17) mg/dL Creatinine (0.52-1.04) mg/dL POC Glucose (mg/dL) 221 H 188 H (75-99) mg/dL Total Bilirubin (0.2-1.3) mg/dL AST (14-36) U/L ALT (9-52) U/L Alkaline Phosphatase (38-126) U/L Troponin I (0.000-0.034) ng/mL Thrombosis Risk Factor Assmnt - Choose All That Apply Each Risk Factor Represents 2 Points: Age 61-74 years Thrombosis Risk Factor Assessment Total Risk Factor Score: 2 Thrombosis Risk Factor Assessment Level: Low Risk Assessment and Plan Assessment: ASSESSMENT Shortness of breath multifactorial Acute systolic congestive heart failure Acute COPD exacerbation Hypokalemia Elevated troponins Ischemic cardiomyopathy COPD with pulmonary hypertension Pulmonary fibrosis Chronic kidney disease stage II to 3 Right renal atrophy Hypothyroidism Mitral and tricuspid regurgitation nonrheumatic GERD Essential hypertension Coronary artery disease status post CABG Multiple hospital admissions PLAN: Patient has been started on IV Lasix. Continue with Solu-Medrol and breathing treatments. Patient does not have a white count and chest x-rays negative for any infiltrates, so will hold off on antibiotics for now. Patient has been restarted on all her home medications. Overall prognosis is guarded. Further recommendations to follow depending on the progress of the patient.
[2019-09-19] MEDS: LEVOTHYROXINE 100 MCG TAB PO SCH ×2 (16:08→21:51)
[2019-09-19] MEDS: FAMOTIDINE 20 MG TAB PO SCH (16:08)
[2019-09-19] MEDS: azaTHIOprine 50 MG TAB PO SCH (16:09)
[2019-09-19 17:16] LABS: Glucose,Whole Blood 213 mg/dL (75-99)
[2019-09-19 20:31] LABS: Glucose,Whole Blood 263 mg/dL (75-99)
[2019-09-19] MEDS ORDERED: MELATONIN 3 MG TABLET PO SCH (21:00)
[2019-09-19] MEDS ORDERED: TEMAZEPAM 30 MG CAP PO SCH (21:00)
[2019-09-20] MEDS ORDERED: TEMAZEPAM 15 MG CAP PO SCH (00:03)
[2019-09-20] MEDS: TEMAZEPAM 15 MG CAP PO SCH ×2 (00:10→22:52)
[2019-09-20] MEDS: POTASSIUM CHLORIDE ER 20 MEQ TAB.ER PO SCH (00:11)
[2019-09-20 06:06] LABS: Anisocytosis Slight; Basophils % (A) 0 %; Eosinophils % (A) 0 %; HCT 28.4 % (34.0-46.0); HGB 9.3 gm/dL (11.4-16.0); Lymphocytes # (A) 0.4 k/uL (1.0-4.8); Lymphocytes % (A) 4 %; MCH 29.8 pg (25.0-35.0); MCHC 32.6 g/dL (31.0-37.0); MCV 91.6 fL (80.0-100.0); Macrocytosis Slight; Mean Platelet Volume 6.9; Monocytes # (A) 0.2 k/uL (0-1.0); Monocytes % (A) 2 %; Neutrophils # (A) 7.6 k/uL (1.3-7.7); Neutrophils % (A) 94 %; Platelet Count 150 k/uL (150-450); RDW 19.9 % (11.5-15.5); WBC 8.1 k/uL (3.8-10.6)
[2019-09-20 06:08] LABS: Glucose,Whole Blood 183 mg/dL (75-99)
[2019-09-20] MEDS: INSULIN ASPART (NovoLOG) 100 UNIT/ML VIAL SQ SCH ×4 (06:11→21:17)
[2019-09-20] MEDS: methylPREDNISolone SOD SUCCI 125 MG/2 ML VIAL IV SCH ×3 (06:11→17:55)
[2019-09-20] MEDS: MIDODRINE 5 MG TAB PO SCH ×3 (06:12→17:55)
[2019-09-20 06:19] LABS: Calcium 8.8 mg/dL (8.4-10.2)
[2019-09-20] MEDS: FORMOTEROL FUMARATE 20 MCG/2 ML NEBU INHALATION SCH ×2 (09:31→20:16)
[2019-09-20] MEDS: ALBUTEROL NEBULIZED 2.5 MG/3 ML INHALATION SCH ×4 (09:31→20:16)
[2019-09-20] MEDS: BUDESONIDE 0.5 MG/2 ML NEBU INHALATION SCH ×2 (09:31→20:16)
--- NOTE | 2019-09-20 11:01 | ECHOF ---
Referral Reason:chf MEASUREMENTS -------- HEIGHT: 167.6 cm WEIGHT: 67.1 kg BP: IVSd: 0.9 cm (0.6 - 1.1) LVIDd: 4.2 cm (3.9 - 5.3) LVPWd: 1.5 cm (0.6 - 1.1) IVSs: 1.0 cm LVIDs: 3.9 cm LVPWs: 1.3 cm LAESV Index (A-L): 47.75 ml/m Ao Diam: 2.6 cm (2.0 - 3.7) AV Cusp: 2.0 cm (1.5 - 2.6) LA Diam: 3.5 cm (2.7 - 3.8) MV EXCURSION: 18.048 mm (> 18.000) MV EF SLOPE: 190 mm/s (70 - 150) EPSS: 1.8 cm MV E Cipriano: 0.99 m/s MV DecT: 394 ms MV A Cipriano: 0.28 m/s MV E/A Ratio: 3.54 RAP: 5.00 mmHg RVSP: 46.12 mmHg TAPSE: 13.64 mm FINDINGS -------- Sinus rhythm. AICD This was a technically difficult study with suboptimal views. Previous CABG The left ventricular size is normal. Left ventricular wall thickness is normal. Overall left vent ricular systolic function is mild-moderately impaired with, an EF between 40 - 45 %. Increased LAP Grade 3 Diastolic Dysfunction. Basal inferior LV wall motion is aneurysmal and akinetic. Basal i nferoseptal LV wall motion is hypokinetic. Mid inferior LV wall motion is aneurysmal and akinetic. Mid inferoseptal LV wall motion is hypokinetic. The right ventricle is normal in size. The right ventricular systolic function is severely impaired . LA is severely dilated >40 ml/m2 The right atrial size is normal. Lumason used The atrial septal defect shunts from left to right. The aortic valve is trileaflet and appears structurally normal. The mitral valve is normal. Moderate mitral regurgitation is present. The tricuspid valve appears structurally normal. Severe tricuspid regurgitation present. There is moderate pulmonary hypertension. The right ventricular systolic pressure, as measured by Doppler, is 46.12mmHg. There is no pulmonic regurgitation present. The aortic root size is normal. IVC Not well visulized. There is no pericardial effusion. CONCLUSIONS -------- 1. Sinus rhythm. 2. AICD 3. This was a technically difficult study with suboptimal views. 4. Previous CABG 5. The left ventricular size is normal. 6. Left ventricular wall thickness is normal. 7. Overall left ventricular systolic function is mild-moderately impaired with, an EF between 40 - 45 %. 8. Increased LAP Grade 3 Diastolic Dysfunction. 9. Basal inferior LV wall motion is aneurysmal and akinetic. 10. Basal inferoseptal LV wall motion is hypokinetic. 11. Mid inferior LV wall motion is aneurysmal and akinetic. 12. Mid inferoseptal LV wall motion is hypokinetic. 13. The right ventricle is normal in size. 14. The right ventricular systolic function is severely impaired. 15. LA is severely dilated >40 ml/m2 16. The right atrial size is normal. 17. Lumason used 18. The atrial septal defect shunts from left to right. 19. The aortic valve is trileaflet and appears structurally normal. 20. The mitral valve is normal. 21. Moderate mitral regurgitation is present. 22. The tricuspid valve appears structurally normal. 23. Severe tricuspid regurgitation present. 24. There is moderate pulmonary hypertension. 25. The right ventricular systolic pressure, as measured by Doppler, is 46.12mmHg. 26. There is no pulmonic regurgitation present. 27. The aortic root size is normal. 28. IVC Not well visulized. 29. There is no pericardial effusion. [employer] CONSULTANT: Ann Suggs RDCS
[2019-09-20 12:04] LABS: Glucose,Whole Blood 189 mg/dL (75-99)
[2019-09-20] MEDS: ATORVASTATIN 40 MG TAB PO SCH (12:23)
[2019-09-20] MEDS: SPIRONOLACTONE 25 MG TAB PO SCH (12:23)
[2019-09-20] MEDS: ENOXAPARIN 40 MG/0.4 ML SYRINGE SQ SCH (12:23)
[2019-09-20] MEDS: ASPIRIN 81 MG PO SCH (12:24)
[2019-09-20] MEDS: METOPROLOL TARTRATE 25 MG TAB PO SCH ×2 (12:24→23:30)
[2019-09-20] MEDS: FAMOTIDINE 20 MG TAB PO SCH (12:24)
[2019-09-20] MEDS: LEVOTHYROXINE 100 MCG TAB PO SCH ×2 (12:24→21:19)
[2019-09-20] MEDS: LISINOPRIL 2.5 MG TAB PO SCH (12:24)
[2019-09-20] MEDS: ALLOPURINOL 100 MG TAB PO SCH ×2 (12:24→21:19)
[2019-09-20] MEDS: FUROSEMIDE 10 MG/ML 4 ML VIAL IV SCH ×2 (12:25→17:55)
[2019-09-20] MEDS: azaTHIOprine 50 MG TAB PO SCH (12:27)
--- NOTE | 2019-09-20 13:40 | PN ---
PROGRESS NOTE This patient was admitted with symptoms of shortness of breath and congestive cardiac failure. Patient has been repeated admission in the hospital with heart failure and patient has a previous history of AICD and CABG. The patient is feeling better. Breathing is improved, but still continues to have some wet cough. The patient's blood pressure is 95/65 mmHg. Pulse rate is 62 per minute, oxygen saturation is 90% First and second heart sounds are normal. There is a systolic murmur heard at the apex suggestive of mitral insufficiency. Lungs reveals bilateral basal rales. The patient's creatinine is 1.34. FINAL IMPRESSION: Patient's congestive heart failure is improving. The patient does have a systolic murmur of mitral regurgitation. Patient's repeat echocardiogram reviewed which again shows evidence of moderate to severe mitral regurgitation and pulmonary hypertension. There is a questionable atrial septal defect. We will continue to diurese the patient. After the patient's condition is better, the patient will be evaluated with OBEY to assess the mitral regurgitation. May consider for MitraClip procedure at a later date. This was discussed with Dr. Nini Vazquez. MMODL / IJN: [id number] /
[2019-09-20 16:52] LABS: Glucose,Whole Blood 144 mg/dL (75-99)
--- NOTE | 2019-09-20 18:58 | P.PN ---
Subjective Progress Note Date: 09/20/19 Principal diagnosis: Acute on chronic congestive heart failure, acute COPD exacerbation Ms. Narayanan is a 69-year-old female with a past medical history of congestive heart failure EF 30-35% , COPD, coronary artery disease, moderate mitral regurgitation, pulmonary hypertension, hyperlipidemia, pulmonary fibrosis, AICD placement last year, hypothyroidism admitted with the chief complaint of difficulty in breathing. Patient was recently discharged from the hospital afte r being treated for for CHF exacerbation couple of weeks back. Patient complains of cough that is productive in nature with white phlegm for the past couple of days associated with difficulty in breathing. She has been complaining of swelling of her bilateral lower extremities as well. Patient was having orthopnea and dyspnea on exertion. Patient denies having any fevers chills or rigors. No nausea, vomiting or diarrhea. No abdominal pain or constipation. Patient denies having any recent travel. No sick contacts. In the emergency the patient had labs done showing sodium of 136, potassium 2.9, slightly elevated AST and alkaline phosphatase. Troponin is 0.058 and BNP of 28,600. Patient had a chest x-ray showing mild mid and lower lobe atelectasis. EKG with no new changes. On 09/20/2018 -patient is lying in bed appears to be in no acute distress. Patient is still short of breath. She denies having any fevers chills or rigors. No chest pain or palpitations. States that her lower extremity edema is better compared to yesterday. Patient denies having any dysuria or hematuria. Patient's blood pressure has been running on the lower side, she denies having any dizziness. On reviewing the labs patient has low potassium and creatinine slightly increased compared to yesterday. Active Medications Albuterol Sulfate (Ventolin Nebulized) 2.5 mg INHALATION RT-QID [facility] Last Admin: 09/20/19 16:18 Dose: 2.5 mg Documented by: Albuterol/Ipratropium (Duoneb 0.5 Mg-3 Mg/3 Ml Soln) 3 ml INHALATION RT-Q4H PRN PRN Reason: Shortness Of Breath Or Wheezing Allopurinol (Zyloprim) 100 mg PO BID [facility] Last Admin: 09/20/19 12:24 Dose: 100 mg Documented by: Aspirin (Aspirin) 81 mg PO DAILY [facility] Last Admin: 09/20/19 12:24 Dose: 81 mg Documented by: Atorvastatin Calcium (Lipitor) 40 mg PO DAILY [facility] Last Admin: 09/20/19 12:23 Dose: 40 mg Documented by: Azathioprine (Imuran) 100 mg PO DAILY [facility] Last Admin: 09/20/19 12:27 Dose: 100 mg Documented by: Budesonide (Pulmicort) 0.5 mg INHALATION RT-BID [facility] Last Admin: 09/20/19 09:31 Dose: 0.5 mg Documented by: Enoxaparin Sodium (Lovenox) 40 mg SQ DAILY [facility] Last Admin: 09/20/19 12:23 Dose: 40 mg Documented by: Famotidine (Pepcid) 40 mg PO DAILY [facility] Last Admin: 09/20/19 12:24 Dose: 40 mg Documented by: Formoterol Fumarate (Perforomist) 20 mcg INHALATION RT-BID [facility] Last Admin: 09/20/19 09:31 Dose: 20 mcg Documented by: Furosemide (Lasix) 40 mg IV Q8H [facility] Last Admin: 09/20/19 17:55 Dose: 40 mg Documented by: Insulin Aspart (Novolog) 0 unit SQ [facility]; Protocol Last Admin: 09/20/19 17:55 Dose: 2 unit Documented by: Levothyroxine Sodium (Synthroid) 100 mcg PO BID [facility] Last Admin: 09/20/19 12:24 Dose: 100 mcg Documented by: Lisinopril (Zestril) 2.5 mg PO DAILY [facility] Last Admin: 09/20/19 12:24 Dose: 2.5 mg Documented by: Methylprednisolone Sodium Succinate (Solu-Medrol) 60 mg IV Q6HR [facility] Last Admin: 09/20/19 17:55 Dose: 60 mg Documented by: Metoprolol Tartrate (Lopressor) 25 mg PO BID [facility] Last Admin: 09/20/19 12:24 Dose: 25 mg Documented by: Midodrine (Proamatine) 5 mg PO AC-TID [facility] Last Admin: 09/20/19 17:55 Dose: 5 mg Documented by: Miscellaneous Information (Potassium Per Protocol) 1 each MISCELLANE DAILY PRN; Protocol PRN Reason: Per Protocol Spironolactone (Aldactone) 12.5 mg PO DAILY [facility] Last Admin: 09/20/19 12:23 Dose: 12.5 mg Documented by: Temazepam (Restoril) 30 mg PO [facility] Last Admin: 09/20/19 00:10 Dose: 30 mg Documented by: Objective - Vital Signs Vital signs: Vital Signs Temp 97.5 F L 09/20/19 08:00 Pulse 63 09/20/19 16:30 Resp 18 09/20/19 16:00 BP 97/55 09/20/19 16:00 Pulse Ox 97 09/20/19 16:18 Intake & Output 09/19/19 09/20/19 09/20/19 18:59 06:59 18:59 Intake Total 1173 480 Output Total 1800 300 Balance 1173 -1800 180 Weight 69.2 kg 67.3 kg Intake: Intake, IV Titration 100 Amount Potassium Chloride 20 meq 100 In Water For Injection 1 100ml.bag @ 50 mls/hr IVPB ONCE STA Rx#: [id number] Oral 1073 480 Output: Urine 1800 300 Other: Voiding Method Toilet Toilet # Voids 2 0 1 - Exam GEN. APPEARANCE: alert, in no apparent distress HEENT : BIJU. No pallor , no icterus. RESPIRATORY EXAM: Decreased breath sounds in all lung obrien. Fine crackles at the lower lung bases on both sides. Prolonged expiratory phase. Mild wheezing. CARDIOVASCULAR EXAM: regular rate, normal rhythm, normal heart sounds. GI/ABDOMINAL EXAM: soft, normal bowel sounds. No tenderness or guarding or rigidity EXTREMITIES EXAM: Bilateral pitting edema up to mid ngo region NEUROLOGICAL EXAM: alert, oriented X3, no focal deficit PSYCHIATRIC EXAM: normal affect, normal mood SKIN EXAM: No rash - Labs CBC & Chem 7: 09/20/19 05:48 09/20/19 05:48 Labs: Abnormal Lab Results - Last 24 Hours (Table) 09/19/19 09/20/19 09/20/19 Range/Units 20:30 05:48 05:48 RBC 3.10 L (3.80-5.40) m/uL Hgb 9.3 L (11.4-16.0) gm/dL Hct 28.4 L (34.0-46.0) % RDW 19.9 H (11.5-15.5) % Lymphocytes # 0.4 L (1.0-4.8) k/uL Sodium 134 L (137-145) mmol/L Potassium 3.0 L (3.5-5.1) mmol/L Chloride 93 L (98-107) mmol/L Carbon Dioxide 34 H (22-30) mmol/L BUN 44 H (7-17) mg/dL Creatinine 1.34 H (0.52-1.04) mg/dL Glucose 169 H (74-99) mg/dL POC Glucose (mg/dL) 263 H (75-99) mg/dL 09/20/19 09/20/19 09/20/19 Range/Units 06:07 12:02 16:47 RBC (3.80-5.40) m/uL Hgb (11.4-16.0) gm/dL Hct (34.0-46.0) % RDW (11.5-15.5) % Lymphocytes # (1.0-4.8) k/uL Sodium (137-145) mmol/L Potassium (3.5-5.1) mmol/L Chloride (98-107) mmol/L Carbon Dioxide (22-30) mmol/L BUN (7-17) mg/dL Creatinine (0.52-1.04) mg/dL Glucose (74-99) mg/dL POC Glucose (mg/dL) 183 H 189 H 144 H (75-99) mg/dL Assessment and Plan Assessment: ASSESSMENT Acute systolic congestive heart failure Acute COPD exacerbation Hypokalemia Elevated troponins Ischemic cardiomyopathy COPD with pulmonary hypertension Pulmonary fibrosis Chronic kidney disease stage 2to 3 Right renal atrophy Hypothyroidism Tricuspid regurgitation nonrheumatic Moderate to severe mitral regurgitation GERD Essential hypertension Coronary artery disease status post CABG Multiple hospital admissions PLAN: Patient had an echocardiogram done today showing moderate to severe mitral regurgitation and pulmonary hypertension. There is a questionable atrial septal defect so the patient is being scheduled for a OBEY to assess the extent of mitral regurgitation. Continue on IV Lasix. Continue with Solu-Medrol and breathing treatments. Patient does not have a white count and chest x-rays negative for any infiltrates, so will hold off antibiotics. Continue with the current medication regimen. Overall prognosis is guarded. Further recommendations to follow depending on the progress of the patient.
[2019-09-20 21:04] LABS: Glucose,Whole Blood 215 mg/dL (75-99)
[2019-09-21] MEDS: FUROSEMIDE 10 MG/ML 4 ML VIAL IV SCH ×2 (00:07→09:01)
[2019-09-21] MEDS: methylPREDNISolone SOD SUCCI 125 MG/2 ML VIAL IV SCH ×5 (00:09→23:32)
[2019-09-21 06:30] LABS: Glucose,Whole Blood 199 mg/dL (75-99)
[2019-09-21] MEDS: INSULIN ASPART (NovoLOG) 100 UNIT/ML VIAL SQ SCH ×4 (06:38→20:01)
[2019-09-21] MEDS: MIDODRINE 5 MG TAB PO SCH ×3 (06:39→17:42)
[2019-09-21 06:41] LABS: Calcium 8.5 mg/dL (8.4-10.2); Potassium 2.8 mmol/L (3.5-5.1)
[2019-09-21] MEDS: FORMOTEROL FUMARATE 20 MCG/2 ML NEBU INHALATION SCH ×2 (07:22→19:54)
[2019-09-21] MEDS: ALBUTEROL NEBULIZED 2.5 MG/3 ML INHALATION SCH ×4 (07:22→19:54)
[2019-09-21] MEDS: BUDESONIDE 0.5 MG/2 ML NEBU INHALATION SCH ×2 (07:22→19:54)
--- NOTE | 2019-09-21 08:23 | XR ---
EXAMINATION TYPE: XR chest 2V DATE OF EXAM: 09/21/2019 COMPARISON: 09/18/2019 HISTORY: Follow-up for congestive heart failure. Shortness of breath. TECHNIQUE: Frontal and lateral views of the chest are obtained. FINDINGS: There is a markedly enlarged cardiomediastinal silhouette is seen on the prior with post C ABG changes and multilead left-sided cardiac device. No new pulmonary vascular congestion or pleural effusions. Strand-like bibasilar atelectasis remains. Generalized osseous demineralization is seen. IMPRESSION: Stable marked cardiomegaly. No findings of decompensated congestive heart failure. Minim al bibasilar atelectasis.
[2019-09-21] MEDS: ENOXAPARIN 40 MG/0.4 ML SYRINGE SQ SCH (09:01)
[2019-09-21] MEDS: POTASSIUM CHLORIDE ER 20 MEQ TAB.ER PO SCH ×5 (09:02→23:32)
[2019-09-21] MEDS: SPIRONOLACTONE 25 MG TAB PO SCH (09:03)
[2019-09-21] MEDS: FAMOTIDINE 20 MG TAB PO SCH (09:03)
[2019-09-21] MEDS: LEVOTHYROXINE 100 MCG TAB PO SCH ×2 (09:03→19:57)
[2019-09-21] MEDS: ASPIRIN 81 MG PO SCH (09:03)
[2019-09-21] MEDS: METOPROLOL TARTRATE 25 MG TAB PO SCH ×2 (09:03→20:09)
[2019-09-21] MEDS: ATORVASTATIN 40 MG TAB PO SCH (09:03)
[2019-09-21] MEDS: LISINOPRIL 2.5 MG TAB PO SCH (09:03)
[2019-09-21] MEDS: ALLOPURINOL 100 MG TAB PO SCH ×2 (09:05→19:57)
[2019-09-21] MEDS: azaTHIOprine 50 MG TAB PO SCH (09:22)
[2019-09-21 14:28] LABS: Glucose,Whole Blood 247 mg/dL (75-99)
--- NOTE | 2019-09-21 15:48 | PN ---
PROGRESS NOTE This patient was admitted with congestive cardiac failure. She is feeling better. Her chest x-ray shows improvement in the failure. Patient's creatinine is 1.6, potassium is 2.8. First and second heart sounds are normal. Lungs examination reveals a few basal rales. The patient does have a systolic murmur of mitral regurgitation. Chest x-ray shows improvement in the heart failure. We will do the transesophageal echocardiogram to assess the severity of the mitral regurgitation. INDIA / ELENI: [id number] /
[2019-09-21 16:41] LABS: Glucose,Whole Blood 230 mg/dL (75-99)
[2019-09-21] MEDS: TEMAZEPAM 15 MG CAP PO SCH (19:57)
[2019-09-21 19:59] LABS: Glucose,Whole Blood 140 mg/dL (75-99)
--- NOTE | 2019-09-21 22:13 | P.PN ---
Progress Note - Text Progress Note Date: 09/21/19 Interval history: This is a pleasant 69-year-old patient of Dr. Otto. Chronic stable medical conditions include coronary artery disease, hypertension, GERD, hypothyroidism, severe secondary pulmonary hypertension, bilateral severe pulmonary fibrosis, cor pulmonale, chronic kidney disease. Patient in October of this year had a coronary artery bypass at [facility]. Patient was here in the hospital on August 25. Diagnosed with CHF exacerbation EF 30-35% and also found to have significant pulmonary fibrosis. Admitted with shortness of breath. [place] to be in CHF exacerbation. Today-sitting at edge of bed. Nasal cannula. Did tolerate some diet. Cardiology is planning a OBEY. Review of systems: Was done for constitutional, cardiovascular, GI, pulmonary. relevant finding as above Active Medications Albuterol Sulfate (Ventolin Nebulized) 2.5 mg INHALATION RT-QID [facility] Last Admin: 09/21/19 19:54 Dose: 2.5 mg Documented by: Albuterol/Ipratropium (Duoneb 0.5 Mg-3 Mg/3 Ml Soln) 3 ml INHALATION RT-Q4H PRN PRN Reason: Shortness Of Breath Or Wheezing Allopurinol (Zyloprim) 100 mg PO BID [facility] Last Admin: 09/21/19 19:57 Dose: 100 mg Documented by: Aspirin (Aspirin) 81 mg PO DAILY [facility] Last Admin: 09/21/19 09:03 Dose: 81 mg Documented by: Atorvastatin Calcium (Lipitor) 40 mg PO DAILY [facility] Last Admin: 09/21/19 09:03 Dose: 40 mg Documented by: Azathioprine (Imuran) 100 mg PO DAILY [facility] Last Admin: 09/21/19 09:22 Dose: 100 mg Documented by: Budesonide (Pulmicort) 0.5 mg INHALATION RT-BID [facility] Last Admin: 09/21/19 19:54 Dose: 0.5 mg Documented by: Enoxaparin Sodium (Lovenox) 40 mg SQ DAILY [facility] Last Admin: 09/21/19 09:01 Dose: 40 mg Documented by: Famotidine (Pepcid) 20 mg PO DAILY [facility] Formoterol Fumarate (Perforomist) 20 mcg INHALATION RT-BID [facility] Last Admin: 09/21/19 19:54 Dose: 20 mcg Documented by: Furosemide (Lasix) 40 mg PO DAILY [facility] Insulin Aspart (Novolog) 0 unit SQ ACHS [facility]; Protocol Last Admin: 09/21/19 20:01 Dose: 1 unit Documented by: Levothyroxine Sodium (Synthroid) 100 mcg PO BID [facility] Last Admin: 09/21/19 19:57 Dose: 100 mcg Documented by: Lisinopril (Zestril) 2.5 mg PO DAILY [facility] Last Admin: 09/21/19 09:03 Dose: 2.5 mg Documented by: Methylprednisolone Sodium Succinate (Solu-Medrol) 60 mg IV Q6HR [facility] Last Admin: 09/21/19 17:42 Dose: 60 mg Documented by: Metoprolol Tartrate (Lopressor) 25 mg PO BID [facility] Last Admin: 09/21/19 20:09 Dose: Not Given Documented by: Midodrine (Proamatine) 5 mg PO AC-TID [facility] Last Admin: 09/21/19 17:42 Dose: 5 mg Documented by: Miscellaneous Information (Potassium Per Protocol) 1 each MISCELLANE DAILY PRN; Protocol PRN Reason: Per Protocol Spironolactone (Aldactone) 12.5 mg PO DAILY [facility] Last Admin: 09/21/19 09:03 Dose: 12.5 mg Documented by: Temazepam (Restoril) 30 mg PO HS [facility] Last Admin: 09/21/19 19:57 Dose: 30 mg Documented by: Physical examination: VITAL SIGNS: 97.8, 65, 16, 37/50, 99% on 3 L GENERAL: Sitting at the edge of the bed, tired EYES: Pupils equal. Conjunctiva normal. HEENT: External appearance of nose and ears normal, oral cavity grossly normal. NECK: JVD not raised; masses not palpable. HEART: First and second heart sounds are normal; minimal edema LUNGS: Respiratory rate increased,, decreased breath sounds, fine crackles ABDOMEN: Soft, nontender, liver spleen not palpable, no masses palpable. PSYCH: Alert and oriented x3; mood and affect slightly anxious MUSCULOSKELETAL: Evidence of OA specially in the hands INVESTIGATIONS, reviewed in the clinical context: Potassium 2.8 on 62 creatinine 1.63 Previous testing Creatinine on 08/28/2019 was 1.57 2-D echocardiogram -EF 40-45%, wall motion abnormality, AST with the [id number] shunt, moderate MR, severe TR, moderate pulmonary hypertension High resolution CT chest-diffuse pulmonary fibrosis Assessment: -Acute on chronic congestive heart failure exacerbation from systolic dysfunction EF 40-45% % from underlying coronary artery disease,, improved - bilateral severe pulmonary fibrosis - chronic cor pulmonale, from pulmonary fibrosis and CHF, -Coronary artery disease with bypass in July 2018 -Severe hypokalemia from diuresis, improved -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 No clinical evidence of acute coronary syndrome -Right renal atrophy -Hyperkalemia from renal failure., Worsening Plan: Spoke to Dr. VC Galindo from cardiology, he is planning to do a OBEY tomorrow . concern about patient's pulmonary status. If she can tolerate the procedure. Patient does follow with Dr. Divya Washington from pulmonary. We'll consult him. Prognosis guarded.
[2019-09-22 02:21] LABS: Glucose,Whole Blood 299 mg/dL (75-99)
[2019-09-22 06:25] LABS: Glucose,Whole Blood 227 mg/dL (75-99)
[2019-09-22 06:39] LABS: Calcium 8.4 mg/dL (8.4-10.2); Magnesium 2.2 mg/dL (1.6-2.3); Potassium 4.3 mmol/L (3.5-5.1)
[2019-09-22] MEDS: MIDODRINE 5 MG TAB PO SCH ×3 (06:44→17:14)
[2019-09-22] MEDS: methylPREDNISolone SOD SUCCI 125 MG/2 ML VIAL IV SCH ×4 (06:44→23:04)
[2019-09-22] MEDS: INSULIN ASPART (NovoLOG) 100 UNIT/ML VIAL SQ SCH ×4 (06:45→21:31)
[2019-09-22] MEDS: BUDESONIDE 0.5 MG/2 ML NEBU INHALATION SCH ×2 (08:00→21:58)
[2019-09-22] MEDS: ALBUTEROL NEBULIZED 2.5 MG/3 ML INHALATION SCH ×4 (08:00→21:58)
[2019-09-22] MEDS: FORMOTEROL FUMARATE 20 MCG/2 ML NEBU INHALATION SCH ×2 (08:00→21:58)
[2019-09-22] MEDS: FAMOTIDINE 20 MG TAB PO SCH (08:17)
[2019-09-22] MEDS: azaTHIOprine 50 MG TAB PO SCH (08:17)
[2019-09-22] MEDS: ALLOPURINOL 100 MG TAB PO SCH ×2 (08:17→20:04)
[2019-09-22] MEDS: ENOXAPARIN 40 MG/0.4 ML SYRINGE SQ SCH (08:18)
[2019-09-22] MEDS: METOPROLOL TARTRATE 25 MG TAB PO SCH ×2 (08:18→20:04)
[2019-09-22] MEDS: ASPIRIN 81 MG PO SCH (08:18)
[2019-09-22] MEDS: FUROSEMIDE 40 MG TAB PO SCH (08:18)
[2019-09-22] MEDS: LISINOPRIL 2.5 MG TAB PO SCH (08:18)
[2019-09-22] MEDS: ATORVASTATIN 40 MG TAB PO SCH (08:18)
[2019-09-22] MEDS: SPIRONOLACTONE 25 MG TAB PO SCH (08:19)
[2019-09-22] MEDS: LEVOTHYROXINE 100 MCG TAB PO SCH ×2 (08:19→20:04)
[2019-09-22] MEDS ORDERED: fentaNYL (PF) 50 MCG/ML 2 ML AMP ONE (11:33)
[2019-09-22] MEDS ORDERED: SODIUM CHLORIDE 0.9% 250 ML IV ONE (12:00)
[2019-09-22] MEDS: BENZOCAINE SPRAY 1 CAN TOPICAL ONE ×2 (12:06→12:19)
[2019-09-22] MEDS: MIDAZOLAM 2 MG/2 ML VIAL IVP ONE ×2 (12:20→12:23)
[2019-09-22 13:08] LABS: Glucose,Whole Blood 134 mg/dL (75-99)
--- NOTE | 2019-09-22 13:27 | ECHOT ---
TRANSESOPHAGEAL ECHOCARDIOGRAM This transesophageal echocardiogram was performed to assess the patient's mitral regurgitation, history of recurrent heart failure. The patient was given intravenous sedation with Versed. A transesophageal echocardiogram was performed without any complications. Left ventricular chamber is normal in size with aneurysmal inferior basal segment inferior wall hypokinesia with estimated ejection fraction in the range of 40%. The mitral valve morphology is normal. There is a restricted motion of the posterior mitral leaflet with a moderate to severe mitral regurgitation noted. The jet is directed posteriorly. There was no definite evidence of any reversal of flow in the pulmonary vein. Left atrium is moderately dilated. There is evidence of atrial septal defect which is about 1 cm in size with the [id number] shunt. There is also evidence of llnfe-bx-ffzu shunt by the saline contrast study. There is also moderate to severe tricuspid regurgitation noted. FINAL IMPRESSION: 1. There is a moderate to severe mitral regurgitation with restricted motion of the posterior mitral leaflet suggestive of ischemic cardiomyopathy. 2. Left ventricular ejection fraction in the range of 40%. The patient has an aneurysmal inferior basal segment. 3. There is evidence of atrial septal defect which is about 1 cm in size with evidence of continuous flow from [id number]-fp-zdioo shunt as well as evidence of kjows-vc-tgit shunt by saline contrast study. 4. There is a moderate degree of tricuspid regurgitation noted. RECOMMENDATIONS: We will discuss with Dr. Vazquez for consideration of a MitraClip procedure as well as ASD repair. MMLOUISE / ELLAN: [id number] /
[2019-09-22 17:01] LABS: Glucose,Whole Blood 360 mg/dL (75-99)
[2019-09-22 21:26] LABS: Glucose,Whole Blood 178 mg/dL (75-99)
[2019-09-22] MEDS: TEMAZEPAM 15 MG CAP PO SCH (23:04)
--- NOTE | 2019-09-23 00:59 | P.PN ---
Progress Note - Text Progress Note Date: 09/22/19 Interval history: This is a pleasant 69-year-old patient of Dr. Otto. Chronic stable medical conditions include coronary artery disease, hypertension, GERD, hypothyroidism, severe secondary pulmonary hypertension, bilateral severe pulmonary fibrosis, cor pulmonale, chronic kidney disease. Patient in October of this year had a coronary artery bypass at [facility]. Patient was here in the hospital on August 25. Diagnosed with CHF exacerbation EF 30-35% and also found to have significant pulmonary fibrosis. Admitted with shortness of breath. [place] to be in CHF exacerbation. Today-patient underwent a OBEY. No new issues. Sitting at edge of the bed. Review of systems: Was done for constitutional, cardiovascular, GI, pulmonary. relevant finding as above Active Medications Albuterol Sulfate (Ventolin Nebulized) 2.5 mg INHALATION RT-QID [facility] Last Admin: 09/22/19 21:58 Dose: 2.5 mg Documented by: Albuterol/Ipratropium (Duoneb 0.5 Mg-3 Mg/3 Ml Soln) 3 ml INHALATION RT-Q4H PRN PRN Reason: Shortness Of Breath Or Wheezing Allopurinol (Zyloprim) 100 mg PO BID [facility] Last Admin: 09/22/19 20:04 Dose: 100 mg Documented by: Aspirin (Aspirin) 81 mg PO DAILY [facility] Last Admin: 09/22/19 08:18 Dose: 81 mg Documented by: Atorvastatin Calcium (Lipitor) 40 mg PO DAILY [facility] Last Admin: 09/22/19 08:18 Dose: 40 mg Documented by: Azathioprine (Imuran) 100 mg PO DAILY [facility] Last Admin: 09/22/19 08:17 Dose: 100 mg Documented by: Budesonide (Pulmicort) 0.5 mg INHALATION RT-BID [facility] Last Admin: 09/22/19 21:58 Dose: 0.5 mg Documented by: Enoxaparin Sodium (Lovenox) 30 mg SQ DAILY [facility] Famotidine (Pepcid) 20 mg PO DAILY [facility] Last Admin: 09/22/19 08:17 Dose: 20 mg Documented by: Formoterol Fumarate (Perforomist) 20 mcg INHALATION RT-BID [facility] Last Admin: 09/22/19 21:58 Dose: 20 mcg Documented by: Furosemide (Lasix) 40 mg PO DAILY [facility] Last Admin: 09/22/19 08:18 Dose: 40 mg Documented by: Insulin Aspart (Novolog) 0 unit SQ ACHS [facility]; Protocol Last Admin: 09/22/19 21:31 Dose: 4 unit Documented by: Levothyroxine Sodium (Synthroid) 100 mcg PO BID [facility] Last Admin: 09/22/19 20:04 Dose: 100 mcg Documented by: Lisinopril (Zestril) 2.5 mg PO DAILY [facility] Last Admin: 09/22/19 08:18 Dose: 2.5 mg Documented by: Methylprednisolone Sodium Succinate (Solu-Medrol) 60 mg IV Q6HR [facility] Last Admin: 09/22/19 23:04 Dose: 60 mg Documented by: Metoprolol Tartrate (Lopressor) 25 mg PO BID [facility] Last Admin: 09/22/19 20:04 Dose: 25 mg Documented by: Midodrine (Proamatine) 5 mg PO AC-TID [facility] Last Admin: 09/22/19 17:14 Dose: 5 mg Documented by: Miscellaneous Information (Potassium Per Protocol) 1 each MISCELLANE DAILY PRN; Protocol PRN Reason: Per Protocol Spironolactone (Aldactone) 12.5 mg PO DAILY [facility] Last Admin: 09/22/19 08:19 Dose: 12.5 mg Documented by: Temazepam (Restoril) 30 mg PO HS [facility] Last Admin: 09/22/19 23:04 Dose: 30 mg Documented by: Physical examination: VITAL SIGNS: Afebrile, 59, 18, 100/54, 98% on 3 L GENERAL: Sitting at the edge of the bed, comfortable EYES: Pupils equal. Conjunctiva normal. HEENT: External appearance of nose and ears normal, oral cavity grossly normal. NECK: JVD not raised; masses not palpable. HEART: First and second heart sounds are normal; minimal edema LUNGS: Respiratory rate increased,, decreased breath sounds, fine crackles ABDOMEN: Soft, nontender, liver spleen not palpable, no masses palpable. PSYCH: Alert and oriented x3; mood and affect slightly anxious MUSCULOSKELETAL: Evidence of OA specially in the hands INVESTIGATIONS, reviewed in the clinical context: Percussion 4.3 creatinine 2.12 bun 77 Previous testing Creatinine on 08/28/2019 was 1.57 2-D echocardiogram -EF 40-45%, wall motion abnormality, AST with the obru-ne-[id number] shunt, moderate MR, severe TR, moderate pulmonary hypertension High resolution CT chest-diffuse pulmonary fibrosis Assessment: -Acute on chronic congestive heart failure exacerbation from systolic dysfunction EF 40-45% % from underlying coronary artery disease,, improved - bilateral severe pulmonary fibrosis - chronic cor pulmonale, from pulmonary fibrosis and CHF, -Coronary artery disease with bypass in July 2018 -Severe hypokalemia from diuresis, improved -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 No clinical evidence of acute coronary syndrome -Right renal atrophy -Hyperkalemia from renal failure., Worsening -Acute renal failure worsening from diuresis Plan: Renal function is worsening. Consider nephrology consultation. Appears to be prerenal.
[2019-09-23] MEDS ORDERED: methylPREDNISolone SOD SUCCI 40 MG/ML 1 ML VIAL IV SCH (01:00)
[2019-09-23 06:18] LABS: Glucose,Whole Blood 196 mg/dL (75-99)
[2019-09-23] MEDS: INSULIN ASPART (NovoLOG) 100 UNIT/ML VIAL SQ SCH ×4 (06:39→20:49)
[2019-09-23] MEDS: MIDODRINE 5 MG TAB PO SCH ×3 (06:39→17:08)
[2019-09-23 07:12] LABS: Calcium 8.3 mg/dL (8.4-10.2); Potassium 3.8 mmol/L (3.5-5.1)
[2019-09-23] MEDS: ALBUTEROL NEBULIZED 2.5 MG/3 ML INHALATION SCH ×4 (07:17→20:49)
[2019-09-23] MEDS: FORMOTEROL FUMARATE 20 MCG/2 ML NEBU INHALATION SCH ×2 (07:17→20:49)
[2019-09-23] MEDS: BUDESONIDE 0.5 MG/2 ML NEBU INHALATION SCH ×2 (07:17→20:49)
[2019-09-23] MEDS: ASPIRIN 81 MG PO SCH (08:26)
[2019-09-23] MEDS: azaTHIOprine 50 MG TAB PO SCH (08:27)
[2019-09-23] MEDS: ALLOPURINOL 100 MG TAB PO SCH ×2 (08:27→20:49)
[2019-09-23] MEDS: ENOXAPARIN 30 MG/0.3 ML SYRINGE SQ SCH (08:27)
[2019-09-23] MEDS: LEVOTHYROXINE 100 MCG TAB PO SCH ×2 (08:27→20:49)
[2019-09-23] MEDS: ATORVASTATIN 40 MG TAB PO SCH (08:27)
[2019-09-23] MEDS: FUROSEMIDE 40 MG TAB PO SCH (08:27)
[2019-09-23] MEDS: FAMOTIDINE 20 MG TAB PO SCH (08:27)
[2019-09-23] MEDS: METOPROLOL TARTRATE 25 MG TAB PO SCH ×2 (08:33→20:49)
[2019-09-23] MEDS: LISINOPRIL 2.5 MG TAB PO SCH (08:33)
[2019-09-23] MEDS: SPIRONOLACTONE 25 MG TAB PO SCH (08:33)
[2019-09-23] MEDS: methylPREDNISolone SOD SUCCI 40 MG/ML 1 ML VIAL IV SCH ×2 (11:55→23:30)
[2019-09-23 12:20] LABS: Glucose,Whole Blood 185 mg/dL (75-99)
[2019-09-23] MEDS: SODIUM CHLORIDE 0.9% 1,000 ML IV SCH (13:00)
--- NOTE | 2019-09-23 15:37 | P.CNPUL ---
History of Present Illness Consult date: 09/23/19 Reason for consult: dyspnea, pulmonary fibrosis Chief complaint: Shortness of breath History of present illness: this is a 69-year-old female, patient sees Dr. Otto for primary care activity, patient has multiple medical problems including ischemic cardiomyopathy with baseline ejection fraction of 35% also has a history of coronary artery disease hypertension GERD hypothyroidism and pulmonary hypertension due to severe bilateral viktoriya-fibrosis and chronic kidney disease, patient is status post coronary artery bypass surgery at [facility], recently she has been hospitalized back in August for shortness of breath, she underwent OBEY later on today results of that test has been reviewed, moderate to severe mitral regurgitation was noted with restricted motion of posterior leaflet due to ischemic cardiomyopathy, 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 Last Myocardial Infarction Date:: History of Any Multi-Drug Resistant Organisms: None Reported Past Surgical History: Appendectomy, Section, Coronary Bypass/CABG, Hysterectomy, Joint Replacement, Orthopedic Surgery, Pacemaker, Tubal Ligation Additional Past Surgical History / Comment(s): had cabg in jul 2018 at [facility], rt hip replacment, anahy knee replacment, carpal tunnel,rt ankle arthroscopy, total hysterectomy, "anahy elbow sx d/t tennis elbow" Past Anesthesia/Blood Transfusion Reactions: No Reported Reaction Additional Past Anesthesia/Blood Transfusion Reaction / Comment(s): "never received blood transfusion" Type of Cardiac Device: AICD Device Placement Date:: 11/2018 Past Psychological History: Depression Additional Psychological History / Comment(s): mild depression since cabg 2017 Smoking Status: Former smoker Past Alcohol Use History: None Reported Additional Past Alcohol Use History / Comment(s): started smoking age 13 and quit smoked 6-7 cig per day Past Drug Use History: None Reported - Past Family History Mother Family Medical History: COPD Additional Family Medical History / Comment(s): emphysema Father Family Medical History: Coronary Artery Disease (CAD) Additional Family Medical History / Comment(s): 2 vessel cabg at age 57 Medications and Allergies Home Medications Medication Instructions Recorded Confirmed Type Atorvastatin [Lipitor] 40 mg PO DAILY 09/22/18 09/18/19 History Ipratropium-Albuterol Nebulize 3 ml INHALATION RT-TID 12/14/18 09/18/19 History [Duoneb 0.5 mg-3 mg/3 ml Soln] Budesonide [Pulmicort] 0.5 mg INHALATION RT-BID 05/20/19 09/18/19 History Formoterol Fumarate [Perforomist] 20 mcg INHALATION RT-BID 05/20/19 09/18/19 History Metoprolol Tartrate [Lopressor] 25 mg PO BID 05/20/19 09/18/19 History Temazepam 30 mg PO HS 05/20/19 09/18/19 History Allopurinol [Zyloprim] 100 mg PO BID 08/25/19 09/18/19 History Calcitriol [Rocaltrol] 0.25 mcg PO TUSA 08/25/19 09/18/19 History Levothyroxine Sodium [Levoxyl] 100 mcg PO BID 08/25/19 09/18/19 History Nitroglycerin Sl Tabs [Nitrostat] 0.4 mg SUBLINGUAL Q5M PRN 08/25/19 09/18/19 History Aspirin 81 mg PO DAILY chew 08/28/19 09/18/19 Rx Famotidine [Pepcid] 40 mg PO DAILY 09/06/19 09/18/19 History azaTHIOprine [Imuran] 100 mg PO DAILY 09/06/19 09/18/19 History Midodrine [ProAmatine] 5 mg PO AC-TID #60 tab 09/12/19 09/18/19 Rx Alendronate Sodium [Fosamax] 70 mg PO Q7D 09/18/19 09/18/19 History Metolazone [Zaroxolyn] 2.5 mg PO DAILY 09/18/19 09/18/19 History Spironolactone [Aldactone] 12.5 mg PO DAILY #30 tab 09/23/19 Rx predniSONE 10 mg PO DAILY #30 tab 09/23/19 Rx Allergies Allergy/AdvReac Type Severity Reaction Status Date / Time adhesive tape Allergy Rash/Hives Verified 09/18/19 16:51 hydrocodone [From Lortab] Allergy Itching Verified 09/18/19 16:51 Physical Exam Vitals: Vital Signs Temp Pulse Pulse Resp BP Pulse Ox 09/23/19 12:20 72 09/23/19 12:14 98.3 F 60 16 83/47 99 09/23/19 12:09 68 09/23/19 08:33 97.8 F 60 16 82/39 100 09/23/19 07:45 62 09/23/19 07:33 64 09/23/19 07:32 64 09/23/19 07:20 60 99 09/23/19 04:00 97.7 F 61 19 88/48 96 09/23/19 00:00 98 F 60 18 87/49 98 09/22/19 22:25 76 09/22/19 22:14 68 09/22/19 22:02 97 09/22/19 21:58 60 09/22/19 20:00 97.9 F 69 18 90/52 100 09/22/19 16:00 98.1 F 18 90/50 99 Intake and Output 09/23/19 09/23/19 09/23/19 06:59 14:59 22:59 Intake Total 10 240 Output Total 400 Balance -390 240 Intake: IV 10 Invasive Line 1 10 Oral 240 Output: Urine 400 Other: Voiding Method Toilet Toilet Weight 67.6 kg 67.6 kg - Constitutional General appearance: average body habitus, cooperative, disheveled - EENT Eyes: EOMI, PERRLA, poor dentition ENT: normal oropharynx Ears: bilateral: normal - Neck Neck: normal ROM Carotids: bilateral: upstroke normal - Respiratory Respiratory: bilateral: diminished, rales - Cardiovascular Rhythm: regular Heart sounds: normal: S1, S2 - Integumentary Integumentary: decreased turgor - Neurologic Neurologic: CNII-XII intact - Musculoskeletal Musculoskeletal: gait normal, generalized weakness, strength equal bilaterally - Psychiatric Psychiatric: A&O x's 3, appropriate affect, intact judgment & insight Results - Laboratory Findings CBC and BMP: 09/20/19 05:48 09/23/19 06:16 PT/INR, D-dimer PT 10.2 sec (9.0-12.0) 09/18/19 13:39 INR 0.9 (<1.2) 09/18/19 13:39 Abnormal lab findings: Abnormal Labs 09/18/19 09/18/19 09/18/19 13:39 13:39 13:39 RBC 3.28 L Hgb 10.0 L Hct 30.6 L RDW 19.8 H Plt Count 147 L Lymphocytes # 0.8 L Sodium 136 L Potassium 2.9 L Chloride Carbon Dioxide BUN 38 H Creatinine 1.25 H Glucose POC Glucose (mg/dL) Calcium Total Bilirubin 2.4 H AST 37 H ALT 57 H Alkaline Phosphatase 165 H Troponin I 0.058 H* 09/19/19 09/19/19 09/19/19 05:42 06:13 12:01 RBC Hgb Hct RDW Plt Count Lymphocytes # Sodium Potassium 3.0 L Chloride Carbon Dioxide BUN Creatinine Glucose POC Glucose (mg/dL) 221 H 188 H Calcium Total Bilirubin AST ALT Alkaline Phosphatase Troponin I 09/19/19 09/19/19 09/19/19 14:52 17:08 20:30 RBC Hgb Hct RDW Plt Count Lymphocytes # Sodium Potassium 2.9 L Chloride Carbon Dioxide BUN Creatinine Glucose POC Glucose (mg/dL) 213 H 263 H Calcium Total Bilirubin AST ALT Alkaline Phosphatase Troponin I 09/20/19 09/20/19 09/20/19 05:48 05:48 06:07 RBC 3.10 L Hgb 9.3 L Hct 28.4 L RDW 19.9 H Plt Count Lymphocytes # 0.4 L Sodium 134 L Potassium 3.0 L Chloride 93 L Carbon Dioxide 34 H BUN 44 H Creatinine 1.34 H Glucose 169 H POC Glucose (mg/dL) 183 H Calcium Total Bilirubin AST ALT Alkaline Phosphatase Troponin I 09/20/19 09/20/19 09/20/19 12:02 16:47 21:03 RBC Hgb Hct RDW Plt Count Lymphocytes # Sodium Potassium Chloride Carbon Dioxide BUN Creatinine Glucose POC Glucose (mg/dL) 189 H 144 H 215 H Calcium Total Bilirubin AST ALT Alkaline Phosphatase Troponin I 09/21/19 09/21/19 09/21/19 05:56 06:29 14:16 RBC Hgb Hct RDW Plt Count Lymphocytes # Sodium 131 L Potassium 2.8 L Chloride 92 L Carbon Dioxide 31 H BUN 62 H Creatinine 1.63 H Glucose 171 H POC Glucose (mg/dL) 199 H 247 H Calcium Total Bilirubin AST ALT Alkaline Phosphatase Troponin I 09/21/19 09/21/19 09/21/19 16:40 17:48 19:58 RBC Hgb Hct RDW Plt Count Lymphocytes # Sodium Potassium 2.9 L Chloride Carbon Dioxide BUN Creatinine Glucose POC Glucose (mg/dL) 230 H 140 H Calcium Total Bilirubin AST ALT Alkaline Phosphatase Troponin I 09/22/19 09/22/19 09/22/19 02:18 05:54 06:24 RBC Hgb Hct RDW Plt Count Lymphocytes # Sodium 132 L Potassium Chloride 96 L Carbon Dioxide BUN 77 H Creatinine 2.12 H Glucose 216 H POC Glucose (mg/dL) 299 H 227 H Calcium Total Bilirubin AST ALT Alkaline Phosphatase Troponin I 09/22/19 09/22/19 09/22/19 13:07 17:00 21:24 RBC Hgb Hct RDW Plt Count Lymphocytes # Sodium Potassium Chloride Carbon Dioxide BUN Creatinine Glucose POC Glucose (mg/dL) 134 H 360 H 178 H Calcium Total Bilirubin AST ALT Alkaline Phosphatase Troponin I 09/23/19 09/23/19 09/23/19 06:16 06:17 12:18 RBC Hgb Hct RDW Plt Count Lymphocytes # Sodium 133 L Potassium Chloride Carbon Dioxide BUN 81 H Creatinine 1.82 H Glucose 172 H POC Glucose (mg/dL) 196 H 185 H Calcium 8.3 L Total Bilirubin AST ALT Alkaline Phosphatase Troponin I - Diagnostic Findings Chest x-ray: report reviewed, image reviewed (minimal fibrosis at the bottom with cardiomegaly) Assessment and Plan Assessment: history of pulmonary fibrosis Severe degree of valvular heart surgery Pulmonary hypertension possibly group 2 Acute on chronic respiratory failure Plan: Will get a computed tomography scan of his chest noncontrast Agree with repair of mitral valve further recommendations pending plan of care as per clinical response of patient Time with Patient: Greater than 30
[2019-09-23 16:46] LABS: Glucose,Whole Blood 215 mg/dL (75-99)
--- NOTE | 2019-09-23 17:07 | CT ---
EXAMINATION TYPE: CT chest wo con DATE OF EXAM: 09/23/2019 COMPARISON: None HISTORY: Shortness of breath. CT DLP: 264.7 mGycm Automated exposure control for dose reduction was used. There is patchy infiltrate in both lungs with multiple areas of somewhat rounded consolidation that m easure up to 3 cm. There is patchy atelectasis and scarring at the lung bases. Heart is moderately en larged. Thoracic aorta is atheromatous. There is coronary artery calcification. There is no mediastin al adenopathy. There are no hilar masses. There is no pleural effusion. There is a skeletally small r ight kidney. There is apparent compensatory hypertrophy of the left kidney. There are calcified galls tones. There is some wall thickening of the gastric fundus. There is significant bulging or mass of t he inferior wall of the heart involving the left ventricle. Exam limited by lack of vascular contrast . The bony thorax is intact. There are sternal wires. IMPRESSION: Extensive patchy infiltrates as above more likely related to inflammatory disease with a changing pat tern compared to old exam. Pulmonary interstitial moderate fibrosis. Interstitial disease slightly im proved compared to last exam. There are mediastinal lymph nodes appear smaller than last exam. Left ventricle aneurysm or cardiac mass unchanged compared to last exam.
--- NOTE | 2019-09-23 19:38 | PN ---
PROGRESS NOTE This patient was admitted with congestive heart failure. Patient also has underlying pulmonary fibrosis. Patient has one atrophic kidney. This patient underwent OBEY yesterday which showed evidence of moderate to severe mitral regurgitation and moderate degree of ASD. The patient is feeling better. Her breathing is improved. Blood pressure is 85/70 mmHg. First and second heart sounds are normal. Lung examination reveals a few basal crackles. Oxygen saturation is 99%. Patient's laboratory tests show creatinine 1.8 and BUN is 81. FINAL IMPRESSION: This patient has significant worsening of the renal functions since admission. In view of that, we will discontinue the IV Lasix as well as Zestril and patient will be given 50 mL/hour of normal saline. We will repeat the BMP tomorrow. If there is improvement in the renal functions, she can be discharged home tomorrow. [place] / ELENI: [id number] /
--- NOTE | 2019-09-23 19:52 | CONS ---
CONSULTATION REASON FOR CONSULT: Renal failure. HISTORY OF PRESENT ILLNESS: Patient is a 69-year-old female who was admitted to the hospital on 09/18/2019 with complaints of shortness of breath. She was treated for CHF exacerbation. Patient has been diuresed. Her creatinine was 1.25 on admission. It did go up to 2.12 yesterday and today it is down to 1.8. Lasix is on hold and IV fluids were started today. Patient has had good urine output. Blood pressure has been low, with systolic blood pressure in the 80s. Patient is not on any antihypertensive medications. I do see she is maintained on midodrine as well. Lisinopril has been discontinued. Ejection fraction noted on echocardiogram 40% to 45% this admission. There is no ongoing fever or chills, nausea, vomiting or diarrhea. I do not have a recent chest x- ray. The chest x-ray on 09/21/2019 showed cardiomegaly with minimal bibasilar atelectasis. PAST MEDICAL HISTORY: Past medical history is significant for: 1. Coronary artery disease. 2. COPD. 3. History of CVA/TIA. 4. Gastroesophageal reflux disease. 5. History of [place]. 6. Pneumonia. 7. Hypothyroidism. 8. Osteoarthritis. PAST SURGICAL HISTORY: 1. Appendectomy. 2. . 3. Coronary artery bypass surgery. 4. Hysterectomy. 5. Pacemaker placement. 6. Tubal ligation. 7. Arthroscopy. SOCIAL HISTORY: Patient is a former smoker. No history of drug abuse or alcohol abuse. MEDICATIONS: Medications prior to admission included: 1. Lipitor. 2. Pulmicort. 3. Lopressor. 4. Zyloprim. 5. Rocaltrol. 6. Levoxyl. 7. Pepcid. 8. Aspirin. 9. Imuran. 10.Midodrine. 11.Fosamax. 12.Zaroxolyn. 13.Potassium. 14.Bactrim. 15.Prednisone. ALLERGIES: ALLERGIES include TAPE and LORTAB. REVIEW OF SYSTEMS: As per HPI. Other systems negative. PHYSICAL EXAMINATION: Patient is currently comfortable, awake. She is not in any acute distress. Blood pressure this afternoon was 83/47, heart rate 60 per minute. Patient is afebrile. EXAMINATION OF THE HEART: S1 and S2. EXAMINATION OF LUNGS: Bilateral breath sounds are heard. ABDOMEN: Soft, non-tender. Examination of lower extremities shows edema 1+ bilaterally. [employer] exam is grossly intact. Patient moving all 4 extremities. LABS: Sodium 133, potassium 3.8, BUN 81, creatinine 1.82. ASSESSMENT: 1. Acute kidney injury associated with recent diuresis and hypotension, hypoperfusion, maintained on midodrine. I will increase the midodrine. Patient has been started on IV fluids. We can continue with the IV fluids. The diuretics are currently on hold. I will repeat another chest x-ray in a.m. Overall, patient states her breathing is better than on admission. 2. Congestive heart failure on initial admission, currently improved. 3. Systolic heart failure, acute on top of chronic. 4. History of coronary artery bypass surgery. 5. Pulmonary hypertension with severe pulmonary fibrosis. 6. Hypokalemia, status post replacement. PLAN: Increase midodrine. Check urinalysis. Repeat labs in a.m. Repeat chest x-ray in a.m. May continue with the fluids. Consider dobutamine down the road if renal function continues to worsen. Thank you for this consultation. Will continue to follow the patient with you during her hospitalization. MMODL / IJN: [id number] /
[2019-09-23 20:25] LABS: Glucose,Whole Blood 256 mg/dL (75-99)
[2019-09-23] MEDS ORDERED: ACETAMINOPHEN TAB 325 MG TAB PO PRN (21:59)
--- NOTE | 2019-09-23 22:16 | P.PN ---
Progress Note - Text Progress Note Date: 09/23/19 Interval history: This is a pleasant 69-year-old patient of Dr. Otto. Chronic stable medical conditions include coronary artery disease, hypertension, GERD, hypothyroidism, severe secondary pulmonary hypertension, bilateral severe pulmonary fibrosis, cor pulmonale, chronic kidney disease. Patient in October of this year had a coronary artery bypass at [facility]. Patient was here in the hospital on August 25. Diagnosed with CHF exacerbation EF 30-35% and also found to have significant pulmonary fibrosis. Admitted with shortness of breath. [place] to be in CHF exacerbation.had a OBEY done. Acute renal failure from diuresis. Today-tired. Some shortness of breath. Did tolerate some diet. at the bedside. Slight cough. Review of systems: Was done for constitutional, cardiovascular, GI, pulmonary. relevant finding as above Active Medications Acetaminophen (Tylenol Tab) 650 mg PO Q4HR PRN PRN Reason: Fever and/ or Pain Albuterol Sulfate (Ventolin Nebulized) 2.5 mg INHALATION RT-QID REPLACED BY [facility] Last Admin: 09/23/19 20:49 Dose: 2.5 mg Documented by: Albuterol/Ipratropium (Duoneb 0.5 Mg-3 Mg/3 Ml Soln) 3 ml INHALATION RT-Q4H PRN PRN Reason: Shortness Of Breath Or Wheezing Allopurinol (Zyloprim) 100 mg PO BID REPLACED BY [facility] Last Admin: 09/23/19 20:49 Dose: 100 mg Documented by: Aspirin (Aspirin) 81 mg PO DAILY REPLACED BY [facility] Last Admin: 09/23/19 08:26 Dose: 81 mg Documented by: Atorvastatin Calcium (Lipitor) 40 mg PO DAILY REPLACED BY [facility] Last Admin: 09/23/19 08:27 Dose: 40 mg Documented by: Azathioprine (Imuran) 100 mg PO DAILY REPLACED BY [facility] Last Admin: 09/23/19 08:27 Dose: 100 mg Documented by: Budesonide (Pulmicort) 0.5 mg INHALATION RT-BID REPLACED BY [facility] Last Admin: 09/23/19 20:49 Dose: 0.5 mg Documented by: Dicyclomine HCl (Bentyl) 10 mg PO Q6HR PRN PRN Reason: abdominal cramping Enoxaparin Sodium (Lovenox) 30 mg SQ DAILY REPLACED BY [facility] Last Admin: 09/23/19 08:27 Dose: 30 mg Documented by: Famotidine (Pepcid) 20 mg PO DAILY REPLACED BY [facility] Last Admin: 09/23/19 08:27 Dose: 20 mg Documented by: Formoterol Fumarate (Perforomist) 20 mcg INHALATION RT-BID REPLACED BY [facility] Last Admin: 09/23/19 20:49 Dose: 20 mcg Documented by: Sodium Chloride (Saline 0.9%) 1,000 mls @ 50 mls/hr IV .Q20H REPLACED BY [facility] Last Admin: 09/23/19 13:00 Dose: 50 mls/hr Documented by: Insulin Aspart (Novolog) 0 unit SQ ACHS REPLACED BY [facility]; Protocol Last Admin: 09/23/19 20:49 Dose: 8 unit Documented by: Levothyroxine Sodium (Synthroid) 100 mcg PO BID REPLACED BY [facility] Last Admin: 09/23/19 20:49 Dose: 100 mcg Documented by: Methylprednisolone Sodium Succinate (Solu-Medrol) 40 mg IV Q12H REPLACED BY [facility] Last Admin: 09/23/19 11:55 Dose: 40 mg Documented by: Metoprolol Tartrate (Lopressor) 25 mg PO BID REPLACED BY [facility] Last Admin: 09/23/19 20:49 Dose: 25 mg Documented by: Midodrine (Proamatine) 5 mg PO AC-TID REPLACED BY [facility] Last Admin: 09/23/19 17:08 Dose: 5 mg Documented by: Miscellaneous Information (Potassium Per Protocol) 1 each MISCELLANE DAILY PRN; Protocol PRN Reason: Per Protocol Spironolactone (Aldactone) 12.5 mg PO DAILY REPLACED BY [facility] Last Admin: 09/23/19 08:33 Dose: Not Given Documented by: Temazepam (Restoril) 30 mg PO HS REPLACED BY [facility] Last Admin: 09/22/19 23:04 Dose: 30 mg Documented by: Physical examination: VITAL SIGNS: 98.3, 60, a 16, 83/47, 99% on 2 L GENERAL: Sitting at the edge of the bed, comfortable EYES: Pupils equal. Conjunctiva normal. HEENT: External appearance of nose and ears normal, oral cavity grossly normal. NECK: JVD not raised; masses not palpable. HEART: First and second heart sounds are normal; minimal edema LUNGS: Respiratory rate increased,, decreased breath sounds, fine crackles ABDOMEN: Soft, nontender, liver spleen not palpable, no masses palpable. PSYCH: Alert and oriented x3; mood and affect slightly anxious MUSCULOSKELETAL: Evidence of OA specially in the hands INVESTIGATIONS, reviewed in the clinical context: progression 3.8 bun 81 creatinine 1.8 to Previous testing Creatinine on 08/28/2019 was 1.57 2-D echocardiogram -EF 40-45%, wall motion abnormality, AST with the [id number] shunt, moderate MR, severe TR, moderate pulmonary hypertension High resolution CT chest-diffuse pulmonary fibrosis Assessment: -Acute on chronic congestive heart failure exacerbation from systolic dysfunction EF 40-45% % from underlying coronary artery disease,, improved - bilateral severe pulmonary fibrosis - chronic cor pulmonale, from pulmonary fibrosis and CHF, -Coronary artery disease with bypass in July 2018 -Severe hypokalemia from diuresis, improved -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 No clinical evidence of acute coronary syndrome -Right renal atrophy -Hyperkalemia from renal failure., Worsening -Acute renal failure-from diuresis, status returned rounded Plan: renal function started controlled. That it extremity held. Cardiology was called with gentle hydration. Did discuss with Mateo at length about patient's clinical condition. Discussed with the patient and .
--- NOTE | 2019-09-23 22:16 | XR ---
EXAMINATION TYPE: XR chest 1V DATE OF EXAM: 09/23/2019 COMPARISON: 09/21/2019 HISTORY: Short of breath. Heart is enlarged. There are sternal wires. There is left axillary pacemaker. There is no definite pl eural effusion. Lungs are clear of consolidation. There is minimal congestion. IMPRESSION: Cardiomegaly. Mild pulmonary congestion without obvious heart failure. There is improveme nt in the pulmonary congestion compared to last exam.
[2019-09-23 22:59] LABS: Appearance,Urine Clear (Clear); Bilirubin,Urine Negative (Negative); Blood,Urine Negative (Negative); Color,Urine Yellow; Glucose,Urine (UA) Negative (Negative); Ketones,Urine Negative (Negative); Leukocyte Esterase,Urine Negative (Negative); Nitrite,Urine Negative (Negative); Protein,Urine Trace (Negative); Specific Gravity,Urine 1.013 (1.001-1.035); Urobilinogen,Urine <2.0 mg/dL (<2.0)
[2019-09-23] MEDS: TEMAZEPAM 15 MG CAP PO SCH (23:29)
[2019-09-23] MEDS: DICYCLOMINE 10 MG CAP PO PRN (23:33)
[2019-09-24 06:12] LABS: Glucose,Whole Blood 174 mg/dL (75-99)
[2019-09-24] MEDS: INSULIN ASPART (NovoLOG) 100 UNIT/ML VIAL SQ SCH ×4 (06:15→22:44)
[2019-09-24] MEDS: MIDODRINE 5 MG TAB PO SCH ×3 (06:16→17:40)
[2019-09-24] MEDS: ALBUTEROL NEBULIZED 2.5 MG/3 ML INHALATION SCH ×4 (08:03→20:17)
[2019-09-24] MEDS: FORMOTEROL FUMARATE 20 MCG/2 ML NEBU INHALATION SCH ×2 (08:03→20:17)
[2019-09-24] MEDS: BUDESONIDE 0.5 MG/2 ML NEBU INHALATION SCH ×2 (08:03→20:17)
[2019-09-24 08:15] LABS: Calcium 8.4 mg/dL (8.4-10.2); Potassium 3.4 mmol/L (3.5-5.1)
[2019-09-24] MEDS ORDERED: FUROSEMIDE 20 MG TAB PO SCH (09:00)
[2019-09-24] MEDS ORDERED: POTASSIUM CHLORIDE ER 20 MEQ TAB.ER PO STA (09:06)
[2019-09-24] MEDS: azaTHIOprine 50 MG TAB PO SCH (09:20)
[2019-09-24] MEDS: SPIRONOLACTONE 25 MG TAB PO SCH (09:20)
[2019-09-24] MEDS: ALLOPURINOL 100 MG TAB PO SCH ×2 (09:20→22:44)
[2019-09-24] MEDS: FAMOTIDINE 20 MG TAB PO SCH (09:20)
[2019-09-24] MEDS: ATORVASTATIN 40 MG TAB PO SCH (09:20)
[2019-09-24] MEDS: METOPROLOL TARTRATE 25 MG TAB PO SCH ×2 (09:20→22:44)
[2019-09-24] MEDS: ASPIRIN 81 MG PO SCH (09:20)
[2019-09-24] MEDS: LEVOTHYROXINE 100 MCG TAB PO SCH ×2 (09:21→22:44)
[2019-09-24] MEDS: ENOXAPARIN 30 MG/0.3 ML SYRINGE SQ SCH (09:21)
[2019-09-24] MEDS: SODIUM CHLORIDE 0.9% 1,000 ML IV SCH (09:29)
--- NOTE | 2019-09-24 11:47 | P.PN ---
Subjective Progress Note Date: 09/24/19 Principal diagnosis: history of pulmonary fibrosis Severe degree of valvular heart surgery Pulmonary hypertension possibly group 2 Acute on chronic respiratory failure Pulmonary fibrosis/boop can not be excluded 09/24/2019, patient is still short of breath denies any chest pain, computed tomography scan is suggestive of some fluid overload Matthieu has changed his suggestive of more of a CHF-like problem and fluid overload problem likely acute on chronic systolic heart failure with valvular heart disease some component of baseline pulmonary fibrosis is there as well discussed with cardiology further recommendations pending patient is being considered for outpatient clipping of mitral valve, we'll start her on IV steroids that will help some of the component of diffuse alveolar damage and interstitial pattern this is a 69-year-old female, patient sees Dr. Otto for primary care activity, patient has multiple medical problems including ischemic cardiomyopathy with baseline ejection fraction of 35% also has a history of coronary artery disease hypertension GERD hypothyroidism and pulmonary hypertension due to severe bilateral viktoriya-fibrosis and chronic kidney disease, patient is status post coronary artery bypass surgery at [facility], recently she has been hospitalized back in August for shortness of breath, she underwent OBEY later on today results of that test has been reviewed, moderate to severe mitral regurgitation was noted with restricted motion of posterior leaflet due to ischemic cardiomyopathy, 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, he has D has been noted with [id number] shunt as well as right to left shunt moderate degree or tricuspid regurgitation noted, patient is considered for mitral clip procedure in AST repair Objective - Vital Signs Vital signs: Vital Signs Temp 97.8 F 09/24/19 08:00 Pulse 66 09/24/19 08:23 Resp 18 09/24/19 08:00 BP 90/38 09/24/19 08:34 Pulse Ox 98 09/24/19 08:00 Intake & Output 09/23/19 09/24/19 09/24/19 18:59 06:59 18:59 Intake Total 480 240 240 Output Total 600 Balance -120 240 240 Weight 67.6 kg 68.1 kg Intake: Oral 480 240 240 Output: Urine 600 Other: Voiding Method Toilet Toilet # Voids 1 # Bowel Movements 2 - Exam - Constitutional General appearance: average body habitus, cooperative, disheveled - EENT Eyes: EOMI, PERRLA, poor dentition ENT: normal oropharynx Ears: bilateral: normal - Neck Neck: normal ROM Carotids: bilateral: upstroke normal - Respiratory Respiratory: bilateral: diminished, rales - Cardiovascular Rhythm: regular Heart sounds: normal: S1, S2 - Integumentary Integumentary: decreased turgor - Neurologic Neurologic: CNII-XII intact - Musculoskeletal Musculoskeletal: gait normal, generalized weakness, strength equal bilaterally - Psychiatric Psychiatric: A&O x's 3, appropriate affect, intact judgment & insight - Labs CBC & Chem 7: 09/20/19 05:48 09/24/19 07:50 Labs: Abnormal Lab Results - Last 24 Hours (Table) 09/23/19 09/23/19 09/23/19 Range/Units 12:18 16:45 18:00 Sodium (137-145) mmol/L Potassium (3.5-5.1) mmol/L Chloride (98-107) mmol/L BUN (7-17) mg/dL Creatinine (0.52-1.04) mg/dL Glucose (74-99) mg/dL POC Glucose (mg/dL) 185 H 215 H (75-99) mg/dL Urine Protein Trace H (Negative) 09/23/19 09/24/19 09/24/19 Range/Units 20:24 06:10 07:50 Sodium 135 L (137-145) mmol/L Potassium 3.4 L (3.5-5.1) mmol/L Chloride 97 L (98-107) mmol/L BUN 82 H (7-17) mg/dL Creatinine 1.58 H (0.52-1.04) mg/dL Glucose 156 H (74-99) mg/dL POC Glucose (mg/dL) 256 H 174 H (75-99) mg/dL Urine Protein (Negative) Assessment and Plan Assessment: history of pulmonary fibrosis Severe degree of valvular heart surgery Pulmonary hypertension possibly group 2 Acute on chronic respiratory failure Pulmonary fibrosis/boop cannot be excluded Plan: Reviewed computed tomography scan of chest noncontrast Agree with repair of mitral valve Initiate trial of IV steroids further recommendations pending plan of care as per clinical response of patient Time with Patient: Greater than 30
[2019-09-24 11:57] LABS: Glucose,Whole Blood 218 mg/dL (75-99)
[2019-09-24] MEDS: methylPREDNISolone SOD SUCCI 40 MG/ML 1 ML VIAL IV SCH ×3 (12:08→22:44)
--- NOTE | 2019-09-24 12:13 | P.PN ---
Subjective Progress Note Date: 09/24/19 This is a pleasant 69-year-old male patient who follows with Dr. RAOUL Vazquez in the office. She has a prior history of CAD with bypass surgery in 2018, ischemic cardiomyopathy with most recent echocardiogram showing ejection fraction of 30- 35%, moderate mitral regurgitation and moderate to severe tricuspid regurgitation, pulmonary hypertension, hypertension, hyperlipidemia, pulmonary fibrosis, prior AICD placement implantation last year, COPD, renal insufficiency and hypothyroidism. She's had multiple hospitalizations recently and was just recently discharged on the first of this month. During her last admission, she developed acute kidney injury and her Aldactone and DARVIN inhibitor were old. We did trial Entresto at that time but she was not able to tolerate it due to hypotension and worsening renal failure. Presents this admission with progressively worsening dyspnea on exertion, orthopnea and lower extremity edema. She's apparently been eating a lot of soup from restaurants. She has be en on oral Lasix and metolazone at home. Labs on admission showed sodium 136, potassium 2.9 which is being supplemented, BUN 38, creatinine 1.25, elevated AST and ALTs and alkaline phosphatase, troponin 0.058 and NT proBNP of 28,600 which is higher than previous admission. She has Been initiated on IV Lasix. Vital signs are stable. Upon examination, patient's resting comfortable with head of bed up. She continues to complain of orthopnea. She feels her edema may be slightly better and she is breathing a bit better. 09/24/2019 Patient seen and examined this morning, doing well overall. Breathing is stable. Continues to have a cough. Chest x-ray was repeated which shows improvement from prior x-ray. Her creatinine today is down to 1.5, BUN 82, potassium 3.4 which has been replaced. Objective - Vital Signs Vital signs: Vital Signs Temp 97.8 F 09/24/19 08:00 Pulse 68 09/24/19 12:00 Resp 18 09/24/19 08:00 BP 90/38 09/24/19 08:34 Pulse Ox 98 09/24/19 08:00 Intake & Output 09/23/19 09/24/19 09/24/19 18:59 06:59 18:59 Intake Total 480 240 240 Output Total 600 Balance -120 240 240 Weight 67.6 kg 68.1 kg Intake: Oral 480 240 240 Output: Urine 600 Other: Voiding Method Toilet Toilet # Voids 1 # Bowel Movements 2 - Exam PHYSICAL EXAMINATION: HEENT: Head is atraumatic, normocephalic. Pupils equal, round. Neck is supple. There is elevated jugular venous pressure. HEART EXAMINATION: Heart sounds regular, S1 and S2 with a systolic murmur. CHEST EXAMINATION: Lungs reveal crackles and Wheezing throughout. No chest wall tenderness is noted on palpation or with deep breathing. ABDOMEN: Soft, nontender. Bowel sounds are heard. No organomegaly noted. EXTREMITIES:1+ peripheral pulses with evidence of moderate peripheral edema and no calf tenderness noted. NEUROLOGIC patient is awake, alert and oriented x3. - Labs CBC & Chem 7: 09/20/19 05:48 09/24/19 07:50 Labs: Abnormal Lab Results - Last 24 Hours (Table) 09/23/19 09/23/19 09/23/19 Range/Units 12:18 16:45 18:00 Sodium (137-145) mmol/L Potassium (3.5-5.1) mmol/L Chloride (98-107) mmol/L BUN (7-17) mg/dL Creatinine (0.52-1.04) mg/dL Glucose (74-99) mg/dL POC Glucose (mg/dL) 185 H 215 H (75-99) mg/dL Urine Protein Trace H (Negative) 09/23/19 09/24/19 09/24/19 Range/Units 20:24 06:10 07:50 Sodium 135 L (137-145) mmol/L Potassium 3.4 L (3.5-5.1) mmol/L Chloride 97 L (98-107) mmol/L BUN 82 H (7-17) mg/dL Creatinine 1.58 H (0.52-1.04) mg/dL Glucose 156 H (74-99) mg/dL POC Glucose (mg/dL) 256 H 174 H (75-99) mg/dL Urine Protein (Negative) 09/24/19 Range/Units 11:53 Sodium (137-145) mmol/L Potassium (3.5-5.1) mmol/L Chloride (98-107) mmol/L BUN (7-17) mg/dL Creatinine (0.52-1.04) mg/dL Glucose (74-99) mg/dL POC Glucose (mg/dL) 218 H (75-99) mg/dL Urine Protein (Negative) Assessment and Plan Plan: Assessment: #1 acute on chronic combined systolic and diastolic congestive heart failure #2 ischemic cardiomyopathy #3 pulmonary fibrosis #4 COPD with pulmonary hypertension #5 acute on chronic chronic renal failure Plan Cardiology's perspective, patient may be able to be discharged home today, we'll make her a follow-up appointment with Dr. Campos Vazquez in the office post discharge. DNP note has been reviewed, I agree with a documented findings and plan of care. Patient was seen and examined.
[2019-09-24 17:22] LABS: Glucose,Whole Blood 169 mg/dL (75-99)
[2019-09-24] MEDS ORDERED: FUROSEMIDE 10 MG/ML 2 ML VIAL IV ONE (17:25)
--- NOTE | 2019-09-24 18:11 | PN ---
PROGRESS NOTE Patient is seen for followup for acute kidney injury. She is status post recent diuresis and diuretics were held when creatinine peaked at 2.1. Since then, patient was also started on gentle IV hydration. Creatinine today is down to 1.58. Patient denies any chest pains or shortness of breath. PHYSICAL EXAMINATION: On examination this morning, blood pressure was 90/50, heart rate of 68 per minute. She is afebrile. EXAMINATION OF THE HEART: S1 and S2. EXAMINATION OF LUNGS: Bilateral breath sounds are heard. Examination of lower extremities shows edema 1+ bilaterally. 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 LABS: Sodium 135, potassium 3.4, chloride 97, BUN 82, creatinine 1.58. UA shows trace protein. ASSESSMENT: 1. Acute kidney injury, cardiorenal as well as secondary to recent diuresis and hypotension, currently improving. I will discontinue the normal saline. We can possibly resume low-dose diuretics tomorrow. 2. Cardiomyopathy; ejection fraction of 40% to 45%. 3. Severe pulmonary fibrosis and pulmonary hypertension. 4. Hypokalemia, status post replacement. 5. Congestive heart failure, acute on top of chronic, mainly systolic. PLAN: Discontinue IV fluids. Repeat labs in a.m. We can likely resume low-dose loop diuretics tomorrow. Patient was on Zaroxolyn and Aldactone at home. I do not see loop diuretics on her home med list. MMODL / IJN: [id number] /
--- NOTE | 2019-09-24 18:40 | P.PN ---
Progress Note - Text Progress Note Date: 09/24/19 Interval history: This is a pleasant 69-year-old patient of Dr. Otto. Chronic stable medical conditions include coronary artery disease, hypertension, GERD, hypothyroidism, severe secondary pulmonary hypertension, bilateral severe pulmonary fibrosis, cor pulmonale, chronic kidney disease. Patient in October of this year had a coronary artery bypass at [facility]. Patient was here in the hospital on August 25. Diagnosed with CHF exacerbation EF 30-35% and also found to have significant pulmonary fibrosis. Admitted with shortness of breath. [place] to be in CHF exacerbation.had a OBEY done. Acute renal failure from diuresis. Today-no new issues today. Slightly short of breath. Did tolerate some diet. Tired. Patient did get IV fluids per cardiology. Review of systems: Was done for constitutional, cardiovascular, GI, pulmonary. relevant finding as above Active Medications Acetaminophen (Tylenol Tab) 650 mg PO Q4HR PRN PRN Reason: Fever and/ or Pain Albuterol Sulfate (Ventolin Nebulized) 2.5 mg INHALATION RT-QID [facility] Last Admin: 09/24/19 16:28 Dose: 2.5 mg Documented by: Albuterol/Ipratropium (Duoneb 0.5 Mg-3 Mg/3 Ml Soln) 3 ml INHALATION RT-Q4H PRN PRN Reason: Shortness Of Breath Or Wheezing Allopurinol (Zyloprim) 100 mg PO BID [facility] Last Admin: 09/24/19 09:20 Dose: 100 mg Documented by: Aspirin (Aspirin) 81 mg PO DAILY [facility] Last Admin: 09/24/19 09:20 Dose: 81 mg Documented by: Atorvastatin Calcium (Lipitor) 40 mg PO DAILY [facility] Last Admin: 09/24/19 09:20 Dose: 40 mg Documented by: Azathioprine (Imuran) 100 mg PO DAILY [facility] Last Admin: 09/24/19 09:20 Dose: 100 mg Documented by: Budesonide (Pulmicort) 0.5 mg INHALATION RT-BID [facility] Last Admin: 09/24/19 08:03 Dose: 0.5 mg Documented by: Dicyclomine HCl (Bentyl) 10 mg PO Q6HR PRN PRN Reason: abdominal cramping Last Admin: 09/23/19 23:33 Dose: 10 mg Documented by: Enoxaparin Sodium (Lovenox) 40 mg SQ DAILY [facility] Famotidine (Pepcid) 20 mg PO DAILY [facility] Last Admin: 09/24/19 09:20 Dose: 20 mg Documented by: Formoterol Fumarate (Perforomist) 20 mcg INHALATION RT-BID [facility] Last Admin: 09/24/19 08:03 Dose: 20 mcg Documented by: Insulin Aspart (Novolog) 0 unit SQ ACHS [facility]; Protocol Last Admin: 09/24/19 17:35 Dose: 3 unit Documented by: Levothyroxine Sodium (Synthroid) 100 mcg PO BID [facility] Last Admin: 09/24/19 09:21 Dose: 100 mcg Documented by: Methylprednisolone Sodium Succinate (Solu-Medrol) 40 mg IV Q8HR [facility] Last Admin: 09/24/19 17:35 Dose: 40 mg Documented by: Metoprolol Tartrate (Lopressor) 25 mg PO BID [facility] Last Admin: 09/24/19 09:20 Dose: 25 mg Documented by: Midodrine (Proamatine) 5 mg PO AC-TID [facility] Last Admin: 09/24/19 17:40 Dose: 5 mg Documented by: Miscellaneous Information (Potassium Per Protocol) 1 each MISCELLANE DAILY PRN; Protocol PRN Reason: Per Protocol Spironolactone (Aldactone) 12.5 mg PO DAILY [facility] Last Admin: 09/24/19 09:20 Dose: 12.5 mg Documented by: Temazepam (Restoril) 30 mg PO HS [facility] Last Admin: 09/23/19 23:29 Dose: 30 mg Documented by: Physical examination: VITAL SIGNS: 97.8, 60, 18, 84/42, 98% on 2 L GENERAL: Sitting up, slightly short of breath EYES: Pupils equal. Conjunctiva normal. HEENT: External appearance of nose and ears normal, oral cavity grossly normal. NECK: JVD not raised; masses not palpable. HEART: First and second heart sounds are normal;some,edema LUNGS: Respiratory rate increased,, decreased breath sounds, fine crackles ABDOMEN: Soft, nontender, liver spleen not palpable, no masses palpable. PSYCH: Alert and oriented x3; mood and affect slightly anxious MUSCULOSKELETAL: Evidence of OA specially in the hands INVESTIGATIONS, reviewed in the clinical context: progression 3.8 bun 81 creatinine 1.8 to Previous testing Creatinine on 08/28/2019 was 1.57 2-D echocardiogram -EF 40-45%, wall motion abnormality, AST with the left-to- right shunt, moderate MR, severe TR, moderate pulmonary hypertension High resolution CT chest-diffuse pulmonary fibrosis Assessment: -Acute on chronic congestive heart failure exacerbation from systolic dysfunction EF 40-45% % from underlying coronary artery disease,, stable - bilateral severe pulmonary fibrosis - chronic cor pulmonale, from pulmonary fibrosis and CHF, -Coronary artery disease with bypass in July 2018 -Severe hypokalemia from diuresis, improved -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 No clinical evidence of acute coronary syndrome -Right renal atrophy -Hyperkalemia from renal failure., Worsening -Acute renal failure-from diuresis, status returned rounded Plan: care was discussed with the patient and . If remains stable today and hopefully can be discharged tomorrow. We'll resume patient's diuretics tomorrow . Encouraged to ambulate
[2019-09-24] MEDS: IPRATROPIUM-ALBUTEROL 3 ML NEB INHALATION PRN (20:17)
[2019-09-24 20:29] LABS: Glucose,Whole Blood 165 mg/dL (75-99)
[2019-09-24] MEDS: TEMAZEPAM 15 MG CAP PO SCH (22:43)
[2019-09-25 06:22] LABS: Glucose,Whole Blood 186 mg/dL (75-99)
[2019-09-25 06:39] LABS: Glucose,Whole Blood 192 mg/dL (75-99)
[2019-09-25] MEDS: MIDODRINE 5 MG TAB PO SCH ×3 (06:40→17:50)
[2019-09-25] MEDS: INSULIN ASPART (NovoLOG) 100 UNIT/ML VIAL SQ SCH ×4 (06:41→21:22)
[2019-09-25] MEDS: IPRATROPIUM-ALBUTEROL 3 ML NEB INHALATION PRN (08:20)
[2019-09-25] MEDS: BUDESONIDE 0.5 MG/2 ML NEBU INHALATION SCH ×2 (08:21→21:34)
[2019-09-25] MEDS: FORMOTEROL FUMARATE 20 MCG/2 ML NEBU INHALATION SCH ×2 (08:21→21:33)
[2019-09-25] MEDS: ALBUTEROL NEBULIZED 2.5 MG/3 ML INHALATION SCH ×4 (08:21→21:34)
[2019-09-25] MEDS: FAMOTIDINE 20 MG TAB PO SCH (10:05)
[2019-09-25] MEDS: DICYCLOMINE 10 MG CAP PO PRN (10:05)
[2019-09-25] MEDS: ENOXAPARIN 40 MG/0.4 ML SYRINGE SQ SCH (10:05)
[2019-09-25] MEDS: ASPIRIN 81 MG PO SCH (10:05)
[2019-09-25] MEDS: ALLOPURINOL 100 MG TAB PO SCH ×2 (10:05→21:22)
[2019-09-25] MEDS: ATORVASTATIN 40 MG TAB PO SCH (10:05)
[2019-09-25] MEDS: methylPREDNISolone SOD SUCCI 40 MG/ML 1 ML VIAL IV SCH ×3 (10:05→23:34)
[2019-09-25] MEDS: LEVOTHYROXINE 100 MCG TAB PO SCH ×2 (10:05→21:22)
[2019-09-25] MEDS: azaTHIOprine 50 MG TAB PO SCH (10:06)
[2019-09-25] MEDS: METOPROLOL TARTRATE 25 MG TAB PO SCH ×2 (10:16→21:22)
[2019-09-25] MEDS: SPIRONOLACTONE 25 MG TAB PO SCH (10:17)
--- NOTE | 2019-09-25 10:20 | P.PN ---
Subjective Progress Note Date: 09/25/19 Principal diagnosis: history of pulmonary fibrosis Severe degree of valvular heart surgery Pulmonary hypertension possibly group 2 Acute on chronic respiratory failure Pulmonary fibrosis/boop can not be excluded 09/25/2019, patient seen and evaluated examined during rounds labs reviewed medications reviewed computed tomography scan finding reviewed and discussed with the patient and her at length patient is still have shortness of breath and cough severity however has been a stable, we'll start her on oral doxycycline cardiology is evaluating, Computed tomography scan is suggestive of patchy bilateral infiltrate and some minimal scarring at the bases will continue Solu-Medrol patient will require slow taper of the IV steroids with close monitoring and follow-up 09/24/2019, patient is still short of breath denies any chest pain, computed tomography scan is suggestive of some fluid overload Matthieu has changed his suggestive of more of a CHF-like problem and fluid overload problem likely acute on chronic systolic heart failure with valvular heart disease some component of baseline pulmonary fibrosis is there as well discussed with cardiology further r ecommendations pending patient is being considered for outpatient clipping of mitral valve, we'll start her on IV steroids that will help some of the component of diffuse alveolar damage and interstitial pattern this is a 69-year-old female, patient sees Dr. Otto for primary care activity, patient has multiple medical problems including ischemic cardiomyopathy with baseline ejection fraction of 35% also has a history of coronary artery disease hypertension GERD hypothyroidism and pulmonary h ypertension due to severe bilateral viktoriya-fibrosis and chronic kidney disease, patient is status post coronary artery bypass surgery at [facility], recently she has been hospitalized back in August for shortness of breath, she underwent OBEY later on today results of that test has been reviewed, moderate to severe mitral regurgitation was noted with restricted motion of posterior leaflet due to ischemic cardiomyopathy, 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, he has D has been noted with [id number] shunt as well as right to left shunt moderate degree or tricuspid regurgitation noted, patient is considered for mitral clip procedure in AST repair Objective - Vital Signs Vital signs: Vital Signs Temp 97.8 F 09/25/19 04:00 Pulse 62 09/25/19 08:43 Resp 20 09/25/19 04:00 BP 100/54 09/25/19 04:00 Pulse Ox 95 09/25/19 04:00 Intake & Output 09/24/19 09/25/19 09/25/19 18:59 06:59 18:59 Intake Total 600 240 120 Balance 600 240 120 Weight 69.1 kg Intake: Oral 600 240 120 Other: # Voids 2 1 - Exam - Constitutional General appearance: average body habitus, cooperative, disheveled - EENT Eyes: EOMI, PERRLA, poor dentition ENT: normal oropharynx Ears: bilateral: normal - Neck Neck: normal ROM Carotids: bilateral: upstroke normal - Respiratory Respiratory: bilateral: diminished, rales - Cardiovascular Rhythm: regular Heart sounds: normal: S1, S2 - Integumentary Integumentary: decreased turgor - Neurologic Neurologic: CNII-XII intact - Musculoskeletal Musculoskeletal: gait normal, generalized weakness, strength equal bilaterally - Psychiatric Psychiatric: A&O x's 3, appropriate affect, intact judgment & insight - Labs CBC & Chem 7: 09/20/19 05:48 09/24/19 07:50 Labs: Abnormal Lab Results - Last 24 Hours (Table) 09/24/19 09/24/19 09/24/19 Range/Units 11:53 17:19 20:27 POC Glucose (mg/dL) 218 H 169 H 165 H (75-99) mg/dL 09/25/19 09/25/19 Range/Units 06:21 06:38 POC Glucose (mg/dL) 186 H 192 H (75-99) mg/dL Assessment and Plan Assessment: history of pulmonary fibrosis Severe degree of valvular heart surgery Pulmonary hypertension possibly group 2 Acute on chronic respiratory failure Pulmonary fibrosis nonspecific at the bases patchy Areas of infiltrate bilaterally more so on the right side compared to left side boop cannot be excluded Plan: Reviewed computed tomography scan of chest noncontrast Agree with repair of mitral valve Initiate trial of IV steroids further recommendations pending plan of care as per clinical response of patient doxycycline by mouth Time with Patient: Greater than 30
--- NOTE | 2019-09-25 10:45 | PN ---
PROGRESS NOTE The patient is seen for followup for acute kidney injury secondary to hypotension and hypoperfusion and recent diuresis. Renal function has improved. Creatinine was down to 1.5 yesterday. Labs are pending from today. Patient's Lasix has been on hold. She was also maintained on IV fluids which are now discontinued. PHYSICAL EXAMINATION: On examination today, blood pressure was 100/54, heart rate 60 per minute, patient is afebrile. Examination of the heart S1, S2. Examination of the lungs, bilateral breath sounds are heard. Decreased breath sounds at the bases. Abdomen is soft, nontender. Examination of lower extremities shows edema 1+ bilaterally. SLEEP MANAGER exam grossly intact. LABS: Pending from today. Creatinine was 1.5 yesterday. ASSESSMENT: 1. Acute kidney injury secondary to hypotension and recent diuresis currently improved. I will check labs today and patient can be discharged from nephrology standpoint. She should resume her home dose of diuretics and she can go home on Lasix 40 mg p.o. daily along with the metolazone that she was taking. 2. Chronic kidney disease secondary to nephrosclerosis, NKF stage III. 3. Chronic kidney disease mineral bone disorder. 4. Severe pulmonary hypertension. 5. Pulmonary fibrosis. 6. Congestive heart failure, diastolic dysfunction and volume overload, currently stable and improved. PLAN: Patient is stable for discharge. She can be discharged on Lasix 40 mg daily. She may continue with the metolazone post discharge. Monitor labs as outpatient. MMODL / IJN: [id number] /
[2019-09-25 11:04] LABS: Calcium 8.4 mg/dL (8.4-10.2); Potassium 4.3 mmol/L (3.5-5.1)
[2019-09-25 12:25] LABS: Glucose,Whole Blood 247 mg/dL (75-99)
--- NOTE | 2019-09-25 14:33 | PN ---
PROGRESS NOTE This patient is admitted with respiratory distress secondary to congestive cardiac failure, pulmonary fibrosis. The patient is doing better. She is comfortable. Blood pressure is 112/52 mmHg. First and second heart sounds are heard. Lung examination reveals bilateral few basal rales. Patient's creatinine now is 1.5. The patient can be discharged home on Lasix 40 mg daily. BUN and creatinine will follow as outpatient and patient will be followed with Dr. Nini Vazquez. MMVANCEL / ELLAN: [id number] /
[2019-09-25 17:15] LABS: Glucose,Whole Blood 167 mg/dL (75-99)
[2019-09-25 20:44] LABS: Glucose,Whole Blood 273 mg/dL (75-99)
--- NOTE | 2019-09-25 21:17 | P.PN ---
Progress Note - Text Progress Note Date: 09/25/19 Interval history: This is a pleasant 69-year-old patient of Dr. Otto. Chronic stable medical conditions include coronary artery disease, hypertension, GERD, hypothyroidism, severe secondary pulmonary hypertension, bilateral severe pulmonary fibrosis, cor pulmonale, chronic kidney disease. Patient in October of this year had a coronary artery bypass at [facility]. Patient was here in the hospital on August 25. Diagnosed with CHF exacerbation EF 30-35% and also found to have significant pulmonary fibrosis. Admitted with shortness of breath. [place] to be in CHF exacerbation.had a OBEY done. Acute renal failure from diuresis. Today-CT chest reviewed with Dr. Washington. Infiltrates have worsened since reason CT chest. Picture compatible with BOOP.patient had be started on steroids. She short of breath. Tired. Cough. Review of systems: Was done for constitutional, cardiovascular, GI, pulmonary. relevant finding as above Interval history: This is a pleasant 69-year-old patient of Dr. Otto. Chronic stable medical conditions include coronary artery disease, hypertension, GERD, hypothyroidism, severe secondary pulmonary hypertension, bilateral severe pulmonary fibrosis, cor pulmonale, chronic kidney disease. Patient in October of this year had a coronary artery bypass at [facility]. Patient was here in the hospital on August 25. Diagnosed with CHF exacerbation EF 30-35% and also found to have significant pulmonary fibrosis. Admitted with shortness of breath. [place] to be in CHF exacerbation.had a OBEY done. Acute renal failure from diuresis. Today-no new issues today. Slightly short of breath. Did tolerate some diet. Tired. Patient did get IV fluids per cardiology. Review of systems: Was done for constitutional, cardiovascular, GI, pulmonary. relevant finding as above Active Medications Acetaminophen (Tylenol Tab) 650 mg PO Q4HR PRN PRN Reason: Fever and/ or Pain Albuterol Sulfate (Ventolin Nebulized) 2.5 mg INHALATION RT-QID [facility] Last Admin: 09/24/19 16:28 Dose: 2.5 mg Documented by: Albuterol/Ipratropium (Duoneb 0.5 Mg-3 Mg/3 Ml Soln) 3 ml INHALATION RT-Q4H PRN PRN Reason: Shortness Of Breath Or Wheezing Allopurinol (Zyloprim) 100 mg PO BID [facility] Last Admin: 09/24/19 09:20 Dose: 100 mg Documented by: Aspirin (Aspirin) 81 mg PO DAILY [facility] Last Admin: 09/24/19 09:20 Dose: 81 mg Documented by: Atorvastatin Calcium (Lipitor) 40 mg PO DAILY [facility] Last Admin: 09/24/19 09:20 Dose: 40 mg Documented by: Azathioprine (Imuran) 100 mg PO DAILY [facility] Last Admin: 09/24/19 09:20 Dose: 100 mg Documented by: Budesonide (Pulmicort) 0.5 mg INHALATION RT-BID [facility] Last Admin: 09/24/19 08:03 Dose: 0.5 mg Documented by: Dicyclomine HCl (Bentyl) 10 mg PO Q6HR PRN PRN Reason: abdominal cramping Last Admin: 09/23/19 23:33 Dose: 10 mg Documented by: Enoxaparin Sodium (Lovenox) 40 mg SQ DAILY [facility] Famotidine (Pepcid) 20 mg PO DAILY [facility] Last Admin: 09/24/19 09:20 Dose: 20 mg Documented by: Formoterol Fumarate (Perforomist) 20 mcg INHALATION RT-BID [facility] Last Admin: 09/24/19 08:03 Dose: 20 mcg Documented by: Insulin Aspart (Novolog) 0 unit SQ [facility]; Protocol Last Admin: 09/24/19 17:35 Dose: 3 unit Documented by: Levothyroxine Sodium (Synthroid) 100 mcg PO BID [facility] Last Admin: 09/24/19 09:21 Dose: 100 mcg Documented by: Methylprednisolone Sodium Succinate (Solu-Medrol) 40 mg IV Q8HR [facility] Last Admin: 09/24/19 17:35 Dose: 40 mg Documented by: Metoprolol Tartrate (Lopressor) 25 mg PO BID [facility] Last Admin: 09/24/19 09:20 Dose: 25 mg Documented by: Midodrine (Proamatine) 5 mg PO AC-TID [facility] Last Admin: 09/24/19 17:40 Dose: 5 mg Documented by: Miscellaneous Information (Potassium Per Protocol) 1 each MISCELLANE DAILY PRN; Protocol PRN Reason: Per Protocol Spironolactone (Aldactone) 12.5 mg PO DAILY [facility] Last Admin: 09/24/19 09:20 Dose: 12.5 mg Documented by: Temazepam (Restoril) 30 mg PO HS [facility] Last Admin: 09/23/19 23:29 Dose: 30 mg Documented by: Physical examination: VITAL SIGNS: 97.6, 60, 18, 11 2/52, 96% on 2 L GENERAL: propped up in bed, tired short of breath EYES: Pupils equal. Conjunctiva normal. HEENT: External appearance of nose and ears normal, oral cavity grossly normal. NECK: JVD not raised; masses not palpable. HEART: First and second heart sounds are normal;some,edema LUNGS: Respiratory rate increased,, decreased breath sounds, increase crackles ABDOMEN: Soft, nontender, liver spleen not palpable, no masses palpable. PSYCH: Alert and oriented x3; mood and affect slightly anxious MUSCULOSKELETAL: Evidence of OA specially in the hands INVESTIGATIONS, reviewed in the clinical context: potassium 4.3 bun 78 crit 1.5 Previous testing Creatinine on 08/28/2019 was 1.57 2-D echocardiogram -EF 40-45%, wall motion abnormality, AST with the jilc-bs-rumzo shunt, moderate MR, severe TR, moderate pulmonary hypertension High resolution CT chest-diffuse pulmonary fibrosis Assessment: -Acute on chronic congestive heart failure exacerbation from systolic dysfunction EF 40-45% % from underlying coronary artery disease,, stable -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 No clinical evidence of acute coronary syndrome -Right renal atrophy -Hyperkalemia from renal failure., -Acute renal failure-from diuresis, Plan: as discussed with Dr. Washington, patient is put on steroids. Other medications to continue. discussed with patient.Prognosis is guarded. Total time spent today about 45 minutes with over 25 minutes of discussion Physical examination: VITAL SIGNS: 97.8, 60, 18, 84/42, 98% on 2 L GENERAL: Sitting up, slightly short of breath EYES: Pupils equal. Conjunctiva normal. HEENT: External appearance of nose and ears normal, oral cavity grossly normal. NECK: JVD not raised; masses not palpable. HEART: First and second heart sounds are normal;some,edema LUNGS: Respiratory rate increased,, decreased breath sounds, fine crackles ABDOMEN: Soft, nontender, liver spleen not palpable, no masses palpable. PSYCH: Alert and oriented x3; mood and affect slightly anxious MUSCULOSKELETAL: Evidence of OA specially in the hands INVESTIGATIONS, reviewed in the clinical context: progression 3.8 bun 81 creatinine 1.8 to Previous testing Creatinine on 08/28/2019 was 1.57 2-D echocardiogram -EF 40-45%, wall motion abnormality, AST with the prqb-uw-zaiek shunt, moderate MR, severe TR, moderate pulmonary hypertension High resolution CT chest-diffuse pulmonary fibrosis Assessment: -Acute on chronic congestive heart failure exacerbation from systolic dysfunction EF 40-45% % from underlying coronary artery disease,, stable - bilateral severe pulmonary fibrosis - chronic cor pulmonale, from pulmonary fibrosis and CHF, -Coronary artery disease with bypass in July 2018 -Severe hypokalemia from diuresis, improved -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 No clinical evidence of acute coronary syndrome -Right renal atrophy -Hyperkalemia from renal failure., Worsening -Acute renal failure-from diuresis, status returned rounded Plan: care was discussed with the patient and . If remains stable today and hopefully can be discharged tomorrow. We'll resume patient's diuretics tomorrow . Encouraged to ambulate
[2019-09-25] MEDS: DOXYCYCLINE 100 MG CAP PO SCH (21:22)
[2019-09-25] MEDS: TEMAZEPAM 15 MG CAP PO SCH (21:22)
[2019-09-26 06:35] LABS: Glucose,Whole Blood 196 mg/dL (75-99)
[2019-09-26] MEDS: MIDODRINE 5 MG TAB PO SCH ×3 (06:49→17:14)
[2019-09-26] MEDS: INSULIN ASPART (NovoLOG) 100 UNIT/ML VIAL SQ SCH ×4 (06:49→21:08)
[2019-09-26] MEDS: BUDESONIDE 0.5 MG/2 ML NEBU INHALATION SCH ×2 (09:23→19:00)
[2019-09-26] MEDS: ALBUTEROL NEBULIZED 2.5 MG/3 ML INHALATION SCH ×4 (09:23→19:00)
[2019-09-26] MEDS: FORMOTEROL FUMARATE 20 MCG/2 ML NEBU INHALATION SCH ×2 (09:23→18:59)
[2019-09-26] MEDS: ATORVASTATIN 40 MG TAB PO SCH (09:30)
[2019-09-26] MEDS: SPIRONOLACTONE 25 MG TAB PO SCH (09:30)
[2019-09-26] MEDS: ALLOPURINOL 100 MG TAB PO SCH ×2 (09:30→20:15)
[2019-09-26] MEDS: ENOXAPARIN 40 MG/0.4 ML SYRINGE SQ SCH (09:30)
[2019-09-26] MEDS: LEVOTHYROXINE 100 MCG TAB PO SCH ×2 (09:30→20:15)
[2019-09-26] MEDS: methylPREDNISolone SOD SUCCI 40 MG/ML 1 ML VIAL IV SCH ×3 (09:30→22:55)
[2019-09-26] MEDS: METOPROLOL TARTRATE 25 MG TAB PO SCH ×2 (09:30→20:15)
[2019-09-26] MEDS: FAMOTIDINE 20 MG TAB PO SCH (09:30)
[2019-09-26] MEDS: DOXYCYCLINE 100 MG CAP PO SCH ×2 (09:31→20:15)
[2019-09-26] MEDS: azaTHIOprine 50 MG TAB PO SCH (09:31)
[2019-09-26] MEDS: ASPIRIN 81 MG PO SCH (09:36)
[2019-09-26 10:55] LABS: Calcium 8.6 mg/dL (8.4-10.2); Potassium 4.3 mmol/L (3.5-5.1)
[2019-09-26 12:31] LABS: Glucose,Whole Blood 333 mg/dL (75-99)
--- NOTE | 2019-09-26 12:35 | PN ---
PROGRESS NOTE The patient is seen for followup for acute kidney injury. Her renal function continues to improve. The patient was diuresed for CHF. Her Lasix was held and she also received IV fluids at this time. Renal function has improved. However, she appears to be mildly volume overloaded, therefore I will resume her diuretics. PHYSICAL EXAMINATION: On examination today, blood pressure was 125/59, heart rate 60 per minute. She is afebrile. Examination of the heart S1, S2. Examination of the lungs, bilateral breath sounds are heard. ABDOMEN: Soft, nontender. Examination lower extremities shows edema 1+ bilaterally. DEPOSITION REPORTER exam is grossly intact. LABS SHOW: Serum creatinine 1.4, sodium 133, potassium 4.3. ASSESSMENT: 1. Acute kidney injury secondary to low blood pressure, recent diuresis, currently improved. 2. Congestive heart failure, diastolic dysfunction, status post recent diuresis. I will resume the diuretics today. 3. Chronic kidney disease stage 3 secondary to nephrosclerosis. 4. Chronic kidney disease mineral bone disorder. 5. Severe pulmonary hypertension. 6. Pulmonary fibrosis. 7. Volume overload, now improved. PLAN: Resume diuretics. Monitor labs as outpatient. Follow up as outpatient for CKD. MMODL / IJN: [id number] /
--- NOTE | 2019-09-26 13:25 | P.PN ---
Subjective Progress Note Date: 09/26/19 Principal diagnosis: history of pulmonary fibrosis Severe degree of valvular heart surgery Pulmonary hypertension possibly group 2 Acute on chronic respiratory failure Pulmonary fibrosis/boop can not be excluded 09/26/2019, patient seen eval examined during the rounds she is on 3 L oxygen as saturation 95% some exertional shortness of breath is present overall remains stable patient Imuran has been tapered down now, patient remains on IV steroids and doxycycline, cardiology thinking about mitral valve clip as outpatient or severe mitral regurgitation, renal function continued to improve 09/25/2019, patient seen and evaluated examined during rounds labs reviewed medi cations reviewed computed tomography scan finding reviewed and discussed with the patient and her at length patient is still have shortness of breath and cough severity however has been a stable, we'll start her on oral doxycycline cardiology is evaluating, Computed tomography scan is suggestive of patchy bilateral infiltrate and some minimal scarring at the bases will continue Solu-Medrol patient will require slow taper of the IV steroids with close monitoring and follow-up 09/24/2019, patient is still short of breath denies any chest pain, computed tomography scan is suggestive of some fluid overload Matthieu has changed his suggestive of more of a CHF-like problem and fluid overload problem likely acute on chronic systolic heart failure with valvular heart disease some component of baseline pulmonary fibrosis is there as well discussed with cardiology further recommendations pending patient is being considered for outpatient clipping of mitral valve, we'll start her on IV steroids that will help some of the component of diffuse alveolar damage and interstitial pattern this is a 69-year-old female, patient sees Dr. Otto for primary care activity, patient has multiple medical problems including ischemic cardiomyopathy with baseline ejection fraction of 35% also has a history of coronary artery disease hypertension GERD hypothyroidism and pulmonary hypertension due to severe bilateral viktoriya-fibrosis and chronic kidney disease, patient is status post coronary artery bypass surgery at [facility], recently she has been hospitalized back in August for shortness of breath, she underwent OBEY later on today results of that test has been reviewed, moderate to severe mitral regurgitation was noted with restricted motion of posterior leaflet due to ischemic cardiomyopathy, 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, he has D has been noted with [id number]-xx-upsug shunt as well as right to left shunt moderate degree or tricuspid regurgitation noted, patient is considered for mitral clip procedure in AST repair Objective - Vital Signs Vital signs: Vital Signs Temp 98.5 F 09/26/19 12:00 Pulse 62 09/26/19 12:27 Resp 20 09/26/19 12:00 BP 121/58 09/26/19 12:00 Pulse Ox 95 09/26/19 12:00 Intake & Output 09/25/19 09/26/19 09/26/19 18:59 06:59 18:59 Intake Total 840 340 360 Output Total 1000 Balance 840 -660 360 Weight 69.4 kg Intake: Oral 840 340 360 Output: Urine 1000 Other: Voiding Method Toilet Toilet - Exam - Constitutional General appearance: average body habitus, cooperative, disheveled - EENT Eyes: EOMI, PERRLA, poor dentition ENT: normal oropharynx Ears: bilateral: normal - Neck Neck: normal ROM Carotids: bilateral: upstroke normal - Respiratory Respiratory: bilateral: diminished, rales - Cardiovascular Rhythm: regular Heart sounds: normal: S1, S2 - Integumentary Integumentary: decreased turgor - Neurologic Neurologic: CNII-XII intact - Musculoskeletal Musculoskeletal: gait normal, generalized weakness, strength equal bilaterally - Psychiatric Psychiatric: A&O x's 3, appropriate affect, intact judgment & insight - Labs CBC & Chem 7: 09/20/19 05:48 09/26/19 10:26 Labs: Abnormal Lab Results - Last 24 Hours (Table) 09/25/19 09/25/19 09/26/19 Range/Units 17:05 20:42 06:32 Sodium (137-145) mmol/L Chloride (98-107) mmol/L BUN (7-17) mg/dL Creatinine (0.52-1.04) mg/dL Glucose (74-99) mg/dL POC Glucose (mg/dL) 167 H 273 H 196 H (75-99) mg/dL 09/26/19 09/26/19 Range/Units 10:26 12:08 Sodium 133 L (137-145) mmol/L Chloride 97 L (98-107) mmol/L BUN 77 H (7-17) mg/dL Creatinine 1.40 H (0.52-1.04) mg/dL Glucose 289 H (74-99) mg/dL POC Glucose (mg/dL) 333 H (75-99) mg/dL Assessment and Plan Assessment: bilateral nonspecific pulmonary fibrosis Severe degree of valvular heart surgery associated with severe mitral regurgitation Pulmonary hypertension possibly group 2 Acute on chronic respiratory failure patchy Areas of infiltrate bilaterally more so on the right side compared to left side boop cannot be excluded acute on chronic renal failure Plan: Reviewed computed tomography scan of chest noncontrast Agree with repair of mitral valve continue trial of IV steroids further recommendations pending plan of care as per clinical response of patient doxycycline by mouth Taper and DC Imuran over next few days Time with Patient: Greater than 30
[2019-09-26] MEDS: FUROSEMIDE 40 MG TAB PO SCH (16:11)
[2019-09-26] MEDS: DICYCLOMINE 10 MG CAP PO PRN (16:11)
--- NOTE | 2019-09-26 16:19 | P.PN ---
Progress Note - Text Progress Note Date: 09/26/19 Interval history: This is a pleasant 69-year-old patient of Dr. Otto. Chronic stable medical conditions include coronary artery disease, hypertension, GERD, hypothyroidism, severe secondary pulmonary hypertension, bilateral severe pulmonary fibrosis, cor pulmonale, chronic kidney disease. Patient in October of this year had a coronary artery bypass at [facility]. Patient was here in the hospital on August 25. Diagnosed with CHF exacerbation EF 30-35% and also found to have significant pulmonary fibrosis. Admitted with shortness of breath. [place] to be in CHF exacerbation.had a OBEY done. Acute renal failure from diuresis.repeat computed tomography scan of the chest was suggestion of BOOP-has discussed with Dr. Washington. Patient is put on IV steroids. today-congested chest. Tired. Some shortness of breath. Did tolerate some diet. Review of systems: Was done for constitutional, cardiovascular, GI, pulmonary. relevant finding as above Active Medications Acetaminophen (Tylenol Tab) 650 mg PO Q4HR PRN PRN Reason: Fever and/ or Pain Albuterol Sulfate (Ventolin Nebulized) 2.5 mg INHALATION RT-QID [facility] Last Admin: 09/26/19 15:48 Dose: 2.5 mg Documented by: Albuterol/Ipratropium (Duoneb 0.5 Mg-3 Mg/3 Ml Soln) 3 ml INHALATION RT-Q4H PRN PRN Reason: Shortness Of Breath Or Wheezing Last Admin: 09/25/19 08:20 Dose: 3 ml Documented by: Allopurinol (Zyloprim) 100 mg PO BID [facility] Last Admin: 09/26/19 09:30 Dose: 100 mg Documented by: Aspirin (Aspirin) 81 mg PO DAILY [facility] Last Admin: 09/26/19 09:36 Dose: 81 mg Documented by: Atorvastatin Calcium (Lipitor) 40 mg PO DAILY [facility] Last Admin: 09/26/19 09:30 Dose: 40 mg Documented by: Azathioprine (Imuran) 50 mg PO DAILY [facility] Last Admin: 09/26/19 09:31 Dose: 50 mg Documented by: Budesonide (Pulmicort) 0.5 mg INHALATION RT-BID [facility] Last Admin: 09/26/19 09:23 Dose: 0.5 mg Documented by: Dicyclomine HCl (Bentyl) 10 mg PO Q6HR PRN PRN Reason: abdominal cramping Last Admin: 09/26/19 16:11 Dose: 10 mg Documented by: Doxycycline Monohydrate (Vibramycin) 100 mg PO BID [facility] Last Admin: 09/26/19 09:31 Dose: 100 mg Documented by: Enoxaparin Sodium (Lovenox) 40 mg SQ DAILY [facility] Last Admin: 09/26/19 09:30 Dose: 40 mg Documented by: Famotidine (Pepcid) 20 mg PO DAILY [facility] Last Admin: 09/26/19 09:30 Dose: 20 mg Documented by: Formoterol Fumarate (Perforomist) 20 mcg INHALATION RT-BID [facility] Last Admin: 09/26/19 09:23 Dose: 20 mcg Documented by: Furosemide (Lasix) 40 mg PO BID@0900,1600 [facility] Last Admin: 09/26/19 16:11 Dose: 40 mg Documented by: Insulin Aspart (Novolog) 0 unit SQ [facility]CHS [facility]; Protocol Last Admin: 09/26/19 12:11 Dose: 8 unit Documented by: Levothyroxine Sodium (Synthroid) 100 mcg PO BID [facility] Last Admin: 09/26/19 09:30 Dose: 100 mcg Documented by: Methylprednisolone Sodium Succinate (Solu-Medrol) 40 mg IV Q8HR [facility] Last Admin: 09/26/19 16:11 Dose: 40 mg Documented by: Metoprolol Tartrate (Lopressor) 25 mg PO BID [facility] Last Admin: 09/26/19 09:30 Dose: 25 mg Documented by: Midodrine (Proamatine) 5 mg PO AC-TID [facility] Last Admin: 09/26/19 12:11 Dose: 5 mg Documented by: Miscellaneous Information (Potassium Per Protocol) 1 each MISCELLANE DAILY PRN; Protocol PRN Reason: Per Protocol Spironolactone (Aldactone) 12.5 mg PO DAILY [facility] Last Admin: 09/26/19 09:30 Dose: 12.5 mg Documented by: Temazepam (Restoril) 30 mg PO HS [facility] Last Admin: 09/25/19 21:22 Dose: 30 mg Documented by: Physical examination: VITAL SIGNS:98.5, 60, 20, 121/58, 95% on 2 L GENERAL: laying in bed, tiredh EYES: Pupils equal. Conjunctiva normal. HEENT: External appearance of nose and ears normal, oral cavity grossly normal. NECK: JVD not raised; masses not palpable. HEART: First and second heart sounds are normal;some,edema LUNGS: Respiratory rate increased,, decreased breath sounds, scattered crackles ABDOMEN: Soft, nontender, liver spleen not palpable, no masses palpable. PSYCH: Alert and oriented x3; mood and affect slightly anxious MUSCULOSKELETAL: Evidence of OA specially in the hands INVESTIGATIONS, reviewed in the clinical context: bun 77 creatinine 1.40 Previous testing Creatinine on 08/28/2019 was 1.57 2-D echocardiogram -EF 40-45%, wall motion abnormality, AST with the npgv-ay-otono shunt, moderate MR, severe TR, moderate pulmonary hypertension High resolution CT chest-diffuse pulmonary fibrosis Assessment: -Acute on chronic congestive heart failure exacerbation from systolic dysfunctio n EF 40-45% % from underlying coronary artery disease,, stable -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 No clinical evidence of acute coronary synd suzette -Right renal atrophy -Hyperkalemia from renal failure., -Acute renal failure-from diuresis, Plan: continue with IV steroids, doxycycline. Check pro calcitonin level. Repeat labs in the morning. Prognosis guarded.
[2019-09-26 17:08] LABS: Glucose,Whole Blood 221 mg/dL (75-99)
[2019-09-26] MEDS: TEMAZEPAM 15 MG CAP PO SCH (20:15)
[2019-09-26 20:58] LABS: Glucose,Whole Blood 183 mg/dL (75-99)
[2019-09-27 05:48] LABS: Glucose,Whole Blood 195 mg/dL (75-99)
[2019-09-27 05:50] LABS: Anisocytosis Moderate; HCT 23.8 % (34.0-46.0); HGB 7.4 gm/dL (11.4-16.0); MCH 28.9 pg (25.0-35.0); MCV 93.2 fL (80.0-100.0); Macrocytosis Slight; Mean Platelet Volume 8.3; RBC 2.55 m/uL (3.80-5.40); RDW 20.2 % (11.5-15.5); WBC 6.3 k/uL (3.8-10.6)
[2019-09-27] MEDS: INSULIN ASPART (NovoLOG) 100 UNIT/ML VIAL SQ SCH ×4 (05:59→20:28)
[2019-09-27] MEDS: MIDODRINE 5 MG TAB PO SCH ×3 (05:59→17:07)
[2019-09-27 06:03] LABS: Calcium 8.6 mg/dL (8.4-10.2); Potassium 4.8 mmol/L (3.5-5.1)
[2019-09-27 06:04] LABS: Platelet Count 82 k/uL (150-450)
[2019-09-27] MEDS: BUDESONIDE 0.5 MG/2 ML NEBU INHALATION SCH ×2 (07:49→19:49)
[2019-09-27] MEDS: ALBUTEROL NEBULIZED 2.5 MG/3 ML INHALATION SCH ×4 (07:49→19:49)
[2019-09-27] MEDS: FORMOTEROL FUMARATE 20 MCG/2 ML NEBU INHALATION SCH ×2 (07:49→20:01)
[2019-09-27] MEDS: DOXYCYCLINE 100 MG CAP PO SCH ×2 (08:13→20:33)
[2019-09-27] MEDS: ALLOPURINOL 100 MG TAB PO SCH ×2 (08:13→20:28)
[2019-09-27] MEDS: methylPREDNISolone SOD SUCCI 40 MG/ML 1 ML VIAL IV SCH ×3 (08:13→22:41)
[2019-09-27] MEDS: LEVOTHYROXINE 100 MCG TAB PO SCH ×2 (08:14→20:28)
[2019-09-27] MEDS: ATORVASTATIN 40 MG TAB PO SCH (08:14)
[2019-09-27] MEDS: FUROSEMIDE 40 MG TAB PO SCH (08:14)
[2019-09-27] MEDS: ASPIRIN 81 MG PO SCH (08:14)
[2019-09-27] MEDS: FAMOTIDINE 20 MG TAB PO SCH (08:14)
[2019-09-27] MEDS: SPIRONOLACTONE 25 MG TAB PO SCH (08:14)
[2019-09-27] MEDS: METOPROLOL TARTRATE 25 MG TAB PO SCH ×2 (08:14→20:28)
[2019-09-27] MEDS: ENOXAPARIN 40 MG/0.4 ML SYRINGE SQ SCH (08:14)
[2019-09-27] MEDS: azaTHIOprine 50 MG TAB PO SCH (08:14)
--- NOTE | 2019-09-27 09:50 | P.PN ---
Subjective Patient is seen in follow-up for acute kidney injury on chronic kidney disease. Renal function is stable. Creatinine 1.32 today. Urine output is good. Complaining of heartburn. No vomiting or diarrhea. Diuretics were started yesterday. Vital signs are stable. General: The patient appeared well nourished and normally developed. HEENT: Head exam is unremarkable. Neck is without jugular venous distension. LUNGS: Lungs are clear to auscultation and percussion. Breath sounds decreased. HEART: Rate and Rhythm are regular. First and second heart sounds normal. No murmurs, rubs or gallops. ABDOMEN: Abdominal exam reveals normal bowel sounds. Non-tender and non- distended. No evidence of peritonitis. EXTREMITITES: 1+ edema. Objective - Vital Signs Vital signs: Vital Signs Temp 97.8 F 09/27/19 08:00 Pulse 64 09/27/19 08:15 Resp 18 09/27/19 08:00 BP 108/60 09/27/19 08:00 Pulse Ox 94 L 09/27/19 08:00 Intake & Output 09/26/19 09/27/19 09/27/19 18:59 06:59 18:59 Intake Total 720 240 240 Balance 720 240 240 Weight 69.9 kg Intake: Oral 720 240 240 Other: Voiding Method Toilet # Voids 1 1 - Labs CBC & Chem 7: 09/27/19 05:09 09/27/19 05:09 Labs: Abnormal Lab Results - Last 24 Hours (Table) 09/26/19 09/26/19 09/26/19 Range/Units 10:26 12:08 16:55 RBC (3.80-5.40) m/uL Hgb (11.4-16.0) gm/dL Hct (34.0-46.0) % RDW (11.5-15.5) % Plt Count (150-450) k/uL Sodium 133 L (137-145) mmol/L Chloride 97 L (98-107) mmol/L BUN 77 H (7-17) mg/dL Creatinine 1.40 H (0.52-1.04) mg/dL Glucose 289 H (74-99) mg/dL POC Glucose (mg/dL) 333 H 221 H (75-99) mg/dL 09/26/19 09/27/19 09/27/19 Range/Units 20:56 05:09 05:09 RBC 2.55 L (3.80-5.40) m/uL Hgb 7.4 L D (11.4-16.0) gm/dL Hct 23.8 L (34.0-46.0) % RDW 20.2 H (11.5-15.5) % Plt Count 82 L (150-450) k/uL Sodium 134 L (137-145) mmol/L Chloride (98-107) mmol/L BUN 72 H (7-17) mg/dL Creatinine 1.32 H (0.52-1.04) mg/dL Glucose 157 H (74-99) mg/dL POC Glucose (mg/dL) 183 H (75-99) mg/dL 09/27/19 Range/Units 05:47 RBC (3.80-5.40) m/uL Hgb (11.4-16.0) gm/dL Hct (34.0-46.0) % RDW (11.5-15.5) % Plt Count (150-450) k/uL Sodium (137-145) mmol/L Chloride (98-107) mmol/L BUN (7-17) mg/dL Creatinine (0.52-1.04) mg/dL Glucose (74-99) mg/dL POC Glucose (mg/dL) 195 H (75-99) mg/dL Assessment and Plan Plan: Assessment: 1. Acute kidney injury mostly prerenal secondary to hypotension and diuresis. Improved. Creatinine 1.32 today. 2. Chronic kidney disease stage III secondary to nephrosclerosis. Baseline creatinine 1.3-1.5. 3. Acute on chronic systolic CHF with ejection fraction of 40% with moderate to severe mitral regurgitation and moderate tricuspid regurgitation. 4. Volume overload. Better. 5. Chronic hypotension maintained on midodrine. Plan: Maintain Lasix 40 mg orally twice daily. Low-salt diet. Avoid nephrotoxins. May use Protonix instead of Pepcid for heartburn. Repeat electrolytes in the morning.
--- NOTE | 2019-09-27 10:07 | CDI ---
Documentation Clarification Form Date: 09/27/2019 9:54:22 AM From: Stephanie Kate RN, CCDS Admit Date: 09/19/2019 2:54:00 PM Patient Name: Karmen Narayanan Visit Number: [id number] ATTENTION: The Clinical Documentation Specialists (CDI) and [facility] Coding Staff appreciate your assistance in clarifying documentation. Please respond to the clarification below the line at the bottom and electronically sign. The CDI & [facility] Coding staff will review the response and follow-up if needed. Please note: Queries are made part of the Legal Health Record. If you have any questions, please contact the author of this message via ITS. Dr. Jc Washington Acute on chronic respiratory failure has been documented and requires further specificity History/Risk Factors: CHF, COPD, Pulmonary HTN, pulmonary fibrosis Tobacco use: former smoker Home oxygen: none documented Clinical Indicators: 09/23-09/26 Pulmonary consult and progress notes: "Acute on chronic respiratory failure." Vital signs: Temp 97.9, HR 62, RR 18, B/P 130/64 Pulse oximetry: 96% Room air, 99% 3L nasal cannula 09/26 Pulmonary Lung/Breathing assessment: "Respiratory bilateral: diminished, rales. Treatment: Breathing TX: Ventolin INH QID, Duoneb Q 4 hrs PRN, Pulmicort INH BID, Performamist INH BID IV Solumedrol tapering dose. Pulse ox per unit protocol O2 Room air to 3L nasal cannula In your professional opinion, can you please clarify if these findings signify one of the following conditions? Acute on Chronic Hypoxic Respiratory Failure Acute on Chronic Hypercapnic Respiratory Failure Respiratory failure ruled out Other Diagnosis, please specify Unable to determine MTDD
[2019-09-27 11:39] LABS: Glucose,Whole Blood 256 mg/dL (75-99)
--- NOTE | 2019-09-27 14:18 | P.PN ---
Subjective Progress Note Date: 09/27/19 Principal diagnosis: history of pulmonary fibrosis Severe degree of valvular heart surgery Pulmonary hypertension possibly group 2 Acute on chronic respiratory failure Pulmonary fibrosis/boop can not be excluded 09/27/2019, patient seen eval reexamined during the rounds labs reviewed medications reviewed patient having abdominal discomfort and pains for the last 24 hours GI is going to see her she has a dark stool hemoglobin now has been stable, he is visibly short of breath I have discussed with cardiovascular services, patient has significant JVD bilaterally up to angle of jaw of fluid overload, patient remains on 3 L oxygen baseline, her hemoglobin is 7.4 renal fu nction are stable as well, 09/26/2019, patient seen eval examined during the rounds she is on 3 L oxygen as saturation 95% some exertional shortness of breath is present overall remains stable patient Imuran has been tapered down now, patient remains on IV steroids and doxycycline, cardiology thinking about mitral valve clip as outpatient or severe mitral regurgitation, renal function continued to improve 09/25/2019, patient seen and evaluated examined during rounds labs reviewed medications reviewed computed tomography scan finding reviewed and discussed with the patient and her at length patient is still have shortness of breath and cough severity however has been a stable, we'll start her on oral doxycycline cardiology is evaluating, Computed tomography scan is suggestive of patchy bilateral infiltrate and some minimal scarring at the bases will continue Solu-Medrol patient will require slow taper of the IV steroids with close monitoring and follow-up 09/24/2019, patient is still short of breath denies any chest pain, computed tomography scan is suggestive of some fluid overload Matthieu has changed his suggestive of more of a CHF-like problem and fluid overload problem likely acute on chronic systolic heart failure with valvular heart disease some component of baseline pulmonary fibrosis is there as well discussed with cardiology further recommendations pending patient is being considered for outpatient clipping of mitral valve, we'll start her on IV steroids that will help some of the component of diffuse alveolar damage and interstitial pattern this is a 69-year-old female, patient sees Dr. Otto for primary care activity, patient has multiple medical problems including ischemic cardiomyopathy with baseline ejection fraction of 35% also has a history of coronary artery disease hypertension GERD hypothyroidism and pulmonary hypertension due to severe bilateral viktoriya-fibrosis and chronic kidney disease, patient is status post coronary artery bypass surgery at [facility], recently she has been hospitalized back in August for shortness of breath, she underwent OBEY later on today results of that test has been reviewed, moderate to severe mitral regurgitation was noted with restricted motion of posterior leaflet due to ischemic cardiomyopathy, 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, he has D has been noted with [id number] shunt as well as right to left shunt moderate degree or tricuspid regurgitation noted, patient is considered for mitral clip procedure in AST repair Objective - Vital Signs Vital signs: Vital Signs Temp 98.2 F 09/27/19 12:00 Pulse 64 09/27/19 13:24 Resp 18 09/27/19 12:00 BP 98/54 09/27/19 12:00 Pulse Ox 95 09/27/19 12:00 Intake & Output 09/26/19 09/27/19 09/27/19 18:59 06:59 18:59 Intake Total 720 240 240 Balance 720 240 240 Weight 69.9 kg Intake: Oral 720 240 240 Other: Voiding Method Toilet # Voids 1 1 - Exam - Constitutional General appearance: average body habitus, cooperative, disheveled - EENT Eyes: EOMI, PERRLA, poor dentition ENT: normal oropharynx Ears: bilateral: normal - Neck Neck: normal ROM Carotids: bilateral: upstroke normal, JVD bilaterally elevated up to angle of jaw - Respiratory Respiratory: bilateral: diminished, rales - Cardiovascular Rhythm: regular Heart sounds: normal: S1, S2 - Integumentary Integumentary: decreased turgor - Neurologic Neurologic: CNII-XII intact - Musculoskeletal Musculoskeletal: gait normal, generalized weakness, strength equal bilaterally - Psychiatric Psychiatric: A&O x's 3, appropriate affect, intact judgment & insight - Labs CBC & Chem 7: 09/27/19 05:09 09/27/19 05:09 Labs: Abnormal Lab Results - Last 24 Hours (Table) 09/26/19 09/26/19 09/27/19 Range/Units 16:55 20:56 05:09 RBC (3.80-5.40) m/uL Hgb (11.4-16.0) gm/dL Hct (34.0-46.0) % RDW (11.5-15.5) % Plt Count (150-450) k/uL Sodium (137-145) mmol/L BUN (7-17) mg/dL Creatinine (0.52-1.04) mg/dL Glucose (74-99) mg/dL POC Glucose (mg/dL) 221 H 183 H (75-99) mg/dL Procalcitonin 0.13 H (0.02-0.09) ng/mL 09/27/19 09/27/19 09/27/19 Range/Units 05:09 05:09 05:47 RBC 2.55 L (3.80-5.40) m/uL Hgb 7.4 L D (11.4-16.0) gm/dL Hct 23.8 L (34.0-46.0) % RDW 20.2 H (11.5-15.5) % Plt Count 82 L (150-450) k/uL Sodium 134 L (137-145) mmol/L BUN 72 H (7-17) mg/dL Creatinine 1.32 H (0.52-1.04) mg/dL Glucose 157 H (74-99) mg/dL POC Glucose (mg/dL) 195 H (75-99) mg/dL Procalcitonin (0.02-0.09) ng/mL 09/27/19 Range/Units 11:37 RBC (3.80-5.40) m/uL Hgb (11.4-16.0) gm/dL Hct (34.0-46.0) % RDW (11.5-15.5) % Plt Count (150-450) k/uL Sodium (137-145) mmol/L BUN (7-17) mg/dL Creatinine (0.52-1.04) mg/dL Glucose (74-99) mg/dL POC Glucose (mg/dL) 256 H (75-99) mg/dL Procalcitonin (0.02-0.09) ng/mL Assessment and Plan Assessment: Lower GI bleed bilateral nonspecific pulmonary fibrosis Severe degree of valvular heart surgery associated with severe mitral regurgitation Pulmonary hypertension possibly group 2 Acute on chronic respiratory failure patchy Areas of infiltrate bilaterally more so on the right side compared to le ft side boop cannot be excluded acute on chronic renal failure Plan: Monitor hemoglobin closely, GI swallowing Reviewed computed tomography scan of chest noncontrast Agree with repair of mitral valve continue trial of IV steroids further recommendations pending plan of care as per clinical response of patient doxycycline by mouth Taper and DC Imuran over next few days Time with Patient: Greater than 30
--- NOTE | 2019-09-27 14:41 | XR ---
EXAMINATION TYPE: XR chest 1V portable DATE OF EXAM: 09/27/2019 COMPARISON: 09/23/2019 HISTORY: Shortness of breath TECHNIQUE: Single frontal view of the chest is obtained. FINDINGS: There are new multifocal patchy opacities in the mid lungs and right lower lung. Cardiomed iastinal silhouette is again enlarged with multilead left-sided cardiac device and post-CABG changes. No sizable pneumothorax or recurrent pleural effusion. Diffuse osseous demineralization. IMPRESSION: New multifocal consolidations. Primary diagnostic consideration is for multifocal pneumo eloy.
[2019-09-27] MEDS: FUROSEMIDE 10 MG/ML 4 ML VIAL IV SCH ×2 (17:04→20:28)
[2019-09-27 17:06] LABS: Glucose,Whole Blood 143 mg/dL (75-99)
[2019-09-27] MEDS: TEMAZEPAM 15 MG CAP PO SCH (20:28)
[2019-09-27] MEDS: PANTOPRAZOLE 40 MG/10 ML VIAL IVP SCH (20:28)
[2019-09-27 20:29] LABS: Glucose,Whole Blood 216 mg/dL (75-99)
--- NOTE | 2019-09-27 20:41 | P.PN ---
Progress Note - Text Progress Note Date: 09/27/19 Interval history: This is a pleasant 69-year-old patient of Dr. Otto. Chronic stable medical conditions include coronary artery disease, hypertension, GERD, hypothyroidism, severe secondary pulmonary hypertension, bilateral severe pulmonary fibrosis, cor pulmonale, chronic kidney disease. Patient in October of this year had a coronary artery bypass at [facility]. Patient was here in the hospital on August 25. Diagnosed with CHF exacerbation EF 30-35% and also found to have significant pulmonary fibrosis. Admitted with shortness of breath. [place] to be in CHF exacerbation.had a OBEY done. Acute renal failure from diuresis.repeat computed tomography scan of the chest was suggestion of BOOP-has discussed with Dr. Washington. Patient is put on IV steroids. today-remains short of breath. On IV steroids. Cough. Tired. Good oral intake. Patient tells me she's had a black bowel movement for 2 days. Also having increasing epigastric pain. GI has been consulted. No previous EGD.. Review of systems: Was done for constitutional, cardiovascular, GI, pulmonary. relevant finding as above Active Medications Acetaminophen (Tylenol Tab) 650 mg PO Q4HR PRN PRN Reason: Fever and/ or Pain Albuterol Sulfate (Ventolin Nebulized) 2.5 mg INHALATION RT-QID [facility] Last Admin: 09/27/19 19:49 Dose: 2.5 mg Documented by: Albuterol/Ipratropium (Duoneb 0.5 Mg-3 Mg/3 Ml Soln) 3 ml INHALATION RT-Q4H PRN PRN Reason: Shortness Of Breath Or Wheezing Last Admin: 09/25/19 08:20 Dose: 3 ml Documented by: Allopurinol (Zyloprim) 100 mg PO BID [facility] Last Admin: 09/27/19 20:28 Dose: 100 mg Documented by: Atorvastatin Calcium (Lipitor) 40 mg PO DAILY [facility] Last Admin: 09/27/19 08:14 Dose: 40 mg Documented by: Budesonide (Pulmicort) 0.5 mg INHALATION RT-BID [facility] Last Admin: 09/27/19 19:49 Dose: 0.5 mg Documented by: Dicyclomine HCl (Bentyl) 10 mg PO Q6HR PRN PRN Reason: abdominal cramping Last Admin: 09/26/19 16:11 Dose: 10 mg Documented by: Doxycycline Monohydrate (Vibramycin) 100 mg PO BID [facility] Last Admin: 09/27/19 20:33 Dose: 100 mg Documented by: Famotidine (Pepcid) 20 mg PO DAILY [facility] Last Admin: 09/27/19 08:14 Dose: 20 mg Documented by: Formoterol Fumarate (Perforomist) 20 mcg INHALATION RT-BID [facility] Last Admin: 09/27/19 20:01 Dose: 20 mcg Documented by: Furosemide (Lasix) 40 mg IV Q12HR [facility] Last Admin: 09/27/19 20:28 Dose: 40 mg Documented by: Insulin Aspart (Novolog) 0 unit SQ ACHS [facility]; Protocol Last Admin: 09/27/19 20:28 Dose: 5 unit Documented by: Levothyroxine Sodium (Synthroid) 100 mcg PO BID [facility] Last Admin: 09/27/19 20:28 Dose: 100 mcg Documented by: Methylprednisolone Sodium Succinate (Solu-Medrol) 40 mg IV Q8HR [facility] Last Admin: 09/27/19 17:07 Dose: 40 mg Documented by: Metoprolol Tartrate (Lopressor) 25 mg PO BID [facility] Last Admin: 09/27/19 20:28 Dose: 25 mg Documented by: Midodrine (Proamatine) 5 mg PO AC-TID [facility] Last Admin: 09/27/19 17:07 Dose: 5 mg Documented by: Miscellaneous Information (Potassium Per Protocol) 1 each MISCELLANE DAILY PRN; Protocol PRN Reason: Per Protocol Pantoprazole Sodium (Protonix) 40 mg IVP BID [facility] Last Admin: 09/27/19 20:28 Dose: 40 mg Documented by: Spironolactone (Aldactone) 12.5 mg PO DAILY [facility] Last Admin: 09/27/19 08:14 Dose: 12.5 mg Documented by: Temazepam (Restoril) 30 mg PO HS [facility] Last Admin: 09/27/19 20:28 Dose: 30 mg Documented by: Physical examination: VITAL SIGNS:98.1, 63, 18, 98/59, 95% on 2 L GENERAL: laying in bed, tiredh EYES: Pupils equal. Conjunctiva normal. HEENT: External appearance of nose and ears normal, oral cavity grossly normal. NECK: JVD not raised; masses not palpable. HEART: First and second heart sounds are normal;some,edema LUNGS: Respiratory rate increased,, decreased breath sounds, scattered crackles ABDOMEN: Soft, nontender, liver spleen not palpable, no masses palpable. PSYCH: Alert and oriented x3; mood and affect slightly anxious MUSCULOSKELETAL: Evidence of OA specially in the hands INVESTIGATIONS, reviewed in the clinical context: white count 6.3 hemoglobin 7.4 platelets 82 potassium 4.8 bun 72 creatinine 1.32 pro BNP 32,900, pro calcitonin 0.13 Previous testing Creatinine on 08/28/2019 was 1.57 2-D echocardiogram -EF 40-45%, wall motion abnormality, AST with the [id number] shunt, moderate MR, severe TR, moderate pulmonary hypertension High resolution CT chest-diffuse pulmonary fibrosis Assessment: -Patient is having 2 days of epigastric pain and dark stools. GI bleed.new diagnosis -Acute on chronic congestive heart failure exacerbation from systolic dysfunction EF 40-45% % from underlying coronary artery disease, -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 No clinical evidence of acute coronary syndrome -Right renal atrophy -Hyperkalemia from renal failure., -Acute renal failure-from diuresis, Plan: discussed with Dr. Divya Washington from pulmonary. Patient's overall guarded prognosis. He will discuss with Dr. VC Galindo to see patient is to get transferred to a higher center for intervention. Also GI is being consulted. Patient be started on IV PPI. Care was discussed with the patient.
--- NOTE | 2019-09-27 21:35 | PN ---
PROGRESS NOTE Mrs. Narayanan is seen today for the cardiac evaluation. The patient is now complaining of hypogastric discomfort which is a moderate degree of the pain and she also has dropped her hemoglobin from 10 to 7.4. The patient continues to be mildly short of breath. Blood pressure is 98/70 mmHg. First and second heart sounds are noted. There is a systolic murmur noted as before. Jugular venous pressure is elevated and bilateral coarse rales are present. The patient's oxygen saturation is 95%. Patient is not significantly tachypneic. ASSESSMENT AND PLAN: 1. Acute epigastric pain with a hemoglobin down to 7.4, possibly rule out peptic ulcer disease. 2. Congestive heart failure and pulmonary fibrosis. 3. The patient's acute on chronic renal failure is improving. The patient has multiple medical problems. The patient has been evaluated by Gastroenterology. They are considering to do the upper GI endoscopy tomorrow. We will transfuse the patient 1 unit of packed cells. Give her Lasix 40 mg IV b.i.d. today. We will do a chest x-ray today and tomorrow if the patient's respiratory condition is stable, then we will let her go through the upper GI endoscopy. Continue Protonix 40 mg IV b.i.d. We will discontinue aspirin and Lovenox and Imuran. Discussed the condition with Dr. Washington. [place] / ELENI: [id number] /
--- NOTE | 2019-09-27 22:39 | CONS ---
CONSULTATION DATE OF DICTATION: 09/27/2019. REQUESTING PHYSICIAN: Dr. Moss. REASON FOR CONSULTATION: Anemia and black tarry stools. HISTORY OF PRESENT ILLNESS: The patient is a 69-year-old pleasant white female with history of ischemic cardiomyopathy, idiopathic pulmonary fibrosis, coronary artery disease, gastroesophageal disease, hypertension, pulmonary hypertension, was admitted to the hospital because of shortness of breath and exacerbation of congestive heart failure. While in the hospital, she started having black tarry stools for the last 3 days duration. She dropped hemoglobin from 12-7.4 g/dL. She complains of epigastric pain. She has longstanding history of GERD and was on PPI in the past, but she was able to manage with diet control, but for the last 5 days since being in the hospital, she has continued to have epigastric pain, intermittent heartburn. She reports no nausea, vomiting. No prior history of peptic ulcer disease or recent NSAID use. PAST MEDICAL HISTORY: Significant for hypertension, hyperlipidemia, congestive heart failure, idiopathic pulmonary fibrosis, history of gastroesophageal reflux disease, coronary artery disease status post [place] in the past, hypothyroidism. PAST SURGICAL HISTORY: , appendectomy, CABG, hysterectomy, implantation, tubal ligation. SOCIAL HISTORY: Former smoker. No alcohol use. FAMILY HISTORY: Mother had COPD. Father had coronary artery disease. MEDICATIONS: At home, Lipitor, DuoNeb, Pulmicort, Lopressor, Zyloprim, calcitriol, Levoxyl, Nitrostat, Pepcid, ALLERGIES: LORTAB. ADHESIVE TAPE. REVIEW OF SYSTEMS: CARDIOPULMONARY: She denies any chest pain, shortness of breath. GENITOURINARY: No dysuria or hematuria. MUSCULOSKELETAL unremarkable. SKIN unremarkable. ENDOCRINE: Unremarkable. PSYCHIATRIC: Unremarkable. NEUROLOGY unremarkable. ENT/vision unremarkable. CONSTITUTIONAL: No recent weight loss. No fevers, chills or night sweats. HEMATOLOGY unremarkable other than anemia. PHYSICAL EXAMINATION: She appears comfortable in no apparent distress. Vital signs stable. Blood pressure 98/54, pulse 86, temperature 98.2. HEENT examination unremarkable. Conjunctivae pink. Sclerae anicteric. Oral cavity no lesions. NECK: No JVD or lymph node enlargement. CHEST: Clear to auscultation. HEART: Regular rate and rhythm. ABDOMEN: Soft with mild tenderness in the epigastric area. The rest of the abdomen was benign. Bowel sounds are positive. No organomegaly. EXTREMITIES: No pedal edema. SKIN no rashes. NEUROLOGIC: Alert and oriented times three. No focal deficits. LABS: Hemoglobin at the time of admission to the hospital was 10.0 and today it is 7.4 g/dL. BUN is slightly elevated at 72 and creatinine 1.32. Platelets are 82,000. WBC 6.3. IMPRESSION: 1. Symptomatic anemia and hemoglobin of 7.3 g/dL and black tarry stools for the last 3 days since being in the hospital. The patient presently on aspirin and Lovenox which is currently on hold. Most likely we are dealing with an upper gastrointestinal source of bleeding. Hemodynamically stable. 2. History of pulmonary fibrosis on supplemental oxygen. 3. Pulmonary hypertension. 4. Valvular heart disease. RECOMMENDATIONS: 1. Agree with 1 unit of PRBC transfusion. 2. Continue with Protonix 40 mg daily. 3. Repeat CBC in the morning. 4. We will proceed with an upper endoscopy tomorrow. Discussed with her the benefits and complications and she is agreeable to it. Also discussed with Dr. Galindo. Thank you for this consultation. We will follow the patient closely during the hospital stay. MMODL / IJN: [id number] /
[2019-09-28 06:06] LABS: Glucose,Whole Blood 180 mg/dL (75-99)
[2019-09-28] MEDS: MIDODRINE 5 MG TAB PO SCH ×3 (06:09→18:10)
[2019-09-28] MEDS: INSULIN ASPART (NovoLOG) 100 UNIT/ML VIAL SQ SCH ×4 (06:09→20:32)
[2019-09-28 06:38] LABS: Anisocytosis Slight; Basophils % (A) 0 %; Eosinophils % (A) 0 %; HGB 8.5 gm/dL (11.4-16.0); Lymphocytes # (A) 0.2 k/uL (1.0-4.8); Lymphocytes % (A) 3 %; MCHC 32.5 g/dL (31.0-37.0); MCV 92.2 fL (80.0-100.0); Macrocytosis Slight; Mean Platelet Volume 8.3; Monocytes # (A) 0.1 k/uL (0-1.0); Monocytes % (A) 2 %; Neutrophils # (A) 6.1 k/uL (1.3-7.7); Neutrophils % (A) 95 %; RBC 2.83 m/uL (3.80-5.40); RDW 19.5 % (11.5-15.5); WBC 6.4 k/uL (3.8-10.6)
[2019-09-28 06:42] LABS: Platelet Count 73 k/uL (150-450)
[2019-09-28 06:50] LABS: Calcium 8.5 mg/dL (8.4-10.2); Magnesium 2.4 mg/dL (1.6-2.3); Potassium 4.3 mmol/L (3.5-5.1)
[2019-09-28] MEDS: BUDESONIDE 0.5 MG/2 ML NEBU INHALATION SCH ×2 (09:10→20:18)
[2019-09-28] MEDS: FORMOTEROL FUMARATE 20 MCG/2 ML NEBU INHALATION SCH ×2 (09:10→20:18)
[2019-09-28] MEDS: ALBUTEROL NEBULIZED 2.5 MG/3 ML INHALATION SCH ×4 (09:10→20:18)
[2019-09-28] MEDS: SPIRONOLACTONE 25 MG TAB PO SCH (09:43)
[2019-09-28] MEDS: LEVOTHYROXINE 100 MCG TAB PO SCH ×2 (09:43→20:32)
[2019-09-28] MEDS: ALLOPURINOL 100 MG TAB PO SCH ×2 (09:43→20:32)
[2019-09-28] MEDS: METOPROLOL TARTRATE 25 MG TAB PO SCH ×2 (09:43→20:32)
[2019-09-28] MEDS: FUROSEMIDE 10 MG/ML 4 ML VIAL IV SCH ×2 (09:43→20:32)
[2019-09-28] MEDS: FAMOTIDINE 20 MG TAB PO SCH (09:43)
[2019-09-28] MEDS: methylPREDNISolone SOD SUCCI 40 MG/ML 1 ML VIAL IV SCH ×3 (09:43→22:57)
[2019-09-28] MEDS: DOXYCYCLINE 100 MG CAP PO SCH ×2 (09:43→20:32)
[2019-09-28] MEDS: ATORVASTATIN 40 MG TAB PO SCH (09:43)
[2019-09-28] MEDS: PANTOPRAZOLE 40 MG/10 ML VIAL IVP SCH (09:44)
[2019-09-28] MEDS ORDERED: LIDOCAINE 1% INJ 10MG/ML (20 ML MDV) ONE (10:49)
[2019-09-28] MEDS ORDERED: PROPOFOL 10 MG/ML 20 ML VIAL IV ONE (10:49)
[2019-09-28] MEDS ORDERED: SODIUM CHLORIDE 0.9% 500 ML 500 ML IV ONE (10:59)
--- NOTE | 2019-09-28 11:19 | P.PCN ---
Date of Procedure: 09/28/19 Description of Procedure: BRIEF HISTORY: Patient is a 69-year-old female with multiple medical comorbidities being treated for exacerbation of her congestive heart failure with complaints of black tarry bowel movements and was found to have an acute fall in her hemoglobin. Suspicion is for upper GI etiology of blood loss with plan for EGD for further evaluation. PROCEDURE PERFORMED: Esophagogastroduodenoscopy with biopsy. PREOPERATIVE DIAGNOSIS: Anemia of acute blood loss, melena, GI bleed. ESTIMATED BLOOD LOSS: Minimal. IV sedation per anesthesia. PROCEDURE: After informed consent was obtained, the patient was brought into the endoscopy unit. IV sedation was administered by Anesthesia under continuous monitoring. Initially the Olympus GIF-190 video endoscope was inserted into the mouth. Esophagus intubated without any difficulty. It was gradually advanced into the stomach and duodenum and carefully examined. The bulb and the second part of the duodenum appeared normal with no active bleeding or source of blood noted, and was biopsied. The scope at this time was withdrawn to the stomach, adequately insufflated with air, and upon careful examination, mucosa of the antrum, body, cardia and the fundus appeared normal, except for some mild scattered erythema in the antrum and body suggestive of mild gastritis biopsies taken. The scope was then withdrawn into the esophagus. The GE junction was located at 39 cm from the incisors. The esophagus appeared normal, except for white superficial plaques throughout the esophagus suspicious for esophageal candidiasis with biopsies of the midesophagus taken. There were no erosions or ulcerations seen and the patient tolerated the procedure well. IMPRESSION: 1. No active bleeding, old blood or source of GI bleed noted. 2. Mild gastritis antrum and body, biopsied. 3. Findings suspicious for esophageal candidiasis, mid esophageal biopsies taken. 4. Duodenal biopsies. RECOMMENDATIONS: The findings of this examination were discussed with the patient and her . Okay to resume diet. Will initiate nystatin swish and swallow 4 times a day. Await pathology from biopsies. Continue to monitor hemoglobin and hematocrit and transfuse as needed. No plans for further endoscopy at this time. Continue current medical management.
--- NOTE | 2019-09-28 11:31 | P.PN ---
Subjective Patient is seen in follow-up for acute kidney injury on chronic kidney disease. Renal function is stable. Creatinine 1.41 today. Urine output is good. No chest pain or shortness of breath. Feels weak. Vital signs are stable. General: The patient appeared well nourished and normally developed. HEENT: Head exam is unremarkable. Neck is without jugular venous distension. LUNGS: Lungs are clear to auscultation and percussion. Breath sounds decreased. HEART: Rate and Rhythm are regular. First and second heart sounds normal. No murmurs, rubs or gallops. ABDOMEN: Abdominal exam reveals normal bowel sounds. Non-tender and non- distended. No evidence of peritonitis. EXTREMITITES: Trace edema. Objective - Vital Signs Vital signs: Vital Signs Temp 97.6 F 09/28/19 08:00 Pulse 80 09/28/19 09:39 Resp 18 09/28/19 04:00 BP 119/57 09/28/19 08:00 Pulse Ox 99 09/28/19 08:00 Intake & Output 09/27/19 09/28/19 09/28/19 18:59 06:59 18:59 Intake Total 600 310 200 Output Total 950 Balance 600 -640 200 Weight 69.4 kg Intake: IV 200 Oral 600 Blood Product 0 310 Rc As-1 Unit 0 310 [id number] Output: Urine 950 Other: Voiding Method Toilet # Voids 1 1 # Bowel Movements 1 - Labs CBC & Chem 7: 09/28/19 05:54 09/28/19 05:54 Labs: Abnormal Lab Results - Last 24 Hours (Table) 09/27/19 09/27/19 09/27/19 Range/Units 05:09 11:37 14:51 RBC (3.80-5.40) m/uL Hgb (11.4-16.0) gm/dL Hct (34.0-46.0) % RDW (11.5-15.5) % Plt Count (150-450) k/uL Lymphocytes # (1.0-4.8) k/uL Sodium (137-145) mmol/L BUN (7-17) mg/dL Creatinine (0.52-1.04) mg/dL Glucose (74-99) mg/dL POC Glucose (mg/dL) 256 H (75-99) mg/dL Magnesium (1.6-2.3) mg/dL Procalcitonin 0.13 H (0.02-0.09) ng/mL Crossmatch See Detail 09/27/19 09/27/19 09/28/19 Range/Units 16:55 20:24 05:54 RBC (3.80-5.40) m/uL Hgb (11.4-16.0) gm/dL Hct (34.0-46.0) % RDW (11.5-15.5) % Plt Count (150-450) k/uL Lymphocytes # (1.0-4.8) k/uL Sodium 135 L (137-145) mmol/L BUN 78 H (7-17) mg/dL Creatinine 1.41 H (0.52-1.04) mg/dL Glucose 161 H (74-99) mg/dL POC Glucose (mg/dL) 143 H 216 H (75-99) mg/dL Magnesium 2.4 H (1.6-2.3) mg/dL Procalcitonin (0.02-0.09) ng/mL Crossmatch 09/28/19 09/28/19 Range/Units 05:54 05:59 RBC 2.83 L (3.80-5.40) m/uL Hgb 8.5 L (11.4-16.0) gm/dL Hct 26.0 L (34.0-46.0) % RDW 19.5 H (11.5-15.5) % Plt Count 73 L (150-450) k/uL Lymphocytes # 0.2 L (1.0-4.8) k/uL Sodium (137-145) mmol/L BUN (7-17) mg/dL Creatinine (0.52-1.04) mg/dL Glucose (74-99) mg/dL POC Glucose (mg/dL) 180 H (75-99) mg/dL Magnesium (1.6-2.3) mg/dL Procalcitonin (0.02-0.09) ng/mL Crossmatch Assessment and Plan Plan: Assessment: 1. Acute kidney injury mostly prerenal secondary to hypotension and diuresis. Improved. Creatinine fairly stable at 1.41 today. 2. Chronic kidney disease stage III secondary to nephrosclerosis. Baseline creatinine 1.3-1.5. 3. Acute on chronic systolic CHF with ejection fraction of 40% with moderate to severe mitral regurgitation and moderate tricuspid regurgitation. 4. Volume overload. Better. 5. Chronic hypotension maintained on midodrine. 6. Anemia of chronic kidney disease. Rule out iron deficiency. status post EGD this morning with no active bleeding noted. Plan: Maintain Lasix 40 mg twice daily - recommend changing to PO. Low-salt diet. Avoid nephrotoxins.
[2019-09-28 12:00] LABS: Glucose,Whole Blood 190 mg/dL (75-99)
--- NOTE | 2019-09-28 12:04 | XR ---
EXAMINATION TYPE: XR chest 1V portable DATE OF EXAM: 09/28/2019 CLINICAL HISTORY: Difficulty breathing progress study. TECHNIQUE: Single AP portable upright view of the chest is obtained. COMPARISON: Chest x-ray from one day earlier and older studies. CT chest 5 days ago. FINDINGS: Cardiomegaly with dual lead pacemaker/AICD redemonstrated. Overlying sternal wires again s een. Bilateral opacities redemonstrated most prominent in the mid lungs. No large pleural effusion or pneumothorax. Osseous structures remain demineralized. IMPRESSION: Overall stable findings were most recent x-ray, cardiomegaly with bilateral multifocal e annabella and/or infiltrates.
[2019-09-28] MEDS: NYSTATIN 100,000 UNIT/ML SUSP 500,000 UNIT/5 ML CUP PO SCH ×3 (12:54→22:57)
--- NOTE | 2019-09-28 13:24 | PN ---
PROGRESS NOTE The patient is feeling better. She underwent upper GI endoscopy. She was found to have gastritis. No definite ulcer was detected. The patient's abdominal pain is slightly improved. She remains sitting comfortably. Denies any cough with expectoration. The patient's blood pressure is 119/57 mmHg. First and second heart sounds are normal. Lungs examination reveals bilateral coarse rales. Patient's creatinine is 1.41. Patient currently is getting Lasix 40 mg IV b.i.d. Discussed the conditions with the patient and the . Her exact volume status is difficult to assess in view of the combination of pulmonary fibrosis and congestive cardiac failure. We will continue the patient on Lasix 40 mg IV b.i.d. The patient's hemoglobin is 8.5. Patient will get PT, OT. MMODL / IJN: [id number] /
[2019-09-28 17:00] LABS: Glucose,Whole Blood 303 mg/dL (75-99)
[2019-09-28] MEDS: PANTOPRAZOLE 40 MG TABLET PO SCH (18:10)
--- NOTE | 2019-09-28 18:33 | P.PN ---
Subjective Progress Note Date: 09/28/19 Principal diagnosis: history of pulmonary fibrosis Severe degree of valvular heart surgery Pulmonary hypertension possibly group 2 Acute on chronic respiratory failure Pulmonary fibrosis/boop can not be excluded 09/28/2019, patient seen and evaluated examined during the rounds labs reviewed medications reviewedmy chest x-ray performed today revealed cardiomegaly with bilateral multifocal infiltrates patient is being monitored off of Imuran, she is on 3 L nasal cannula saturating well 09/27/2019, patient seen eval reexamined during the rounds labs reviewed medications reviewed patient having abdominal discomfort and pains for the last 24 hours GI is going to see her she has a dark stool hemoglobin now has been stable, he is visibly short of breath I have discussed with cardiovascular services, patient has significant JVD bilaterally up to angle of jaw of fluid ov erload, patient remains on 3 L oxygen baseline, her hemoglobin is 7.4 renal function are stable as well, 09/26/2019, patient seen eval examined during the rounds she is on 3 L oxygen as saturation 95% some exertional shortness of breath is present overall remains stable patient Imuran has been tapered down now, patient remains on IV steroids and doxycycline, cardiology thinking about mitral valve clip as outpatient or severe mitral regurgitation, renal function continued to improve 09/25/2019, patient seen and evaluated examined during rounds labs reviewed medications reviewed computed tomography scan finding reviewed and discussed with the patient and her at length patient is still have shortness of breath and cough severity however has been a stable, we'll start her on oral dox ycycline cardiology is evaluating, Computed tomography scan is suggestive of patchy bilateral infiltrate and some minimal scarring at the bases will continue Solu-Medrol patient will require slow taper of the IV steroids with close monitoring and follow-up 09/24/2019, patient is still short of breath denies any chest pain, computed tomography scan is suggestive of some fluid overload Matthieu has changed his suggestive of more of a CHF-like problem and fluid overload problem likely acute on chronic systolic heart failure with valvular heart disease some component of baseline pulmonary fibrosis is there as well discussed with cardiology further recommendations pending patient is being considered for outpatient clipping of mitral valve, we'll start her on IV steroids that will help some of the component of diffuse alveolar damage and interstitial pattern this is a 69-year-old female, patient sees Dr. Otto for primary care activity, patient has multiple medical problems including ischemic cardiomyopathy with baseline ejection fraction of 35% also has a history of coronary artery disease hypertension GERD hypothyroidism and pulmonary hypertension due to severe bilateral viktoriya-fibrosis and chronic kidney disease, patient is status post coronary artery bypass surgery at [facility], recently she has been hospitalized back in August for shortness of breath, she underwent OBEY later on today results of that test has been reviewed, moderate to severe mitral regurgitation was noted with restricted motion of posterior leaflet due to ischemic cardiomyopathy, 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, he has D has been noted with [id number] shunt as well as right to left shunt moderate degree or tricuspid regurgitation noted, patient is considered for mitral clip procedure in AST repair Objective - Vital Signs Vital signs: Vital Signs Temp 97.6 F 09/28/19 08:00 Pulse 60 09/28/19 16:23 Resp 18 09/28/19 04:00 BP 115/59 09/28/19 12:30 Pulse Ox 95 09/28/19 16:10 Intake & Output 09/27/19 09/28/19 09/28/19 18:59 06:59 18:59 Intake Total 600 310 560 Output Total 950 900 Balance 600 -640 -340 Weight 69.4 kg Intake: IV 200 Oral 600 360 Blood Product 0 310 Rc As-1 Unit 0 310 [id number] Output: Urine 950 900 Other: Voiding Method Toilet # Voids 1 1 2 # Bowel Movements 1 - Exam - Constitutional General appearance: average body habitus, cooperative, disheveled - EENT Eyes: EOMI, PERRLA, poor dentition ENT: normal oropharynx Ears: bilateral: normal - Neck Neck: normal ROM Carotids: bilateral: upstroke normal, JVD bilaterally elevated up to angle of jaw - Respiratory Respiratory: bilateral: diminished, rales - Cardiovascular Rhythm: regular Heart sounds: normal: S1, S2 - Integumentary Integumentary: decreased turgor - Neurologic Neurologic: CNII-XII intact - Musculoskeletal Musculoskeletal: gait normal, generalized weakness, strength equal bilaterally - Psychiatric Psychiatric: A&O x's 3, appropriate affect, intact judgment & insight - Labs CBC & Chem 7: 09/28/19 05:54 09/28/19 05:54 Labs: Abnormal Lab Results - Last 24 Hours (Table) 09/27/19 09/27/19 09/28/19 Range/Units 14:51 20:24 05:54 RBC (3.80-5.40) m/uL Hgb (11.4-16.0) gm/dL Hct (34.0-46.0) % RDW (11.5-15.5) % Plt Count (150-450) k/uL Lymphocytes # (1.0-4.8) k/uL Sodium 135 L (137-145) mmol/L BUN 78 H (7-17) mg/dL Creatinine 1.41 H (0.52-1.04) mg/dL Glucose 161 H (74-99) mg/dL POC Glucose (mg/dL) 216 H (75-99) mg/dL Magnesium 2.4 H (1.6-2.3) mg/dL Crossmatch See Detail 09/28/19 09/28/19 09/28/19 Range/Units 05:54 05:59 11:58 RBC 2.83 L (3.80-5.40) m/uL Hgb 8.5 L (11.4-16.0) gm/dL Hct 26.0 L (34.0-46.0) % RDW 19.5 H (11.5-15.5) % Plt Count 73 L (150-450) k/uL Lymphocytes # 0.2 L (1.0-4.8) k/uL Sodium (137-145) mmol/L BUN (7-17) mg/dL Creatinine (0.52-1.04) mg/dL Glucose (74-99) mg/dL POC Glucose (mg/dL) 180 H 190 H (75-99) mg/dL Magnesium (1.6-2.3) mg/dL Crossmatch 09/28/19 Range/Units 16:59 RBC (3.80-5.40) m/uL Hgb (11.4-16.0) gm/dL Hct (34.0-46.0) % RDW (11.5-15.5) % Plt Count (150-450) k/uL Lymphocytes # (1.0-4.8) k/uL Sodium (137-145) mmol/L BUN (7-17) mg/dL Creatinine (0.52-1.04) mg/dL Glucose (74-99) mg/dL POC Glucose (mg/dL) 303 H (75-99) mg/dL Magnesium (1.6-2.3) mg/dL Crossmatch Assessment and Plan Assessment: Lower GI bleed bilateral nonspecific pulmonary fibrosis Severe degree of valvular heart surgery associated with severe mitral regurgitation Pulmonary hypertension possibly group 2 Acute on chronic respiratory failure patchy Areas of infiltrate bilaterally more so on the right side compared to left side boop cannot be excluded acute on chronic renal failure Plan: Monitor hemoglobin closely, GI following Reviewed computed tomography scan of chest noncontrastand chest x-ray Agree with repair of mitral valve continue trial of IV steroids further recommendations pending plan of care as per clinical response of patient doxycycline by mouth monitor off of Imuran Time with Patient: Greater than 30
[2019-09-28 19:03] LABS: % Iron Saturation 62.74 (12.00-45.00)
[2019-09-28 19:12] LABS: Ferritin 439.6 ng/mL (10.0-291.0)
[2019-09-28 20:30] LABS: Glucose,Whole Blood 298 mg/dL (75-99)
[2019-09-28] MEDS: TEMAZEPAM 15 MG CAP PO SCH (20:32)
[2019-09-28] MEDS ORDERED: FLUCONAZOLE 100 MG TAB PO ONE (23:44)
--- NOTE | 2019-09-28 23:44 | P.PN ---
Progress Note - Text Progress Note Date: 09/28/19 Interval history: This is a pleasant 69-year-old patient of Dr. Otto. Chronic stable medical conditions include coronary artery disease, hypertension, GERD, hypothyroidism, severe secondary pulmonary hypertension, bilateral severe pulmonary fibrosis, cor pulmonale, chronic kidney disease. Patient in October of this year had a coronary artery bypass at [facility]. Patient was here in the hospital on August 25. Diagnosed with CHF exacerbation EF 30-35% and also found to have significant pulmonary fibrosis. Admitted with shortness of breath. [place] to be in CHF exacerbation.had a OBEY done. Acute renal failure from diuresis.repeat computed tomography scan of the chest was suggestion of BOOP-has discussed with Dr. Washington. Patient is put on IV steroids. today-congested chest. Some shortness of breath. EGD showed some gastritis and candidiasis. Epigastric pain improved... Review of systems: Was done for constitutional, cardiovascular, GI, pulmonary. relevant finding as above Active Medications Acetaminophen (Tylenol Tab) 650 mg PO Q4HR PRN PRN Reason: Fever and/ or Pain Albuterol Sulfate (Ventolin Nebulized) 2.5 mg INHALATION RT-QID [facility] Last Admin: 09/28/19 20:18 Dose: 2.5 mg Documented by: Albuterol/Ipratropium (Duoneb 0.5 Mg-3 Mg/3 Ml Soln) 3 ml INHALATION RT-Q4H PRN PRN Reason: Shortness Of Breath Or Wheezing Last Admin: 09/25/19 08:20 Dose: 3 ml Documented by: Allopurinol (Zyloprim) 100 mg PO BID [facility] Last Admin: 09/28/19 20:32 Dose: 100 mg Documented by: Atorvastatin Calcium (Lipitor) 40 mg PO DAILY [facility] Last Admin: 09/28/19 09:43 Dose: 40 mg Documented by: Budesonide (Pulmicort) 0.5 mg INHALATION RT-BID [facility] Last Admin: 09/28/19 20:18 Dose: 0.5 mg Documented by: Dicyclomine HCl (Bentyl) 10 mg PO Q6HR PRN PRN Reason: abdominal cramping Last Admin: 09/26/19 16:11 Dose: 10 mg Documented by: Doxycycline Monohydrate (Vibramycin) 100 mg PO BID [facility] Last Admin: 12/17/19 20:32 Dose: 100 mg Documented by: Famotidine (Pepcid) 20 mg PO DAILY [facility] Last Admin: 09/28/19 09:43 Dose: 20 mg Documented by: Formoterol Fumarate (Perforomist) 20 mcg INHALATION RT-BID [facility] Last Admin: 09/28/19 20:18 Dose: 20 mcg Documented by: Furosemide (Lasix) 40 mg IV Q12HR [facility] Last Admin: 09/28/19 20:32 Dose: 40 mg Documented by: Insulin Aspart (Novolog) 0 unit SQ ACHS [facility]; Protocol Last Admin: 09/28/19 20:32 Dose: 8 unit Documented by: Levothyroxine Sodium (Synthroid) 100 mcg PO BID [facility] Last Admin: 09/28/19 20:32 Dose: 100 mcg Documented by: Methylprednisolone Sodium Succinate (Solu-Medrol) 40 mg IV Q8HR [facility] Last Admin: 09/28/19 22:57 Dose: 40 mg Documented by: Metoprolol Tartrate (Lopressor) 25 mg PO BID [facility] Last Admin: 09/28/19 20:32 Dose: 25 mg Documented by: Midodrine (Proamatine) 5 mg PO AC-TID [facility] Last Admin: 09/28/19 18:10 Dose: 5 mg Documented by: Miscellaneous Information (Potassium Per Protocol) 1 each MISCELLANE DAILY PRN; Protocol PRN Reason: Per Protocol Nystatin (Mycostatin Oral Susp) 500,000 unit PO QID [facility] Last Admin: 09/28/19 22:57 Dose: 500,000 unit Documented by: Pantoprazole Sodium (Protonix) 40 mg PO AC-BID [facility] Last Admin: 09/28/19 18:10 Dose: 40 mg Documented by: Spironolactone (Aldactone) 12.5 mg PO DAILY [facility] Last Admin: 09/28/19 09:43 Dose: 12.5 mg Documented by: Temazepam (Restoril) 30 mg PO HS [facility] Last Admin: 09/28/19 20:32 Dose: 30 mg Documented by: Physical examination: VITAL SIGNS: 97.6, 62, 18, 109/57, 99% on 2 L GENERAL: Propped up in bed, short of breath. EYES: Pupils equal. Conjunctiva normal. HEENT: External appearance of nose and ears normal, oral cavity grossly normal. NECK: JVD not raised; masses not palpable. HEART: First and second heart sounds are normal;some,edema LUNGS: Respiratory rate increased,, decreased breath sounds, scattered crackles ABDOMEN: Soft, nontender, liver spleen not palpable, no masses palpable. PSYCH: Alert and oriented x3; mood and affect slightly anxious MUSCULOSKELETAL: Evidence of OA specially in the hands INVESTIGATIONS, reviewed in the clinical context: White count 6.4 hemoglobin 8.5 platelets 73 potassium 4.3 bun 78 crit 1.41 Previous testing Creatinine on 08/28/2019 was 1.57 2-D echocardiogram -EF 40-45%, wall motion abnormality, AST with the [id number]-pydgt shunt, moderate MR, severe TR, moderate pulmonary hypertension High resolution CT chest-diffuse pulmonary fibrosis EGD-gastritis and possible Mariangel esophagitis Assessment: -Acute gastritis -Possible Mariangel esophagitis -Acute on chronic congestive heart failure exacerbation from systolic dysfunction EF 40-45% % from underlying coronary artery disease, decompensated -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 No clinical evidence of acute coronary syndrome -Right renal atrophy -Hyperkalemia from renal failure., -Acute renal failure-from diuresis, Plan: Discussed with Dr. Washington from pulmonary. No further changes plan from his standpoint. Discussed with Dr. VC Galindo from cardiology. Continue with diuresis. Will add Diflucan. Overall prognosis guarded. PTOT of the case..
[2019-09-29] MEDS: MIDODRINE 5 MG TAB PO SCH ×3 (06:09→18:04)
[2019-09-29] MEDS: INSULIN ASPART (NovoLOG) 100 UNIT/ML VIAL SQ SCH ×5 (06:09→22:18)
[2019-09-29] MEDS: PANTOPRAZOLE 40 MG TABLET PO SCH ×2 (06:09→18:04)
[2019-09-29 06:18] LABS: Glucose,Whole Blood 244 mg/dL (75-99)
[2019-09-29 06:59] LABS: Anisocytosis Slight; Basophils % (A) 0 %; Eosinophils % (A) 0 %; HCT 27.3 % (34.0-46.0); HGB 8.9 gm/dL (11.4-16.0); Hypochromasia Slight; Lymphocytes # (A) 0.2 k/uL (1.0-4.8); Lymphocytes % (A) 4 %; MCH 30.8 pg (25.0-35.0); MCHC 32.8 g/dL (31.0-37.0); Macrocytosis Slight; Mean Platelet Volume 8.8; Monocytes # (A) 0.1 k/uL (0-1.0); Monocytes % (A) 2 %; Neutrophils # (A) 6.3 k/uL (1.3-7.7); Neutrophils % (A) 94 %; RDW 19.6 % (11.5-15.5); WBC 6.7 k/uL (3.8-10.6)
[2019-09-29 07:01] LABS: Platelet Count 80 k/uL (150-450)
[2019-09-29] MEDS: BUDESONIDE 0.5 MG/2 ML NEBU INHALATION SCH ×2 (08:00→20:52)
[2019-09-29] MEDS: ALBUTEROL NEBULIZED 2.5 MG/3 ML INHALATION SCH ×4 (08:00→20:52)
[2019-09-29] MEDS: FORMOTEROL FUMARATE 20 MCG/2 ML NEBU INHALATION SCH ×2 (08:00→20:52)
[2019-09-29 08:57] LABS: T4, Free (Free Thyroxine) 2.77 ng/dL (0.78-2.19)
[2019-09-29] MEDS: methylPREDNISolone SOD SUCCI 40 MG/ML 1 ML VIAL IV SCH ×2 (09:31→18:05)
[2019-09-29] MEDS: FUROSEMIDE 10 MG/ML 4 ML VIAL IV SCH (09:31)
[2019-09-29] MEDS: NYSTATIN 100,000 UNIT/ML SUSP 500,000 UNIT/5 ML CUP PO SCH ×4 (09:31→21:50)
[2019-09-29] MEDS: ATORVASTATIN 40 MG TAB PO SCH (09:32)
[2019-09-29] MEDS: SPIRONOLACTONE 25 MG TAB PO SCH (09:32)
[2019-09-29] MEDS: DOXYCYCLINE 100 MG CAP PO SCH ×2 (09:32→21:50)
[2019-09-29] MEDS: LEVOTHYROXINE 100 MCG TAB PO SCH ×2 (09:32→21:50)
[2019-09-29] MEDS: FLUCONAZOLE 100 MG TAB PO SCH (09:32)
[2019-09-29] MEDS: FAMOTIDINE 20 MG TAB PO SCH (09:32)
[2019-09-29] MEDS: ALLOPURINOL 100 MG TAB PO SCH ×2 (09:32→21:50)
[2019-09-29] MEDS: METOPROLOL TARTRATE 25 MG TAB PO SCH ×2 (09:32→21:50)
--- NOTE | 2019-09-29 11:10 | P.PN ---
Subjective Patient is seen in follow-up for acute kidney injury on chronic kidney disease. Renal function is stable. Urine output is good. No chest pain or shortness of breath. Oral intake is fair. Vital signs are stable. General: The patient appeared well nourished and normally developed. HEENT: Head exam is unremarkable. Neck is without jugular venous distension. LUNGS: Lungs are clear to auscultation and percussion. Breath sounds decreased. HEART: Rate and Rhythm are regular. First and second heart sounds normal. No murmurs, rubs or gallops. ABDOMEN: Abdominal exam reveals normal bowel sounds. Non-tender and non- distended. No evidence of peritonitis. EXTREMITITES: Trace edema. Objective - Vital Signs Vital signs: Vital Signs Temp 98.2 F 09/29/19 08:50 Pulse 64 09/29/19 08:50 Resp 18 09/29/19 08:50 BP 112/55 09/29/19 08:50 Pulse Ox 98 09/29/19 08:50 Intake & Output 09/28/19 09/29/19 09/29/19 18:59 06:59 18:59 Intake Total 560 360 240 Output Total 900 400 Balance -340 360 -160 Weight 68.9 kg Intake: IV 200 Oral 360 360 240 Output: Urine 900 400 Other: Voiding Method Toilet Toilet # Voids 2 1 1 - Labs CBC & Chem 7: 09/29/19 06:24 09/28/19 05:54 Labs: Abnormal Lab Results - Last 24 Hours (Table) 09/28/19 09/28/19 09/28/19 Range/Units 05:54 11:58 16:59 RBC (3.80-5.40) m/uL Hgb (11.4-16.0) gm/dL Hct (34.0-46.0) % RDW (11.5-15.5) % Plt Count (150-450) k/uL Lymphocytes # (1.0-4.8) k/uL POC Glucose (mg/dL) 190 H 303 H (75-99) mg/dL % Saturation 62.74 H (12.00-45.00) Ferritin 439.6 H (10.0-291.0) ng/mL TSH (0.465-4.680) mIU/L Free T4 (0.78-2.19) ng/dL 09/28/19 09/29/19 09/29/19 Range/Units 20:28 06:08 06:24 RBC 2.90 L (3.80-5.40) m/uL Hgb 8.9 L (11.4-16.0) gm/dL Hct 27.3 L (34.0-46.0) % RDW 19.6 H (11.5-15.5) % Plt Count 80 L (150-450) k/uL Lymphocytes # 0.2 L (1.0-4.8) k/uL POC Glucose (mg/dL) 298 H 244 H (75-99) mg/dL % Saturation (12.00-45.00) Ferritin (10.0-291.0) ng/mL TSH (0.465-4.680) mIU/L Free T4 (0.78-2.19) ng/dL 09/29/19 Range/Units 06:24 RBC (3.80-5.40) m/uL Hgb (11.4-16.0) gm/dL Hct (34.0-46.0) % RDW (11.5-15.5) % Plt Count (150-450) k/uL Lymphocytes # (1.0-4.8) k/uL POC Glucose (mg/dL) (75-99) mg/dL % Saturation (12.00-45.00) Ferritin (10.0-291.0) ng/mL TSH <0.015 L (0.465-4.680) mIU/L Free T4 2.77 H (0.78-2.19) ng/dL Assessment and Plan Plan: Assessment: 1. Acute kidney injury mostly prerenal secondary to hypotension and diuresis. Improved. Creatinine fairly stable at 1.41 as of yesterday. 2. Chronic kidney disease stage III secondary to nephrosclerosis. Baseline creatinine 1.3-1.5. 3. Acute on chronic systolic CHF with ejection fraction of 40% with moderate to severe mitral regurgitation and moderate tricuspid regurgitation. 4. Volume overload. Better. 5. Chronic hypotension maintained on midodrine. 6. Anemia of chronic kidney disease. Rule out iron deficiency. Status post EGD on September 28 with no active bleeding noted. Plan: Change Lasix to 40 mg orally twice daily. Low-salt diet. Avoid nephrotoxins.
[2019-09-29 12:14] LABS: Glucose,Whole Blood 240 mg/dL (75-99)
--- NOTE | 2019-09-29 13:33 | XR ---
EXAMINATION TYPE: XR chest 2V DATE OF EXAM: 09/29/2019 COMPARISON: Chest x-ray 09/28/2019 HISTORY: Congestive heart failure TECHNIQUE: Frontal and lateral views of the chest are obtained. FINDINGS: There is some improvement in aeration as compared to prior exam. No evident pneumothorax o r pleural effusion. Heart remains enlarged. Intracardiac defibrillator leads again noted, patient is post median sternotomy. IMPRESSION: Improvement in volume status, aeration
[2019-09-29 13:51] VITALS: BMI 24.5
[2019-09-29 16:58] LABS: Glucose,Whole Blood 141 mg/dL (75-99)
[2019-09-29] MEDS: FUROSEMIDE 40 MG TAB PO SCH (18:04)
[2019-09-29 21:17] LABS: Glucose,Whole Blood 350 mg/dL (75-99)
[2019-09-29] MEDS ORDERED: INSULIN DETEMIR (LEVEMIR) 100 UNIT/ML SYR SQ SCH (21:45)
--- NOTE | 2019-09-29 22:07 | PN ---
PROGRESS NOTE The patient's electronic medical records reviewed. Patient is feeling better. She remains comfortable. The patient had been evaluated by [facility] Ped[facility]ist. They are planning to discharge her to the [facility]. She denies any orthopnea or PND. Blood pressure is 120/80 mmHg. First and second heart sounds are heard. Lungs examination revealed bilateral coarse rales. The patient's creatinine remains stable. We will continue the patient on current medications. The patient can follow with Dr. Nini Vazquez as an outpatient. MMODL / IJN: [id number] /
[2019-09-29] MEDS: TEMAZEPAM 15 MG CAP PO SCH (23:01)
--- NOTE | 2019-09-29 23:27 | P.PN ---
Progress Note - Text Progress Note Date: 09/29/19 Interval history: This is a pleasant 69-year-old patient of Dr. Otto. Chronic stable medical conditions include coronary artery disease, hypertension, GERD, hypothyroidism, severe secondary pulmonary hypertension, bilateral severe pulmonary fibrosis, cor pulmonale, chronic kidney disease. Patient in October of this year had a coronary artery bypass at [facility]. Patient was here in the hospital on August 25. Diagnosed with CHF exacerbation EF 30-35% and also found to have significant pulmonary fibrosis. Admitted with shortness of breath. [place] to be in CHF exacerbation.had a OBEY done. Acute renal failure from diuresis.repeat computed tomography scan of the chest was suggestion of BOOP-has discussed with Dr. Washington. Patient is put on IV steroids.EGD showed gastritis today-epigastric pain is actually better. No new issues. Still some shortness of breath. Cardiac some diet. Feeling weak tired rundown. at the bedside. Review of systems: Was done for constitutional, cardiovascular, GI, pulmonary. relevant finding as above Active Medications Acetaminophen (Tylenol Tab) 650 mg PO Q4HR PRN PRN Reason: Fever and/ or Pain Albuterol Sulfate (Ventolin Nebulized) 2.5 mg INHALATION RT-QID [facility] Last Admin: 09/29/19 20:52 Dose: 2.5 mg Documented by: Albuterol/Ipratropium (Duoneb 0.5 Mg-3 Mg/3 Ml Soln) 3 ml INHALATION RT-Q4H PRN PRN Reason: Shortness Of Breath Or Wheezing Last Admin: 09/25/19 08:20 Dose: 3 ml Documented by: Allopurinol (Zyloprim) 100 mg PO BID [facility] Last Admin: 09/29/19 21:50 Dose: 100 mg Documented by: Atorvastatin Calcium (Lipitor) 40 mg PO DAILY [facility] Last Admin: 09/29/19 09:32 Dose: 40 mg Documented by: Budesonide (Pulmicort) 0.5 mg INHALATION RT-BID [facility] Last Admin: 09/29/19 20:52 Dose: 0.5 mg Documented by: Dicyclomine HCl (Bentyl) 10 mg PO Q6HR PRN PRN Reason: abdominal cramping Last Admin: 09/26/19 16:11 Dose: 10 mg Documented by: Doxycycline Monohydrate (Vibramycin) 100 mg PO BID [facility] Last Admin: 12/18/19 21:50 Dose: 100 mg Documented by: Famotidine (Pepcid) 20 mg PO DAILY [facility] Last Admin: 09/29/19 09:32 Dose: 20 mg Documented by: Fluconazole (Diflucan) 100 mg PO DAILY [facility] Last Admin: 09/29/19 09:32 Dose: 100 mg Documented by: Formoterol Fumarate (Perforomist) 20 mcg INHALATION RT-BID [facility] Last Admin: 09/29/19 20:52 Dose: 20 mcg Documented by: Furosemide (Lasix) 40 mg PO BID@0900,1600 [facility] Last Admin: 09/29/19 18:04 Dose: 40 mg Documented by: Insulin Aspart (Novolog) 0 unit SQ [facility]; Protocol Last Admin: 09/29/19 22:18 Dose: 6 unit Documented by: Insulin Detemir (Levemir) 14 unit SQ [facility] Last Admin: 09/29/19 22:17 Dose: 14 unit Documented by: Levothyroxine Sodium (Synthroid) 100 mcg PO BID [facility] Last Admin: 09/29/19 21:50 Dose: 100 mcg Documented by: Metoprolol Tartrate (Lopressor) 25 mg PO BID [facility] Last Admin: 09/29/19 21:50 Dose: 25 mg Documented by: Midodrine (Proamatine) 5 mg PO AC-TID [facility] Last Admin: 09/29/19 18:04 Dose: 5 mg Documented by: Miscellaneous Information (Potassium Per Protocol) 1 each MISCELLANE DAILY PRN; Protocol PRN Reason: Per Protocol Nystatin (Mycostatin Oral Susp) 500,000 unit PO QID [facility] Last Admin: 09/29/19 21:50 Dose: 500,000 unit Documented by: Pantoprazole Sodium (Protonix) 40 mg PO AC-BID [facility] Last Admin: 09/29/19 18:04 Dose: 40 mg Documented by: Prednisone () 40 mg PO DAILY [facility] Spironolactone (Aldactone) 12.5 mg PO DAILY [facility] Last Admin: 09/29/19 09:32 Dose: 12.5 mg Documented by: Temazepam (Restoril) 30 mg PO [facility] Last Admin: 09/29/19 23:01 Dose: 30 mg Documented by: Physical examination: VITAL SIGNS: 97.7, 62, 16, 107/52, 95% on 3 L GENERAL: Propped up in bed, short of breath. EYES: Pupils equal. Conjunctiva normal. HEENT: External appearance of nose and ears normal, oral cavity grossly normal. NECK: JVD not raised; masses not palpable. HEART: First and second heart sounds are normal;some,edema LUNGS: Respiratory rate increased,, decreased breath sounds, scattered crackles ABDOMEN: Soft, nontender, liver spleen not palpable, no masses palpable. PSYCH: Alert and oriented x3; mood and affect slightly anxious MUSCULOSKELETAL: Evidence of OA specially in the hands INVESTIGATIONS, reviewed in the clinical context: white count 6.7 hemoglobin 8.9 platelets 80 TSH less than 0.015, free T4 2 0.77 Previous testing Creatinine on 08/28/2019 was 1.57 2-D echocardiogram -EF 40-45%, wall motion abnormality, AST with the le ft-to-right shunt, moderate MR, severe TR, moderate pulmonary hypertension High resolution CT chest-diffuse pulmonary fibrosis EGD-gastritis and possible Mariangel esophagitis Assessment: -Acute gastritis -Possible Mariangel esophagitis -Acute on chronic congestive heart failure exacerbation from systolic dysfunction EF 40-45% % from underlying coronary artery disease, decompensated -BOOP-new diagnosis -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 No clinical evidence of acute coronary syndrome -Right renal atrophy -Hyperkalemia from renal failure., -Acute renal failure-from diuresis, Plan: dose of Synthroid will be cut back to 75 g one hour. We'll hold off a couple of days before resuming the same. She was a been running at 300. Insulin supplemented. We'll also change the IV Solu-Medrol to by mouth prednisone. Advanced care planning: This was discussed at length with the patient and at the bedside. Tenzin vicente is somewhat reluctant all, the topic and did tell me that she'll live up to 90 and she should not be scared about this. I did explain that this discussion very important given her multiple comorbidities and is good to plan ahead of time. The patient understands same. After lengthy discussion and going over the prognostication at this point we will decide get back to me in terms of the CODE STATUS. This point of course that remains a full code. Patient takes her own decisions. The also medical decision making. About 25 minutes were spent on this. I will address this again.
[2019-09-30 05:50] VITALS: PULSE 60; RESP 18
[2019-09-30 06:12] LABS: Glucose,Whole Blood 99 mg/dL (75-99)
[2019-09-30] MEDS: INSULIN ASPART (NovoLOG) 100 UNIT/ML VIAL SQ SCH ×2 (06:20→12:01)
[2019-09-30] MEDS: PANTOPRAZOLE 40 MG TABLET PO SCH (06:21)
[2019-09-30 07:02] LABS: Anisocytosis Slight; Basophils % (A) 0 %; Eosinophils % (A) 0 %; HGB 8.2 gm/dL (11.4-16.0); Lymphocytes # (A) 0.2 k/uL (1.0-4.8); Lymphocytes % (A) 3 %; MCH 30.5 pg (25.0-35.0); MCHC 32.8 g/dL (31.0-37.0); MCV 92.8 fL (80.0-100.0); Macrocytosis Slight; Mean Platelet Volume 9.1; Monocytes # (A) 0.2 k/uL (0-1.0); Monocytes % (A) 3 %; Neutrophils # (A) 5.7 k/uL (1.3-7.7); Neutrophils % (A) 94 %; RDW 19.6 % (11.5-15.5); WBC 6.1 k/uL (3.8-10.6)
[2019-09-30 07:07] LABS: Platelet Count 69 k/uL (150-450)
[2019-09-30 07:08] LABS: Calcium 8.7 mg/dL (8.4-10.2); Magnesium 2.5 mg/dL (1.6-2.3); Potassium 4.2 mmol/L (3.5-5.1)
[2019-09-30] MEDS: ALBUTEROL NEBULIZED 2.5 MG/3 ML INHALATION SCH ×2 (08:32→13:18)
[2019-09-30] MEDS ORDERED: predniSONE 20 MG TAB PO SCH (09:00)
[2019-09-30 09:12] VITALS: TEMP 97.4
[2019-09-30] MEDS: ALLOPURINOL 100 MG TAB PO SCH (09:13)
[2019-09-30] MEDS: ATORVASTATIN 40 MG TAB PO SCH (09:14)
[2019-09-30] MEDS: FUROSEMIDE 40 MG TAB PO SCH (09:14)
[2019-09-30] MEDS: FLUCONAZOLE 100 MG TAB PO SCH (09:14)
[2019-09-30] MEDS: DOXYCYCLINE 100 MG CAP PO SCH (09:14)
[2019-09-30] MEDS: FAMOTIDINE 20 MG TAB PO SCH (09:14)
[2019-09-30] MEDS: METOPROLOL TARTRATE 25 MG TAB PO SCH (09:15)
[2019-09-30] MEDS: SPIRONOLACTONE 25 MG TAB PO SCH (09:15)
[2019-09-30] MEDS: NYSTATIN 100,000 UNIT/ML SUSP 500,000 UNIT/5 ML CUP PO SCH ×2 (09:15→12:09)
[2019-09-30] MEDS: FORMOTEROL FUMARATE 20 MCG/2 ML NEBU INHALATION SCH (10:55)
[2019-09-30] MEDS: BUDESONIDE 0.5 MG/2 ML NEBU INHALATION SCH (10:55)
--- NOTE | 2019-09-30 10:59 | P.PN ---
Subjective Patient is seen in follow-up for acute kidney injury on chronic kidney disease. Renal function is slightly worse which is due to diuresis. Urine output is good. No chest pain or shortness of breath. Oral intake is fair. Vital signs are stable. General: The patient appeared well nourished and normally developed. HEENT: Head exam is unremarkable. Neck is without jugular venous distension. LUNGS: Lungs are clear to auscultation and percussion. Breath sounds decreased. HEART: Rate and Rhythm are regular. First and second heart sounds normal. No murmurs, rubs or gallops. ABDOMEN: Abdominal exam reveals normal bowel sounds. Non-tender and non- distended. No evidence of peritonitis. EXTREMITITES: 1+ edema. Objective - Vital Signs Vital signs: Vital Signs Temp 97.4 F L 09/30/19 08:00 Pulse 60 09/30/19 08:00 Resp 18 09/30/19 08:00 BP 115/56 09/30/19 08:00 Pulse Ox 97 09/30/19 08:00 Intake & Output 09/29/19 09/30/19 09/30/19 18:59 06:59 18:59 Intake Total 480 10 240 Output Total 1150 600 Balance -670 -590 240 Weight 68.9 kg 69.1 kg Intake: IV 10 Invasive Line 2 10 Oral 480 240 Output: Urine 1150 600 Other: Voiding Method Toilet Toilet # Voids 1 - Labs CBC & Chem 7: 09/30/19 06:18 09/30/19 06:18 Labs: Abnormal Lab Results - Last 24 Hours (Table) 09/29/19 09/29/19 09/29/19 Range/Units 12:13 16:56 21:11 RBC (3.80-5.40) m/uL Hgb (11.4-16.0) gm/dL Hct (34.0-46.0) % RDW (11.5-15.5) % Plt Count (150-450) k/uL Lymphocytes # (1.0-4.8) k/uL BUN (7-17) mg/dL Creatinine (0.52-1.04) mg/dL POC Glucose (mg/dL) 240 H 141 H 350 H (75-99) mg/dL Magnesium (1.6-2.3) mg/dL 09/30/19 09/30/19 Range/Units 06:18 06:18 RBC 2.70 L (3.80-5.40) m/uL Hgb 8.2 L (11.4-16.0) gm/dL Hct 25.0 L (34.0-46.0) % RDW 19.6 H (11.5-15.5) % Plt Count 69 L (150-450) k/uL Lymphocytes # 0.2 L (1.0-4.8) k/uL BUN 85 H (7-17) mg/dL Creatinine 1.75 H (0.52-1.04) mg/dL POC Glucose (mg/dL) (75-99) mg/dL Magnesium 2.5 H (1.6-2.3) mg/dL Assessment and Plan Plan: Assessment: 1. Acute kidney injury mostly prerenal secondary to cardiorenal syndrome. Cr 1.75 today. 2. Chronic kidney disease stage III secondary to nephrosclerosis. Baseline cr eatinine 1.3-1.5. 3. Acute on chronic systolic CHF with ejection fraction of 40% with moderate to severe mitral regurgitation and moderate tricuspid regurgitation. 4. Volume overload. Better. 5. Chronic hypotension maintained on midodrine. 6. Anemia of chronic kidney disease. Rule out iron deficiency. Status post EGD on September 28 with no active bleeding noted. Plan: Maintain lasix 40 mg orally twice daily. Low-salt diet. Avoid nephrotoxins. Potential discharge to rehab today. Repeat BMP and magnesium level in 2-3 days postdischarge. Patient to monitor her weight closely. Will adjust diuretics as needed. Follow up outpatient in the next 2 weeks.
[2019-09-30 11:37] VITALS: BP 129/60
[2019-09-30 12:01] LABS: Glucose,Whole Blood 128 mg/dL (75-99)
--- NOTE | 2019-09-30 12:05 | P.PN ---
Subjective Progress Note Date: 09/30/19 This is a pleasant 69-year-old male patient who follows with Dr. RAOUL Vazquez in the office. She has a prior history of CAD with bypass surgery in 2018, ischemic cardiomyopathy with most recent echocardiogram showing ejection fraction of 30- 35%, moderate mitral regurgitation and moderate to severe tricuspid regurgitation, pulmonary hypertension, hypertension, hyperlipidemia, pulmonary fibrosis, prior AICD placement implantation last year, COPD, renal insufficiency and hypothyroidism. She's had multiple hospitalizations recently and was just recently discharged on the first of this month. During her last admission, she developed acute kidney injury and her Aldactone and DARVIN inhibitor were old. We did trial Entresto at that time but she was not able to tolerate it due to hypotension and worsening renal failure. Presents this admission with progressively worsening dyspnea on exertion, orthopnea and lower extremity edema. She's apparently been eating a lot of soup from restaurants. She has be en on oral Lasix and metolazone at home. Labs on admission showed sodium 136, potassium 2.9 which is being supplemented, BUN 38, creatinine 1.25, elevated AST and ALTs and alkaline phosphatase, troponin 0.058 and NT proBNP of 28,600 which is higher than previous admission. She has Been initiated on IV Lasix. Vital signs are stable. Upon examination, patient's resting comfortable with head of bed up. She continues to complain of orthopnea. She feels her edema may be slightly better and she is breathing a bit better. 09/24/2019 Patient seen and examined this morning, doing well overall. Breathing is stable. Continues to have a cough. Chest x-ray was repeated which shows improvement from prior x-ray. Her creatinine today is down to 1.5, BUN 82, potassium 3.4 which has been replaced. 09/30/2019, patient seen and examined this morning, arrangements are being made for the patient to transfer to [facility].blood pressure 128/60 with a heart rate in the 60s, 100% on 3 L of oxygen.White blood cell count 6.1, hemoglobin 8.2, platelet count 69 sodium 138, potassium 4.2, BUN 85 and creatinine 1.7. Objective - Vital Signs Vital signs: Vital Signs Temp 97.4 F L 09/30/19 08:00 Pulse 60 09/30/19 11:58 Resp 18 12/19/19 11:58 BP 129/60 09/30/19 11:36 Pulse Ox 100 09/30/19 11:36 Intake & Output 09/29/19 09/30/19 09/30/19 18:59 06:59 18:59 Intake Total 480 10 240 Output Total 1150 600 Balance -670 -590 240 Weight 68.9 kg 69.1 kg Intake: IV 10 Invasive Line 2 10 Oral 480 240 Output: Urine 1150 600 Other: Voiding Method Toilet Toilet # Voids 1 - Exam PHYSICAL EXAMINATION: HEENT: Head is atraumatic, normocephalic. Pupils equal, round. Neck is supple. There is elevated jugular venous pressure. HEART EXAMINATION: Heart sounds regular, S1 and S2 with a systolic murmur. CHEST EXAMINATION: Lungs reveal crackles and Wheezing throughout. No chest wall tenderness is noted on palpation or with deep breathing. ABDOMEN: Soft, nontender. Bowel sounds are heard. No organomegaly noted. EXTREMITIES:1+ peripheral pulses with evidence of moderate peripheral edema and no calf tenderness noted. NEUROLOGIC patient is awake, alert and oriented x3. - Labs CBC & Chem 7: 09/30/19 06:18 09/30/19 06:18 Labs: Abnormal Lab Results - Last 24 Hours (Table) 09/29/19 09/29/19 09/29/19 Range/Units 12:13 16:56 21:11 RBC (3.80-5.40) m/uL Hgb (11.4-16.0) gm/dL Hct (34.0-46.0) % RDW (11.5-15.5) % Plt Count (150-450) k/uL Lymphocytes # (1.0-4.8) k/uL BUN (7-17) mg/dL Creatinine (0.52-1.04) mg/dL POC Glucose (mg/dL) 240 H 141 H 350 H (75-99) mg/dL Magnesium (1.6-2.3) mg/dL 09/30/19 09/30/19 09/30/19 Range/Units 06:18 06:18 12:00 RBC 2.70 L (3.80-5.40) m/uL Hgb 8.2 L (11.4-16.0) gm/dL Hct 25.0 L (34.0-46.0) % RDW 19.6 H (11.5-15.5) % Plt Count 69 L (150-450) k/uL Lymphocytes # 0.2 L (1.0-4.8) k/uL BUN 85 H (7-17) mg/dL Creatinine 1.75 H (0.52-1.04) mg/dL POC Glucose (mg/dL) 128 H (75-99) mg/dL Magnesium 2.5 H (1.6-2.3) mg/dL Assessment and Plan Plan: Assessment: #1 acute on chronic combined systolic and diastolic congestive heart failure #2 ischemic cardiomyopathy #3 pulmonary fibrosis #4 COPD with pulmonary hypertension #5 acute on chronic chronic renal failure Plan Cardiology's perspective, [facility] We will make a follow-up appointment with Dr. Campos Vazquez in the office.
[2019-09-30] MEDS: MIDODRINE 5 MG TAB PO SCH (12:09)
--- NOTE | 2019-09-30 13:15 | P.DS ---
Providers Date of admission: 09/19/19 14:54 Expected date of discharge: 09/30/19 Attending physician: Po Moss Consults: 09/18/19 17:36 Consult Physician Routine Consulting Provider: Indio Salinas Consult Reason/Comments: chf Do you want consulting provider notified?: Yes 09/21/19 22:13 Consult Physician Routine Consulting Provider: Jc Washington Consult Reason/Comments: Short of breath Do you want consulting provider notified?: Yes 09/23/19 00:59 Consult Physician Routine Consulting Provider: Emerita Zamora Consult Reason/Comments: AK I Do you want consulting provider notified?: Yes 09/27/19 20:39 Consult Physician Routine Consulting Provider: Gato Galindo Consult Reason/Comments: CHF Do you want consulting provider notified?: Yes Primary care physician: Reji Otto [facility] Course: Hospital course: This is a pleasant 69-year-old patient of Dr. Otto. Chronic stable medical conditions include coronary artery disease, hypertension, GERD, hypothyroidism, severe secondary pulmonary hypertension, bilateral pulmonary fibrosis, cor pulmonale, chronic kidney disease. Patient in October of this year had a coronary artery bypass at [facility]. Patient was here in the hospital on August 25. Diagnosed with CHF exacerbation EF 30-35% and also found to have significant pulmonary fibrosis. Admitted with shortness of breath. [place] to be in CHF exacerbation.had a OBEY done. Mitral regurgitation and EF of 40%. Also found to have evidence of ASD and also found to have right to left shunt. Moderate degree of TR. Acute renal failure from diuresis. 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 Patient is put on IV steroids. Patient had epigastric pain. EGD showed gastritis and possible Mariangel esophagitis. Fosamax was discontinued. Pain improved. CODE STATUS was discussed with the patient. This point she remains a full code. Patient being over replaced with Synthroid. Dose was cut back. Today-patient remains a bit tired. Tolerating a diet. Short of breath at baseline. Requiring oxygen. Discussed with Dr. VC Galindo and Divya Washington today. Okay to DC. Discussion and discharge planning more than 35 minutes Consultation: Dr. VC Galindo from cardiology Dr. Divya Washington from pulmonary Dr. Fagan from nephrology Dr. Denice Katz from GI Physical examination: VITAL SIGNS: 97.4, 60, 18, 129/60, 100% on 3 L GENERAL: Propped up in bed, short of breath., Nasal cannula EYES: Pupils equal. Conjunctiva normal. HEENT: External appearance of nose and ears normal, oral cavity grossly normal. NECK: JVD not raised; masses not palpable. HEART: First and second heart sounds are normal; some,edema LUNGS: Respiratory rate increased,, decreased breath sounds, scattered crackles ABDOMEN: Soft, nontender, liver spleen not palpable, no masses palpable. PSYCH: Alert and oriented x3; mood and affect normal MUSCULOSKELETAL: Evidence of OA specially in the hands INVESTIGATIONS, reviewed in the clinical context: white count 6.7 hemoglobin 8.9 platelets 80 Previous testing Creatinine on 08/28/2019 was 1.57 2-D echocardiogram -EF 40-45%, wall motion abnormality, AST with the [id number] shunt, moderate MR, severe TR, moderate pulmonary hypertension High resolution CT chest-diffuse pulmonary fibrosis EGD-gastritis and possible Mariangel esophagitis TSH less than 0.015, free T4 2 0.77 Assessment: -Acute on chronic congestive heart failure exacerbation from systolic dysfunction EF 40-45% % from underlying coronary artery disease, decompensated -BOOP-new diagnosis -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 No clinical evidence of acute coronary syndrome -Right renal atrophy -Hyperkalemia from renal failure., -Acute renal failure-from diuresis, -Acute gastritis - Mariangel esophagitis Disposition: [facility] Patient Condition at Discharge: Undetermined Plan - Discharge Summary New Discharge Prescriptions: New Spironolactone [Aldactone] 12.5 mg PO DAILY #30 tab Dicyclomine [Bentyl] 10 mg PO Q6HR PRN cap PRN Reason: abdominal cramping Fluconazole [Diflucan] 100 mg PO DAILY #7 tab Furosemide [Lasix] 40 mg PO BID@0900,1600 tab predniSONE 40 mg PO DAILY tab Pantoprazole [Protonix] 40 mg PO AC-BID tablet. Doxycycline [Vibramycin] 100 mg PO BID #14 cap Continue Atorvastatin [Lipitor] 40 mg PO DAILY Metoprolol Tartrate [Lopressor] 25 mg PO BID Formoterol Fumarate [Perforomist] 20 mcg INHALATION RT-BID Budesonide [Pulmicort] 0.5 mg INHALATION RT-BID Temazepam 30 mg PO HS Levothyroxine Sodium [Levoxyl] 100 mcg PO BID Calcitriol [Rocaltrol] 0.25 mcg PO TUSA Allopurinol [Zyloprim] 100 mg PO BID Nitroglycerin Sl Tabs [Nitrostat] 0.4 mg SUBLINGUAL Q5M PRN PRN Reason: Chest Pain Aspirin 81 mg PO DAILY chew Midodrine [ProAmatine] 5 mg PO AC-TID #60 tab Changed Ipratropium-Albuterol Nebulize [Duoneb 0.5 mg-3 mg/3 ml Soln] 3 ml INHALATION QID #0 Discontinued azaTHIOprine [Imuran] 100 mg PO DAILY Famotidine [Pepcid] 40 mg PO DAILY Sulfamethox-Tmp 400-80Mg [Bactrim SS 400-80 mg] 1 tab PO DAILY Metolazone [Zaroxolyn] 2.5 mg PO DAILY Alendronate Sodium [Fosamax] 70 mg PO Q7D Discharge Medication List Atorvastatin [Lipitor] 40 mg PO DAILY 09/22/18 [History] Budesonide [Pulmicort] 0.5 mg INHALATION RT-BID 05/20/19 [History] Formoterol Fumarate [Perforomist] 20 mcg INHALATION RT-BID 05/20/19 [History] Metoprolol Tartrate [Lopressor] 25 mg PO BID 05/20/19 [History] Temazepam 30 mg PO HS 05/20/19 [History] Allopurinol [Zyloprim] 100 mg PO BID 08/25/19 [History] Calcitriol [Rocaltrol] 0.25 mcg PO TUSA 08/25/19 [History] Levothyroxine Sodium [Levoxyl] 100 mcg PO BID 08/25/19 [History] Nitroglycerin Sl Tabs [Nitrostat] 0.4 mg SUBLINGUAL Q5M PRN 08/25/19 [History] Aspirin 81 mg PO DAILY chew 08/28/19 [Rx] Midodrine [ProAmatine] 5 mg PO AC-TID #60 tab 09/12/19 [Rx] Spironolactone [Aldactone] 12.5 mg PO DAILY #30 tab 09/23/19 [Rx] Dicyclomine [Bentyl] 10 mg PO Q6HR PRN cap 09/30/19 [Rx] Doxycycline [Vibramycin] 100 mg PO BID #14 cap 09/30/19 [Rx] Fluconazole [Diflucan] 100 mg PO DAILY #7 tab 09/30/19 [Rx] Furosemide [Lasix] 40 mg PO BID@0900,1600 tab 09/30/19 [Rx] Ipratropium-Albuterol Nebulize [Duoneb 0.5 mg-3 mg/3 ml Soln] 3 ml INHALATION QID #0 09/30/19 [Rx] Pantoprazole [Protonix] 40 mg PO AC-BID tablet. 09/30/19 [Rx] predniSONE 40 mg PO DAILY tab 09/30/19 [Rx] Follow up Appointment(s)/Referral(s): Rai Vazquez MD [STAFF PHYSICIAN] - 09/29/19 9:45 am (Friday) [facility], [NON-STAFF] - 1 Week Reji Otto DO [Primary Care Provider] - 10/01/19 11:30 am (Friday) Jc Washington MD [STAFF PHYSICIAN] - 09/30/19 12:15 pm () Ambulatory/Diagnostic Orders: Basic Metabolic Panel [LAB.AMB] Time Frame: 3 Days, Location: None Selected Patient Instructions/Handouts: Heart Failure (DC), COPD (Chronic Obstructive Pulmonary Disease) (DC) Activity/Diet/Wound Care/Special Instructions: CHF 1. Weigh yourself every morning after you urinate. If you gain 2-3 pounds overnight or 5 pounds in one week, call your primary physician for guidance on your medications. Keep a log of your weights. 2. Avoid salt, or foods with hidden salt. Extra salt makes your heart work harder and traps the fluid in your body for longer. 3. Take all of your medications as directed, especially your water pills. NEVER skip a dose. 4. Elevate your legs when you are not up moving around to help with circulation and prevent swelling. 5. Call your physician if you notice any extra swelling in your legs, ankles, feet or abdomen, if you have a new dry cough, if your shortness of breath worsens with activity or at rest, or if you feel more fatigued.
--- NOTE | 2019-09-30 14:33 | P.PN ---
Subjective Progress Note Date: 09/30/19 Principal diagnosis: history of pulmonary fibrosis Severe degree of valvular heart surgery Pulmonary hypertension possibly group 2 Acute on chronic respiratory failure Pulmonary fibrosis/boop can not be excluded 09/30/2019, patient seen eval examined during the rounds still short of breath the severity has improved patient will is to be discharged would recommend 40 mg of prednisone daily basis will reevaluate in outpatient basis then will start tapering it down, patient has been off of Imuran 09/28/2019, patient seen and evaluated examined during the rounds labs reviewed medications reviewedmy chest x-ray performed today revealed cardiomegaly with bilateral multifocal infiltrates patient is being monitored off of Imuran, she is on 3 L nasal cannula saturating well 09/27/2019, patient seen eval reexamined during the rounds labs reviewed medications reviewed patient having abdominal discomfort and pains for the last 24 hours GI is going to see her she has a dark stool hemoglobin now has been stable, he is visibly short of breath I have discussed with cardiovascular services, patient has significant JVD bilaterally up to angle of jaw of fluid overload, patient remains on 3 L oxygen baseline, her hemoglobin is 7.4 renal function are stable as well, 09/26/2019, patient seen eval examined during the rounds she is on 3 L oxygen as saturation 95% some exertional shortness of breath is present overall remains stable patient Imuran has been tapered down now, patient remains on IV steroids and doxycycline, cardiology thinking about mitral valve clip as outpatient or severe mitral regurgitation, renal function continued to improve 09/25/2019, patient seen and evaluated examined during rounds labs reviewed medications reviewed computed tomography scan finding reviewed and discussed with the patient and her at length patient is still have shortness of breath and cough severity however has been a stable, we'll start her on oral doxycycline cardiology is evaluating, Computed tomography scan is suggestive of patchy bilateral infiltrate and some minimal scarring at the bases will continue Solu-Medrol patient will require slow taper of the IV steroids with close monitoring and follow-up 09/24/2019, patient is still short of breath denies any chest pain, computed tomography scan is suggestive of some fluid overload Matthieu has changed his s uggestive of more of a CHF-like problem and fluid overload problem likely acute on chronic systolic heart failure with valvular heart disease some component of baseline pulmonary fibrosis is there as well discussed with cardiology further recommendations pending patient is being considered for outpatient clipping of mitral valve, we'll start her on IV steroids that will help some of the component of diffuse alveolar damage and interstitial pattern this is a 69-year-old female, patient sees Dr. Otto for primary care activity, patient has multiple medical problems including ischemic cardiomy opathy with baseline ejection fraction of 35% also has a history of coronary artery disease hypertension GERD hypothyroidism and pulmonary hypertension due to severe bilateral viktoriya-fibrosis and chronic kidney disease, patient is status post coronary artery bypass surgery at [facility], recently she has been hospitalized back in August for shortness of breath, she underwent OBEY later on today results of that test has been reviewed, moderate to severe mitral regurgitation was noted with restricted motion of posterior leaflet due to ischemic cardiomyopathy, 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, he has D has been noted with [id number] shunt as well as right to left shunt m oderate degree or tricuspid regurgitation noted, patient is considered for mitral clip procedure in AST repair Objective - Vital Signs Vital signs: Vital Signs Temp 97.4 F L 09/30/19 08:00 Pulse 60 09/30/19 13:31 Resp 18 09/30/19 11:58 BP 129/60 09/30/19 11:36 Pulse Ox 100 09/30/19 11:36 Intake & Output 09/29/19 09/30/19 09/30/19 18:59 06:59 18:59 Intake Total 480 10 360 Output Total 1150 600 Balance -670 -590 360 Weight 68.9 kg 69.1 kg Intake: IV 10 Invasive Line 2 10 Oral 480 360 Output: Urine 1150 600 Other: Voiding Method Toilet Toilet # Voids 1 - Exam - Constitutional General appearance: average body habitus, cooperative, disheveled - EENT Eyes: EOMI, PERRLA, poor dentition ENT: normal oropharynx Ears: bilateral: normal - Neck Neck: normal ROM Carotids: bilateral: upstroke normal, JVD bilaterally elevated up to angle of jaw - Respiratory Respiratory: bilateral: diminished, rales - Cardiovascular Rhythm: regular Heart sounds: normal: S1, S2 - Integumentary Integumentary: decreased turgor - Neurologic Neurologic: CNII-XII intact - Musculoskeletal Musculoskeletal: gait normal, generalized weakness, strength equal bilaterally - Psychiatric Psychiatric: A&O x's 3, appropriate affect, intact judgment & insight - Labs CBC & Chem 7: 09/30/19 06:18 09/30/19 06:18 Labs: Abnormal Lab Results - Last 24 Hours (Table) 09/29/19 09/29/19 09/30/19 Range/Units 16:56 21:11 06:18 RBC 2.70 L (3.80-5.40) m/uL Hgb 8.2 L (11.4-16.0) gm/dL Hct 25.0 L (34.0-46.0) % RDW 19.6 H (11.5-15.5) % Plt Count 69 L (150-450) k/uL Lymphocytes # 0.2 L (1.0-4.8) k/uL BUN (7-17) mg/dL Creatinine (0.52-1.04) mg/dL POC Glucose (mg/dL) 141 H 350 H (75-99) mg/dL Magnesium (1.6-2.3) mg/dL 09/30/19 09/30/19 Range/Units 06:18 12:00 RBC (3.80-5.40) m/uL Hgb (11.4-16.0) gm/dL Hct (34.0-46.0) % RDW (11.5-15.5) % Plt Count (150-450) k/uL Lymphocytes # (1.0-4.8) k/uL BUN 85 H (7-17) mg/dL Creatinine 1.75 H (0.52-1.04) mg/dL POC Glucose (mg/dL) 128 H (75-99) mg/dL Magnesium 2.5 H (1.6-2.3) mg/dL Assessment and Plan Assessment: Lower GI bleed bilateral nonspecific pulmonary fibrosis Severe degree of valvular heart surgery associated with severe mitral regurgitation Pulmonary hypertension possibly group 2 Acute on chronic respiratory failure patchy Areas of infiltrate bilaterally more so on the right side compared to left side boop cannot be excluded acute on chronic renal failure Plan: Monitor hemoglobin closely, GI following Reviewed computed tomography scan of chest noncontrastand chest x-ray Agree with repair of mitral valve continue trial of IV steroids, can be switched to oral prednisone at time of discharge 40 mg daily for 10 days to 2 weeks we'll taper it at outpatient setting further recommendations pending plan of care as per clinical response of patient doxycycline by mouth monitor off of Imuran Time with Patient: Greater than 30
[2019-10-01] MEDS ORDERED: LEVOTHYROXINE 88 MCG TAB PO SCH (06:30)
--- NOTE | 2019-10-18 08:05 | CDI ---
Documentation Clarification Form 2nd Request Date: 09/27/2019 09:54:00 AM From: Stephanie Kate RN, CCDS Admit Date: 09/19/2019 02:54:00 PM Patient Name: Karmen Narayanan Visit Number: [id number] Discharge Date: 09/30/2019 03:03:00 PM ATTENTION: The Clinical Documentation Specialists (CDI) and [facility] Coding Staff appreciate your assistance in clarifying documentation. Please respond to the clarification below the line at the bottom and electronically sign. The CDI & [facility] Coding staff will review the response and follow-up if needed. Please note: Queries are made part of the Legal Health Record. If you have any questions, please contact the author of this message via ITS. Dr. Jc Washington Acute on chronic respiratory failure has been documented and requires further specificity History/Risk Factors: CHF, COPD, Pulmonary HTN, pulmonary fibrosis Tobacco use: former smoker Home oxygen: none documented Clinical Indicators: 09/23-09/26 Pulmonary consult and progress notes: "Acute on chronic respiratory failure." Vital signs: Temp 97.9, HR 62, RR 18, B/P 130/64 Pulse oximetry: 96% Room air, 99% 3L nasal cannula 09/26 Pulmonary Lung/Breathing assessment: "Respiratory bilateral: diminished, rales. Treatment: Breathing TX: Ventolin INH QID, Duoneb Q 4 hrs PRN, Pulmicort INH BID, Performamist INH BID IV Solumedrol tapering dose. Pulse ox per unit protocol O2 Room air to 3L nasal cannula In your professional opinion, can you please clarify if these findings signify one of the following conditions? Acute on Chronic Hypoxic Respiratory Failure Acute on Chronic Hypercapnic Respiratory Failure Respiratory failure ruled out Other Diagnosis, please specify Unable to determine MTDD
--- NOTE | 2019-10-22 09:56 | CDI ---
Documentation Clarification Form 3rd Request A response must be documented in the medical record Date: 09/27/2019 09:54:00 AM From: Stephanie Kate RN, CCDS Admit Date: 09/19/2019 02:54:00 PM Patient Name: Karmen Narayanan Visit Number: [id number] Discharge Date: 09/30/2019 03:03:00 PM ATTENTION: The Clinical Documentation Specialists (CDI) and [facility] Coding Staff appreciate your assistance in clarifying documentation. Please respond to the clarification below the line at the bottom and electronically sign. The CDI & [facility] Coding staff will review the response and follow-up if needed. Please note: Queries are made part of the Legal Health Record. If you have any questions, please contact the author of this message via ITS. Dr. Jc Washington Acute on chronic respiratory failure has been documented and requires further specificity History/Risk Factors: CHF, COPD, Pulmonary HTN, pulmonary fibrosis Tobacco use: former smoker Home oxygen: none documented Clinical Indicators: 09/23-09/26 Pulmonary consult and progress notes: "Acute on chronic respiratory failure." Vital signs: Temp 97.9, HR 62, RR 18, B/P 130/64 Pulse oximetry: 96% Room air, 99% 3L nasal cannula 09/26 Pulmonary Lung/Breathing assessment: "Respiratory bilateral: diminished, rales. Treatment: Breathing [place]: Ventolin INH QID, Duoneb Q 4 hrs PRN, Pulmicort INH BID, Performamist INH BID IV Solumedrol tapering dose. Pulse ox per unit protocol O2 Room air to 3L nasal cannula In your professional opinion, can you please clarify if these findings signify one of the following conditions? Acute on Chronic Hypoxic Respiratory Failure Acute on Chronic Hypercapnic Respiratory Failure Respiratory failure ruled out Other Diagnosis, please specify Unable to determine MTDD
== END 2019-09-30 15:03 | DRG 291 ==
LOC: EC 12:20 → 3SCARD 14:52 → OBSVTOIN 09-19 14:54
PROVIDERS: ADMIT Hospitalist; ATTEND Hospitalist
PROC: B246ZZ4 Ultrasonography of Right and Left Heart, Transesophageal (ICD-10-PCS; 2019-09-22)
PROC: 30233N1 Transfusion of Nonautologous Red Blood Cells into Peripheral Vein, Percutaneous Approach (ICD-10-PCS; 2019-09-27)
PROC: 0DB78ZX Excision of Stomach, Pylorus, Via Natural or Artificial Opening Endoscopic, Diagnostic (ICD-10-PCS; 2019-09-28)
PROC: 0DB28ZX Excision of Middle Esophagus, Via Natural or Artificial Opening Endoscopic, Diagnostic (ICD-10-PCS; 2019-09-28)
PROC: 0DB98ZX Excision of Duodenum, Via Natural or Artificial Opening Endoscopic, Diagnostic (ICD-10-PCS; principal; 2019-09-28 07:30)
DX: I13.0 Hypertensive heart and chronic kidney disease with heart failure and stage 1 through stage 4 chronic kidney disease, or unspecified chronic kidney disease (principal); I50.23 Acute on chronic systolic (congestive) heart failure; J96.20 Acute and chronic respiratory failure, unspecified whether with hypoxia or hypercapnia; J44.1 Chronic obstructive pulmonary disease with (acute) exacerbation; J98.11 Atelectasis; N17.9 Acute kidney failure, unspecified; B37.81 Candidal esophagitis; Q21.1 Atrial septal defect; D62 Acute posthemorrhagic anemia; I27.20 Pulmonary hypertension, unspecified; I27.81 Cor pulmonale (chronic); I27.29 Other secondary pulmonary hypertension; J84.89 Other specified interstitial pulmonary diseases; J84.112 Idiopathic pulmonary fibrosis; D63.1 Anemia in chronic kidney disease; E83.9 Disorder of mineral metabolism, unspecified; N18.3 Chronic kidney disease, stage 3 (moderate); I95.89 Other hypotension; K29.00 Acute gastritis without bleeding; T50.2X5A Adverse effect of carbonic-anhydrase inhibitors, benzothiadiazides and other diuretics, initial encounter; I25.5 Ischemic cardiomyopathy; E78.5 Hyperlipidemia, unspecified; I25.10 Atherosclerotic heart disease of native coronary artery without angina pectoris; E03.9 Hypothyroidism, unspecified; I36.1 Nonrheumatic tricuspid (valve) insufficiency; I34.0 Nonrheumatic mitral (valve) insufficiency; K21.9 Gastro-esophageal reflux disease without esophagitis; I25.2 Old myocardial infarction; M19.90 Unspecified osteoarthritis, unspecified site; E87.6 Hypokalemia; R79.89 Other specified abnormal findings of blood chemistry; E05.90 Thyrotoxicosis, unspecified without thyrotoxic crisis or storm; Z79.83 Long term (current) use of bisphosphonates; Z79.82 Long term (current) use of aspirin; Z79.890 Hormone replacement therapy; Z79.2 Long term (current) use of antibiotics; Z79.51 Long term (current) use of inhaled steroids; Z79.899 Other long term (current) drug therapy; Z95.1 Presence of aortocoronary bypass graft; Z95.810 Presence of automatic (implantable) cardiac defibrillator; Z87.891 Personal history of nicotine dependence; Z86.73 Personal history of transient ischemic attack (TIA), and cerebral infarction without residual deficits; Z87.01 Personal history of pneumonia (recurrent); Z90.49 Acquired absence of other specified parts of digestive tract; Z98.891 History of uterine scar from previous surgery; Z90.710 Acquired absence of both cervix and uterus; Z98.51 Tubal ligation status; Z98.890 Other specified postprocedural states; Z96.641 Presence of right artificial hip joint; Z96.653 Presence of artificial knee joint, bilateral; Z86.59 Personal history of other mental and behavioral disorders; Z88.5 Allergy status to narcotic agent; Z91.048 Other nonmedicinal substance allergy status; Z82.5 Family history of asthma and other chronic lower respiratory diseases; Z82.49 Family history of ischemic heart disease and other diseases of the circulatory system
CPT/HCPCS: 36415; 43239; 71045; 71046; 71250; 80048; 80053; 81003; 82728; 83540; 83550; 83735; 83880; 84132; 84145; 84439; 84443; 84484; 85025; 85027; 85610; 85730; 86850; 86900; 86901; 86920; 88305; 93005; 93306; 93312; 93320; 93325; 94640; 94760; 96374; 96375; 99285

== ENCOUNTER 2019-10-02 16:06 | Inpatient (IN) | payer MEDICARE, OTHER ==
[2019-10-02] MEDS ORDERED: methylPREDNISolone SOD SUCCI 125 MG/2 ML VIAL IV STA (16:26)
[2019-10-02] MEDS ORDERED: IPRATROPIUM 0.5 MG/2.5 ML NEBU INHALATION STA (16:26)
[2019-10-02] MEDS ORDERED: ALBUTEROL NEBULIZED 2.5 MG/3 ML INHALATION STA (16:26)
--- NOTE | 2019-10-02 16:27 | ED ---
SOB HPI - General Chief Complaint: Shortness of Breath Stated Complaint: SOB Time Seen by Provider: 10/02/19 16:19 Source: patient, family, RN notes reviewed, old records reviewed Mode of arrival: wheelchair Limitations: no limitations - History of Present Illness Initial Comments: this is a 69-year-old female here for evaluation. Patient presents today for evaluation regards severe shortness of breath history of bad COPD and heart failure. Patient is a paced rhythm. Chest pain. Patient sick to level significantly diminished since [place] recent inpatient hospitalization. Patient is at rehab but is unable to do activities of daily living unable to do anything without began feeling significantly short of breath. She denies again any pain no fevers. She does have increased cough and congestion feels similar to ago she does prior to her last hospital admission if she has 3 admissions in the last month MD Complaint: shortness of breath, cough, anxiety -: hour(s) Severity: severe Severity scale (1-10): 8 Quality: other (patient denying current pain) Consistency: constant Improves With: rest Worsens With: exertion, movement, coughing Known History Of: COPD, congestive heart failure Context: recent URI, recent illness Associated Symptoms: cough, sputum production, palpitations, other (significant bilateral low extremity swelling) Treatments Prior to Arrival: oxygen, bronchodilator - Related Data Home Medications Medication Instructions Recorded Confirmed Atorvastatin [Lipitor] 40 mg PO DAILY@0800 09/22/18 10/02/19 Budesonide [Pulmicort] 0.5 mg INHALATION RT-BID@0800,159905/20/19 10/02/19 Formoterol Fumarate [Perforomist] 20 mcg INHALATION RT-BID@08,199905/20/19 10/02/19 Metoprolol Tartrate [Lopressor] 25 mg PO BID@0800,199905/20/19 10/02/19 Temazepam 30 mg PO HS@199905/20/19 10/02/19 Allopurinol [Zyloprim] 100 mg PO BID@0800,199908/25/19 10/02/19 Calcitriol [Rocaltrol] 0.25 mcg PO TUSA 08/25/19 10/02/19 Levothyroxine Sodium [Levoxyl] 100 mcg PO DAILY@0600 08/25/19 10/02/19 Aspirin 81 mg PO DAILY@0800 10/02/19 10/02/19 Doxycycline [Vibramycin] 100 mg PO BID@0800,1600 10/02/19 10/02/19 Fluconazole [Diflucan] 100 mg PO DAILY@0800 10/02/19 10/02/19 Ipratropium-Albuterol Nebulize 3 ml INHALATION RT-QID 10/02/19 10/02/19 [Duoneb 0.5 mg-3 mg/3 ml Soln] Midodrine [ProAmatine] 5 mg PO TID@0800,1200,1800 10/02/19 10/02/19 Pantoprazole [Protonix] 40 mg PO BID@0600,1800 10/02/19 10/02/19 S.boulardii/B.coagulans/Fos 942 mg PO BID@0800,2000 10/02/19 10/02/19 [Diff-Stat 471 mg Capsule] Spironolactone [Aldactone] 12.5 mg PO DAILY@0800 10/02/19 10/02/19 Previous Rx's Medication Instructions Recorded Dicyclomine [Bentyl] 10 mg PO Q6HR PRN cap 09/30/19 Furosemide [Lasix] 40 mg PO BID@0900,1600 tab 09/30/19 predniSONE 40 mg PO DAILY tab 09/30/19 Allergies Allergy/AdvReac Type Severity Reaction Status Date / Time adhesive tape Allergy Rash/Hives Verified 10/02/19 19:23 hydrocodone [From Lortab] Allergy Itching Verified 10/02/19 19:23 Review of Systems ROS Statement: Those systems with pertinent positive or pertinent negative responses have been documented in the HPI. ROS Other: All systems not noted in ROS Statement are negative. Past Medical History Past Medical History: Coronary Artery Disease (CAD), Heart Failure, COPD, CVA/TIA, GERD/Reflux, Hypertension, Myocardial Infarction ([place]), Pneumonia, Thyroid Disorder Additional Past Medical History / Comment(s): difficulty getting to sleep. Last Myocardial Infarction Date:: History of Any Multi-Drug Resistant Organisms: None Reported Past Surgical History: Appendectomy, Section, Coronary Bypass/CABG, Hysterectomy, Joint Replacement, Orthopedic Surgery, Pacemaker, Tubal Ligation Additional Past Surgical History / Comment(s): had cabg in jul 2018 at [facility], rt hip replacment, anahy knee replacment, carpal tunnel,rt ankle arthroscopy, total hysterectomy, "anahy elbow sx d/t tennis elbow" Past Anesthesia/Blood Transfusion Reactions: No Reported Reaction Additional Past Anesthesia/Blood Transfusion Reaction / Comment(s): "never received blood transfusion" Type of Cardiac Device: AICD Device Placement Date:: 11/2018 Past Psychological History: Depression Smoking Status: Former smoker Past Alcohol Use History: None Reported Past Drug Use History: None Reported - Past Family History Mother Family Medical History: COPD Additional Family Medical History / Comment(s): emphysema Father Family Medical History: Coronary Artery Disease (CAD) Additional Family Medical History / Comment(s): 2 vessel cabg at age 57 General Exam Limitations: no limitations Course Vital Signs 10/02/19 10/02/19 10/02/19 16:12 16:26 16:37 Temperature 97.5 F L Pulse Rate 59 L 75 Respiratory 24 18 16 Rate Blood Pressure 115/64 O2 Sat by Pulse 98 Oximetry 10/02/19 10/02/19 10/02/19 17:21 17:50 19:00 Temperature Pulse Rate 78 68 70 Respiratory 18 18 20 Rate Blood Pressure 131/72 136/69 O2 Sat by Pulse 99 97 Oximetry 10/02/19 10/02/19 21:00 22:25 Temperature 97.8 F 97.9 F Pulse Rate 62 61 Respiratory 18 24 Rate Blood Pressure 129/73 122/72 O2 Sat by Pulse 99 98 Oximetry - Reevaluation(s) Reevaluation #1: medical records reviewed No significant improvement here in the ER the family regarding admission versus discharge is patient has no significant ability to improve with her breathing secondary severe disease. Family understands patient's prognosis - Consultations Consultation #1: spoke w Dr Moss regarding admission is agreeable Medical Decision Making - Medical Decision Making 69 female for evaluation of severe shortness of breath [place] for CHF COPD and heart failure disease. - Lab Data Result diagrams: 10/03/19 05:24 10/02/19 16:25 Lab Results 10/02/19 10/02/19 10/02/19 Range/Units 16:25 16:25 16:25 WBC 7.4 (3.8-10.6) k/uL RBC 2.74 L (3.80-5.40) m/uL Hgb 8.3 L (11.4-16.0) gm/dL Hct 25.3 L (34.0-46.0) % MCV 92.2 (80.0-100.0) fL MCH 30.1 (25.0-35.0) pg MCHC 32.6 (31.0-37.0) g/dL RDW 20.0 H (11.5-15.5) % Plt Count 65 L (150-450) k/uL Neutrophils % 94 % Lymphocytes % 4 % Monocytes % 1 % Eosinophils % 0 % Basophils % 0 % Neutrophils # 7.0 (1.3-7.7) k/uL Lymphocytes # 0.3 L (1.0-4.8) k/uL Monocytes # 0.1 (0-1.0) k/uL Eosinophils # 0.0 (0-0.7) k/uL Basophils # 0.0 (0-0.2) k/uL Anisocytosis Moderate Macrocytosis Slight PT 12.9 H (9.0-12.0) sec INR 1.3 H (<1.2) APTT 23.5 (22.0-30.0) sec D-Dimer 8.36 H (<0.60) mg/L FEU Sodium 137 (137-145) mmol/L Potassium 4.2 (3.5-5.1) mmol/L Chloride 101 (98-107) mmol/L Carbon Dioxide 26 (22-30) mmol/L Anion Gap 10 mmol/L BUN 84 H (7-17) mg/dL Creatinine 1.58 H (0.52-1.04) mg/dL Est GFR (CKD-EPI)AfAm 38 (>60 ml/min/1.73 sqM) Est GFR (CKD-EPI)NonAf 33 (>60 ml/min/1.73 sqM) Glucose 236 H (74-99) mg/dL Calcium 8.7 (8.4-10.2) mg/dL Magnesium 2.4 H (1.6-2.3) mg/dL Total Bilirubin 2.6 H (0.2-1.3) mg/dL AST 41 H (14-36) U/L ALT 39 H (4-34) U/L Alkaline Phosphatase 133 H (38-126) U/L Creatine Kinase 170 H (30-135) U/L Troponin I (0.000-0.034) ng/mL NT-Pro-B Natriuret Pep pg/mL Total Protein 5.8 L (6.3-8.2) g/dL Albumin 3.2 L (3.5-5.0) g/dL 10/02/19 10/02/19 Range/Units 16:25 16:25 WBC (3.8-10.6) k/uL RBC (3.80-5.40) m/uL Hgb (11.4-16.0) gm/dL Hct (34.0-46.0) % MCV (80.0-100.0) fL MCH (25.0-35.0) pg MCHC (31.0-37.0) g/dL RDW (11.5-15.5) % Plt Count (150-450) k/uL Neutrophils % % Lymphocytes % % Monocytes % % Eosinophils % % Basophils % % Neutrophils # (1.3-7.7) k/uL Lymphocytes # (1.0-4.8) k/uL Monocytes # (0-1.0) k/uL Eosinophils # (0-0.7) k/uL Basophils # (0-0.2) k/uL Anisocytosis Macrocytosis PT (9.0-12.0) sec INR (<1.2) APTT (22.0-30.0) sec D-Dimer (<0.60) mg/L FEU Sodium (137-145) mmol/L Potassium (3.5-5.1) mmol/L Chloride (98-107) mmol/L Carbon Dioxide (22-30) mmol/L Anion Gap mmol/L BUN (7-17) mg/dL Creatinine (0.52-1.04) mg/dL Est GFR (CKD-EPI)AfAm (>60 ml/min/1.73 sqM) Est GFR (CKD-EPI)NonAf (>60 ml/min/1.73 sqM) Glucose (74-99) mg/dL Calcium (8.4-10.2) mg/dL Magnesium (1.6-2.3) mg/dL Total Bilirubin (0.2-1.3) mg/dL AST (14-36) U/L ALT (4-34) U/L Alkaline Phosphatase (38-126) U/L Creatine Kinase (30-135) U/L Troponin I 0.112 H* (0.000-0.034) ng/mL NT-Pro-B Natriuret Pep 40840 pg/mL Total Protein (6.3-8.2) g/dL Albumin (3.5-5.0) g/dL - EKG Data -: EKG Interpreted by Me (EKG shows paced rhythm of 60, VT 160, QRS 92, QTc 453) - Radiology Data Radiology results: report reviewed (nuclear med scan is low probability PE CHF shows chronic disease), image reviewed Critical Care Time Critical Care Time: Yes Total Critical Care Time: 31 Disposition Clinical Impression: Acute pulmonary edema, CHF (congestive heart failure), Acute on chronic systolic CHF (congestive heart failure), Ischemic cardiomyopathy, Acute decompensated heart failure, COPD (chronic obstructive pulmonary disease) Disposition: ADMITTED IP TO THIS HOSP Condition: Fair Is patient prescribed a controlled substance at d/c from ED?: No
[2019-10-02 16:54] LABS: Anisocytosis Moderate; Basophils % (A) 0 %; Eosinophils % (A) 0 %; HCT 25.3 % (34.0-46.0); HGB 8.3 gm/dL (11.4-16.0); Lymphocytes # (A) 0.3 k/uL (1.0-4.8); Lymphocytes % (A) 4 %; MCH 30.1 pg (25.0-35.0); MCHC 32.6 g/dL (31.0-37.0); MCV 92.2 fL (80.0-100.0); Macrocytosis Slight; Mean Platelet Volume 10.2; Monocytes # (A) 0.1 k/uL (0-1.0); Monocytes % (A) 1 %; Neutrophils % (A) 94 %; RBC 2.74 m/uL (3.80-5.40); WBC 7.4 k/uL (3.8-10.6)
[2019-10-02 16:59] LABS: Platelet Count 65 k/uL (150-450)
[2019-10-02 17:15] LABS: INR 1.3 (<1.2); Partial Thromboplastin Time 23.5 sec (22.0-30.0); Prothrombin Time 12.9 sec (9.0-12.0)
[2019-10-02 17:19] LABS: D-Dimer 8.36 mg/L FEU (<0.60)
[2019-10-02 17:30] LABS: Albumin 3.2 g/dL (3.5-5.0); Calcium 8.7 mg/dL (8.4-10.2); Magnesium 2.4 mg/dL (1.6-2.3); Potassium 4.2 mmol/L (3.5-5.1); Total Bilirubin 2.6 mg/dL (0.2-1.3); Total Protein 5.8 g/dL (6.3-8.2)
[2019-10-02] MEDS ORDERED: HEPARIN SODIUM,PORCINE 10,000 UNIT/ML 1 ML VIAL IV ONE (18:20)
[2019-10-02] MEDS ORDERED: HEPARIN SODIUM,PORCINE 5,000 UNIT/ML 1 ML VIAL IV PRN (18:20)
[2019-10-02] MEDS ORDERED: HEPARIN SOD,PORK IN 0.45% NACL 25,000 UNIT in 0.45% NACL 1 250ML.BAG IV SCH (18:30)
--- NOTE | 2019-10-02 19:34 | US ---
EXAMINATION TYPE: US venous doppler duplex LE DATE OF EXAM: 10/02/2019 5:26 PM COMPARISON: NONE CLINICAL HISTORY: pe. SOB, chest pain SIDE PERFORMED: Bilateral TECHNIQUE: The lower extremity deep venous system is examined utilizing real time linear array sonog duane with graded compression, doppler sonography and color-flow sonography. VESSELS IMAGED: External Iliac Vein (EIV) Common Femoral Vein Deep Femoral Vein Greater Saphenous Vein * Femoral Vein Popliteal Vein Small Saphenous Vein * Proximal Calf Veins (* superficial vessels) There is normal flow, compressibility, vascular waveforms. Right Leg: Appears negative for DVT Left Leg: Appears negative for DVT IMPRESSION: No evident deep venous thrombosis at or above the knees. Follow-up as indicated.
[2019-10-02] MEDS ORDERED: IPRATROPIUM-ALBUTEROL 3 ML NEB INHALATION PRN (20:44)
[2019-10-02] MEDS: SODIUM CHLORIDE 0.9% 1,000 ML IV SCH (21:09)
--- NOTE | 2019-10-02 21:14 | NM ---
EXAMINATION TYPE: NM pul vent and perfuse DATE OF EXAM: 10/02/2019 COMPARISON: Prior nuclear medicine ventilation/perfusion scan 22 September 2018 and chest x-ray dated 10/02/2018 HISTORY: Difficulty breathing, elevated d-dimer TECHNIQUE: Utilizing inhalation of 43 mCi Tc 99m DTPA aerosol and intravenous injection of 4.7 mCi o f Tc 99m MAA, ventilation and perfusion images are acquired post injection in multiple projections. FINDINGS: There is heterogeneous uptake on ventilation and perfusion imaging. Essentially matched defects are p resent bilaterally, patchy uptake is present throughout both lungs with perfusion imaging somewhat mo re homogenous than ventilation imaging. Large amount of central clumping of the radiopharmaceutical i s noted on ventilation images. IMPRESSION: Indeterminate probability for pulmonary embolus. Chest x-ray shows congestive heart failure.
[2019-10-02] MEDS: FUROSEMIDE 10 MG/ML 4 ML VIAL IV SCH (21:24)
--- NOTE | 2019-10-02 21:25 | XR ---
EXAMINATION TYPE: XR chest 2V DATE OF EXAM: 10/02/2019 COMPARISON: Prior chest x-ray 09/29/2019 HISTORY: Chest discomfort, shortness of breath TECHNIQUE: Frontal and lateral views of the chest are obtained. FINDINGS: The heart remains enlarged. Defibrillator leads are stable, patient is post median sternot joseph and generator is in the left pectoral region. Pleural parenchymal changes are similar, patchy inc reased density present in the right midlung, central pulmonary vascularity is prominent and interstit ium is increased. No evident pneumothorax or pleural effusion. IMPRESSION: Correlate for congestive heart failure, pneumonia not excluded.
[2019-10-02] MEDS: methylPREDNISolone SOD SUCCI 125 MG/2 ML VIAL IV SCH (23:20)
[2019-10-03 06:20] LABS: Glucose,Whole Blood 332 mg/dL (75-99)
[2019-10-03 06:29] LABS: Anisocytosis Moderate; Basophils % (A) 0 %; Eosinophils % (A) 0 %; HCT 23.4 % (34.0-46.0); HGB 7.6 gm/dL (11.4-16.0); Hypochromasia Slight; Lymphocytes # (A) 0.2 k/uL (1.0-4.8); Lymphocytes % (A) 4 %; MCH 30.6 pg (25.0-35.0); MCHC 32.5 g/dL (31.0-37.0); MCV 94.4 fL (80.0-100.0); Macrocytosis Slight; Mean Platelet Volume 10.4; Monocytes # (A) 0.1 k/uL (0-1.0); Monocytes % (A) 2 %; Neutrophils # (A) 4.8 k/uL (1.3-7.7); Neutrophils % (A) 93 %; RBC 2.48 m/uL (3.80-5.40); RDW 20.1 % (11.5-15.5); WBC 5.1 k/uL (3.8-10.6)
[2019-10-03 06:43] LABS: Platelet Count 54 k/uL (150-450); Poikilocytosis (M) Present
[2019-10-03 06:44] LABS: Ovalocytes Present; RBC Fragments Present
[2019-10-03 06:45] LABS: Crenated RBC Present; Target Cells Present
[2019-10-03] MEDS: methylPREDNISolone SOD SUCCI 125 MG/2 ML VIAL IV SCH ×3 (07:02→17:18)
[2019-10-03] MEDS: INSULIN ASPART (NovoLOG) 100 UNIT/ML VIAL SQ SCH ×4 (07:03→22:22)
[2019-10-03] MEDS: IPRATROPIUM-ALBUTEROL 3 ML NEB INHALATION SCH ×4 (07:31→19:30)
[2019-10-03] MEDS: SODIUM CHLORIDE 0.9% 1,000 ML IV SCH ×2 (08:49→17:12)
[2019-10-03] MEDS ORDERED: DICYCLOMINE 10 MG CAP PO PRN (09:01)
[2019-10-03] MEDS: FUROSEMIDE 10 MG/ML 4 ML VIAL IV SCH (09:31)
--- NOTE | 2019-10-03 09:52 | P.CRDCN ---
History of Present Illness History of present illness: HISTORY OF PRESENTING ILLNESS This is a pleasant 69-year-old coronary artery disease status post bypass grafting in 2018, ischemic cardiomyopathy with ejection fraction of 30-35%, moderate mitral regurgitation, moderate to severe tricuspid regurgitation, pulmonary hypertension, hypertension, dyslipidemia, pulmonary fibrosis, AICD implantation, COPD, renal insufficiency and hypothyroidism. She follows my office with Dr. Vazquez. She was just discharged from the hospital on Friday to [facility]. The patient states she was there and she didn't feel like she was getting good care. Nobody was checking on her she was just sitting in a wheelchair and she states her breathing became increasingly labored in her lower extremity edema increased. She is seen and examined sitting up in bed with her at the bedside. She doesn't disconnect at rest. She denies symptoms of chest discomfort, dizziness or palpitations. She underwent a transesophageal echocardiogram September 22 revealing moderate to severe mitral regurgitation with obstructive motion of the posterior mitral leaflet suggestive of ischemic cardiomyopathy, LV function in the range of 40%, atrial septal defect appr oximately 1 cm in size with continuous. From the left to right shunt as well as evidence of a right to left shunt and moderate tricuspid regurgitation. DIAGNOSTICS EKG reveals atrial paced inferior ST changes, lateral T wave inversions and ST depression, consistent with previous EKG. No acute changes noted,. Chest xray congestive heart failure. VQ scan obtained indeterminate PE probability. Laboratory reviewed, WBC 5.1, hemoglobin 7.6, platelets 54, d-dimer 8.36, sodium 137, potassium 4.2, creatinine 1.58, magnesium 2.4, troponin 0.112, 0.114, 0.102 and NT proBNP 46,500. Current cardiac medications include aspirin 81 mg daily, atorvastatin 40 mg daily, Lasix 40 mg twice a day, Lopressor 25 mg twice a day, midodrine 5 mg 3 times a day and Aldactone 12.5 mg daily. REVIEW OF SYSTEMS At the time of my exam: CONSTITUTIONAL: Denies fever or chills. CARDIOVASCULAR: Complains of shortness of breath. Denies chest pain, orthopnea, PND or palpitations. RESPIRATORY: Denies cough. GASTROINTESTINAL: Denies abdominal pain, diarrhea, constipation, nausea or vomiting. MUSCULOSKELETAL: Denies myalgias. NEUROLOGIC: Denies numbness, tingling or weakness. ENDOCRINE: Denies fatigue, weight change, polydipsia or polyurina. GENITOURINARY: Denies burning, hematuria or urgency with micturation. HEMATOLOGIC: Denies history of anemia or bleeding. PHYSICAL EXAMINATION Blood pressure 115/57 heart rate 68 afebrile and maintaining oxygen saturation on nasal cannula. CONSTITUTIONAL: No apparent distress. Generalized pallor. HEENT: Head is normocephalic. Pupils are equal, round. Sclerae anicteric. Mucous membranes of the mouth are moist. No JVD. No carotid bruit. CHEST EXAMINATION: Bibasilar rales right greater than left. No chest wall tenderness is noted on palpation or with deep breathing. HEART EXAMINATION: Regular rate and rhythm. S1, S2 heard. Holosystolic murmurs at the apex, no gallops or rub. ABDOMEN: Soft, nontender. Positive bowel sounds. EXTREMITIES: 2+ peripheral pulses, 2+ bilateral or lower extremity pitting edema and no calf tenderness. NEUROLOGIC EXAMINATION: Patient is awake, alert and oriented x3. ASSESSMENT Acute on chronic systolic heart failure Ischemic cardiomyopathy, ejection fraction 30-35% History of AICD placement Coronary artery disease status post bypass grafting Pancytopenia COPD Chronic renal failure Troponin elevation secondary to hypoxia Valvular heart disease PLAN Agree with IV diuresis. Document accurate intake and output along with daily weights. Monitor electrolytes and renal function in the morning. Prognosis guarded. Further recommendations to follow based upon clinical course. Thank you kindly for this consultation. Nurse Practitioner note has been reviewed, I agree with a documented findings and plan of care. Patient was seen and examined. Past Medical History Past Medical History: Coronary Artery Disease (CAD), Heart Failure, COPD, CVA/TIA, GERD/Reflux, Hypertension, Myocardial Infarction (CO), Pneumonia, Thyroid Disorder Additional Past Medical History / Comment(s): difficulty getting to sleep. Last Myocardial Infarction Date:: History of Any Multi-Drug Resistant Organisms: None Reported Past Surgical History: Appendectomy, Section, Coronary Bypass/CABG, H ysterectomy, Joint Replacement, Orthopedic Surgery, Pacemaker, Tubal Ligation Additional Past Surgical History / Comment(s): had cabg in jul 2018 at [facility], rt hip replacment, anahy knee replacment, carpal tunnel,rt ankle arthroscopy, total hysterectomy, "anahy elbow sx d/t tennis elbow" Past Anesthesia/Blood Transfusion Reactions: No Reported Reaction Additional Past Anesthesia/Blood Transfusion Reaction / Comment(s): "never received blood transfusion" Type of Cardiac Device: AICD Device Placement Date:: 11/2018 Past Psychological History: Depression Additional Psychological History / Comment(s): mild depression since cabg 2017 Smoking Status: Former smoker Past Alcohol Use History: None Reported Additional Past Alcohol Use History / Comment(s): started smoking age 13 and quit smoked 6-7 cig per day Past Drug Use History: None Reported - Past Family History Mother Family Medical History: COPD Additional Family Medical History / Comment(s): emphysema Father Family Medical History: Coronary Artery Disease (CAD) Additional Family Medical History / Comment(s): 2 vessel cabg at age 57 Medications and Allergies Home Medications Medication Instructions Recorded Confirmed Type Atorvastatin [Lipitor] 40 mg PO DAILY@0800 09/22/18 10/02/19 History Budesonide [Pulmicort] 0.5 mg INHALATION RT-BID@0800,159905/20/19 10/02/19 History Formoterol Fumarate [Perforomist] 20 mcg INHALATION RT-BID@08,199905/20/19 10/02/19 History Metoprolol Tartrate [Lopressor] 25 mg PO BID@0800,199905/20/19 10/02/19 History Temazepam 30 mg PO HS@199905/20/19 10/02/19 History Allopurinol [Zyloprim] 100 mg PO BID@0800,199908/25/19 10/02/19 History Calcitriol [Rocaltrol] 0.25 mcg PO TUSA 08/25/19 10/02/19 History Levothyroxine Sodium [Levoxyl] 100 mcg PO DAILY@0600 08/25/19 10/02/19 History Dicyclomine [Bentyl] 10 mg PO Q6HR PRN cap 09/30/19 10/02/19 Rx Furosemide [Lasix] 40 mg PO BID@0900,1600 tab 09/30/19 10/02/19 Rx predniSONE 40 mg PO DAILY tab 09/30/19 10/02/19 Rx Aspirin 81 mg PO DAILY@0800 10/02/19 10/02/19 History Doxycycline [Vibramycin] 100 mg PO BID@0800,1600 10/02/19 10/02/19 History Fluconazole [Diflucan] 100 mg PO DAILY@0800 10/02/19 10/02/19 History Ipratropium-Albuterol Nebulize 3 ml INHALATION RT-QID 10/02/19 10/02/19 History [Duoneb 0.5 mg-3 mg/3 ml Soln] Midodrine [ProAmatine] 5 mg PO TID@0800,1200,1800 10/02/19 10/02/19 History Pantoprazole [Protonix] 40 mg PO BID@0600,1800 10/02/19 10/02/19 History S.boulardii/B.coagulans/Fos 942 mg PO BID@0800,2000 10/02/19 10/02/19 History [Diff-Stat 471 mg Capsule] Spironolactone [Aldactone] 12.5 mg PO DAILY@0800 10/02/19 10/02/19 History Allergies Allergy/AdvReac Type Severity Reaction Status Date / Time adhesive tape Allergy Rash/Hives Verified 10/02/19 19:23 hydrocodone [From Lortab] Allergy Itching Verified 10/02/19 19:23 Physical Exam Vitals: Vital Signs Temp Pulse Pulse Resp BP BP Pulse Ox 10/03/19 08:00 97.4 F L 68 20 115/57 96 10/03/19 04:10 97.0 F L 60 22 139/63 96 10/03/19 00:00 97.4 F L 66 20 123/66 97 10/02/19 22:25 97.9 F 61 24 122/72 98 10/02/19 21:00 97.8 F 62 18 129/73 99 10/02/19 19:00 70 20 136/69 97 10/02/19 17:50 68 18 131/72 99 10/02/19 17:21 78 18 10/02/19 16:37 75 16 10/02/19 16:26 18 10/02/19 16:12 97.5 F L 59 L 24 115/64 98 Intake and Output 10/02/19 10/03/19 10/03/19 22:59 06:59 14:59 Other: Voiding Method Bedpan # Voids 1 Weight 68.039 kg 46 kg Results 10/03/19 05:24 10/02/19 16:25 Cardiac Enzymes 10/02/19 10/02/19 10/02/19 Range/Units 16:25 16:25 23:15 AST 41 H (14-36) U/L Troponin I 0.112 H* 0.114 H* (0.000-0.034) ng/mL 10/03/19 Range/Units 05:24 AST (14-36) U/L Troponin I 0.102 H* (0.000-0.034) ng/mL Coagulation 10/02/19 Range/Units 16:25 PT 12.9 H (9.0-12.0) sec APTT 23.5 (22.0-30.0) sec CBC 10/02/19 10/03/19 Range/Units 16:25 05:24 WBC 7.4 5.1 (3.8-10.6) k/uL RBC 2.74 L 2.48 L (3.80-5.40) m/uL Hgb 8.3 L 7.6 L (11.4-16.0) gm/dL Hct 25.3 L 23.4 L (34.0-46.0) % Plt Count 65 L 54 L (150-450) k/uL Comprehensive Metabolic Panel 10/02/19 Range/Units 16:25 Sodium 137 (137-145) mmol/L Potassium 4.2 (3.5-5.1) mmol/L Chloride 101 (98-107) mmol/L Carbon Dioxide 26 (22-30) mmol/L BUN 84 H (7-17) mg/dL Creatinine 1.58 H (0.52-1.04) mg/dL Glucose 236 H (74-99) mg/dL Calcium 8.7 (8.4-10.2) mg/dL AST 41 H (14-36) U/L ALT 39 H (4-34) U/L Alkaline Phosphatase 133 H (38-126) U/L Total Protein 5.8 L (6.3-8.2) g/dL Albumin 3.2 L (3.5-5.0) g/dL Current Medications Generic Name Dose Route Start Last Admin Trade Name Freq PRN Reason Stop Dose Admin Albuterol/Ipratropium 3 ml 10/03/19 08:00 10/03/19 07:31 Duoneb 0.5 Mg-3 Mg/3 Ml Soln INHALATION Not Given RT-QID THU Albuterol/Ipratropium 3 ml 10/02/19 20:44 Duoneb 0.5 Mg-3 Mg/3 Ml Soln INHALATION RT-Q4H PRN Shortness Of Breath Or Wheezing Allopurinol 100 mg 10/03/19 20:00 Zyloprim PO BID@0800,1999 [facility] Aspirin 81 mg 10/04/19 08:00 Aspirin PO DAILY@0800 [facility] Atorvastatin Calcium 40 mg 10/04/19 08:00 Lipitor PO DAILY@0800 [facility] Budesonide 0.5 mg 10/03/19 20:00 Pulmicort INHALATION RT-BID [facility] Calcitriol 0.25 mcg 10/05/19 09:01 Rocaltrol PO TUSA [facility] Dicyclomine HCl 10 mg 10/03/19 09:01 Bentyl PO Q6HR PRN abdominal cramping Doxycycline Monohydrate 100 mg 10/03/19 16:00 Vibramycin PO BID@0800,1600 [facility] Fluconazole 100 mg 10/04/19 08:00 Diflucan PO DAILY@0800 [facility] Formoterol Fumarate 20 mcg 10/03/19 20:00 Perforomist INHALATION RT-BID@0800,1999 [facility] Furosemide 40 mg 10/02/19 20:45 10/03/19 09:31 Lasix IV 40 mg Q12H [facility] Administration Heparin Sodium (Porcine) 0 unit 10/02/19 18:20 Heparin IV PER PROTOCOL PRN Low PTT Protocol Sodium Chloride 1,000 mls @ 100 mls/hr 10/02/19 20:45 10/03/19 08:49 Saline 0.9% IV Not Given .Q10H [facility] Insulin Aspart 0 unit 10/03/19 07:30 10/03/19 07:03 Novolog SQ 8 unit ACHS [facility] Administration Protocol Levothyroxine Sodium 100 mcg 10/04/19 06:00 Synthroid PO DAILY@0600 [facility] Methylprednisolone Sodium Succinate 60 mg 10/03/19 00:00 10/03/19 07:02 Solu-Medrol IV 60 mg Q6HR [facility] Administration Metoprolol Tartrate 25 mg 10/03/19 20:00 Lopressor PO BID@0800,1999 [facility] Midodrine 5 mg 10/03/19 12:00 Proamatine PO TID@0800,1200,1800 [facility] Non-Formulary Medication 942 mg 10/03/19 20:00 S.Boulardii/B.Coagulans/Fos [Diff-Stat 471 Mg Capsule] PO BID@0800,1999 [facility] Pantoprazole Sodium 40 mg 10/03/19 18:00 Protonix PO BID@0600,1800 [facility] Spironolactone 12.5 mg 10/04/19 08:00 Aldactone PO DAILY@0800 [facility] Temazepam 30 mg 10/03/19 20:00 Restoril PO HS@1999 [facility] Intake and Output 10/02/19 10/03/19 10/03/19 22:59 06:59 14:59 Other: Voiding Method Bedpan # Voids 1 Weight 68.039 kg 46 kg 10/03/19 05:24 10/02/19 16:25
[2019-10-03 10:40] VITALS: BMI 16.3
[2019-10-03 11:52] LABS: Glucose,Whole Blood 273 mg/dL (75-99)
[2019-10-03] MEDS: MIDODRINE 5 MG TAB PO SCH ×2 (12:43→17:12)
[2019-10-03 16:59] LABS: Glucose,Whole Blood 315 mg/dL (75-99)
[2019-10-03] MEDS: PANTOPRAZOLE 40 MG TABLET PO SCH (17:18)
[2019-10-03] MEDS: DOXYCYCLINE 100 MG CAP PO SCH (17:19)
--- NOTE | 2019-10-03 17:27 | CONS ---
CONSULTATION Karmen Narayanan is the 69-year-old female who presented in the ED at [facility] with increasing shortness of breath along with swelling of her lower extremities for about 3-4 days duration. She had some cough. No clear fever or chills, and some wheezing. She has been admitted to the hospital multiple times and was in rehab recently as well. PAST MEDICAL HISTORY: Positive for coronary artery disease, congestive heart failure, lung fibrosis, the etiology which is unclear. History of pacemaker placement. History of coronary artery disease status post bypass in 2018, history of bilateral knee replacement, hip replacement, total hysterectomy, elbow surgeries, AICD placement. FAMILY HISTORY: Positive for emphysema in her mother, coronary artery disease in her father. 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 She does not smoke. MEDICATIONS: Prior to admission were prednisone, temazepam, Aldactone, Diastat 471, pantoprazole, ProAmatine, Lopressor, Levoxyl, DuoNeb, Lasix, Perforomist, Diflucan, Vibramycin, Bentyl, Rocaltrol, Pulmicort, Lipitor, aspirin, Zyloprim. PHYSICAL EXAMINATION: Her respiratory rate is 18, pulse rate is 70, temperature 97.5, blood pressure 124/58, O2 saturation on 3 L by nasal cannula is 98%. HEENT: Pupils are equal. She has mild prominence of the jugular veins. CHEST reveals bilateral Velcro type crackles diffusely. Cardiovascular system reveals an S1, S2. Systolic murmur is heard. ABDOMEN: Soft. There is 2+ pedal edema. Transesophageal echo done on September 22, 2019 showed evidence of moderate to severe mitral regurgitation, ejection fraction of 40% and an atrial septal defect about 1 cm with continuous flow with both [id number] and [id number] shunting by saline contrast. There was moderate tricuspid regurg. Chest x-ray showed patchy density in the right mid lung interstitial prominence. V/Q scan showed indeterminate probability for PE. IMPRESSION: At this time: 1. Shortness of breath that is multifactorial in part due to lung fibrosis. 2. Pulmonary hypertension is likely with the atrial septal defect partially fixing the pulmonary hypertension. 3. Chronic obstructive pulmonary disease. 4. Valvular heart disease with atrial septal defect. At this point in time, would continue bronchodilators, aerosolized steroids. Optimize fluid status. Keep her on supplemental oxygen. Prognosis at this time is extremely guarded. She was counseled regarding her condition and this approach. MMODL / IJN: [id number] /
[2019-10-03] MEDS: BUDESONIDE 0.5 MG/2 ML NEBU INHALATION SCH (19:28)
[2019-10-03] MEDS: FORMOTEROL FUMARATE 20 MCG/2 ML NEBU INHALATION SCH (19:28)
[2019-10-03] MEDS ORDERED: TEMAZEPAM 30 MG CAP PO SCH (20:00)
[2019-10-03 20:05] LABS: Glucose,Whole Blood 319 mg/dL (75-99)
--- NOTE | 2019-10-03 20:21 | P.HPIM ---
History of Present Illness H&P Date: 10/03/19 Chief Complaint: short of breath history of presenting complaint: This is a pleasant 69-year-old patient of Dr. Otto. Chronic stable medical conditions include coronary artery disease, hypertension, GERD, hypothyroidism, severe secondary pulmonary hypertension, bilateral pulmonary fibrosis, cor pulmonale, chronic kidney disease.on the last admission was diagnosed withBOOP, esophageal candidiasis. Patient in October of this year had a coronary artery bypass at [facility]. Patient was here in the hospital on August 25. Diagnosed with CHF exacerbation EF 30-35% and also found to have significant pulmonary fibrosis. patient was recently in the hospital from September 19 through September 30 last admission-recent OBEY done. Mitral regurgitation and EF of 40%. Also found to have evidence of ASD and also found to have right to left shunt. Moderate degree of TR. Acute renal failure from diuresis. 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 EGD showed gastritis and possible Mariangel esophagitis. on the last admission that is 3 days ago I did talk to the patient about her CODE STATUS. She wished to remain full code. I discussed with Dr. VC Galindo from cardiology and Dr. Divya Washington from pulmonary. Prognosis guarded. Patient now returns with worsening short of breath increase in edema. Short of breath at rest. Congested cough. No fever no chills. Is starting some food. Review of systems: GEN.: Tired EYES: None HEENT: None NECK: None RESPIRATORY: Short of breath, chest congested CARDIOVASCULAR: As above GASTROINTESTINAL: None GENITOURINARY: None MUSCULOSKELETAL: Pain in the joints LYMPHATICS: None HEMATOLOGICAL: None PSYCHIATRY: Slightly anxious NEUROLOGICAL: None Past medical history: CHF with EF of 30%, coronary artery disease with bypass in July 2018, COPD, mitral and tricuspid regurgitation, secondary pulmonary hypertension from COPD/CHF, GERD, hypertension, hypothyroid, chronic kidney disease stage III,BOOP, esophageal candidiasis, mitral regurgitation, AST with nybbk-if-uadt shunt. Social history: Patient smoked close to 55 years about a quarter pack a day. stopped in 2017. . Family history: COPD Physical examination: VITAL SIGNS: 97.4, 68, 20, 11 5/57, 96% on 3 L GENERAL: Propped up in bed, short of breath., Nasal cannula EYES: Pupils equal. Conjunctiva normal. HEENT: External appearance of nose and ears normal, oral cavity grossly normal. NECK: JVD not raised; masses not palpable. HEART: First and second heart sounds are normal; edema present LUNGS: Respiratory rate increased,, decreased breath sounds, scattered crackles- both fine and coarse ABDOMEN: Soft, nontender, liver spleen not palpable, no masses palpable. PSYCH: Alert and oriented x3; mood and affect anxious MUSCULOSKELETAL: Evidence of OA specially in the hands INVESTIGATIONS, reviewed in the clinical context: white count 7.4 hemoglobin 8.3 platelets 65potassium 4.2 bun 84 creatinine 1.58 Troponin I 0.112, 0.114 ProBNP 46,500 EKG tracing personally reviewed by me-sinus rhythm with flipped T waves and some ST segment changes chest x-ray-film personally reviewed by me shows possibly pulmonary edema and coarse architecture Previous testing 2-D echocardiogram -EF 40-45%, wall motion abnormality, AST with the [id number] shunt, moderate MR, severe TR, moderate pulmonary hypertension High resolution CT chest-diffuse pulmonary fibrosis EGD-gastritis and possible Mariangel esophagitis Assessment: -Acute on chronic congestive heart failure exacerbation from systolic dysfunction EF 40-45% % from underlying coronary artery disease, decompensated -BOOP -hyperthyroidism from over replacement, dose adjusted loss admission - bilateral pulmonary fibrosis - chronic cor pulmonale, from pulmonary fibrosis and CHF, -Coronary artery disease with bypass in July 2018 -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 No clinical evidence of acute coronary syndrome -Right renal atrophy -Acute gastritis-recent EGD - Mariangel esophagitis-recent EGD Plan: Continue current medication treatment plan. this is patient's fourth admission to the hospital in the last 4 weeks. Patient continues respiratory rate. Had tried to address with the patient code status she wished to remain full code.patient's overall condition is feeling. We'll also consult a given talked about possible hospice. Today of lengthy discussion patient is agreed to proceed to change her CODE STATUS to DO NOT RESUSCITATE. Hospice was brought up. Patient's daughter is present..we will try the patient overnight on a Lasix drip. Prognosis not good Past Medical History Past Medical History: Coronary Artery Disease (CAD), Heart Failure, COPD, CVA/TIA, GERD/Reflux, Hypertension, Myocardial Infarction (AL), Pneumonia, Thyroid Disorder Additional Past Medical History / Comment(s): difficulty getting to sleep. Last Myocardial Infarction Date:: History of Any Multi-Drug Resistant Organisms: None Reported Past Surgical History: Appendectomy, Section, Coronary Bypass/CABG, Hysterectomy, Joint Replacement, Orthopedic Surgery, Pacemaker, Tubal Ligation Additional Past Surgical History / Comment(s): had cabg in jul 2018 at [facility], rt hip replacment, anahy knee replacment, carpal tunnel,rt ankle arthroscopy, total hysterectomy, "anahy elbow sx d/t tennis elbow" Past Anesthesia/Blood Transfusion Reactions: No Reported Reaction Additional Past Anesthesia/Blood Transfusion Reaction / Comment(s): "never received blood transfusion" Type of Cardiac Device: AICD Device Placement Date:: 11/2018 Past Psychological History: Depression Additional Psychological History / Comment(s): mild depression since cabg 2017 Smoking Status: Former smoker Past Alcohol Use History: None Reported Additional Past Alcohol Use History / Comment(s): started smoking age 13 and quit smoked 6-7 cig per day Past Drug Use History: None Reported - Past Family History Mother Family Medical History: COPD Additional Family Medical History / Comment(s): emphysema Father Family Medical History: Coronary Artery Disease (CAD) Additional Family Medical History / Comment(s): 2 vessel cabg at age 57 Medications and Allergies Home Medications Medication Instructions Recorded Confirmed Type Atorvastatin [Lipitor] 40 mg PO DAILY@0800 09/22/18 10/02/19 History Budesonide [Pulmicort] 0.5 mg INHALATION RT-BID@0800,159905/20/19 10/02/19 History Formoterol Fumarate [Perforomist] 20 mcg INHALATION RT-BID@799,199905/20/19 10/02/19 History Metoprolol Tartrate [Lopressor] 25 mg PO BID@0800,199905/20/19 10/02/19 History Temazepam 30 mg PO HS@199905/20/19 10/02/19 History Allopurinol [Zyloprim] 100 mg PO BID@0800,199908/25/19 10/02/19 History Calcitriol [Rocaltrol] 0.25 mcg PO TUSA 08/25/19 10/02/19 History Levothyroxine Sodium [Levoxyl] 100 mcg PO DAILY@0600 08/25/19 10/02/19 History Dicyclomine [Bentyl] 10 mg PO Q6HR PRN cap 09/30/19 10/02/19 Rx Furosemide [Lasix] 40 mg PO BID@0900,1600 tab 09/30/19 10/02/19 Rx predniSONE 40 mg PO DAILY tab 09/30/19 10/02/19 Rx Aspirin 81 mg PO DAILY@0800 10/02/19 10/02/19 History Doxycycline [Vibramycin] 100 mg PO BID@0800,1600 10/02/19 10/02/19 History Fluconazole [Diflucan] 100 mg PO DAILY@0800 10/02/19 10/02/19 History Ipratropium-Albuterol Nebulize 3 ml INHALATION RT-QID 10/02/19 10/02/19 History [Duoneb 0.5 mg-3 mg/3 ml Soln] Midodrine [ProAmatine] 5 mg PO TID@0800,1200,1800 10/02/19 10/02/19 History Pantoprazole [Protonix] 40 mg PO BID@0600,1800 10/02/19 10/02/19 History S.boulardii/B.coagulans/Fos 942 mg PO BID@0800,2000 10/02/19 10/02/19 History [Diff-Stat 471 mg Capsule] Spironolactone [Aldactone] 12.5 mg PO DAILY@0800 10/02/19 10/02/19 History Allergies Allergy/AdvReac Type Severity Reaction Status Date / Time adhesive tape Allergy Rash/Hives Verified 10/02/19 19:23 hydrocodone [From Lortab] Allergy Itching Verified 10/02/19 19:23 Physical Exam Vitals: Vital Signs Temp Pulse Pulse Resp BP BP Pulse Ox 10/03/19 12:00 97.5 F L 70 18 124/58 98 10/03/19 11:33 78 10/03/19 11:25 68 20 10/03/19 11:23 74 10/03/19 08:00 97.4 F L 68 20 115/57 96 10/03/19 04:10 97.0 F L 60 22 139/63 96 10/03/19 00:00 97.4 F L 66 20 123/66 97 10/02/19 22:25 97.9 F 61 24 122/72 98 10/02/19 21:00 97.8 F 62 18 129/73 99 10/02/19 19:00 70 20 136/69 97 10/02/19 17:50 68 18 131/72 99 10/02/19 17:21 78 18 10/02/19 16:37 75 16 10/02/19 16:26 18 10/02/19 16:12 97.5 F L 59 L 24 115/64 98 Intake and Output 10/02/19 10/03/19 10/03/19 22:59 06:59 14:59 Other: Voiding Method Bedpan # Voids 1 Weight 68.039 kg 46 kg 46 kg Results CBC & Chem 7: 10/03/19 05:24 10/02/19 16:25 Labs: Abnormal Lab Results - Last 24 Hours (Table) 10/02/19 10/02/19 10/02/19 Range/Units 16:25 16:25 16:25 RBC 2.74 L (3.80-5.40) m/uL Hgb 8.3 L (11.4-16.0) gm/dL Hct 25.3 L (34.0-46.0) % RDW 20.0 H (11.5-15.5) % Plt Count 65 L (150-450) k/uL Lymphocytes # 0.3 L (1.0-4.8) k/uL PT 12.9 H (9.0-12.0) sec INR 1.3 H (<1.2) D-Dimer 8.36 H (<0.60) mg/L FEU BUN 84 H (7-17) mg/dL Creatinine 1.58 H (0.52-1.04) mg/dL Glucose 236 H (74-99) mg/dL POC Glucose (mg/dL) (75-99) mg/dL Magnesium 2.4 H (1.6-2.3) mg/dL Total Bilirubin 2.6 H (0.2-1.3) mg/dL AST 41 H (14-36) U/L ALT 39 H (4-34) U/L Alkaline Phosphatase 133 H (38-126) U/L Creatine Kinase 170 H (30-135) U/L Troponin I (0.000-0.034) ng/mL Total Protein 5.8 L (6.3-8.2) g/dL Albumin 3.2 L (3.5-5.0) g/dL 10/02/19 10/02/19 10/03/19 Range/Units 16:25 23:15 05:24 RBC 2.48 L (3.80-5.40) m/uL Hgb 7.6 L (11.4-16.0) gm/dL Hct 23.4 L (34.0-46.0) % RDW 20.1 H (11.5-15.5) % Plt Count 54 L (150-450) k/uL Lymphocytes # 0.2 L (1.0-4.8) k/uL PT (9.0-12.0) sec INR (<1.2) D-Dimer (<0.60) mg/L FEU BUN (7-17) mg/dL Creatinine (0.52-1.04) mg/dL Glucose (74-99) mg/dL POC Glucose (mg/dL) (75-99) mg/dL Magnesium (1.6-2.3) mg/dL Total Bilirubin (0.2-1.3) mg/dL AST (14-36) U/L ALT (4-34) U/L Alkaline Phosphatase (38-126) U/L Creatine Kinase (30-135) U/L Troponin I 0.112 H* 0.114 H* (0.000-0.034) ng/mL Total Protein (6.3-8.2) g/dL Albumin (3.5-5.0) g/dL 10/03/19 10/03/19 10/03/19 Range/Units 05:24 06:17 11:51 RBC (3.80-5.40) m/uL Hgb (11.4-16.0) gm/dL Hct (34.0-46.0) % RDW (11.5-15.5) % Plt Count (150-450) k/uL Lymphocytes # (1.0-4.8) k/uL PT (9.0-12.0) sec INR (<1.2) D-Dimer (<0.60) mg/L FEU BUN (7-17) mg/dL Creatinine (0.52-1.04) mg/dL Glucose (74-99) mg/dL POC Glucose (mg/dL) 332 H 273 H (75-99) mg/dL Magnesium (1.6-2.3) mg/dL Total Bilirubin (0.2-1.3) mg/dL AST (14-36) U/L ALT (4-34) U/L Alkaline Phosphatase (38-126) U/L Creatine Kinase (30-135) U/L Troponin I 0.102 H* (0.000-0.034) ng/mL Total Protein (6.3-8.2) g/dL Albumin (3.5-5.0) g/dL Thrombosis Risk Factor Assmnt - Choose All That Apply Each Factor Represents 1 point: Abnormal pulmonary function (COPD), Medical pt on bed rest, Swollen legs (current) Each Risk Factor Represents 2 Points: Age 61-74 years Thrombosis Risk Factor Assessment Total Risk Factor Score: 5 Thrombosis Risk Factor Assessment Level: High Risk
--- NOTE | 2019-10-03 20:26 | P.EN ---
Advanced care planning: This was discussed at length with the patient and her daughter the bedside. Patient understands that this is a fourth admission for last 6 weeks. She now she is gradually deteriorating. She has made multiple active problems including congestive heart failure probably fibrosis, both, chronic kidney disease and increasingly failing health and poor fragility. After various pros and cons she does not wish to be intubated or resuscitated him and decided to become DO NOT RESUSCITATE. Topical hospice was brought on. She wishes to discuss that with the family members and actually now coming in from out of town. 30 minutes was spent on this.
[2019-10-03] MEDS: METOPROLOL TARTRATE 25 MG TAB PO SCH (22:13)
[2019-10-03] MEDS: ALLOPURINOL 100 MG TAB PO SCH (22:13)
[2019-10-03] MEDS: methylPREDNISolone SOD SUCCI 40 MG/ML 1 ML VIAL IV SCH (22:13)
[2019-10-03] MEDS: BUMETANIDE 10 MG in DEXTROSE 5% IN WATER 60 ML IV SCH ×2 (22:22)
[2019-10-03] MEDS ORDERED: TEMAZEPAM 15 MG CAP PO SCH (22:22)
[2019-10-03] MEDS: FOS PO SCH (23:23)
[2019-10-03] MEDS: [UNRECOGNIZED DRUG - OTHER] PO SCH (23:23)
[2019-10-04 06:20] LABS: Glucose,Whole Blood 235 mg/dL (75-99)
[2019-10-04] MEDS: SODIUM CHLORIDE 0.9% 1,000 ML IV SCH ×3 (06:21→21:53)
[2019-10-04 06:59] LABS: Albumin 2.9 g/dL (3.5-5.0); Bilirubin, Conjugated 0.8 mg/dL (0.0-0.3); Bilirubin, Delta 1.6 mg/dL (0.0-0.2); Bilirubin,Unconjugated 1.1 mg/dL (0.0-1.1); Calcium 8.6 mg/dL (8.4-10.2); Potassium 4.1 mmol/L (3.5-5.1); Total Bilirubin 3.5 mg/dL (0.2-1.3); Total Protein 5.2 g/dL (6.3-8.2)
[2019-10-04 07:00] LABS: Anisocytosis Moderate; HCT 21.7 % (34.0-46.0); MCHC 32.4 g/dL (31.0-37.0); MCV 92.9 fL (80.0-100.0); Macrocytosis Slight; Mean Platelet Volume 10.5; Platelet Count 60 k/uL (150-450); RBC 2.34 m/uL (3.80-5.40); RDW 20.8 % (11.5-15.5)
[2019-10-04 07:21] LABS: Lymphocytes # (M) 0.38 k/uL (1.0-4.8); Myelocytes # (M) 0.08 k/uL (0); Myelocytes % 1 %; Neutrophils # (M) 7.22 k/uL (1.3-7.7); Neutrophils % (M) 95 %; Nucleated Red Blood Cells 14 /100 WBC (0-0); Total Cells Counted 200; WBC 7.6 k/uL (3.8-10.6)
[2019-10-04 07:22] LABS: Poikilocytosis (M) Present; Polychromasia Present; RBC Fragments Present
[2019-10-04] MEDS: LEVOTHYROXINE 100 MCG TAB PO SCH (07:26)
[2019-10-04] MEDS: INSULIN ASPART (NovoLOG) 100 UNIT/ML VIAL SQ SCH ×4 (07:26→20:48)
[2019-10-04] MEDS: PANTOPRAZOLE 40 MG TABLET PO SCH ×2 (07:26→17:59)
[2019-10-04] MEDS: IPRATROPIUM-ALBUTEROL 3 ML NEB INHALATION SCH ×4 (07:44→19:11)
[2019-10-04] MEDS: FORMOTEROL FUMARATE 20 MCG/2 ML NEBU INHALATION SCH ×2 (07:44→19:11)
[2019-10-04] MEDS: BUDESONIDE 0.5 MG/2 ML NEBU INHALATION SCH ×2 (07:44→19:10)
[2019-10-04] MEDS: methylPREDNISolone SOD SUCCI 40 MG/ML 1 ML VIAL IV SCH ×2 (09:17→21:57)
[2019-10-04] MEDS: METOPROLOL TARTRATE 25 MG TAB PO SCH ×2 (09:18→21:57)
[2019-10-04] MEDS: DOXYCYCLINE 100 MG CAP PO SCH ×2 (09:18→16:13)
[2019-10-04] MEDS: ASPIRIN 81 MG PO SCH (09:18)
[2019-10-04] MEDS: SPIRONOLACTONE 25 MG TAB PO SCH (09:18)
[2019-10-04] MEDS: MIDODRINE 5 MG TAB PO SCH ×3 (09:19→17:59)
[2019-10-04] MEDS: ALLOPURINOL 100 MG TAB PO SCH ×2 (09:19→21:57)
[2019-10-04] MEDS: ATORVASTATIN 40 MG TAB PO SCH (09:19)
[2019-10-04] MEDS: FLUCONAZOLE 100 MG TAB PO SCH (09:19)
[2019-10-04 11:28] LABS: Glucose,Whole Blood 227 mg/dL (75-99)
[2019-10-04] MEDS: FOS PO SCH ×2 (11:40→21:55)
[2019-10-04] MEDS: [UNRECOGNIZED DRUG - OTHER] PO SCH ×2 (11:40→21:55)
[2019-10-04] MEDS ORDERED: MORPHINE ORAL SOLN 10 MG/5 ML CUP PO PRN (11:53)
[2019-10-04] MEDS: BUMETANIDE 10 MG in DEXTROSE 5% IN WATER 60 ML IV SCH ×2 (12:35)
[2019-10-04 17:07] LABS: Glucose,Whole Blood 254 mg/dL (75-99)
[2019-10-04 20:31] LABS: Glucose,Whole Blood 335 mg/dL (75-99)
--- NOTE | 2019-10-04 20:55 | PN ---
PROGRESS NOTE DATE OF SERVICE: 10/04/2019 This patient has been hemodynamically stable. She continues to have shortness of breath. On physical examination, her vitals are stable. She is afebrile. Her chest reveals scattered Velcro-type crackles. Cardiovascular system is in S1, S2. Abdomen is soft. There is 1+ pedal edema. IMPRESSION AT THIS TIME: 1. Lung fibrosis. 2. Congestive heart failure, in part due to cor pulmonale. 3. Atrial septal defect. Would continue budesonide, bronchodilators and IV steroids. Optimize fluid status. The patient is considering hospice at this time. MMODL / IJN: [id number] /
--- NOTE | 2019-10-04 22:05 | P.PN ---
Subjective This is a pleasant 69-year-old patient of Dr. Otto. Chronic stable medical conditions include coronary artery disease, hypertension, GERD, hypothyroidism, severe secondary pulmonary hypertension, bilateral pulmonary fibrosis, cor pulmonale, chronic kidney disease.on the last admission was diagnosed with , esophageal candidiasis. Patient in October of this year had a coronary artery bypass at [facility]. Patient was here in the hospital on August 25. Diagnosed with CHF exacerbation EF 30-35% and also found to have significant pu lmonary fibrosis. patient was recently in the hospital from September 19 through September 30 last admission-recent OBEY done. Mitral regurgitation and EF of 40%. Also found to have evidence of ASD and also found to have right to left shunt. Moderate degree of TR. Acute renal failure from diuresis. 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 EGD showed gastritis and possible Mariangel esophagitis. this time patient presents from ECF/rehab for worsening dyspnea and leg swelling and inability to walk with determination on her general medical condition. Patient was started on antibioitic and steroids. However as per discussions with the patient, family with Dr. Moss yesterday patient wants to be DO NOT RESUSCITATE and is willing to proceed with palliative care consult and hospice. is at bedside and is in agreement with her decision.Patient still dyspneic with bilateral crepitation and wheezing,she has some occasional abdominal pain and reflux symptoms. She denies nausea vomiting. hospice team met pt and she got accepted to hospice care, she is going to home with hospice but because of her home condition which will not be ready to receive her till tomorrow her discharge was held till tomorrow Objective - Vital Signs Vital signs: Vital Signs Temp 97.6 F 10/04/19 16:10 Pulse 72 10/04/19 19:40 Resp 18 10/04/19 16:10 BP 114/56 10/04/19 16:10 Pulse Ox 96 10/04/19 16:10 Intake & Output 10/04/19 10/04/19 10/05/19 06:59 18:59 06:59 Intake Total 314.083 Output Total 730 Balance -730 314.083 Weight 71.5 kg Intake: Intake, IV Titration 71.083 Amount Bumetanide 10 mg In 71.083 Dextrose 5% in Water 60 ml @ 0.5 MG/HR 5 mls/hr IV .Q20H [facility] Rx#: [id number] Oral 243 Output: Urine 730 Other: Voiding Method Bedpan # Voids 1 # Bowel Movements 1 - Exam -Gen: patient is a AAOx3, in resp distress CVS: S1-S2, RRR, no murmur -Lungs: B/L CTA, b/l wheezing and decrease air entery bilaterally Abdomen: soft, no distention, no tenderness, positive bowel sounds -Extremity: b/l leg edema neuro: no gross deficit, strength 4/5 all over , sensation is intact - Labs CBC & Chem 7: 10/04/19 06:05 10/04/19 06:05 Labs: Abnormal Lab Results - Last 24 Hours (Table) 10/04/19 10/04/19 10/04/19 Range/Units 06:05 06:05 06:05 RBC 2.34 L (3.80-5.40) m/uL Hgb 7.0 L (11.4-16.0) gm/dL Hct 21.7 L (34.0-46.0) % RDW 20.8 H (11.5-15.5) % Plt Count 60 L (150-450) k/uL Lymphocytes # (Manual) 0.38 L (1.0-4.8) k/uL Myelocytes # (Manual) 0.08 H (0) k/uL Nucleated RBCs 14 H (0-0) /100 WBC BUN 94 H (7-17) mg/dL Creatinine 1.60 H (0.52-1.04) mg/dL Glucose 190 H (74-99) mg/dL POC Glucose (mg/dL) (75-99) mg/dL Total Bilirubin 3.5 H (0.2-1.3) mg/dL Conjugated Bilirubin 0.8 H (0.0-0.3) mg/dL Delta Bilirubin 1.6 H (0.0-0.2) mg/dL AST 59 H (14-36) U/L ALT 43 H (4-34) U/L Alkaline Phosphatase 135 H (38-126) U/L Total Protein 5.2 L (6.3-8.2) g/dL Albumin 2.9 L (3.5-5.0) g/dL Procalcitonin 0.38 H (0.02-0.09) ng/mL 10/04/19 10/04/19 10/04/19 Range/Units 06:18 11:27 17:05 RBC (3.80-5.40) m/uL Hgb (11.4-16.0) gm/dL Hct (34.0-46.0) % RDW (11.5-15.5) % Plt Count (150-450) k/uL Lymphocytes # (Manual) (1.0-4.8) k/uL Myelocytes # (Manual) (0) k/uL Nucleated RBCs (0-0) /100 WBC BUN (7-17) mg/dL Creatinine (0.52-1.04) mg/dL Glucose (74-99) mg/dL POC Glucose (mg/dL) 235 H 227 H 254 H (75-99) mg/dL Total Bilirubin (0.2-1.3) mg/dL Conjugated Bilirubin (0.0-0.3) mg/dL Delta Bilirubin (0.0-0.2) mg/dL AST (14-36) U/L ALT (4-34) U/L Alkaline Phosphatase (38-126) U/L Total Protein (6.3-8.2) g/dL Albumin (3.5-5.0) g/dL Procalcitonin (0.02-0.09) ng/mL 10/04/19 Range/Units 20:29 RBC (3.80-5.40) m/uL Hgb (11.4-16.0) gm/dL Hct (34.0-46.0) % RDW (11.5-15.5) % Plt Count (150-450) k/uL Lymphocytes # (Manual) (1.0-4.8) k/uL Myelocytes # (Manual) (0) k/uL Nucleated RBCs (0-0) /100 WBC BUN (7-17) mg/dL Creatinine (0.52-1.04) mg/dL Glucose (74-99) mg/dL POC Glucose (mg/dL) 335 H (75-99) mg/dL Total Bilirubin (0.2-1.3) mg/dL Conjugated Bilirubin (0.0-0.3) mg/dL Delta Bilirubin (0.0-0.2) mg/dL AST (14-36) U/L ALT (4-34) U/L Alkaline Phosphatase (38-126) U/L Total Protein (6.3-8.2) g/dL Albumin (3.5-5.0) g/dL Procalcitonin (0.02-0.09) ng/mL Microbiology - Last 24 Hours (Table) 10/02/19 18:02 Blood Culture - Preliminary Blood No Growth after 48 hours Assessment and Plan Assessment: -Acute on chronic congestive heart failure exacerbation from systolic dysfunction EF 40-45% % from underlying coronary artery disease, decompensated, with resultant bilateral leg swelling - bilateral pulmonary fibrosis -acute on chronic cor pulmonale, from pulmonary fibrosis and CHF -acute exacerbation ofCOPD in an ex-smoker -history of Coronary artery disease with bypass in July 2018 -Mitral and tricuspid regurgitation nonrheumatic -secondary pulmonary hypertension due to CHF/COPD -Chronic hypoxic respiratory failure on home oxygen 2-3 L via nasal cannula -Elevated d-dimer -Elevated troponin -Mildly elevated liver enzymes -ASD and also found to have right to left shunt. -hyperthyroidism from over replacement, dose adjusted last admission -GERD -Essential hypertension -Hypothyroidism -Chronic kidney disease stage III from nephrosclerosis baseline creatinine 1.5 -Troponin leak secondary to CHF. No clinical evidence of acute coronary syndrome -Right renal atrophy -Acute gastritis-recent EGD -Mariangel esophagitis-recent EGD -anemia -Thrombocytopenia Plan: pt is accetepd to hospice care , pending discharge tomorrow c/w breathing treatment and pain management and steroid
[2019-10-05 01:28] LABS: Glucose,Whole Blood 280 mg/dL (75-99)
[2019-10-05 06:27] LABS: Glucose,Whole Blood 155 mg/dL (75-99)
[2019-10-05 06:30] LABS: Albumin 3.3 g/dL (3.5-5.0); Bilirubin, Conjugated 1.1 mg/dL (0.0-0.3); Bilirubin, Delta 1.4 mg/dL (0.0-0.2); Bilirubin,Unconjugated 1.1 mg/dL (0.0-1.1); Total Bilirubin 3.6 mg/dL (0.2-1.3); Total Protein 5.8 g/dL (6.3-8.2)
[2019-10-05] MEDS: LEVOTHYROXINE 100 MCG TAB PO SCH (06:30)
[2019-10-05] MEDS: PANTOPRAZOLE 40 MG TABLET PO SCH (06:30)
[2019-10-05] MEDS: INSULIN ASPART (NovoLOG) 100 UNIT/ML VIAL SQ SCH (06:31)
[2019-10-05 06:37] LABS: Anisocytosis Moderate; Basophils # (A) 0.1 k/uL (0-0.2); Basophils % (A) 1 %; Eosinophils % (A) 0 %; HCT 24.4 % (34.0-46.0); HGB 8.3 gm/dL (11.4-16.0); Lymphocytes # (A) 1.6 k/uL (1.0-4.8); Lymphocytes % (A) 13 %; MCH 31.6 pg (25.0-35.0); MCV 92.9 fL (80.0-100.0); Macrocytosis Slight; Mean Platelet Volume 10.3; Monocytes # (A) 0.3 k/uL (0-1.0); Monocytes % (A) 3 %; Neutrophils # (A) 9.7 k/uL (1.3-7.7); Neutrophils % (A) 82 %; RBC 2.63 m/uL (3.80-5.40); RDW 21.8 % (11.5-15.5)
[2019-10-05 06:39] LABS: Platelet Count 76 k/uL (150-450)
[2019-10-05 07:03] LABS: Large Platelets Present; Poikilocytosis (M) Present; Polychromasia Present
[2019-10-05 07:14] LABS: Band Neutrophils % 1 %; Neutrophils % (M) 89 %; Nucleated Red Blood Cells 20 /100 WBC (0-0); Total Cells Counted 200
[2019-10-05 07:15] LABS: Lymphocytes # (M) 0.98 k/uL (1.0-4.8); WBC 9.8 k/uL (3.8-10.6)
[2019-10-05] MEDS: IPRATROPIUM-ALBUTEROL 3 ML NEB INHALATION SCH ×2 (07:45→11:35)
[2019-10-05] MEDS: BUDESONIDE 0.5 MG/2 ML NEBU INHALATION SCH (07:46)
[2019-10-05] MEDS: FORMOTEROL FUMARATE 20 MCG/2 ML NEBU INHALATION SCH (07:46)
[2019-10-05] MEDS: methylPREDNISolone SOD SUCCI 40 MG/ML 1 ML VIAL IV SCH (08:44)
[2019-10-05] MEDS: DOXYCYCLINE 100 MG CAP PO SCH (08:44)
[2019-10-05] MEDS: ALLOPURINOL 100 MG TAB PO SCH (08:44)
[2019-10-05] MEDS: ATORVASTATIN 40 MG TAB PO SCH (08:44)
[2019-10-05] MEDS: ASPIRIN 81 MG PO SCH (08:45)
[2019-10-05] MEDS: [UNRECOGNIZED DRUG - OTHER] PO SCH (08:45)
[2019-10-05] MEDS: MIDODRINE 5 MG TAB PO SCH (08:45)
[2019-10-05] MEDS: SPIRONOLACTONE 25 MG TAB PO SCH (08:45)
[2019-10-05] MEDS: METOPROLOL TARTRATE 25 MG TAB PO SCH (08:45)
[2019-10-05] MEDS: FOS PO SCH (08:45)
[2019-10-05] MEDS: FLUCONAZOLE 100 MG TAB PO SCH (08:45)
[2019-10-05 08:55] VITALS: BP 125/59; PULSE 85; RESP 16; TEMP 96.5
[2019-10-05] MEDS ORDERED: CALCITRIOL 0.25 MCG CAP PO SCH (09:01)
--- NOTE | 2019-10-05 10:55 | P.DS ---
Providers Date of admission: 10/02/19 20:46 Attending physician: oP Moss Consults: 10/02/19 20:44 Consult Physician Routine Consulting Provider: Jc Washington Consult Reason/Comments: hypoxia Do you want consulting provider notified?: Yes 10/02/19 22:15 Consult Physician Routine Consulting Provider: Gato Galindo Consult Reason/Comments: dyspnea Do you want consulting provider notified?: Yes Primary care physician: Reji Otto Hospital Course: diagnoses: -Acute on chronic congestive heart failure exacerbation from systolic dysfunction EF 40-45% % from underlying coronary artery disease, decompensated, with resultant bilateral leg swelling - bilateral pulmonary fibrosis -acute on chronic cor pulmonale, from pulmonary fibrosis and CHF -acute exacerbation of COPD in an ex-smoker -history of Coronary artery disease with bypass in July 2018 -Mitral and tricuspid regurgitation non-rheumatic -secondary pulmonary hypertension due to CHF/COPD -Chronic hypoxic respiratory failure on home oxygen 2-3 L via nasal cannula -Elevated d-dimer -Elevated troponin -Mildly elevated liver enzymes -ASD and also found to have right to left shunt. -hyperthyroidism from over replacement, dose adjusted last admission -GERD -Essential hypertension -Hypothyroidism -Chronic kidney disease stage III from nephrosclerosis baseline creatinine 1.5 -Troponin leak secondary to CHF. No clinical evidence of acute coronary syndrome -Right renal atrophy -Acute gastritis-recent EGD -Mariangel esophagitis-recent EGD -anemia -Thrombocytopenia -hyperglycemia secondary to steroid effect, expected to improve with tapering of steroids hospital course: This is a pleasant 69-year-old patient of Dr. Otto. Chronic stable medical conditions include coronary artery disease, hypertension, GERD, hypothyroidism, severe secondary pulmonary hypertension, bilateral pulmonary fibrosis, cor pulmonale, chronic kidney disease.on the last admission was diagnosed with , esophageal candidiasis. Patient in October of this year had a coronary artery bypass at [facility]. Patient was here in the hospital on August 25. Diagnosed with CHF exacerbation EF 30-35% and also found to have significant pul monary fibrosis. patient was recently in the hospital from September 19 through September 30 last admission-recent OBEY done. Mitral regurgitation and EF of 40%. Also found to have evidence of ASD and also found to have right to left shunt. Moderate degree of TR. Acute renal failure from diuresis. 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 EGD showed gastritis and possible Mariangel esophagitis. this time patient presents from ECF/rehab for worsening dyspnea and leg swelling and inability to walk with determination on her general medical condition. Patient was started on antibiotics and steroids. However as per discussions with the patient, family with Dr. Moss yesterday patient wants to be DO NOT RESUSCITATE and is willing to proceed with palliative care consult was possible hospice. is at bedside and is in agreement with her decision.Patient still dyspneic with bilateral crepitation and wheezing,she has some occasional abdominal pain and reflux symptoms. She denies nausea vomiting. Problems and management plan were discussed with the patient and he verbalized understanding and acceptance Patient was found stable and can be discharged home with hospice. Discussed with the hospice team today and they are going to take over the orders and they have all the scrips available for pt -Gen: patient is a AAOx3, in [id number] respiratory distress CVS: S1-S2, RRR, no murmur -Lungs: B/L CTA, bilateral expiratory wheezing Abdomen: soft, no distention, no tenderness, positive bowel sounds -Extremity: bilateral leg edema, no induration Time spent more than 35 minutes Patient Condition at Discharge: Fair Plan - Discharge Summary Discharge Rx Participant: No New Discharge Prescriptions: New methylPREDNISolone [Medrol Dose Pack] See Taper PO DIRECTED #21 pack MORPHINE ORAL REX CONC 20mg/mL [Roxanol Oral Soln Conc 20MG/ML] 20 mg PO Q4HR PRN 3 Days #18 ml PRN Reason: Pain Control Scopolamine [Scopolamine 1 MG/72 HR patch] 1 patch TRANSDERM Q72H #6 patch Ondansetron [Zofran] 4 mg PO Q8HR PRN #20 tab PRN Reason: Nausea And Vomiting Continue Atorvastatin [Lipitor] 40 mg PO DAILY@0800 Metoprolol Tartrate [Lopressor] 25 mg PO BID@08,1999 Formoterol Fumarate [Perforomist] 20 mcg INHALATION RT-BID@0800,1999 Budesonide [Pulmicort] 0.5 mg INHALATION RT-BID@0800,1600 Temazepam 30 mg PO HS@2000 Levothyroxine Sodium [Levoxyl] 100 mcg PO DAILY@0600 Calcitriol [Rocaltrol] 0.25 mcg PO TUSA Allopurinol [Zyloprim] 100 mg PO BID@08,1999 Dicyclomine [Bentyl] 10 mg PO Q6HR PRN cap PRN Reason: abdominal cramping Furosemide [Lasix] 40 mg PO BID@0900,1600 tab predniSONE 40 mg PO DAILY tab Aspirin 81 mg PO DAILY@0800 Doxycycline [Vibramycin] 100 mg PO BID@0800,1600 Fluconazole [Diflucan] 100 mg PO DAILY@0800 Midodrine [ProAmatine] 5 mg PO TID@0800,1200,1800 Pantoprazole [Protonix] 40 mg PO BID@0600,1800 S.boulardii/B.coagulans/Fos [Diff-Stat 471 mg Capsule] 942 mg PO BID@799,1999 Spironolactone [Aldactone] 12.5 mg PO DAILY@0800 Ipratropium-Albuterol Nebulize [Duoneb 0.5 mg-3 mg/3 ml Soln] 3 ml INHALATION RT-QID Discharge Medication List Atorvastatin [Lipitor] 40 mg PO DAILY@0800 09/22/18 [History] Budesonide [Pulmicort] 0.5 mg INHALATION RT-BID@0800,1600 05/20/19 [History] Formoterol Fumarate [Perforomist] 20 mcg INHALATION RT-BID@799,199905/20/19 [History] Metoprolol Tartrate [Lopressor] 25 mg PO BID@08,199905/20/19 [History] Temazepam 30 mg PO HS@199905/20/19 [History] Allopurinol [Zyloprim] 100 mg PO BID@08,199908/25/19 [History] Calcitriol [Rocaltrol] 0.25 mcg PO TUSA 08/25/19 [History] Levothyroxine Sodium [Levoxyl] 100 mcg PO DAILY@0600 08/25/19 [History] Dicyclomine [Bentyl] 10 mg PO Q6HR PRN cap 09/30/19 [Rx] Furosemide [Lasix] 40 mg PO BID@0900,1600 tab 09/30/19 [Rx] predniSONE 40 mg PO DAILY tab 09/30/19 [Rx] Aspirin 81 mg PO DAILY@0800 10/02/19 [History] Doxycycline [Vibramycin] 100 mg PO BID@0800,1600 10/02/19 [History] Fluconazole [Diflucan] 100 mg PO DAILY@0800 10/02/19 [History] Ipratropium-Albuterol Nebulize [Duoneb 0.5 mg-3 mg/3 ml Soln] 3 ml INHALATION RT-QID 10/02/19 [History] Midodrine [ProAmatine] 5 mg PO TID@0800,1200,1800 10/02/19 [History] Pantoprazole [Protonix] 40 mg PO BID@0600,1800 10/02/19 [History] S.boulardii/B.coagulans/Fos [Diff-Stat 471 mg Capsule] 942 mg PO BID@0800,2000 10/02/19 [History] Spironolactone [Aldactone] 12.5 mg PO DAILY@0800 10/02/19 [History] MORPHINE ORAL REX CONC 20mg/mL [Roxanol Oral Soln Conc 20MG/ML] 20 mg PO Q4HR PRN 3 Days #18 ml 10/04/19 [Rx] Ondansetron [Zofran] 4 mg PO Q8HR PRN #20 tab 10/04/19 [Rx] Scopolamine [Scopolamine 1 MG/72 HR patch] 1 patch TRANSDERM Q72H #6 patch 10/04/19 [Rx] methylPREDNISolone [Medrol Dose Pack] See Taper PO DIRECTED #21 pack 10/04/19 [Rx] Follow up Appointment(s)/Referral(s): Reji Otto DO [Primary Care Provider] - 1-2 days Activity/Diet/Wound Care/Special Instructions: [facility]
--- NOTE | 2019-10-05 14:38 | PN ---
PROGRESS NOTE She was seen again on 10/05/2019. She continues to have some shortness of breath and hospice is being set up for her. PHYSICAL EXAMINATION: On physical examination, her vitals are stable. She is afebrile. Her chest reveals scattered crackles. Cardiovascular system reveals an S1, S2. Abdomen is soft. There is 1+ to 2+ pedal edema. IMPRESSION AT THIS TIME: 1. Lung fibrosis. 2. Pulmonary hypertension. 3. Congestive heart failure. 4. Large atrial septal defect. The patient will be following with hospice. I would like to thank you for allowing us to care for her. MMODL / IJN: [id number] /
== END 2019-10-05 11:53 | disposition hospice, home (50) | DRG 291 ==
LOC: EC 16:06 → 3SCARD 20:46
PROVIDERS: ADMIT Hospitalist; ATTEND Hospitalist
DX: I13.0 Hypertensive heart and chronic kidney disease with heart failure and stage 1 through stage 4 chronic kidney disease, or unspecified chronic kidney disease (principal); I26.09 Other pulmonary embolism with acute cor pulmonale; I50.23 Acute on chronic systolic (congestive) heart failure; B37.81 Candidal esophagitis; D61.818 Other pancytopenia; J44.1 Chronic obstructive pulmonary disease with (acute) exacerbation; J96.11 Chronic respiratory failure with hypoxia; N17.9 Acute kidney failure, unspecified; Q21.1 Atrial septal defect; E03.9 Hypothyroidism, unspecified; E05.90 Thyrotoxicosis, unspecified without thyrotoxic crisis or storm; E78.5 Hyperlipidemia, unspecified; F32.9 Major depressive disorder, single episode, unspecified; F41.9 Anxiety disorder, unspecified; I08.1 Rheumatic disorders of both mitral and tricuspid valves; I25.10 Atherosclerotic heart disease of native coronary artery without angina pectoris; I25.2 Old myocardial infarction; I25.5 Ischemic cardiomyopathy; I27.29 Other secondary pulmonary hypertension; J84.10 Pulmonary fibrosis, unspecified; J84.89 Other specified interstitial pulmonary diseases; K21.9 Gastro-esophageal reflux disease without esophagitis; K29.00 Acute gastritis without bleeding; N18.3 Chronic kidney disease, stage 3 (moderate); T38.0X5A Adverse effect of glucocorticoids and synthetic analogues, initial encounter; Z51.5 Encounter for palliative care; Z66 Do not resuscitate; Z77.090 Contact with and (suspected) exposure to asbestos; Z79.82 Long term (current) use of aspirin; Z79.890 Hormone replacement therapy; Z79.899 Other long term (current) drug therapy; Z82.49 Family history of ischemic heart disease and other diseases of the circulatory system; Z82.5 Family history of asthma and other chronic lower respiratory diseases; Z86.73 Personal history of transient ischemic attack (TIA), and cerebral infarction without residual deficits; Z87.891 Personal history of nicotine dependence; Z90.710 Acquired absence of both cervix and uterus; Z95.810 Presence of automatic (implantable) cardiac defibrillator; Z95.1 Presence of aortocoronary bypass graft; Z96.649 Presence of unspecified artificial hip joint; Z96.653 Presence of artificial knee joint, bilateral; Z99.81 Dependence on supplemental oxygen; Z88.5 Allergy status to narcotic agent; Z88.8 Allergy status to other drugs, medicaments and biological substances; R74.8 Abnormal levels of other serum enzymes
CPT/HCPCS: 36415; 71046; 78582; 80048; 80053; 80076; 82550; 83735; 83880; 84145; 84484; 85025; 85379; 85610; 85730; 87040; 93005; 93970; 94640; 94760; 96361; 96365; 96366; 96375; 96376; 99291